=== PATIENT | female | born 1940 | race Hispanic/Latino ===

== ENCOUNTER 2019-03-14 07:41 | Day surgery (SDC) | payer OTHER ==
--- NOTE | 2019-03-13 16:41 | RAD REPORT ---
EXAM DESCRIPTION: Brayden Rivas (2 Views)03/13/2019 4:30 pm CLINICAL HISTORY: Hypertension preop for hand surgery COMPARISON: 2016 FINDINGS: The lungs appear clear of acute infiltrate. The heart is normal size IMPRESSION: No acute abnormalities displayed
[2019-03-13 17:13] LABS: Absolute Lymphocytes (CBC) 2.4 K/uL (0.7-4.9); Absolute Monocytes 0.6 K/uL (0.1-1.3); Absolute Neutrophil 8.1 K/uL (1.8-8.0); Basophils % 1.2 % (0-1.3); Eosinophils % 0.8 % (0-4.4); Hematocrit 36.8 % (36.0-45.0); MPV 8.3 fL (7.6-11.3); Monocytes % 5.5 % (3.3-12.3); RBC Red Blood Cell Count 3.98 M/uL (3.86-4.86)
[2019-03-13 17:14] LABS: Urine Appearance CLEAR; Urine Bilirubin NEGATIVE (NEG); Urine Blood NEGATIVE (NEG); Urine Color YELLOW; Urine Glucose NEGATIVE (NEG); Urine Protein NEGATIVE (NEG); Urine Specific Gravity 1.015 (1.005-1.030); Urine Urobilinogen 0.2 mg/dL (0.2-1.0); Urine pH 5.5 (5.0-7.0)
[2019-03-13 17:16] LABS: Urine Microscopic Reflex NO UMIC
[2019-03-13 17:27] LABS: Potassium 4.4 mmol/L (3.5-5.1)
--- OUTSIDE RECORDS SUMMARY | 2019-03-14 07:44 | XMS REPORT | Clinical Summary ---
:1940 Author Organization [facility] Address [address] [place] [address] Care Team Providers Name Role Phone Kirk Garrido MD Primary Care Provider Allergies Active Allergy Reactions Severity Noted Date Comments Codeine Hives 04/14/2017 Iodine And Iodide Containing Products Hives 04/14/2017 Pantoprazole 04/14/2017 Medications Medication Sig Dispensed Refills Start Date End Date Status losartan (COZAAR) 50 0 04/15/2017 Active MG tablet metFORMIN XR 0 04/16/2017 Active (GLUCOPHAGE-XR) 500 mg 24 hr tablet predniSONE 0 05/08/2017 Active (DELTASONE) 5 mg tablet gabapentin 0 05/15/2017 Active (NEURONTIN) 600 mg tablet fentaNYL (DURAGESIC) 0 05/04/2017 Active 50 mcg/hr escitalopram 0 05/15/2017 Active (LEXAPRO) 5 MG tablet VOLTAREN 1 % gel 0 04/27/2017 Active ALPRAZolam (XANAX) 0 04/20/2017 Active 0.5 MG tablet traMADol (ULTRAM) 50 0 04/24/2017 Active mg tablet metoprolol tartrate Take 50 mg by 0 Active (LOPRESSOR) 50 mg mouth 2 (two) tablet times a day. levothyroxine Take 100 mcg by 0 Active (SYNTHROID, LEVOXYL) mouth daily. 100 mcg tablet allopurinol Take 100 mg by 0 Active (ZYLOPRIM) 100 MG mouth 2 (two) tablet times a day. fluticasone Apply topically 0 Active (CUTIVATE) 0.005 % 2 (two) times a ointment day. montelukast Take 10 mg by 0 Active (SINGULAIR) 10 mg mouth nightly. tablet teriparatide (FORTEO) Inject 0.08 mL 2.4 mL 11 07/05/2017 07/05/2018 20 mcg/dose - 600 (20 mcg total) mcg/2.4 mL injection under the skin daily. Active Problems Problem Noted Date Other spondylosis with radiculopathy, lumbar region 05/15/2017 Lumbar pseudoarthrosis 05/15/2017 Adjacent segment disease with kyphosis 05/15/2017 Osteoporosis 05/15/2017 Scoliosis 05/15/2017 Family History Relation Name Status Comments Father Mother Social History Tobacco Use Types Packs/Day Years Used Date Never Smoker Smokeless Tobacco: Never Used Alcohol Use Drinks/Week oz/Week Comments No Sex Assigned at Date Recorded Not on file Job Start Date Occupation Industry Not on file Not on file Not on file Travel History Travel Start Travel End No recent travel history available. Last Filed Vital Signs Not on file Plan of Treatment Health Maintenance Due Date Last Done Comments SHINGLES VACCINES (#1) 1992 65+ PNEUMOCOCCAL VACCINE (1 of 2 - PCV13) 2007 PNEUMOCOCCAL POLYSACCHARIDE VACCINE AGE 65 AND OVER 2007 INFLUENZA VACCINE 05/09/2019 Results Not on fileafter 03/13/2018 Insurance Payer Benefit Plan / Subscriber ID Effective Phone Address Type Group Dates MEDICARE MEDICARE PART xxxxxxxxxx 2007-[place], [place] Medicare A AND B nt MUTUAL OF MUTUAL OF xxxxxx-xx 2016-[facility] [employer] [place] nt Advance Directives Patient has advance care planning documents on file. For more information, please contact:[place] [address]
[2019-03-14] MEDS ORDERED: NA CHLORIDE 0.9% 1,000 ML ONE (08:07)
[2019-03-14] MEDS ORDERED: CEFAZOLIN/SWI 1gm 0 GM/0 ML SYR ONE (08:23)
[2019-03-14] MEDS ORDERED: PROPOFOL 200 MG/20 ML VIAL IV ONE (08:52)
[2019-03-14] MEDS ORDERED: ONDANSETRON 4 MG/2 ML VIAL ONE (08:53)
[2019-03-14] MEDS ORDERED: DEXAMETHASONE 4 MG/ML VIAL ONE (08:53)
[2019-03-14] MEDS ORDERED: FENTANYL CITR 100 MCG/2 ML ONE (08:53)
[2019-03-14] MEDS ORDERED: LIDOCAINE 2% MPF 5 ML VIAL ONE (08:53)
[2019-03-14] MEDS ORDERED: MIDAZOLAM HCL 2 MG/2 ML INJ ONE (08:53)
[2019-03-14] MEDS ORDERED: CLINDAMYCIN 900MG/D5W 900 MG/50 ML IVPB IV ONE (08:59)
[2019-03-14] MEDS ORDERED: NS 0.9% VIAL 10 ML ONE (09:06)
[2019-03-14] MEDS ORDERED: BACITRACIN 50000 UNIT VIAL ONE (09:06)
[2019-03-14] MEDS ORDERED: EPHEDRINE SULF 50 MG/ML VIAL ONE (09:31)
[2019-03-14] MEDS ORDERED: BUPIVACAINE 0.5% PF 10 ML VIAL ONE (09:38)
--- NOTE | 2019-03-14 11:12 | EKG ---
Test Date: 2019-03-13 Test Time: 16:08:11 Military Science Instructor: MERYL MEASUREMENT RESULTS: Intervals: Rate: 59 MS: 148 QRSD: 76 QT: 426 QTc: 421 [place]: P: 58 MS: 148 QRS: -22 T: 41 INTERPRETIVE STATEMENTS: Sinus bradycardia Otherwise normal ECG Compared to ECG 10/13/2015 13:28:13 Sinus rhythm no longer present Left-axis deviation no longer present ST (T wave) deviation no longer present Electronically Signed On 03-14-19 11:09:51 CDT by Rolando Woody
[2019-03-14 13:21] VITALS: BP 108/40; O2SAT 97
[2019-03-14 13:24] VITALS: TEMP 98.7
--- NOTE | 2019-03-15 08:37 | OP ---
Surgeon: Raul Harrison MD Video Network Engineer: George. Preoperative Diagnosis: Osteomyelitis of the right middle finger. Postoperative Diagnosis: Osteomyelitis of the right middle finger. Procedures Performed: Debridement of skin, subcutaneous tissue, bone, incision and drainage abscess. Anesthesia: General. Procedure In Detail: After satisfactory induction of general anesthesia, the right hand was prepped with ChloraPrep. Dry sterile drapes were applied in the usual manner. The arm was elevated and exsa nguinated with an Esmarch. Tourniquet was inflated to 250 mmHg. Hand placed on a [place] table. A periosteal elevator was used to remove the nail plate, and at this time yellow creamy pus appeared, b oth radial and ulnar sides of the nail bed. The transverse dissection was made down to bone. The joan ne was soft. A more proximal transverse dissection was made to file bone. This involved approximate ly the proximal third of the nail bed. Dissected proceeded down and then tissue was excised. Cultur es were obtained of the pause, and a curette was used as well as scalpel to remove bone fragments anastasia sing from the osteomyelitis. The wound was jet lavaged, irrigated with saline solution. Tourniquet released. Electrocautery was used for hemostasis. Wound packed with Nu Gauze, 2 inch Herminio. The pa tient tolerated the procedure well and returned to Recovery. JESSIE/DEVEN Voice ID: [id number] Report ID: [id number]
== END 2019-03-14 11:34 | disposition home or self-care (01) ==
LOC: OR 07:41
PROVIDERS: ATTEND Specialist
PROC: 0PBT0ZZ Excision of Right Finger Phalanx, Open Approach (ICD-10-PCS; principal; 2019-03-14 09:00)
DX: M86.641 Other chronic osteomyelitis, right hand (principal); M86.141 Other acute osteomyelitis, right hand; L02.511 Cutaneous abscess of right hand; L03.011 Cellulitis of right finger; I10 Essential (primary) hypertension
CPT/HCPCS: 11044; 93005; 87070; 85025; 80048; 36415; 87205; 88312; 82962 ×2; 88304; 87075; 81003; 71046; J2704; J2250; J3010; J7030; J2405; 88305; J0690

== ENCOUNTER 2019-03-28 07:39 | Day surgery (SDC) | payer OTHER ==
[2019-03-27 14:39] LABS: Urine Appearance CLEAR; Urine Bilirubin NEGATIVE (NEG); Urine Blood NEGATIVE (NEG); Urine Color YELLOW; Urine Glucose NEGATIVE (NEG); Urine Protein NEGATIVE (NEG); Urine Specific Gravity 1.015 (1.005-1.030); Urine Urobilinogen 0.2 mg/dL (0.2-1.0); Urine pH 5.5 (5.0-7.0)
[2019-03-27 14:40] LABS: Urine Microscopic Reflex NO UMIC
[2019-03-27 14:52] LABS: Absolute Lymphocytes (CBC) 1.6 K/uL (0.7-4.9); Basophils % 0.7 % (0-1.3); Eosinophils % 8.6 % (0-4.4); Hematocrit 35.5 % (36.0-45.0); Lymphocytes % 14.7 % (15.3-44.8); MPV 7.8 fL (7.6-11.3); Monocytes % 3.7 % (3.3-12.3); RBC Red Blood Cell Count 3.79 M/uL (3.86-4.86)
--- OUTSIDE RECORDS SUMMARY | 2019-03-28 07:42 | XMS REPORT | Clinical Summary ---
:1940 Author Organization [facility] Address [address] [place] [address] Care Team Providers Name Role Phone Kirk [...] Health Maintenance Due Date Last Done Comments COLONOSCOPY SCREENING 1992 SHINGLES VACCINES (#1) 1992 65+ PNEUMOCOCCAL VACCINE (1 of 2 - PCV13) 2007 INFLUENZA VACCINE 05/09/2019 Results Not on fileafter 03/27/2018 Insurance Payer Benefit Plan / Subscriber ID Effective Phone Address Type Group Dates MEDICARE MEDICARE PART xxxxxxxxxx 2007-[place], [place] Medicare A AND B nt MUTUAL OF MUTUAL OF xxxxxx-xx 2016-[facility] [place] Advance Directives Patient has advance care planning documents on file. For more information, please contact:[place] [address]
[2019-03-28] MEDS ORDERED: CEFAZOLIN/SWI 1gm 1 GM/10 ML SYR ONE (08:10)
[2019-03-28] MEDS ORDERED: NA CHLORIDE 0.9% 1,000 ML ONE (08:10)
[2019-03-28] MEDS ORDERED: ROCURONIUM 50 MG/5 ML VIAL IV ONE (08:21)
[2019-03-28] MEDS ORDERED: LIDOCAINE 2% MPF 5 ML VIAL ONE (08:21)
[2019-03-28] MEDS ORDERED: FENTANYL CITR 100 MCG/2 ML ONE (08:21)
[2019-03-28] MEDS ORDERED: ONDANSETRON 4 MG/2 ML VIAL ONE (08:21)
[2019-03-28] MEDS ORDERED: PROPOFOL 200 MG/20 ML VIAL IV ONE (08:21)
[2019-03-28] MEDS ORDERED: MIDAZOLAM HCL 2 MG/2 ML INJ ONE (08:21)
[2019-03-28] MEDS ORDERED: EPHEDRINE SULF 50 MG/ML VIAL ONE (09:21)
[2019-03-28] MEDS ORDERED: NS 0.9% VIAL 10 ML ONE (09:35)
[2019-03-28] MEDS ORDERED: BACITRACIN 50000 UNIT VIAL ONE (09:36)
[2019-03-28] MEDS ORDERED: BUPIVACAINE 0.5% PF 10 ML VIAL ONE (09:43)
[2019-03-28] MEDS: MEPERIDINE HCL 50 MG/ML AMP ONE ×4 (09:55→10:10)
[2019-03-28] MEDS: HYDROMORPHONE HCL 1 MG/ML INJ ONE ×2 (10:15→10:20)
[2019-03-28 11:14] VITALS: BP 95/33; TEMP 98.1; O2SAT 94
--- NOTE | 2019-03-29 08:00 | OP ---
Surgeon: Raul Harrison MD Typing Secretary: George. Preoperative Diagnosis: Osteomyelitis, right little middle finger, distal phalanx. Postoperative Diagnosis: Osteomyelitis, right little middle finger, distal phalanx. Procedure: Amputation of right little finger at the distal portion of the middle phalanx with flap closure. Anesthesia: General. Procedure In Detail: After satisfactory induction of general anesthesia, the right hand was prepped with phisohex. Dry sterile drapes were applied in the usual manner. The arm was elevated, exsanguinated with an Esmarch. Tourniquet inflated to 250 mmHg. Hand placed on [place] table. A transverse incision was made with a scalpel at the DIP level, and then the volar dissection was performed. The finger was at the joint. The flexor tendon was grasped with a hemostat, put on traction and cut and allowed to retract. The wound was then irrigated with bacitracin, normal saline mixture. Tourniquet released. Electrocautery was used for hemostasis. Flaps were advanced and closed with 4-0 Prolene simple sutures, or vertical mattress, dressed with Xeroform, 2 inch Herminio. The patient tolerated the procedure well and returned to Recovery. JSESIE/DEVEN Voice ID: [id number] Report ID: [id number] BRIDGETTE
== END 2019-03-28 11:42 | disposition home or self-care (01) ==
LOC: OR 07:39
PROVIDERS: ATTEND Specialist
PROC: 0X6N0Z2 Detachment at Right Index Finger, Mid, Open Approach (ICD-10-PCS; principal; 2019-03-28 09:00)
DX: E11.69 Type 2 diabetes mellitus with other specified complication (principal); M86.141 Other acute osteomyelitis, right hand; L02.511 Cutaneous abscess of right hand; L03.011 Cellulitis of right finger; I10 Essential (primary) hypertension
CPT/HCPCS: 26952; 85025; 80048; 36415; 82962 ×2; 88304; 88311; 81003; J2704; J2250; J3010; J2175; J1170; J0690; J7030; J2405

== ENCOUNTER 2019-07-22 10:56 | Emergency (ER) | payer OTHER ==
[2019-07-22] MEDS ORDERED: DERMABOND SKIN ADHESIVE TOP ONE (11:51)
--- NOTE | 2019-07-22 12:30 | RAD REPORT ---
EXAM DESCRIPTION: CT - CTHCSPWOC - 07/22/2019 12:18 pm CLINICAL HISTORY: Trauma, head and neck injury. trauma, fall left zygoma ttp COMPARISON: CT HEAD CSPINE MPR WO CONTRAST dated 08/07/2015; CT HEAD CSPINE MPR WO CONTRAST dated TECHNIQUE: Axial 5 mm thick images of the head were obtained. Axial 2 mm thick images of the cervical spine were obtained with sagittal and coronal reconstruction images generated and reviewed. All CT scans are performed using dose optimization technique as appropriate and may include automated exposure control or mA/KV adjustment according to patient size. FINDINGS: CT HEAD WITHOUT CONTRAST: No acute hemorrhage, hydrocephalus or extra-axial collection is identified.Moderate brain atrophy.No areas of brain edema or midline shift. The paranasal sinuses and mastoids are clear.The calvarium is intact. CT CERVICAL SPINE WITHOUT CONTRAST: No fracture or subluxation.Mild cervical degenerative changes.No prevertebral soft tissues swelling i s identified. IMPRESSION: No acute intracranial or cervical spine findings.
--- NOTE | 2019-07-22 12:32 | RAD REPORT ---
EXAM DESCRIPTION: CT - CTFB CLINICAL HISTORY: PAIN Fall, trauma, facial pain and swelling. COMPARISON: No comparisons TECHNIQUE: Axial 2 mm thick images of the face were obtained with sagittal and coronal reconstructio n images. All CT scans are performed using dose optimization technique as appropriate and may include automated exposure control or mA/KV adjustment according to patient size. FINDINGS: No acute facial bone fracture is seen.Mild soft tissue swelling is seen along the left zyg andi.The mandible is intact. The globes and orbital contents are grossly unremarkable.The paranasal sinuses and mastoids are clear . IMPRESSION: Negative for facial bone fracture.
--- NOTE | 2019-07-22 13:46 | EDPHYS ---
Physician Documentation [facility] Name: Corrie Nunez Age: 79 yrs Sex: Female : 1940 Arrival Date: 07/22/2019 Time: 10:58 Bed 13 Private MD: Christofer Santa ED Physician Miguelina Omer HPI: 07/22 12:08 This 79 yrs old Female presents to ER via Wheelchair with complaints of Fall ma2 Injury. 12:08 Details of fall: The patient fell from an upright position. Onset: The symptoms/episode ma2 began/occurred suddenly, 1 hour(s) ago. Severity of symptoms: At their worst the symptoms were mild, in the emergency department the symptoms are unchanged. The patient has experienced similar episodes in the past. tripped, and fell hit chin and upper lip, has abrasion of lip, and chin, no loc vomiting no other symptoms . Historical: - Allergies: 11:14 Iodine; bp 11:14 Morphine; bp - PMHx: 11:14 Lupus; PSORIATIC ARTHRITIS; bp - Immunization history:: Adult Immunizations up to date. - Social history:: Smoking status: Patient/guardian denies using tobacco, Patient uses Patient/guardian denies using alcohol, street drugs, The patient lives with family. - Ebola Screening: : No symptoms or risks identified at this time. - Family history:: not pertinent. ROS: 12:08 Constitutional: Negative for fever, chills, and weight loss. ma2 12:08 All other systems are negative. Exam: 12:08 Constitutional: This is a well developed, well nourished patient who is awake, alert, ma2 and in no acute distress. Head/Face: Normocephalic, atraumatic. Eyes: Pupils equal round and reactive to light, extra-ocular motions intact. Lids and lashes normal. Conjunctiva and sclera are non-icteric and not injected. Cornea within normal limits. Periorbital areas with no swelling, redness, or edema. ENT: laceration to upper lip, not thrugh and through, has abrasion to chin as well. otherwise Nares patent. No nasal discharge, no septal abnormalities noted. Tympanic membranes are normal and external auditory canals are clear. Oropharynx with no redness, swelling, or masses, exudates, or evidence of obstruction, uvula midline. Mucous membranes moist. Neck: Trachea midline, no thyromegaly or masses palpated, and no cervical lymphadenopathy. Supple, full range of motion without nuchal rigidity, or vertebral point tenderness. No Meningismus. Chest/axilla: Normal chest wall appearance and motion. Nontender with no deformity. No lesions are appreciated. Cardiovascular: Regular rate and rhythm with a normal S1 and S2. No gallops, murmurs, or rubs. Normal PMI, no JVD. No pulse deficits. Respiratory: Lungs have equal breath sounds bilaterally, clear to auscultation and percussion. No rales, rhonchi or wheezes noted. No increased work of breathing, no retractions or nasal flaring. Abdomen/GI: Soft, non-tender, with normal bowel sounds. No distension or tympany. No guarding or rebound. No evidence of tenderness throughout. Female : Normal external genitalia. Skin: Warm, dry with normal turgor. Normal color with no rashes, no lesions, and no evidence of cellulitis. MS/ Extremity: Pulses equal, no cyanosis. Neurovascular intact. Full, normal range of motion. Vital Signs: 11:14 BP 124 / 66; Pulse 52; Resp 16; Temp 97.8; Pulse Ox 96% ; Weight 70.31 kg; bp 12:32 BP 107 / 52; Pulse 53; Pulse Ox 96% on R/A; sv 13:40 BP 110 / 45; Pulse 56; Resp 16; Pulse Ox 96% ; sv Laceration: 12:08 Wound Repair of 2cm ( 0.8in ) subcutaneous laceration to mouth and neck. Linear ma2 shaped.. Distal neuro/vascular/tendon intact. Wound prep: Simple cleansing, Moderate cleansing with betadine by me. Skin closed with 2 1-0 Adhesive skin closure using Dermabond. Dressed with Bacitracin. Patient tolerated well. MDM: 11:16 Patient medically screened. ma2 12:08 Differential diagnosis: abrasion, closed head injury, contusion, fracture. ma2 13:20 Data reviewed: vital signs, nurses notes. Counseling: I had a detailed discussion with ma2 the patient and/or guardian regarding: the historical points, exam findings, and any diagnostic results supporting the discharge/admit diagnosis, the presence of at least one elevated blood pressure reading (>120/80) during this emergency department visit, the need for outpatient follow up. 07/22 12:02 Order name: CT Head C Spine; Complete Time: 13:04 ma2 07/22 12:02 Order name: EKG - Nurse/Tech; Complete Time: 12:39 ma2 07/22 12:06 Order name: Facial Bones W/ Mpr; Complete Time: 13:04 EDMS 07/22 12:13 Order name: EKG; Complete Time: 12:13 sv Administered Medications: No medications were administered Disposition: 07/22/19 13:45 Discharged to Home. Impression: Laceration without foreign body of other part of head. - Condition is Stable. - Discharge Instructions: Laceration Care, Adult. - Medication Reconciliation Form, Thank You Letter, Antibiotic Education, Prescription Opioid Use form. - Follow up: Private Physician; When: Tomorrow; Reason: Continuance of care. Signatures: Dispatcher [employer] [facility] Etta Farmer RN RN sv Peltier, Brian, RN RN bp Alzahri, Mohammad, MD MD ma2 Corrections: (The following items were deleted from the chart) 12:06 12:02 Maxillofacial W/Wo+CT.RAD.BRZ ordered. [facility] 14:06 13:45 07/22/2019 13:45 Discharged to Home. Impression: Laceration without foreign body sv of other part of head. Condition is Stable. Forms are Medication Reconciliation Form, Thank You Letter, Antibiotic Education, Prescription Opioid Use. Follow up: Private Physician; When: Tomorrow; Reason: Continuance of care. ma2
--- NOTE | 2019-07-22 13:46 | ER ---
Nurse's Notes [facility] Name: Corrie Nunez Age: 79 yrs Sex: Female : 1940 Arrival Date: 07/22/2019 Time: 10:58 Bed 13 Private MD: Christofer Santa Diagnosis: Laceration without foreign body of other part of head Presentation: 07/22 11:12 Presenting complaint: Patient states: FALL FROM STANDING \R\0900. Care prior to arrival: bp None. Mechanism of Injury: Fall from standing position. Trauma event details: Injury occurred in the [facility], Injury occurred: at home. Injury occurred: July 22, 2019 Injury occurred at: 09:00. 11:12 Acuity: STEPHANIE 3 bp 11:12 Method Of Arrival: Wheelchair bp 11:13 Transition of care: patient was not received from another setting of care. Onset of bp symptoms was July 22, 2019 at 09:00. Risk Assessment: Do you want to hurt yourself or someone else? Patient reports no desire to harm self or others. Initial Sepsis Screen: Does the patient meet any 2 criteria? No. Patient's initial sepsis screen is negative. Does the patient have a suspected source of infection? No. Patient's initial sepsis screen is negative. Trauma Activation: Not Applicable Physician: ED Physician; Name: ; Notified At: ; Arrived At: Physician: General Surgeon; Name: ; Notified At: ; Arrived At: Physician: Radiology; Name: ; Notified At: ; Arrived At: Physician: Respiratory; Name: ; Notified At: ; Arrived At: Physician: Lab; Name: ; Notified At: ; Arrived At: Historical: - Allergies: 11:14 Iodine; bp 11:14 Morphine; bp - PMHx: 11:14 Lupus; PSORIATIC ARTHRITIS; bp - Immunization history:: Adult Immunizations up to date. - Social history:: Smoking status: Patient/guardian denies using tobacco, Patient uses Patient/guardian denies using alcohol, street drugs, The patient lives with family. - Ebola Screening: : No symptoms or risks identified at this time. - Family history:: not pertinent. Screenin:21 Abuse screen: Denies threats or abuse. Denies injuries from another. Nutritional sv screening: No deficits noted. Tuberculosis screening: No symptoms or risk factors identified. Fall Risk None identified. Assessment: 11:20 General: Appears in no apparent distress. comfortable, well developed, Behavior is sv calm, cooperative, appropriate for age. Pain: Complains of pain in left side of forehead and mouth. Neuro: Level of Consciousness is awake, alert, obeys commands, Oriented to person, place, time, situation, Moves all extremities. Full function Denies LOC. Respiratory: Respiratory effort is even, unlabored, Respiratory pattern is regular, symmetrical. Derm: Skin is pink, warm \T\ dry. Injury Description: Abrasion sustained to mouth. 12:50 Reassessment: Patient appears in no apparent distress at this time. Patient and/or sv family updated on plan of care and expected duration. Pain level reassessed. Patient is alert, oriented x 3, equal unlabored respirations, skin warm/dry/pink. 14:04 Reassessment: Patient appears in no apparent distress at this time. Patient and/or sv family updated on plan of care and expected duration. Pain level reassessed. Patient is alert, oriented x 3, equal unlabored respirations, skin warm/dry/pink. Vital Signs: 11:14 BP 124 / 66; Pulse 52; Resp 16; Temp 97.8; Pulse Ox 96% ; Weight 70.31 kg; bp 12:32 BP 107 / 52; Pulse 53; Pulse Ox 96% on R/A; sv 13:40 BP 110 / 45; Pulse 56; Resp 16; Pulse Ox 96% ; sv ED Course: 10:58 Patient arrived in ED. ag5 10:59 Christofer Santa MD is Private Physician. ag5 11:13 Triage completed. bp 11:14 Arm band placed on. bp 11:16 Miguelina Omer MD is Attending Physician. ma2 11:16 Etta Farmer, PEYTON is Primary Nurse. sv 11:17 Patient has correct armband on for positive identification. Bed in low position. sv 11:21 Awaiting ED provider evaluation. sv 11:21 Pulse ox on. NIBP on. Door closed. Head of bed elevated. sv 12:20 CT Head C Spine In Process Unspecified. EDMS 12:20 Facial Bones W/ Mpr In Process Unspecified. EDMS 13:00 EKG done, by outdoor emergency care technician. reviewed by Miguelina Omer MD. at1 13:40 Assist provider with laceration repair on chin that was 2.5 cm. or less using sv Dermabond. Set up tray. Performed by Miguelina Omer MD Patient tolerated well. 14:05 Patient did not have IV access during this emergency room visit. sv Administered Medications: No medications were administered Outcome: 13:45 Discharge ordered by . tristan 14:05 Discharged to home via wheelchair, with family. sv 14:05 Condition: stable 14:05 Condition: improved 14:05 Discharge instructions given to patient, family, Instructed on discharge instructions, follow up and referral plans. wound care, Demonstrated understanding of instructions, follow-up care, wound care. 14:06 Patient left the ED. sv Signatures: Dispatcher [employer] EDEtta Dsouza RN RN Phylicia Wang, armature varnisher EKG Tat1 Christofer Tompkins RN RN bp Alzahri, Mohammad, MD MD ma2 Que Martini ag5
[2019-07-22 14:10] VITALS: TEMP 97.8; O2SAT 96
[2019-07-22 14:13] VITALS: BP 110/45
--- NOTE | 2019-07-22 15:51 | EKG ---
Test Date: 2019-07-22 Test Time: 12:32:35 Metal Polisher: LIDA MEASUREMENT RESULTS: Intervals: Rate: 53 MI: 152 QRSD: 72 QT: 408 QTc: 382 [place]: P: 60 MI: 152 QRS: -18 T: 36 INTERPRETIVE STATEMENTS: Sinus bradycardia Cannot rule out Anterior infarct, age undetermined Abnormal ECG Compared to ECG 03/13/2019 16:08:11 Myocardial infarct finding now present Electronically Signed On 07-22-19 15:50:10 CDT by Adams Almeida
== END 2019-07-22 14:06 | disposition home or self-care (01) ==
LOC: ER 10:56
PROC: 0CQ0XZZ Repair Upper Lip, External Approach (ICD-10-PCS; principal; 2019-07-22)
DX: S01.511A Laceration without foreign body of lip, initial encounter (principal); W01.10XA Fall on same level from slipping, tripping and stumbling with subsequent striking against unspecified object, initial encounter; Y93.9 Activity, unspecified; Y92.9 Unspecified place or not applicable; Z88.5 Allergy status to narcotic agent; Z91.048 Other nonmedicinal substance allergy status
CPT/HCPCS: 70450; 70486; 72125; 76377; 93005; 99284

== ENCOUNTER 2019-10-04 20:30 | Inpatient (IN) | payer OTHER ==
[2019-10-04] MEDS ORDERED: ACETAMINOPHEN 650MG/RECT SUPP PR ONE (20:37)
[2019-10-04] MEDS ORDERED: NA CHLORIDE 0.9% 1,000 ML ONE ×2 (20:39→22:20)
[2019-10-04] MEDS ORDERED: PIPER/TAZO/NS 3.375gm 3.375 GM/100 ML BAG ONE (20:39)
[2019-10-04 20:51] LABS: Absolute Lymphocytes (CBC) 1.2 K/uL (0.7-4.9); Hematocrit 35.7 % (36.0-45.0); Lymphocytes % 13.6 % (15.3-44.8); MPV 7.6 fL (7.6-11.3); RBC Red Blood Cell Count 3.86 M/uL (3.86-4.86)
[2019-10-04 20:54] LABS: Protime INR 1.03
[2019-10-04 21:01] LABS: Blood Gas Oxyhemoglobin 90.6 % (94-97); Blood O2 Saturation 91.1 % (92-98.5)
[2019-10-04 21:07] LABS: Urine Blood NEGATIVE (NEG); Urine Glucose NEGATIVE (NEG); Urine Protein NEGATIVE (NEG); Urine Specific Gravity 1.025 (1.005-1.030)
[2019-10-04 21:10] LABS: ALT/SGPT 21 U/L (12-78); AST/SGOT 20 U/L (15-37); Albumin 3.3 g/dL (3.4-5.0); Alkaline Phosphatase 83 U/L (45-117); BUN Blood Urea Nitrogen 18 mg/dL (7-18); Bicarbonate 26 mmol/L (21-32); Bilirubin Direct 0.1 mg/dL (0-0.2); Bilirubin Total 0.3 mg/dL (0.2-1.0); CKMB Creatine Kinase MB < 1.0 ng/mL (0.3-3.6); Creatine Phosphokinase 62 U/L (26-192); Glucose Level 116 mg/dL (74-106); Lipase 206 U/L (73-393); Potassium 3.4 mmol/L (3.5-5.1); Sodium Level 139 mmol/L (136-145); Troponin (Emerg Dept Use Only) < 0.02 ng/mL (0.0-0.045)
[2019-10-04 21:33] LABS: Urine Bacteria NONE SEEN /HPF (<20); Urine Culture Reflex Order NOT NEEDED; Urine RBC NONE SEEN /HPF (NONE SEEN)
[2019-10-04] MEDS ORDERED: IBUPROFEN 400 MG TAB ONE (22:12)
[2019-10-04] MEDS ORDERED: NA CHLORIDE 0.9% 500 ML ONE (22:21)
[2019-10-04] MEDS ORDERED: OSELTAMIVIR 75 MG CAP ONE (22:55)
--- NOTE | 2019-10-04 22:56 | ER ---
Nurse's Notes [facility] Name: Corrie Nunez Age: 79 yrs Sex: Female : 1940 Arrival Date: 10/04/2019 Time: 20:35 Bed 2 Private MD: Diagnosis: Fever, unspecified;Altered mental status, unspecified Presentation: 10/04 20:35 Presenting complaint: EMS states: they were toned out for report of pt with altered bb mental status family stated pt started feeling bad yesterday then this evening she went to lie down and when they checked on her she was altered. Transition of care: patient was not received from another setting of care. Onset of symptoms was October 03, 2019. Risk Assessment: Do you want to hurt yourself or someone else? Unable to obtain. Initial Sepsis Screen: Does the patient meet any 2 criteria? Temp <36.0*C (96.8*F)) or > 38.3*C (100.9*F). Altered Mental Status. Yes Does the patient have a suspected source of infection? Yes: Productive cough/pneumonia If YES to both, name of provider notified: Chayo LYNCH-[facility] Care prior to arrival: None. 20:35 Method Of Arrival: EMS: [facility] bb 20:35 Acuity: STEPHANIE 1 bb Historical: - Allergies: 21:01 Iodine; bb 21:01 Morphine; bb - Home Meds: 21:01 losartan 50 mg oral tab 1 tab once daily [Active]; metoprolol tartrate 50 mg Oral tab bb once daily [Active]; levothyroxine 100 mcg tab 1 tab once daily [Active]; metformin 500 mg Oral tr24 1 tab twice a day [Active]; Allopurinol Oral [Active]; prednisone 5 mg Oral tab once daily [Active]; Neurontin 600 mg Oral tab 1 tab four times a day [Active]; fentanyl 75 mcg/hr Topical pt72 1 patch every 48 hours [Active]; fluticasone topical topical [Active]; Triamcinolone Acetonide Topical 2 times per day [Active]; vit D3 [Active]; Fesoy [Active]; Voltaren skin gel [Active]; tramadol 50 mg Oral tab [Active]; montelukast 10 mg oral tab 1 tab once daily [Active]; Restasis 0.05 % ophthalmic dpet [Active]; Forteo 20 mcg/dose - 600 mcg/2.4 mL subcutaneous pnij 0.08 mL once daily [Active]; - PMHx: 21:01 Lupus; Psoriatic Arthritis; bb - PSHx: 21:01 Cholecystectomy; Hysterectomy; cataract; back surgery; bladder lift; blepharoplasty; bb - Immunization history:: Adult Immunizations unknown. - Social history:: Smoking status: unknown. - Ebola Screening: : No symptoms or risks identified at this time. Screenin:44 Abuse screen: Denies threats or abuse. Nutritional screening: No deficits noted. jd3 Tuberculosis screening: No symptoms or risk factors identified. Fall Risk IV access (20 points). Ambulatory Aid- None/Bed Rest/Nurse Assist (0 pts). Gait- Normal/Bed Rest/Wheelchair (0 pts) Mental Status- Overestimates/Forgets Limitations (15 pts.). Total Medina Fall Scale indicates Low Risk Score (25-44 pts). Fall prevention measures have been instituted. Side Rails Up X 2 Placed close to Nursing Station Frequent Obs/Assesments occuring Family Present and informed to notify staff if they need to leave bedside. Assessment: 20:55 General: Appears in no apparent distress. ill, Behavior is calm, inappropriate for age. jd3 Pain: Unable to use pain scale. Does not appear to understand pain scale. FLACC scale score is 0 out of 10. Neuro: Level of Consciousness is awake, confused, Oriented to none. Cardiovascular: Heart tones S1 S2 present Capillary refill < 3 seconds Patient's skin is warm and dry. Rhythm is regular. Respiratory: Airway is patent Respiratory effort is shallow, Respiratory pattern is symmetrical, tachypnea Breath sounds with crackles bilaterally. Parent/caregiver reports the patient having cough that is productive, persistent. GI: Abdomen is round Bowel sounds present X 4 quads. Abd is soft and non tender X 4 quads. : No signs and/or symptoms were reported regarding the genitourinary system. EENT: No signs and/or symptoms were reported regarding the EENT system. Derm: Skin is intact, Skin is diaphoretic, Skin is normal, Skin temperature is hot. Musculoskeletal: No signs and/or symptoms reported regarding the musculoskeletal system. 21:46 Reassessment: Patient appears in no apparent distress at this time. No changes from jd3 previously documented assessment. Patient and/or family updated on plan of care and expected duration. Pain level reassessed. family at bedside. 22:14 Reassessment: Patient appears in no apparent distress at this time. Patient and/or jd3 family updated on plan of care and expected duration. Pain level reassessed. Patient is alert, oriented x 3, equal unlabored respirations, skin warm/dry/pink. pt tolerated PO fluids well. no choking or coughing. pt talking with family at bedside. Patient states feeling better. General: Appears in no apparent distress. comfortable, Behavior is calm, cooperative, appropriate for age. Neuro: Level of Consciousness is awake, obeys commands, Oriented to person, place, time, situation. Respiratory: Reports cough that is Airway is patent Respiratory effort is unlabored, shallow, Respiratory pattern is regular, symmetrical, Breath sounds with crackles bilaterally. 23:03 Reassessment: Patient appears in no apparent distress at this time. Patient and/or jd3 family updated on plan of care and expected duration. Pain level reassessed. pt A\T\O X 4, with tachypneic and unlabored respirations. denies pain at this time. hospitalist at bedside discussing plan of care. 23:42 Reassessment: Patient appears in no apparent distress at this time. Patient and/or jd3 family updated on plan of care and expected duration. Pain level reassessed. Patient is alert, oriented x 3, equal unlabored respirations, skin warm/dry/pink. Patient states feeling better. 10/05 00:41 Reassessment: Patient appears in no apparent distress at this time. Patient and/or jd3 family updated on plan of care and expected duration. Pain level reassessed. Patient is alert, oriented x 3, equal unlabored respirations, skin warm/dry/pink. pt reported understanding of need for admission. Vital Signs: 10/04 20:45 BP 172 / 86 LA Supine (auto/reg); Pulse 100 MON; Temp 104.4(O); Pulse Ox 98% on 4 lpm mb4 NC; 21:01 Weight 80 kg (R); bb 21:45 BP 123 / 56; Pulse 99; Resp 22 S; Temp 103.9(C); Pulse Ox 98% on 4 lpm NC; jd3 22:15 BP 130 / 53; Pulse 91; Resp 20 S; Temp 103.0(C); Pulse Ox 97% on 4 lpm NC; jd3 22:58 BP 104 / 54; Pulse 90; Resp 22 S; Temp 102.2(C); Pulse Ox 95% on 2 lpm NC; jd3 23:42 BP 116 / 47; Pulse 89; Resp 20 S; Temp 100.0(C); Pulse Ox 100% on R/A; jd3 10/05 00:40 BP 101 / 54; Pulse 88; Resp 20 S; Temp 100.0(C); Pulse Ox 100% on R/A; jd3 ED Course: 10/04 20:35 Patient arrived in ED. la1 20:35 [facility] snw 20:35 Kris Valverde MD is Attending Physician. snw 20:45 Inserted saline lock: 20 gauge in left forearm, using aseptic technique. mb4 20:47 Patient has correct armband on for positive identification. Placed in gown. Bed in low mb4 position. raw sampler on. Pulse ox on. NIBP on. 20:52 Triage completed. bb 20:55 Samuel Villalpando, RN is Primary Nurse. jd3 21:02 Arm band placed on Patient placed in an exam room, on a stretcher, on oxygen, on bb pie baker, on pulse oximetry. EKG completed in triage. Results shown to MD. 21:12 Chest Single View XRAY In Process Unspecified. EDMS 21:22 CT Head Brain wo Cont In Process Unspecified. EDMS 22:54 Rigo Polanco MD is Hospitalizing Provider. snw 10/05 00:39 No provider procedures requiring assistance completed. Patient admitted, IV remains in jd3 place. Administered Medications: 10/04 20:40 Drug: Acetaminophen Suppository 650 mg Route: WI; bb 21:40 Follow up: Response: No adverse reaction; Temperature is decreased jd3 20:45 Drug: NS 0.9% (30 ml/kg) 30 ml/kg Route: IV; Rate: bolus; Site: right forearm; bb 10/05 00:42 Follow up: Response: No adverse reaction; IV Status: Completed infusion jd3 10/04 20:50 Drug: Zosyn 3.375 grams Route: IVPB; Infused Over: 60 mins; Site: right forearm; bb 21:50 Follow up: Response: No adverse reaction; IV Status: Completed infusion jd3 22:14 Drug: Motrin 400 mg Route: PO; jd3 23:10 Follow up: Response: No adverse reaction jd3 22:57 CANCELLED (Duplicate Order): Tamiflu 75 mg PO once jd3 22:57 Drug: Tamiflu 75 mg Route: PO; jd3 23:55 Follow up: Response: No adverse reaction jd3 Outcome: 22:55 Decision to Hospitalize by Provider. snw 10/05 00:40 Admitted to Med/surg accompanied by tech, via stretcher, room 217, with oxygen, with jd3 chart, Report called to Lesley TODD Condition: stable Instructed on the need for admit, Demonstrated understanding of instructions. 00:59 Patient left the ED. jd3 Signatures: Dispatcher [employer] EDMS Chayo Lucio, ADITHYAC SYED-Csnw Alberta Talbot RN RN bb Attema, Lee, FNP-C FNP-Cla1 Samuel Villalpando RN RN jOneyda Chawla4 Corrections: (The following items were deleted from the chart) 10/04 21:38 21:37 Samuel Villalpando RN is Primary Nurse. jd3 jd3 22:16 21:45 BP 123 / 56; Pulse 99bpm; Resp 22bpm; Spontaneous; Pulse Ox 98% 4 lpm Nasal jd3 Cannula; Temp 103.9F Oral; jd3 22:17 22:14 Reassessment: Patient appears in no apparent distress at this time. Patient jd3 and/or family updated on plan of care and expected duration. Pain level reassessed. Patient is alert, oriented x 3, equal unlabored respirations, skin warm/dry/pink. Patient states feeling better. jd3 10/05 00:43 00:40 BP 101 / 44; Pulse 88bpm; Resp 20bpm; Spontaneous; Pulse Ox 100% RA; Temp 100.0F jd3 Catheter; jd3
--- NOTE | 2019-10-04 22:57 | EDPHYS ---
Physician Documentation [facility] Name: Corrie Nunez Age: 79 yrs Sex: Female : 1940 Arrival Date: 10/04/2019 Time: 20:35 Bed 2 Private MD: ED Physician Kris Valverde HPI: 10/04 20:48 This 79 yrs old Female presents to ER via Unassigned with complaints of ams, snw fever. 20:48 The patient reports fever, that was measured at 104.4 degrees Fahrenheit. Onset: The snw symptoms/episode began/occurred suddenly. Associated signs and symptoms: Pertinent positives: altered mental status,\E\. Severity of symptoms: At their worst the symptoms were incapacitating in the emergency department the symptoms are unchanged. It is unknown whether or not the patient has had similar symptoms in the past. It is unknown whether or not the patient has recently seen a physician. hx of CVA. Historical: - Allergies: 21:01 Iodine; bb 21:01 Morphine; bb - Home Meds: 21:01 losartan 50 mg oral tab 1 tab once daily [Active]; metoprolol tartrate 50 mg Oral tab bb once daily [Active]; levothyroxine 100 mcg tab 1 tab once daily [Active]; metformin 500 mg Oral tr24 1 tab twice a day [Active]; Allopurinol Oral [Active]; prednisone 5 mg Oral tab once daily [Active]; Neurontin 600 mg Oral tab 1 tab four times a day [Active]; fentanyl 75 mcg/hr Topical pt72 1 patch every 48 hours [Active]; fluticasone topical topical [Active]; Triamcinolone Acetonide Topical 2 times per day [Active]; vit D3 [Active]; Fesoy [Active]; Voltaren skin gel [Active]; tramadol 50 mg Oral tab [Active]; montelukast 10 mg oral tab 1 tab once daily [Active]; Restasis 0.05 % ophthalmic dpet [Active]; Forteo 20 mcg/dose - 600 mcg/2.4 mL subcutaneous pnij 0.08 mL once daily [Active]; - PMHx: 21:01 Lupus; Psoriatic Arthritis; bb - PSHx: 21:01 Cholecystectomy; Hysterectomy; cataract; back surgery; bladder lift; blepharoplasty; bb - Immunization history:: Adult Immunizations unknown. - Social history:: Smoking status: unknown. - Ebola Screening: : No symptoms or risks identified at this time. ROS: 20:49 Eyes: Negative for injury, pain, redness, and discharge, ENT: Negative for injury, snw pain, and discharge, Neck: Negative for injury, pain, and swelling, Cardiovascular: Negative for chest pain, palpitations, and edema, Respiratory: Negative for shortness of breath, cough, wheezing, and pleuritic chest pain, Abdomen/GI: Negative for abdominal pain, nausea, vomiting, diarrhea, and constipation, Back: Negative for injury and pain, : Negative for injury, bleeding, discharge, and swelling. 20:49 Skin: Negative for injury, rash, and discoloration. 20:49 Constitutional: Positive for fever, malaise, poor PO intake. 20:49 MS/extremity: Positive for usually able to ambulate with walker, unable to stand prior to arrival, AMS. 20:49 Neuro: Positive for altered mental status. Exam: 20:50 Head/Face: Normocephalic, atraumatic. Eyes: Pupils equal round and reactive to light, snw extra-ocular motions intact. Lids and lashes normal. Conjunctiva and sclera are non-icteric and not injected. Cornea within normal limits. Periorbital areas with no swelling, redness, or edema. ENT: Nares patent. No nasal discharge, no septal abnormalities noted. Tympanic membranes are normal and external auditory canals are clear. Oropharynx with no redness, swelling, or masses, exudates, or evidence of obstruction, uvula midline. Mucous membranes moist. Neck: Trachea midline, no thyromegaly or masses palpated, and no cervical lymphadenopathy. Supple, full range of motion without nuchal rigidity, or vertebral point tenderness. No Meningismus. Chest/axilla: Normal chest wall appearance and motion. Nontender with no deformity. No lesions are appreciated. Cardiovascular: Regular rate and rhythm with a normal S1 and S2. No gallops, murmurs, or rubs. Normal PMI, no JVD. No pulse deficits. 20:50 Abdomen/GI: Soft, non-tender, with normal bowel sounds. No distension or tympany. No guarding or rebound. No evidence of tenderness throughout. Back: No spinal tenderness. No costovertebral tenderness. Full range of motion. Skin: Warm, dry with normal turgor. Normal color with no rashes, no lesions, and no evidence of cellulitis. MS/ Extremity: Pulses equal, no cyanosis. Neurovascular intact. Full, normal range of motion. 20:50 Constitutional: The patient appears febrile, frail, obviously ill, restless. 20:50 Respiratory: mild respiratory distress is noted, Respirations: shallow respirations, tachypnea, Breath sounds: decreased breath sounds, rhonchi. 20:50 Neuro: Orientation: unable to test, AMS, fever. Vital Signs: 20:45 BP 172 / 86 LA Supine (auto/reg); Pulse 100 MON; Temp 104.4(O); Pulse Ox 98% on 4 lpm mb4 NC; 21:01 Weight 80 kg (R); bb 21:45 BP 123 / 56; Pulse 99; Resp 22 S; Temp 103.9(C); Pulse Ox 98% on 4 lpm NC; jd3 22:15 BP 130 / 53; Pulse 91; Resp 20 S; Temp 103.0(C); Pulse Ox 97% on 4 lpm NC; jd3 22:58 BP 104 / 54; Pulse 90; Resp 22 S; Temp 102.2(C); Pulse Ox 95% on 2 lpm NC; jd3 23:42 BP 116 / 47; Pulse 89; Resp 20 S; Temp 100.0(C); Pulse Ox 100% on R/A; jd3 10/05 00:40 BP 101 / 54; Pulse 88; Resp 20 S; Temp 100.0(C); Pulse Ox 100% on R/A; jd3 MDM: 10/04 20:45 Patient medically screened. snw 22:51 Data reviewed: vital signs, nurses notes. Data interpreted: Pulse oximetry: on 4L(s) snw per nasal canula, is 99 %. Interpretation: acceptable. Sepsis 6 hour Focused Exam: Focused Assessment performed: October 04, 2019 at 22:52 Heart: Regular rate/rhythm noted. Tachycardia noted. Lungs: improved oxygenation, continues on 4L via n/c, SpO2 97-100%, no cough, or increased work of breathing Capillary refill examination performed. Capillary refill noted to be < 2 seconds. Peripheral pulse evaluation performed. Peripheral pulses noted to be 3+ normal. Skin examination performed. Skin noted to have normal turgor. Current vital signs reviewed: Yes. Neuro: Neurological examination improved from previous exam. Cardio: Cardiovascular examination improved from previous exam. Heart rate and blood pressure have improved. Respiratory: Respiratory exam improved from previous exam. Counseling: I had a detailed discussion with the patient and/or guardian regarding: the historical points, exam findings, and any diagnostic results supporting the discharge/admit diagnosis, lab results, radiology results, the need for further work-up and treatment in the hospital. Physician consultation: Rigo Polanco MD was called at 22:40, was contacted at 22:40, regarding admission, to the telemetry unit. 10/04 20:37 Order name: Urine Culture pending sale to [facility] 10/04 20:37 Order name: T\T\S; Complete Time: : snw 10/04 20:37 Order name: ABG; Complete Time: : w 10/04 20:37 Order name: Basic Metabolic Panel; Complete Time: : pending sale to [facility] 10/04 20:37 Order name: Blood Culture Adult (2) pending sale to [facility] 10/04 20:37 Order name: CBC with Diff; Complete Time: 21: pending sale to [facility] 10/04 20:37 Order name: Ckmb; Complete Time: : w 10/04 20:37 Order name: CPK; Complete Time: : w 10/04 20:37 Order name: Lactate; Complete Time: : w 10/04 20:37 Order name: LFT's; Complete Time: : pending sale to [facility] 10/04 20:37 Order name: Lipase; Complete Time: : pending sale to [facility] 10/04 20:37 Order name: Procalcitonin; Complete Time: 22: w 10/04 20:37 Order name: Protime (+inr); Complete Time: : pending sale to [facility] 10/04 20:37 Order name: Ptt, Activated; Complete Time: : pending sale to [facility] 10/04 20:37 Order name: Troponin (emerg Dept Use Only); Complete Time: : w 10/04 20:37 Order name: Urine Microscopic Only; Complete Time: :43 pending sale to [facility] 10/04 20:37 Order name: Flu; Complete Time: : pending sale to [facility] 10/04 21:05 Order name: Urine Dipstick--Ancillary (enter results); Complete Time: 21:27 ar5 10/04 21:51 Order name: Glucose, Ancillary Testing; Complete Time: 21:55 EDMS 10/04 23:29 Order name: CBC with Automated Diff EDMS 10/04 23:29 Order name: CBC with Automated Diff EDMS 10/04 23:29 Order name: CKMB Creatine Kinase MB EDMS 10/04 23:29 Order name: CKMB Creatine Kinase MB EDMS 10/04 23:29 Order name: CKMB Creatine Kinase MB EDMS 10/04 23:29 Order name: CKMB Creatine Kinase MB EDMS 10/04 23:29 Order name: Comprehensive Metabolic Panel EDMS 10/04 23:29 Order name: Comprehensive Metabolic Panel EDMS 10/04 23:29 Order name: Magnesium EDMS 10/04 23:29 Order name: Magnesium EDMS 10/04 23:29 Order name: Phosphorus EDNH 10/04 20:37 Order name: Cath; Complete Time: 21:04 snw 10/04 20:37 Order name: Chest Single View XRAY pending sale to [facility] 10/04 20:37 Order name: Accucheck; Complete Time: 21:31 snw 10/04 20:37 Order name: Cardiac monitoring; Complete Time: 21:04 snw 10/04 20:37 Order name: EKG - Nurse/Tech; Complete Time: 21:31 snw 10/04 20:37 Order name: IV Saline Lock - Large Bore; Complete Time: 21:04 snw 10/04 20:37 Order name: Labs collected and sent; Complete Time: 21:04 w 10/04 20:37 Order name: O2 Per Protocol; Complete Time: 21:04 snw 10/04 20:37 Order name: O2 Sat Monitoring; Complete Time: 21:04 snw 10/04 20:37 Order name: Urine Dipstick-Ancillary (obtain specimen); Complete Time: 21:04 snw 10/04 20:41 Order name: Misc. Order: marcy l[place]; Complete Time: 21:04 snw 10/04 20:41 Order name: CT Head Brain wo Cont snw 10/04 20:54 Order name: Vitor; Complete Time: 21:03 snw 10/04 23:29 Order name: Heart Healthy EDNH 10/04 23:29 Order name: Phosphorus EDNH 10/04 23:29 Order name: Troponin I EDNH 10/04 23:29 Order name: Troponin I EDMS 10/04 23:29 Order name: Troponin I EDNH 10/04 23:29 Order name: Troponin I EDNH Administered Medications: 20:40 Drug: Acetaminophen Suppository 650 mg Route: IN; bb 21:40 Follow up: Response: No adverse reaction; Temperature is decreased jd3 20:45 Drug: NS 0.9% (30 ml/kg) 30 ml/kg Route: IV; Rate: bolus; Site: right forearm; bb 10/05 00:42 Follow up: Response: No adverse reaction; IV Status: Completed infusion jd3 10/04 20:50 Drug: Zosyn 3.375 grams Route: IVPB; Infused Over: 60 mins; Site: right forearm; bb 21:50 Follow up: Response: No adverse reaction; IV Status: Completed infusion jd3 22:14 Drug: Motrin 400 mg Route: PO; jd3 23:10 Follow up: Response: No adverse reaction jd3 22:57 CANCELLED (Duplicate Order): Tamiflu 75 mg PO once jd3 22:57 Drug: Tamiflu 75 mg Route: PO; jd3 23:55 Follow up: Response: No adverse reaction jd3 Disposition: 10/05 06:00 Co-signature as Attending Physician, Kris Valverde MD I agree with the assessment and tw4 plan of care. Disposition: 10/04/19 22:55 Hospitalization ordered by Rigo Polanco for Observation. Preliminary diagnosis are Fever, unspecified, Altered mental status, unspecified. - Bed requested for Telemetry/MedSurg (observation). - Status is Observation. jd3 - Condition is Stable. - Problem is new. - Symptoms have improved. UTI on Admission? No Signatures: Dispatcher [employer] EDNH Ruby Burleson RN RN kl Therrien, Shelly, FNP-C CREDIT RISK MANAGEMENT DIRECTOR-Alberta Quintana RN RN bb Davies, Jonathon, RN RN jd3 Wadley, Terrence, MD MD tw4 Corrections: (The following items were deleted from the chart) 10/04 22:57 22:51 Tamiflu 75 mg PO once ordered. jd3 jd3 10/05 00:18 10/04 22:55 Hospitalization Ordered by Rigo Polanco MD for Observation. Preliminary kl diagnosis is Fever, unspecified; Altered mental status, unspecified. Bed requested for Telemetry/MedSurg (observation). Status is Observation. Condition is Stable. Problem is new. Symptoms have improved. UTI on Admission? No. snw 10/05 00:59 00:18 10/04/2019 22:55 Hospitalization Ordered by Rigo Polanco MD for Observation. jd3 Preliminary diagnosis is Fever, unspecified; Altered mental status, unspecified. Bed requested for Telemetry/MedSurg (observation). Status is Observation. Condition is Stable. Problem is new. Symptoms have improved. UTI on Admission? No. kl
[2019-10-04] MEDS ORDERED: ONDANSETRON 4 MG/2 ML VIAL IV PRN (23:24)
--- NOTE | 2019-10-04 23:24 | P.HP ---
Certification for Inpatient Patient admitted to: Inpatient With expected LOS: >2 Midnights Patient will require the following post-hospital care: None Practitioner: I am a practitioner with admitting privileges, knowledge of patient current condition, hospital course, and medical plan of care. Services: Services provided to patient in accordance with Admission requirements found in Title 42 Section 412.3 of the Code of Federal Regulations Patient History Date of Service: 10/04/19 Reason for admission: Fever/Cough History of Present Illness: 79-year-old female with past medical history of diabetes, hypertension, lupus, arthritis, hyperlipidemia, anxiety came to ER with fever and altered mental status .Patient is a poor historian hence most of the history is obtained from chart review and also talking to the ER physician and family members. As per the patient started having fever for the last 2 or 3 days, Associated with cough with mucoid expectoration. Denies any sick contacts. Patient was found to have altered mental status and confused today and was brought to ER.Denies any chest pain or shortness of breath. No nausea vomiting or diarrhea. Patient was assessed in the ER and was found to have high fever with temperature of 104 and was admitted for possible sepsis. Allergies iodine Adverse Reaction (Intermediate, Verified 03/14/19 09:02) Rash pantoprazole sodium [From Protonix] Adverse Reaction (Intermediate, Verified 03/27 09:02) VOMITING Penicillins Adverse Reaction (Intermediate, Verified 03/14/19 09:02) VOMITING codeine [Codeine] Adverse Reaction (Mild, Verified 03/14/19 09:02) VOMITING Morphine Allergy (Mild, Uncoded 03/14/19 09:02) Rash Home medications list reviewed: Yes Home Medications: Cholecalciferol (Vitamin D3) [Vitamin D-3] 2,000 unit PO BID 10/15/15 Fentanyl Patch [Duragesic Patch*] 75 mcg TOP EVERY 3RD DAY 10/15/15 Ferrous Sulfate [Feosol] 325 mg PO BID 10/15/15 Gabapentin [Neurontin] 600 mg PO QID 10/15/15 Levothyroxine [Synthroid] 100 mcg PO DAILY 10/15/15 Losartan Potassium [Cozaar*] 50 mg PO [id number] 10/15/15 Metformin ER [Glucophage ER*] 500 mg PO BID 10/15/15 Metoprolol Succinate [Toprol Xl*] 50 mg PO DAILY AFTER SUPPER 10/15/15 Tramadol HCl [Ultram] 1 - 2 tab PO TID PRN 10/15/15 allopurinoL [Allopurinol] 100 mg PO DAILY 10/15/15 predniSONE [Prednisone] 5 mg PO DAILY 10/15/15 Escitalopram Oxalate [Lexapro] 5 mg PO DAILY 03/27/19 Leflunomide 10 mg PO DAILY 03/27/19 Magnesium Oxide [Magnesium] 250 mg PO BID 03/27/19 Turmeric Root Extract [Turmeric] 500 mg PO DAILY 03/27/19 - Past Medical/Surgical History Diabetic: Yes Past Medical History: Reviewed- Non-Contributory -: HTN -: anxiety -: Lupus -: arthritis -: DM -: Anxiety -: Depression Past Surgical History: Reviewed- Non-Contributory -: Cholecystectomy -: Back Surgery - Family History Family History: Reviewed- Non-Contributory - Family History Father -: Heart disease, Stroke Mother -: Heart disease, Diabetes - Social History Smoking Status: Never smoker Alcohol use: No CD- Drugs: No Caffeine use: Yes Review of Systems 10-point ROS is otherwise unremarkable General: Fever, Chills, Weakness Eyes: Unremarkable ENT: Unremarkable Respiratory: Cough Gastrointestinal: Unremarkable Physical Examination - Vital Signs Temperature: 103.1 F Blood Pressure: 98/62 Pulse: 102 Respirations: 18 - Physical Exam General: Alert, Oriented x2, Mild distress HEENT: Atraumatic, Normocephalic Neck: Supple, 2+ carotid pulse no bruit Respiratory: Diminished, Crackles/rales, Expiratory wheezes Cardiovascular: Normal pulses, Regular rate/rhythm Capillary refill: <2 Seconds Gastrointestinal: Soft and benign, W/out hepatosplenomegaly Musculoskeletal: No clubbing, No swelling Integumentary: No rashes, No breakdown Neurological: Normal speech, Normal strength at 5/5 x4 extr Lymphatics: No axilla or inguinal lymphadenopathy Urinary: Other (No bladder distention) External genitalia: Deferred Rectal: Deferred - Studies Laboratory Data (last 24 hrs) 10/04/19 20:36: PT 12.1, INR 1.03, APTT 24.9 10/04/19 20:36: WBC 8.8, Hgb 11.8 L, Hct 35.7 L, Plt Count 175 10/04/19 20:36: Sodium 139, Potassium 3.4 L, BUN 18, Creatinine 1.30, Glucose 116 H, Total Bilirubin 0.3, AST 20, ALT 21, Alkaline Phosphatase 83, Lipase 206 Microbiology Data (last 24 hrs): 10/04/19 20:57 Nasopharnyx Influenza Type A Antigen Screen - Final 10/04/19 20:57 Nasopharnyx Influenza Type B Antigen Screen - Final Assessment and Plan - Problems (Diagnosis) (1) Fever Onset Date: 10/15/15 Current Visit: No Status: Acute (2) Sepsis Current Visit: Yes Status: Acute (3) Diabetes Current Visit: Yes Status: Chronic (4) Hypertension Current Visit: Yes Status: Chronic (5) Pneumonia Current Visit: No Status: Acute Qualifiers: Pneumonia type: due to group B Streptococcus - Plan Severe sepsis Acute febrile illness Possible pneumonia acute hypoxic respiratory failure Acute encephalopathy possibly related to delirium due to fever Diabetes History of hypertension Arthritis Plan Monitor under telemetry IV antibiotics Will get cultures Change antibiotic as per the sensitivity Will repeat x-ray in a.m. IV hydration Serial lactic acids and procalcitonin Oxygen support Monitor neuro vital signs continue home medications and titrate as needed GI/DVT prophylaxis Advanced directives full code - Advance Directives Does patient have a Living Will: No Does patient have a Durable POA for Healthcare: No Time Spent Managing Pts Care (In Minutes): 43
[2019-10-04] MEDS ORDERED: GLUCAGON 1 MG/VIAL IM PRN (23:40)
[2019-10-04] MEDS ORDERED: D50W 25 GM/50 ML SYRINGE/VIAL IV PRN (23:40)
[2019-10-05 01:34] VITALS: BMI 27.9
[2019-10-05] MEDS: NA CHLORIDE 0.9% 1,000 ML IV SCH ×3 (01:47→20:45)
[2019-10-05] MEDS ORDERED: AZTREONAM 1 GM/VIAL ONE (01:55)
[2019-10-05] MEDS ORDERED: NA CHLORIDE 0.9% 100 ML ONE (02:10)
[2019-10-05] MEDS: AZTREONAM 1 GM/VIAL IV SCH ×2 (02:12→09:00)
[2019-10-05] MEDS: IPRATROPIUM BROM 0.5MG/2.5ML NEB SCH ×4 (02:15→20:30)
[2019-10-05] MEDS: INSULIN -REGULAR HUMAN 50 UNIT/0.5 ML ML SQ SCH ×4 (07:30→20:47)
[2019-10-05] MEDS: ACETAMINOPHEN 500 MG TAB PO PRN ×2 (07:43→11:34)
[2019-10-05] MEDS: ALBUTEROL 2.5 MG/3 ML NEB SOL NEB PRN ×3 (08:10→20:30)
[2019-10-05 08:40] LABS: Absolute Lymphocytes (CBC) 1.2 K/uL (0.7-4.9); Basophils % 0.9 % (0-1.3); Hematocrit 31.4 % (36.0-45.0); Lymphocytes % 15.8 % (15.3-44.8); MPV 8.3 fL (7.6-11.3)
[2019-10-05 08:51] LABS: Albumin 2.8 g/dL (3.4-5.0); Bilirubin Total 0.3 mg/dL (0.2-1.0); Magnesium 1.6 mg/dL (1.8-2.4); Phosphorus 2.7 mg/dL (2.5-4.9); Potassium 3.5 mmol/L (3.5-5.1); Protein, Total 5.9 g/dL (6.4-8.2)
[2019-10-05 08:52] LABS: CKMB Creatine Kinase MB < 1.0 ng/mL (0.3-3.6); Troponin I 0.03 ng/mL (0.0-0.045)
[2019-10-05] MEDS: AZITHROMYCIN IV 500 MG in NA CHLORIDE 0.9% 250 ML IVPB SCH (08:52)
--- NOTE | 2019-10-05 08:53 | RAD REPORT ---
EXAM DESCRIPTION: RAD - Chest Single View - 10/04/2019 9:14 pm CLINICAL HISTORY: Altered mental status, shortness of breath COMPARISON: March 13, 2019 TECHNIQUE: AP portable chest image was obtained 2111 hours . FINDINGS: Lung volumes are low. No peripheral mass or consolidation seen. Retrocardiac left base ass essment is limited. Significant failure or volume overload not suspected. Heart and vasculature are normal. No measurable pleural effusion and no pneumothorax. No acute bony abnormality seen. No acute aortic findings suspected. IMPRESSION: No acute cardiopulmonary process. Retrocardiac base assessment is limited.
[2019-10-05] MEDS: ENOXAPARIN 40 MG/0.4 ML SQ SCH (08:55)
--- NOTE | 2019-10-05 08:55 | RAD REPORT ---
EXAM DESCRIPTION: RAD - Chest Single View - 10/05/2019 8:05 am CLINICAL HISTORY: Pneumonia COMPARISON: October 04 TECHNIQUE: AP portable chest image was obtained 0739 hours . FINDINGS: Lung volumes remain low. No new or progressive lung parenchymal finding. Retrocardiac left base assessment is grossly clear but remains limited. Heart and vasculature are normal. No measurable pleural effusion and no pneumothorax. No acute bony abnormality seen. No acute aortic findings suspected. IMPRESSION: Stable chest. No new or progressive finding.
[2019-10-05] MEDS ORDERED: MAGNESIUM SULFATE 1 gm IVPB 1 GM/100 ML BAG IV ONE (09:02)
[2019-10-05] MEDS ORDERED: POTASSIUM CL SA 10 MEQ TAB PO ONE (09:03)
[2019-10-05] MEDS: AZTREONAM 1 GM/50 ML BAG IV SCH ×2 (13:09→20:45)
[2019-10-05] MEDS ORDERED: HOME MED 1 EA UNK (Magnesium Oxide [Magnesium] 250 MG) PO SCH (13:30)
[2019-10-05] MEDS: HOME MED 1 EA UNK (Gabapentin [Neurontin] 600 MG) PO SCH ×2 (14:00→21:00)
[2019-10-05] MEDS: GABAPENTIN 300 MG CAP PO SCH ×2 (15:09→20:46)
[2019-10-05] MEDS: TRAMADOL HCL 50 MG TAB PO PRN (15:14)
[2019-10-05 15:54] LABS: CKMB Creatine Kinase MB < 1.0 ng/mL (0.3-3.6); Troponin I 0.04 ng/mL (0.0-0.045)
[2019-10-05] MEDS: METOPROLOL XL 50 MG TAB PO SCH (17:27)
--- NOTE | 2019-10-05 18:08 | PN ---
Subjective: Currently, patient lying in bed. She has no chest pain. No abdominal pain. No fever. No chills. She had a fever earlier this morning, but not any more. She continued to have some twit hossein and some tremor, which according to the family is chronic. Objective: Vital Signs: Blood pressure 165/66, respiratory rate 18, pulse 98, temperature 100.2. General: The patient is alert and oriented x3, does not look in any distress. HEENT: Atraumatic, normocephalic. PERRLA. Oral mucosa is moist. Neck: Supple. No JVD. No bruits. Chest: Clear to auscultation. Good air entry. Heart: Regular rate and rhythm. Normal S1, S2 normal. No gallop or murmur. Abdomen: Soft, nontender. No masses. No hepatosplenomegaly. Positive bowel sounds. Extremities: No clubbing, cyanosis, or edema. No calf tenderness. Skin: With mild ecchymosis. Neurologic: Grossly intact except twitching in her mouth, which apparently is chronic, as well as tr emor, which according to family, chronic. Laboratory Data: Today, showed CBC normal except for hemoglobin 10.3. Chemistry was normal except f or chloride 112, GFR of 48, calcium 7.7, magnesium 1.6. Cardiac enzyme first 2 sets are negative. Assessment And Plan: 1.Fever of unknown etiology. So far, labs are within normal. There is no leukocytosis. UA was neg ative. Chest x-ray was negative yesterday as well as today. No source of infection, but patient con tinued to have fever, question mild viral. Flu was negative. We will continue on broad-spectrum ant ibiotic with bathroom Zithromax and aztreonam. 2.Diabetes history. Patient is on insulin sliding scale. We will continue metformin. 3.History of gout. We will continue allopurinol. 4.Iron deficiency anemia. We will continue iron 3 times a day. 5.Hypertension. Continue her on metoprolol, losartan. 6.History of lupus. She was on current dose of low-dose prednisone. I will start stress dose of pr ednisone of 60. 7.Hypothyroidism. We will resume her Synthroid. 8.Deep vein thrombosis prophylaxis. She will be on Lovenox. 9.Chronic pain. She will be resumed on gabapentin at home dose of 600 mg t.i.d. and I will resume h er Duragesic patch. Home medications. LANE/DEVEN Voice ID: [id number] Report ID: [id number]
[2019-10-05] MEDS: FERROUS SULFATE 325 MG TAB PO SCH (20:46)
[2019-10-05] MEDS: METFORMIN ER 500 MG TAB PO SCH (21:00)
[2019-10-06 00:17] LABS: CKMB Creatine Kinase MB 1.5 ng/mL (0.3-3.6); Troponin I 0.07 ng/mL (0.0-0.045)
[2019-10-06] MEDS: IPRATROPIUM BROM 0.5MG/2.5ML NEB SCH ×4 (02:00→20:20)
[2019-10-06] MEDS: AZTREONAM 1 GM/50 ML BAG IV SCH ×3 (04:50→19:55)
[2019-10-06] MEDS: TRAMADOL HCL 50 MG TAB PO PRN ×2 (05:21→15:24)
[2019-10-06] MEDS: LOSARTAN POTASSIUM 50 MG TABLET PO SCH (05:22)
[2019-10-06] MEDS: LEVOTHYROXINE SOD 0.1 MG TAB PO SCH (05:22)
[2019-10-06] MEDS: NA CHLORIDE 0.9% 1,000 ML IV SCH ×3 (05:45→20:07)
[2019-10-06 06:24] LABS: Magnesium 1.8 mg/dL (1.8-2.4)
[2019-10-06] MEDS: INSULIN -REGULAR HUMAN 50 UNIT/0.5 ML ML SQ SCH ×4 (07:30→20:06)
[2019-10-06] MEDS ORDERED: MAGNESIUM SULFATE 1 gm IVPB 1 GM/100 ML BAG IV ONE (09:00)
[2019-10-06] MEDS: HOME MED 1 EA UNK (Gabapentin [Neurontin] 600 MG) PO SCH (09:00)
[2019-10-06 09:16] LABS: Absolute Lymphocytes (CBC) 1.4 K/uL (0.7-4.9); Hematocrit 33.1 % (36.0-45.0); Lymphocytes % 24.5 % (15.3-44.8); MPV 7.9 fL (7.6-11.3); RBC Red Blood Cell Count 3.57 M/uL (3.86-4.86)
[2019-10-06] MEDS: LEFLUNOMIDE 20 MG PO SCH (10:29)
[2019-10-06] MEDS: predniSONE 20 MG TAB PO SCH (10:30)
[2019-10-06] MEDS: FERROUS SULFATE 325 MG TAB PO SCH ×2 (10:30→20:07)
[2019-10-06] MEDS: GABAPENTIN 300 MG CAP PO SCH ×3 (10:31→20:07)
[2019-10-06] MEDS: allopurinoL 100 MG TAB PO SCH (10:32)
[2019-10-06] MEDS: ENOXAPARIN 40 MG/0.4 ML SQ SCH (10:32)
[2019-10-06] MEDS: METFORMIN ER 500 MG TAB PO SCH ×2 (10:32→20:07)
[2019-10-06] MEDS: AZITHROMYCIN IV 500 MG in NA CHLORIDE 0.9% 250 ML IVPB SCH (10:35)
[2019-10-06 12:24] LABS: Blood Morphology Comment NOT SEEN (NOT SEEN); Platelet Estimate ADEQ
[2019-10-06] MEDS ORDERED: FENTANYL 50 MCG/PATCH TD SCH (14:00)
[2019-10-06] MEDS: guaiFENesin 100 MG/5 ML UCUP PO PRN (15:27)
[2019-10-06] MEDS: METOPROLOL XL 50 MG TAB PO SCH (17:03)
--- NOTE | 2019-10-06 17:16 | PN ---
Subjective: Currently, patient lying in bed. She looks comfortable. She has no chest pain, no abdo clay pain. She does not have as much tremor as yesterday. She does not have as much twitching in h er mouth. Her family at the bedside. Objective: Vital Signs: Blood pressure is 144/65, respiratory rate 18, pulse 77, temperature 97.2. General: Patient is alert and oriented x3. She is in no distress. She is hard of hearing. HEENT: Atraumatic, normocephalic. PERRLA. Oral mucosa is moist. Neck: Supple. No JVD. No bruit. Chest: Clear to auscultation. Good air entry. Heart: Regular rate and rhythm. S1 and S2 are normal. No gallop or murmur. Abdomen: Soft, nontender. No masses. No hepatosplenomegaly. Positive bowel sounds. Extremities: No clubbing, cyanosis, or edema. No calf tenderness. Neurologic: Grossly intact. She still has twitching in the mouth but very minimal today. She still has a tremor, but again minimal complaint yesterday. Skin: Some ecchymosis. Laboratory Data: Today, showed CBC was within normal limits except for hemoglobin 10.7, platelets 14 8. Chemistry within normal limit except for chloride 115, GFR 62, calcium 8. Blood sugar in the ran ge of 88-131. Blood culture 1/2 bottles showed gram-positive cocci. Assessment And Plan: A 79-year-old female with: 1.Fever. On admission, found to have bacteremia on blood culture. 1 out of the 2 bottles was posit marciano for gram-positive cocci. The patient has no fever anymore. She is already on aztreonam and Zithr omax. I will not add vancomycin yet because patient seems doing well and is responding to antibiotic s. I will wait until the ID of the bacteria available and see if the patient have the second blood p ositive or just the first 1, which can be contamination. Again, no more fever this morning. 2.History of diabetes mellitus. Continue patient on metformin. Patient on insulin sliding scale an d her glucose is very well controlled. 3.Hypertension. Continue on losartan, metoprolol. 4.History of lupus. Patient on low doses of prednisone, but I restarted her on stress dose of predn isone 60. We will taper it down upon discharge to her home dose soon. 5.Hypothyroidism. Continue Synthroid. 6.Deep vein thrombosis prophylaxis, on Lovenox. 7.History of gout. Continue her home dose of allopurinol. 8.Iron-deficiency anemia. Hemoglobin is 10.7. Continue iron tablets 3 times a day. 9.Chronic pain. Continue gabapentin as well as Duragesic patch as before. 10.Physical therapy for discharge plan to see if patient needs LTAC versus home when she is ready to be discharged. LANE/DEVEN Voice ID: [id number] Report ID: [id number]
[2019-10-07] MEDS: TRAMADOL HCL 50 MG TAB PO PRN ×2 (00:13→20:58)
[2019-10-07] MEDS: guaiFENesin 100 MG/5 ML UCUP PO PRN ×3 (00:20→16:59)
[2019-10-07] MEDS: IPRATROPIUM BROM 0.5MG/2.5ML NEB SCH ×4 (01:45→19:35)
[2019-10-07] MEDS: AZTREONAM 1 GM/50 ML BAG IV SCH ×3 (03:30→20:58)
[2019-10-07] MEDS ORDERED: POLYVINYL ALCOHOL 1.4% 15 ML EACH EYE PRN (04:16)
[2019-10-07 05:08] LABS: Magnesium 1.9 mg/dL (1.8-2.4); Potassium 4.2 mmol/L (3.5-5.1)
[2019-10-07] MEDS: LOSARTAN POTASSIUM 50 MG TABLET PO SCH (05:47)
[2019-10-07] MEDS: NA CHLORIDE 0.9% 1,000 ML IV SCH ×2 (05:47→20:58)
[2019-10-07] MEDS: LEVOTHYROXINE SOD 0.1 MG TAB PO SCH (05:47)
[2019-10-07] MEDS: INSULIN -REGULAR HUMAN 50 UNIT/0.5 ML ML SQ SCH ×4 (07:30→20:57)
--- NOTE | 2019-10-07 09:36 | RAD REPORT ---
EXAM DESCRIPTION: CT - Head Brain Wo Cont - 10/05/2019 2:32 am CLINICAL HISTORY: Declining state;Confused TECHNIQUE: Axial computed tomography images of the head/brain without intravenous contrast. Sagitt al and coronal reformatted images were created and reviewed. This CT exam was performed using one o r more of the following dose reduction techniques: automated exposure control, adjustment of the mA and/or kV according to patient size, and/or use of iterative reconstruction technique. COMPARISON: 07/22/2019. FINDINGS: Limitations: None. Brain: There is age related cortical atrophy and periventricular white matter hypodensity most c onsistent with chronic small ischemic change. No acute infarct, hemorrhage or mass. Ventricles: Unremarkable. No ventriculomegaly. Bones/joints: Unremarkable. No acute fracture. Soft tissues: Unremarkable. Sinuses: Unremarkable as visualized. No acute sinusitis. Mastoid air cells: Unremarkable as visualized. No mastoid effusion. IMPRESSION: No acute findings in the head/brain. Electronically signed by: Dana Ayoub MD 10/04/2019 9:47 PM [employer] REPRESENTATIVE Due to temporary technical issues with the PACS/Fluency reporting system, reports are being signed by the in house radiologist as a courtesy to ensure prompt reporting. The interpreting radiologist is f ully responsible for the content of the report.
[2019-10-07] MEDS: ENOXAPARIN 40 MG/0.4 ML SQ SCH (10:01)
[2019-10-07] MEDS: METFORMIN ER 500 MG TAB PO SCH ×2 (10:01→20:59)
[2019-10-07] MEDS: predniSONE 20 MG TAB PO SCH (10:01)
[2019-10-07] MEDS: AZITHROMYCIN IV 500 MG in NA CHLORIDE 0.9% 250 ML IVPB SCH (10:01)
[2019-10-07] MEDS: GABAPENTIN 300 MG CAP PO SCH ×3 (10:01→20:59)
[2019-10-07] MEDS: allopurinoL 100 MG TAB PO SCH (10:02)
[2019-10-07] MEDS: FERROUS SULFATE 325 MG TAB PO SCH ×2 (10:02→20:59)
[2019-10-07] MEDS: LEFLUNOMIDE 20 MG PO SCH (10:02)
--- NOTE | 2019-10-07 10:22 | EKG ---
Test Date: 2019-10-04 Test Time: 21:22:08 Comb Tender: SUNI MEASUREMENT RESULTS: Intervals: Rate: 98 HI: QRSD: 74 QT: 374 QTc: 477 [place]: P: 42 HI: QRS: -36 T: -71 INTERPRETIVE STATEMENTS: Sinus rhythm Left axis deviation Anterior infarct, age undetermined Abnormal ECG Compared to ECG 07/22/2019 12:32:35 Left-axis deviation now present Sinus bradycardia no longer present Myocardial infarct finding still present Electronically Signed On 10-07-19 10:21:47 [employer] by Adams Almeida
[2019-10-07] MEDS: FENTANYL 75 MCG/PATCH TD SCH (12:47)
[2019-10-07] MEDS: METOPROLOL XL 50 MG TAB PO SCH (17:01)
--- NOTE | 2019-10-07 17:59 | PN ---
Date of Progress Note: 10/07/2019 Subjective: Patient is seen and examined, chart reviewed, and case discussed with RN. Family at the bedside. Treatment plan explained, all questions answered. Patient denies any significant complaints. Does report some weakness , not really wanting to get up and work with PT. Medications: List reviewed. Code Status: Full code. Physical Examination: Vital Signs: Temperature 97.1, heart rate 64, blood pressure 151/63, respirations 18, O2 saturation 98% on 2 L via nasal cannula. General: Awake, alert, oriented x3. An elderly female, in some mild distress, ill-appearing female. CVS: S1, S2. Regular rate and rhythm. Peripheral pulses present. No murmurs. Respiratory: Somewhat diminished breath sounds. No stridor. No wheezing. No use of accessory muscles. Gastrointestinal: Abdomen is soft, nontender, nondistended. Positive bowel sounds. No guarding or rigidity. Extremities: No clubbing, cyanosis, or edema. Neurologic: Nonfocal. Laboratory Data: Sodium 142, potassium 4.2, chloride 113, CO2 of 24, BUN 9, creatinine 0.85, glucose 132, calcium 7.8, magnesium 1.9. WBC pending. Blood cultures, no growth to date. Urine culture, no growth. Assessment: 1. Possible sepsis, fever, improving. Blood cultures show contamination with coagulase-negative staphylococcus though the patient has been afebrile. 2. Diabetes mellitus type 2, non-insulin requiring. We will continue sliding scale insulin. Monitor blood glucose levels. 3. Hypertension. We will continue losartan and metoprolol. 4. History of lupus. Patient on stress dose of steroids, taper upon discharge. 5. Hypothyroidism. Continue Synthroid. 6. Gout. Continue allopurinol. 7. Iron-deficiency anemia. Continue iron supplementation. Continue to monitor H and H. 8. Chronic pain syndrome. Patient is on gabapentin and Duragesic patch. 9. Deep venous thrombosis prophylaxis, Lovenox. Plan: PT evaluation. The patient may need fpc facility versus home with home PT. /DEVEN Voice ID: [id number] Report ID: [id number]
[2019-10-08] MEDS: IPRATROPIUM BROM 0.5MG/2.5ML NEB SCH ×2 (02:00→09:49)
[2019-10-08] MEDS: guaiFENesin 100 MG/5 ML UCUP PO PRN (02:02)
[2019-10-08] MEDS: AZTREONAM 1 GM/50 ML BAG IV SCH ×2 (04:05→10:36)
[2019-10-08] MEDS: LEVOTHYROXINE SOD 0.1 MG TAB PO SCH (05:36)
[2019-10-08] MEDS: LOSARTAN POTASSIUM 50 MG TABLET PO SCH (05:36)
[2019-10-08 05:46] LABS: Absolute Lymphocytes (CBC) 0.7 K/uL (0.7-4.9); Basophils % 0.1 % (0-1.3); Hematocrit 26.5 % (36.0-45.0); Lymphocytes % 19.3 % (15.3-44.8); MPV 7.7 fL (7.6-11.3); RBC Red Blood Cell Count 2.91 M/uL (3.86-4.86)
[2019-10-08 05:51] LABS: Albumin 2.4 g/dL (3.4-5.0); Bilirubin Total 0.2 mg/dL (0.2-1.0); Potassium 3.9 mmol/L (3.5-5.1)
[2019-10-08] MEDS: INSULIN -REGULAR HUMAN 50 UNIT/0.5 ML ML SQ SCH ×2 (07:30→11:30)
[2019-10-08] MEDS: NA CHLORIDE 0.9% 1,000 ML IV SCH (07:45)
[2019-10-08] MEDS ORDERED: POTASSIUM CL SA 10 MEQ TAB PO ONE (08:00)
[2019-10-08] MEDS ORDERED: MAGNESIUM OXIDE 400 MG TAB PO SCH (09:00)
[2019-10-08] MEDS ORDERED: FENTANYL 50 MCG/PATCH TD SCH (09:00)
[2019-10-08] MEDS: ENOXAPARIN 40 MG/0.4 ML SQ SCH (10:33)
[2019-10-08] MEDS: FENTANYL 75 MCG/PATCH TD SCH (10:34)
[2019-10-08] MEDS: METFORMIN ER 500 MG TAB PO SCH (10:34)
[2019-10-08] MEDS: predniSONE 20 MG TAB PO SCH (10:34)
[2019-10-08] MEDS: FERROUS SULFATE 325 MG TAB PO SCH (10:35)
[2019-10-08] MEDS: GABAPENTIN 300 MG CAP PO SCH ×2 (10:35→13:50)
[2019-10-08] MEDS: AZITHROMYCIN IV 500 MG in NA CHLORIDE 0.9% 250 ML IVPB SCH (10:36)
[2019-10-08] MEDS: LEFLUNOMIDE 20 MG PO SCH (10:42)
[2019-10-08] MEDS: allopurinoL 100 MG TAB PO SCH (10:42)
[2019-10-08 10:47] VITALS: O2SAT 95
--- NOTE | 2019-10-08 11:49 | P.DS ---
Admission Date: 10/04/19 Discharge Date: 10/08/19 Primary Care Provider: Dr. Santa; Rheumatology-Dr. Crowder Disposition: DC HOME/HOME HEALTH CARE Discharge Condition: GOOD Reason for Admission: Fever/Cough Consultations: none Procedures: CT Brain: COMPARISON: 07/22/2019. FINDINGS: Limitations: None. Brain: There is age related cortical atrophy and periventricular white matter hypodensity most consistent with chronic small ischemic change. No acute infarct, hemorrhage or mass. Ventricles: Unremarkable. No ventriculomegaly. Bones/joints: Unremarkable. No acute fracture. Soft tissues: Unremarkable. Sinuses: Unremarkable as visualized. No acute sinusitis. Mastoid air cells: Unremarkable as visualized. No mastoid effusion. IMPRESSION: No acute findings in the head/brain. Follow up CXR: FINDINGS: Lung volumes remain low. No new or progressive lung parenchymal finding. Retrocardiac left base assessment is grossly clear but remains limited. Heart and vasculature are normal. No measurable pleural effusion and no pneumothorax. No acute bony abnormality seen. No acute aortic findings suspected. IMPRESSION: Stable chest. No new or progressive finding. 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 Patient presented with fever, cough and congestion. Patient admitted for further evaluation. Hospital Course: Patient presented with fever, cough and congestion. Sick contacts were noted. Patient was admitted for further evaluation and treatment. Chest x-ray unremarkable. Sepsis was suspected but this was ruled out. Blood cultures have remained negative. Urine culture negative. Patient has done well then the course of her stay. Patient was treated with IV antibiotic therapy and fluids. At discharge she is without significant shortness of breath. Patient likely with viral illness but has responded well with antibiotic therapy. At discharge will recommend to continue Zithromax 250 mg 1 pill daily for 3 more days. Patient will be provided Pro air 2 puffs 3 times a day as needed for shortness of breath. Patient may continue with Tessalon Perles 100 mg 3 times a day as needed for cough and Mucinex 600 mg twice daily as needed for congestion. Patient had acute renal injury likely with underlying chronic renal disease. Patient received IV fluids. At discharge renal function now back to baseline. Recommend to recheck lab-BMP in 1-2 weeks to follow her progress. Recommend no further use of nonsteroidal anti-inflammatories. Future medications will need to be renally dose. Patient with underlying diabetes mellitus type 2 non insulin dependent. At discharge patient will continue with her current medication metformin 500 mg twice daily. Recommend to maintain blood sugars less 140 fasting and less than 200 after meals. Further adjustment can be done by her PCP. Patient with hypertension. At discharge she will continue with losartan 50 mg daily and metoprolol XL 50 mg daily. Recommend to maintain blood pressures less 150/80. Further adjustment can be done by her PCP. Patient with lupus. Patient will continue with her current medications- Leflunomide 20 mg daily and prednisone 5 mg daily. Patient with hypothyroidism. At discharge she will continue with Synthroid 100 mcg daily. Patient with diabetic neuropathy and chronic pain. Patient may continue with fentanyl patch 75 mcg every 3 days and gabapentin 600 mg 4 times a day and tramadol 50 mg 1 pill 3 times a day as needed for pain. Recommend follow up with pain management to further monitor and address. Patient with iron deficiency anemia. At discharge she will continue with iron supplementation twice daily. Recommend to recheck CBC in 2-4 weeks to monitor her level. Vital Signs/Physical Exam: Temp Pulse Resp BP Pulse Ox 97.2 F 98 H 24 H 162/82 H 97 10/08/19 08:00 10/08/19 08:00 10/08/19 10:34 10/08/19 08:00 10/08/19 10:34 General: Alert, In no apparent distress, Oriented x3, Cooperative HEENT: Atraumatic Neck: Supple Respiratory: Clear to auscultation bilaterally, Normal air movement Cardiovascular: Normal pulses, Regular rate/rhythm Gastrointestinal: Normal bowel sounds, No tenderness, No masses, No rebound, No guarding Musculoskeletal: No erythema, No tenderness, No warmth Integumentary: No tenderness/swelling, No erythema, No warmth, No cyanosis Neurological: Normal speech, Normal strength at 5/5 x4 extr, Normal tone Laboratory Data at Discharge: WBC 3.7 K/uL (4.3-10.9) L D 10/08/19 05:06 Hgb 8.8 g/dL (12.0-15.0) L 10/08/19 05:06 Hct 26.5 % (36.0-45.0) L D 10/08/19 05:06 Plt Count 140 K/uL (152-406) L 10/08/19 05:06 PT 12.1 SECONDS (9.5-12.5) 10/04/19 20:36 INR 1.03 10/04/19 20:36 APTT 24.9 SECONDS (24.3-36.9) 10/04/19 20:36 Sodium 145 mmol/L (136-145) 10/08/19 05:06 Potassium 3.9 mmol/L (3.5-5.1) 10/08/19 05:06 BUN 12 mg/dL (7-18) 10/08/19 05:06 Creatinine 0.87 mg/dL (0.55-1.3) 10/08/19 05:06 Glucose 113 mg/dL (74-106) H 10/08/19 05:06 Phosphorus 2.7 mg/dL (2.5-4.9) 10/05/19 07:55 Magnesium 1.9 mg/dL (1.8-2.4) 10/07/19 04:34 Total Bilirubin 0.2 mg/dL (0.2-1.0) 10/08/19 05:06 AST 52 U/L (15-37) H 10/08/19 05:06 ALT 23 U/L (12-78) 10/08/19 05:06 Alkaline Phosphatase 71 U/L (45-117) 10/08/19 05:06 Troponin I 0.07 ng/mL (0.0-0.045) H 10/05/19 23:33 Lipase 206 U/L (73-393) 10/04/19 20:36 Home Medications: Fentanyl Patch [Duragesic Patch*] 75 mcg TOP EVERY 3RD DAY 10/15/15 Ferrous Sulfate [Feosol] 65 mg PO BID 10/15/15 Gabapentin [Neurontin] 600 mg PO QID 10/15/15 Levothyroxine [Synthroid*] 100 mcg PO DAILY 10/15/15 Losartan Potassium [Cozaar*] 50 mg PO [id number] 10/15/15 Metformin ER [Glucophage ER*] 500 mg PO BID 10/15/15 Metoprolol Succinate [Toprol Xl*] 50 mg PO DAILY AFTER SUPPER 10/15/15 Tramadol HCl [Ultram] 1 - 2 tab PO TID PRN 10/15/15 allopurinoL [Allopurinol] 100 mg PO DAILY 10/15/15 predniSONE [Prednisone] 5 mg PO DAILY 10/15/15 Leflunomide 20 mg PO DAILY 03/27/19 Magnesium Oxide [Magnesium] 250 mg PO SEECOM 03/27/19 Turmeric Root Extract [Turmeric] 500 mg PO DAILY 03/27/19 Albuterol Sulfate [Proair Hfa] 2 puff IH TID PRN #1 hfa.aer.ad 10/08/19 Azithromycin [Zithromax] 250 mg PO DAILY #3 tablet 10/08/19 Benzonatate [Tessalon Perle] 100 mg PO TID PRN #15 cap 10/08/19 Guaifenesin [Mucinex] 600 mg PO BID PRN #15 tab.er.12h 10/08/19 New Medications: Albuterol Sulfate [Proair Hfa] 2 puff IH TID PRN #1 hfa.aer.ad PRN Reason: Shortness Of Breath Azithromycin [Zithromax] 250 mg PO DAILY #3 tablet Benzonatate [Tessalon Perle] 100 mg PO TID PRN #15 cap PRN Reason: Cough Guaifenesin [Mucinex] 600 mg PO BID PRN #15 tab.er.12h PRN Reason: Cough Patient Discharge Instructions: 1. Recommend follow up with PCP in 1 week to follow up this hospitalization. 2. Patient presented with fever, cough and congestion. Sick contacts were noted. Patient was admitted for further evaluation and treatment. Chest x-ray unremarkable. Sepsis was suspected but this was ruled out. Blood cultures have remained negative. Urine culture negative. Patient has done well then the course of her stay. Patient was treated with IV antibiotic therapy and fluids. At discharge she is without significant shortness of breath. Patient likely with viral illness but has responded well with antibiotic therapy. At discharge will recommend to continue Zithromax 250 mg 1 pill daily for 3 more days. Patient will be provided Pro air 2 puffs 3 times a day as needed for shortness of breath. Patient may continue with Tessalon Perles 100 mg 3 times a day as needed for cough and Mucinex 600 mg twice daily as needed for congestion. 3. Patient had acute renal injury likely with underlying chronic renal disease. Patient received IV fluids. At discharge renal function now back to baseline. Recommend to recheck lab-BMP in 1-2 weeks to follow her progress. Recommend no further use of nonsteroidal anti-inflammatories. Future medications will need to be renally dose. 4. Patient with underlying diabetes mellitus type 2 non insulin dependent. At discharge patient will continue with her current medication metformin 500 mg twice daily. Recommend to maintain blood sugars less 140 fasting and less than 200 after meals. Further adjustment can be done by her PCP. 5. Patient with hypertension. At discharge she will continue with losartan 50 mg daily and metoprolol XL 50 mg daily. Recommend to maintain blood pressures less 150/80. Further adjustment can be done by her PCP. 6. Patient with lupus. Patient will continue with her current medications- Leflunomide 20 mg daily and prednisone 5 mg daily. 7. Patient with hypothyroidism. At discharge she will continue with Synthroid 100 mcg daily. 8. Patient with diabetic neuropathy and chronic pain. Patient may continue with fentanyl patch 75 mcg every 3 days and gabapentin 600 mg 4 times a day and tramadol 50 mg 1 pill 3 times a day as needed for pain. Recommend follow up with pain management to further monitor and address. 9. Patient with iron deficiency anemia. At discharge she will continue with iron supplementation twice daily. Recommend to recheck CBC in 2-4 weeks to monitor her level. Diet: ADA Activity: Fall precautions Time spent managing pt's care (in minutes): 55
[2019-10-08 12:52] LABS: Hematocrit 28.9 % (36.0-45.0)
[2019-10-08 13:41] VITALS: BP 156/74; TEMP 98.2
== END 2019-10-08 16:07 | disposition home health service (06) | DRG 202 ==
LOC: ER 20:30 → ERHOLD 23:25 → 2ND 10-05 00:43
PROVIDERS: ADMIT Family Medicine; ATTEND Family Medicine
DX: J20.8 Acute bronchitis due to other specified organisms (principal); N17.9 Acute kidney failure, unspecified; E11.9 Type 2 diabetes mellitus without complications; I10 Essential (primary) hypertension; N18.2 Chronic kidney disease, stage 2 (mild); E03.9 Hypothyroidism, unspecified; M10.9 Gout, unspecified; E11.40 Type 2 diabetes mellitus with diabetic neuropathy, unspecified; D50.9 Iron deficiency anemia, unspecified; G89.4 Chronic pain syndrome; M32.9 Systemic lupus erythematosus, unspecified
CPT/HCPCS: 36415; 70450; 71045; 80048; 80053; 80076; 81003; 81015; 82550; 82553; 82805; 82947; 83605; 83690; 83735; 84100; 84145; 84484; 85014; 85018; 85025; 85610; 85730; 86850; 86900; 86901; 87040; 87086; 87088; 87205; 87804; 93005; 94640; 94760; 96365; 96366; 97110; 97112; 97116; 97161; 97530; 99291; J0456; J1650; J2405; J2543; J3475; J7030; J7040; J7512

== ENCOUNTER 2020-03-25 15:23 | Observation (INO) | payer OTHER ==
--- OUTSIDE RECORDS SUMMARY | 2020-03-25 15:25 | XMS REPORT | Clinical Summary ---
:1940 Author Organization [facility] Address [address] [place] [address] Care Team Providers Name Role Phone Tim Garrido MD Primary Care Provider Allergies Active Allergy Reactions Severity Noted Date Comments Codeine Hives 04/14/2017 Iodine And Iodide Containing Products Hives 04/2017 Pantoprazole 04/14/2017 Medications Medication Sig Dispensed Refills Start Date End Date Status losartan (COZAAR) 50 0 04/15/2017 Active MG tablet metFORMIN XR 0 04/16/2017 Active (GLUCOPHAGE-XR) 500 mg 24 hr tablet predniSONE (DELTASONE) 0 05/08/2017 Active 5 mg tablet gabapentin (NEURONTIN) 0 05/15/2017 Active 600 mg tablet fentaNYL (DURAGESIC) 0 05/04/2017 Active 50 mcg/hr escitalopram (LEXAPRO) 0 05/15/2017 Active 5 MG tablet VOLTAREN 1 % gel 0 04/27/2017 Ac tive ALPRAZolam (XANAX) 0.5 0 04/20/2017 Active MG tablet traMADol (ULTRAM) 50 0 04/24/2017 Active mg tablet metoprolol tartrate Take 50 mg by 0 Active (LOPRESSOR) 50 mg mouth 2 (two) tablet times a day. levothyroxine Take 100 mcg by 0 Active (SYNTHROID, LEVOXYL) mouth daily. 100 mcg tablet allopurinol (ZYLOPRIM) Take 100 mg by 0 Active 100 MG tablet mouth 2 (two) times a day. fluticasone (CUTIVATE) Apply topically 2 0 Active 0.005 % ointment (two) times a day. montelukast Take 10 mg by 0 Acti ve (SINGULAIR) 10 mg mouth nightly. 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
[2020-03-25] MEDS ORDERED: ACETAMINOPHEN 650MG/RECT SUPP PR ONE (16:05)
[2020-03-25] MEDS ORDERED: NA CHLORIDE 0.9% 1,000 ML ONE (16:05)
[2020-03-25 16:12] LABS: Absolute Lymphocytes (CBC) 2.7 K/uL (0.7-4.9); Basophils % 0.4 % (0-1.3); Hematocrit 34.5 % (36.0-45.0); Lymphocytes % 40.5 % (15.3-44.8); MPV 7.5 fL (7.6-11.3); RBC Red Blood Cell Count 3.56 M/uL (3.86-4.86)
[2020-03-25 16:22] LABS: Protime INR 1.03
[2020-03-25 16:40] LABS: ALT/SGPT 43 U/L (12-78); AST/SGOT 30 U/L (15-37); Albumin 3.6 g/dL (3.4-5.0); Alkaline Phosphatase 87 U/L (45-117); BUN Blood Urea Nitrogen 30 mg/dL (7-18); Bicarbonate 23 mmol/L (21-32); Bilirubin Direct < 0.1 mg/dL (0-0.2); Bilirubin Total 0.3 mg/dL (0.2-1.0); Ferritin 425.2 ng/mL (8-388); Glucose Level 82 mg/dL (74-106); Lipase 166 U/L (73-393); Potassium 3.9 mmol/L (3.5-5.1); Protein, Total 7.3 g/dL (6.4-8.2); Sodium Level 137 mmol/L (136-145); Troponin (Emerg Dept Use Only) < 0.02 ng/mL (0.0-0.045)
--- NOTE | 2020-03-25 16:49 | RAD REPORT ---
EXAM DESCRIPTION: Brayden Single View03/25/2020 4:09 pm CLINICAL HISTORY: cough COMPARISON: 10/2019 FINDINGS: The lungs appear clear of acute infiltrate. The heart is normal size IMPRESSION: No acute abnormalities displayed
[2020-03-25 17:10] LABS: Urine Bacteria <20 /HPF (<20); Urine Culture Reflex Order NOT NEEDED; Urine RBC NONE SEEN /HPF (NONE SEEN)
[2020-03-25 17:10] LABS: Urine Blood NEGATIVE (NEG); Urine Glucose NEGATIVE (NEG); Urine Protein NEGATIVE (NEG); Urine pH 5.5 (5.0-7.0)
--- NOTE | 2020-03-25 17:41 | ER ---
Nurse's Notes [facility] Name: Corrie Nunez Age: 79 yrs Sex: Female : 1940 Arrival Date: 03/25/2020 Time: 15:33 Bed 6 Private MD: Diagnosis: Fever, unspecified;Malaise and fatigue Presentation: 03/25 15:33 Chief complaint: EMS states: Pt c/o not feeling well x 2 days and urinary incontinence. jl7 Family reports last time she was incontinent she had a UTI. Coronavirus screen: Proceed with normal triage. Patient denies a cough. Patient denies shortness of breath or difficulty breathing. Patient reports a measured and/or subjective temperature greater than 100.4F. Patient denies travel on a cruise ship or to a country the [facility] currently lists as an affected area. Patient denies contact with known and/or suspected case of COVID-19. Ebola Screen: No symptoms or risks identified at this time. Initial Sepsis Screen: Does the patient meet any 2 criteria? RR > 20 per min. Temp <36.0*C (96.8*F)) or > 38.3*C (100.9*F). Yes Does the patient have a suspected source of infection? Yes: Dysuria/Frequency/Urgency/UTI No. Patient's initial sepsis screen is negative. If YES to both, name of provider notified: Tang Fletcher MD. Risk Assessment: Do you want to hurt yourself or someone else? Patient reports no desire to harm self or others. Onset of symptoms was March 25, 2020. Care prior to arrival: None. 15:33 Method Of Arrival: EMS: [facility] 15:33 Acuity: STEPHANIE 3 Historical: - Allergies: 15:46 Iodine; 15:46 Morphine; 15:46 Codeine; 15:46 Protonix; - Home Meds: 16:05 Allopurinol Oral [Active]; losartan 50 mg Oral tab 1 tab once daily [Active]; metoprolol tartrate 50 mg Oral tab once daily [Active]; levothyroxine 100 mcg tab 1 tab once daily [Active]; metformin 500 mg Oral tr24 1 tab twice a day [Active]; prednisone 5 mg Oral tab once daily [Active]; Neurontin 600 mg Oral tab 1 tab four times a day [Active]; escitalopram oxalate 5 mg oral tab 1 tab once daily [Active]; fentanyl 75 mcg/hr Topical pt72 1 patch every 48 hours [Active]; fluticasone Topical [Active]; Triamcinolone Acetonide Topical 2 times per day [Active]; vit D3 [Active]; Voltaren skin gel [Active]; tramadol 50 mg Oral tab [Active]; montelukast 10 mg Oral tab 1 tab once daily [Active]; Restasis 0.05 % ophthalmic dpet [Active]; carbidopa-levodopa 25-100 mg Oral TbER 1 tab 2 times per day [Active]; sulfasalazine 500 mg Oral tab 1 tab bid [Active]; - PMHx: 15:46 Lupus; Psoriatic Arthritis; Hypertension; Diabetes - NIDDM; Hypothyroidism; Gout; jl7 Parkinsons; Rheumatoid Arthritis; Sjoren's Syndrome; - PSHx: 15:46 Cholecystectomy; Hysterectomy; cataract; blepharoplasty; back surgery; bladder lift; jl7 - Immunization history:: Adult Immunizations up to date. - Social history:: Smoking status: Patient denies any tobacco usage or history of. Screenin:05 Abuse screen: Denies threats or abuse. Denies injuries from another. Nutritional jl7 screening: No deficits noted. Tuberculosis screening: No symptoms or risk factors identified. Fall Risk No fall in past 12 months (0 pts). Secondary diagnosis (15 points) impaired mobility, IV access (20 points). Ambulatory Aid- None/Bed Rest/Nurse Assist (0 pts). Gait- Weak (10 pts.). Mental Status- Oriented to own ability (0 pts). Total [place] Fall Scale indicates High Risk Score (45 or more points). Fall prevention measures have been instituted. Side Rails Up X 2 Placed Close to Nursing Station Frequent Obs/Assessments Occuring Family Present and informed to notify staff if the need to leave the bedside As available patient and family educated on Fall Prevention Program and Strategies. Assessment: 15:35 General: Appears in no apparent distress. uncomfortable, ill, Behavior is calm, jl7 cooperative, appropriate for age. Pain: Denies pain. Neuro: Level of Consciousness is awake, alert, obeys commands, Oriented to person, place, time, situation. Cardiovascular: Patient's skin is warm and dry. Respiratory: Airway is patent Respiratory effort is even, unlabored, Respiratory pattern is regular, symmetrical. Derm: Skin is pink, warm \T\ dry. 16:30 Reassessment: Patient appears in no apparent distress at this time. No changes from jl7 previously documented assessment. Patient and/or family updated on plan of care and expected duration. Pain level reassessed. Patient is alert, oriented x 3, equal unlabored respirations, skin warm/dry/pink. 17:30 Reassessment: Patient appears in no apparent distress at this time. No changes from jl7 previously documented assessment. Patient and/or family updated on plan of care and expected duration. Pain level reassessed. Patient is alert, oriented x 3, equal unlabored respirations, skin warm/dry/pink. 18:30 Reassessment: Patient appears in no apparent distress at this time. No changes from jl7 previously documented assessment. Patient and/or family updated on plan of care and expected duration. Pain level reassessed. Patient is alert, oriented x 3, equal unlabored respirations, skin warm/dry/pink. 20:07 General: Appears in no apparent distress. comfortable, Behavior is calm, cooperative, jd3 appropriate for age. Pain: Denies pain. Neuro: Level of Consciousness is awake, alert, obeys commands, Oriented to person, place, time, situation, Reports generalized weakness . Cardiovascular: Denies chest pain, Capillary refill < 3 seconds Patient's skin is warm and dry. Respiratory: Airway is patent Respiratory effort is even, unlabored, Respiratory pattern is regular, symmetrical, Denies cough, shortness of breath. GI: No signs and/or symptoms were reported involving the gastrointestinal system. : No signs and/or symptoms were reported regarding the genitourinary system. EENT: No signs and/or symptoms were reported regarding the EENT system. Derm: Skin is intact, Skin is dry, Skin is normal, Skin temperature is warm. Musculoskeletal: Circulation, motion, and sensation intact. Range of motion: intact in all extremities. Vital Signs: 15:33 BP 134 / 60; Pulse 80; Resp 21 S; Temp 102.2; Pulse Ox 90% on R/A; jl7 16:30 BP 115 / 44; Pulse 67; Resp 19 S; Temp 101.6(C); Pulse Ox 99% on 2 lpm NC; jl7 17:16 BP 118 / 51; Pulse 68; Resp 17 S; Temp 101.4(C); Pulse Ox 99% on 2 lpm NC; jl7 19:18 BP 96 / 46; Pulse 64; Resp 16 S; Temp 100.2(C); Pulse Ox 100% on R/A; jl7 20:09 BP 116 / 58; Pulse 63; Resp 15 S; Pulse Ox 98% on R/A; jd3 ED Course: 15:33 Patient arrived in ED. snw 15:33 Kurt Dunn, PEYTON is Primary Nurse. jl7 15:34 Tang Fletcher MD is Attending Physician. [facility] 15:40 EKG done, by ED staff, reviewed by Chayo BOONE. dh3 15:42 Triage completed. jl7 15:46 Arm band placed on right wrist. jl7 15:48 Chayo Lucio FNP-C is PHCP. snw 15:55 First set of blood cultures drawn by me. jl7 16:00 Inserted saline lock: 20 gauge in right forearm, using aseptic technique. Blood jl7 collected. 16:00 Second set of blood cultures drawn by me. Inserted saline lock: 22 gauge in left hand, 3 using aseptic technique. Blood collected. 16:05 Patient has correct armband on for positive identification. Placed in gown. Bed in low jl7 position. Call light in reach. Side rails up X2. desk monitor on. Pulse ox on. NIBP on. 16:10 CXR XRAY In Process Unspecified. EDMS 16:45 Speci-cath kit inserted, using sterile technique, 16 Fr., specimen obtained. returned jl7 clear yellow urine. Patient tolerated well. 16:45 Urine collected: straight cath specimen, clear, Flu and/or RSV swab sent to lab. Strep jl7 swab sent to lab. COVID-19 swab sent to lab. 17:40 Stef Cook DO is Hospitalizing Provider. snw 19:18 No provider procedures requiring assistance completed. Patient admitted, IV remains in jl7 place. intact, No redness/swelling at site. Administered Medications: 16:45 Drug: Tylenol Suppository 650 mg Route: OK; jl7 19:18 Follow up: Response: No adverse reaction; Temperature is decreased jl7 16:45 Drug: NS 0.9% 1000 ml Route: IV; Rate: 75 ml/hr; Site: right forearm; jl7 19:18 Follow up: Response: No adverse reaction; IV Status: Infusion continued upon admission jl7 Outcome: 17:41 Decision to Hospitalize by Provider. snw 20:42 Admitted to Med/surg accompanied by tech, via stretcher, room 414, with chart, Report jsnow called to Tom TODD 20:42 Condition: stable 20:42 Instructed on the need for admit, Demonstrated understanding of instructions. 20:53 Patient left the ED. yandel Signatures: Dispatcher [employer] [facility] Tang Fletcher MD MD cha Therrien, Shelly, FORGE HAND-C FORGE HAND-Csnw Kurt Dunn, RN RN jl7 Lori Johnson [facility] Samuel Villalpando RN RN jd3 Corrections: (The following items were deleted from the chart) 20:32 20:09 BP 116 / 48; Pulse 63bpm; Resp 15bpm; Spontaneous; Pulse Ox 98% RA; yandel jsnow
--- NOTE | 2020-03-25 17:42 | EDPHYS ---
Physician Documentation [facility] Name: Corrie Nunez Age: 79 yrs Sex: Female : 1940 Arrival Date: 03/25/2020 Time: 15:33 Bed 6 Private MD: YOHANA Physician Tang Fletcher HPI: 03/25 15:54 This 79 yrs old Female presents to ER via EMS with complaints of fever, snw confusion, incontinence. 15:54 Daughter states patient has been doing well, no complaints, pt was incontinent this am snw which is not her norm, pt confused to time and situation per Daughter. Hx of pneumonia in Sep. Daughter states pt still has cough. 15:56 Onset: The symptoms/episode began/occurred suddenly, and became persistent. Severity of snw symptoms: At their worst the symptoms were moderate severe in the emergency department the symptoms are unchanged. The patient has experienced a previous episode, and the symptoms today are exactly the same, pt was dx with UTI at that time. pt has home health, sees Dr. Santa. Historical: - Allergies: 15:46 Iodine; jl7 15:46 Morphine; jl7 15:46 Codeine; jl 15:46 Protonix; jl7 - Home Meds: 16:05 Allopurinol Oral [Active]; losartan 50 mg Oral tab 1 tab once daily [Active]; jl7 metoprolol tartrate 50 mg Oral tab once daily [Active]; levothyroxine 100 mcg tab 1 tab once daily [Active]; metformin 500 mg Oral tr24 1 tab twice a day [Active]; prednisone 5 mg Oral tab once daily [Active]; Neurontin 600 mg Oral tab 1 tab four times a day [Active]; escitalopram oxalate 5 mg oral tab 1 tab once daily [Active]; fentanyl 75 mcg/hr Topical pt72 1 patch every 48 hours [Active]; fluticasone Topical [Active]; Triamcinolone Acetonide Topical 2 times per day [Active]; vit D3 [Active]; Voltaren skin gel [Active]; tramadol 50 mg Oral tab [Active]; montelukast 10 mg Oral tab 1 tab once daily [Active]; Restasis 0.05 % ophthalmic dpet [Active]; carbidopa-levodopa 25-100 mg Oral TbER 1 tab 2 times per day [Active]; sulfasalazine 500 mg Oral tab 1 tab bid [Active]; - PMHx: 15:46 Lupus; Psoriatic Arthritis; Hypertension; Diabetes - NIDDM; Hypothyroidism; Gout; jl7 Parkinsons; Rheumatoid Arthritis; Sjoren's Syndrome; - PSHx: 15:46 Cholecystectomy; Hysterectomy; cataract; blepharoplasty; back surgery; bladder lift; jl7 - Immunization history:: Adult Immunizations up to date. - Social history:: Smoking status: Patient denies any tobacco usage or history of. ROS: 15:52 Eyes: Negative for injury, pain, redness, and discharge, ENT: Negative for injury, snw pain, and discharge, Neck: Negative for injury, pain, and swelling, Cardiovascular: Negative for chest pain, palpitations, and edema, Respiratory: Negative for shortness of breath, cough, wheezing, and pleuritic chest pain, Abdomen/GI: Negative for abdominal pain, nausea, vomiting, diarrhea, and constipation, Back: Negative for injury and pain. 15:52 MS/Extremity: Negative for injury and deformity, Skin: Negative for injury, rash, and discoloration, Neuro: Negative for headache, weakness, numbness, tingling, and seizure. 15:52 Constitutional: Positive for fever, malaise. 15:52 : Positive for urinary incontinence. Exam: 15:49 Constitutional: The patient appears alert, febrile. snw 15:51 Head/Face: Normocephalic, atraumatic. Eyes: Pupils equal round and reactive to light, snw extra-ocular motions intact. Lids and lashes normal. Conjunctiva and sclera are non-icteric and not injected. Cornea within normal limits. Periorbital areas with no swelling, redness, or edema. ENT: Nares patent. No nasal discharge, no septal abnormalities noted. Tympanic membranes are normal and external auditory canals are clear. Oropharynx with no redness, swelling, or masses, exudates, or evidence of obstruction, uvula midline. Mucous membranes moist. Neck: Trachea midline, no thyromegaly or masses palpated, and no cervical lymphadenopathy. Supple, full range of motion without nuchal rigidity, or vertebral point tenderness. No Meningismus. Chest/axilla: Normal chest wall appearance and motion. Nontender with no deformity. No lesions are appreciated. 15:51 Back: No spinal tenderness. No costovertebral tenderness. Full range of motion. Skin: Warm, dry with normal turgor. Normal color with no rashes, no lesions, and no evidence of cellulitis. MS/ Extremity: Pulses equal, no cyanosis. Neurovascular intact. Full, normal range of motion. Neuro: Awake and alert, GCS 15, oriented to person, disoriented to place, time, and situation. Cranial nerves II-XII grossly intact. Motor strength 5/5 in all extremities. Sensory grossly intact. tremor to right arm, left arm mildly contracted. Hx of Parkinson's Psych: Awake, alert, with orientation to person, place and time. Behavior, mood, and affect are within normal limits. 15:51 Cardiovascular: Rate: normal, Rhythm: regular, Pulses: no pulse deficits are appreciated. 15:51 Respiratory: the patient does not display signs of respiratory distress, Respirations: normal, Breath sounds: decreased breath sounds, that are mild, Spo2 91%, placed on 2L o2 per NC. 15:51 Abdomen/GI: Inspection: abdomen appears normal, Bowel sounds: normal, Palpation: mild abdominal tenderness, in all quadrants. Vital Signs: 15:33 BP 134 / 60; Pulse 80; Resp 21 S; Temp 102.2; Pulse Ox 90% on R/A; jl7 16:30 BP 115 / 44; Pulse 67; Resp 19 S; Temp 101.6(C); Pulse Ox 99% on 2 lpm NC; jl7 17:16 BP 118 / 51; Pulse 68; Resp 17 S; Temp 101.4(C); Pulse Ox 99% on 2 lpm NC; jl7 19:18 BP 96 / 46; Pulse 64; Resp 16 S; Temp 100.2(C); Pulse Ox 100% on R/A; jl7 20:09 BP 116 / 58; Pulse 63; Resp 15 S; Pulse Ox 98% on R/A; jd3 MDM: 15:34 Patient medically screened. jaime 17:38 Data reviewed: vital signs, nurses notes. Data interpreted: Pulse oximetry: on room air snw is 91 %. Interpretation: hypoxia. Plan: O2 by NC applied. Counseling: I had a detailed discussion with the patient and/or guardian regarding: the historical points, exam findings, and any diagnostic results supporting the discharge/admit diagnosis, lab results, radiology results, the need for further work-up and treatment in the hospital. Physician consultation: Stef Cook DO was called at 17:39, was contacted at 17:40, regarding admission, to the medical/surgical unit. and will see patient in ED, shortly. 03/25 15:37 Order name: Blood Culture Adult (2) 03/25 15:37 Order name: BMP; Complete Time: 17:03/25 15:37 Order name: C-Reactive Protein; Complete Time: 17:03/25 15:37 Order name: CBC with Diff; Complete Time: 17:03/25 15:37 Order name: COVID-19; Complete Time: 20:47 03/25 15:37 Order name: D-Dimer; Complete Time: :03/25 15:37 Order name: Ferritin; Complete Time: 17:03/25 15:37 Order name: Flu; Complete Time: 18:24 03/25 15:37 Order name: Lactate; Complete Time: 17:03/25 15:37 Order name: LFT's; Complete Time: 17:03/25 15:37 Order name: Lipase; Complete Time: 17:03/25 15:37 Order name: Procalcitonin; Complete Time: 17:03/25 15:37 Order name: PT-INR; Complete Time: 17:03/25 15:37 Order name: Ptt, Activated; Complete Time: 17:01 03/25 15:37 Order name: Urine Dipstick-Ancillary (obtain specimen); Complete Time: 16:51 03/25 15:37 Order name: Strep; Complete Time: 18:24 03/25 15:37 Order name: Troponin (emerg Dept Use Only); Complete Time: 17:01 03/25 15:37 Order name: Urine Microscopic Only; Complete Time: 17:12 03/25 15:37 Order name: CXR XRAY; Complete Time: 17:01 03/25 15:37 Order name: EKG; Complete Time: 15:38 03/25 15:37 Order name: Cardiac monitoring; Complete Time: 16:02 03/25 15:37 Order name: Document PUI#; Complete Time: 19:22 snw 03/25 15:37 Order name: Droplet/Contact Precautions; Complete Time: 17:05 snw 03/25 15:37 Order name: EKG - Nurse/Tech; Complete Time: 15:50 snw 03/25 15:37 Order name: Urine Culture snw 03/25 16:53 Order name: Urine Dipstick--Ancillary (enter results); Complete Time: 17:12 em1 03/25 17:20 Order name: CT Head Brain wo Cont snw 03/25 18:57 Order name: CT; Complete Time: 19:02 EDMS 03/25 15:37 Order name: Adler; Complete Time: 17:05 snw 03/25 15:37 Order name: IV Start; Complete Time: 16:01 snw 03/25 15:37 Order name: Labs collected and sent; Complete Time: 16:01 snw 03/25 15:37 Order name: O2 Per Protocol; Complete Time: 16:02 snw 03/25 15:37 Order name: O2 Sat Monitoring; Complete Time: 16:02 snw 03/25 15:37 Order name: Oxygen; Complete Time: 16:03 snw 03/25 15:38 Order name: Misc. Order: criticore; Complete Time: 17:05 snw Administered Medications: 16:45 Drug: Tylenol Suppository 650 mg Route: LA; 7 19:18 Follow up: Response: No adverse reaction; Temperature is decreased jl7 16:45 Drug: NS 0.9% 1000 ml Route: IV; Rate: 75 ml/hr; Site: right forearm; jl7 19:18 Follow up: Response: No adverse reaction; IV Status: Infusion continued upon admission jl7 Disposition: 03/26 13:30 Co-signature as Attending Physician, Tang Fletcher MD I agree with the assessment and [facility] plan of care. Disposition: 03/25/20 17:41 Hospitalization ordered by Stef Cook for Inpatient Admission. Preliminary diagnosis are Fever, unspecified, Malaise and fatigue. - Bed requested for Telemetry/MedSurg (Inpatient). - Status is Inpatient Admission. jd3 - Condition is Stable. - Problem is new. - Symptoms are unchanged. Signatures: Dispatcher [facility] Ruby Lau RN RN kl Anderson, Corey, MD MD cha Naveed, Chayo, TRIMMING INSPECTOR-C TRIMMING INSPECTOR-Csnw Kurt Dunn, RN RN jl7 Samuel Villalpando, RN RN jd3 Corrections: (The following items were deleted from the chart) 03/25 15:54 15:51 Back: No spinal tenderness. No costovertebral tenderness. Full range of motion. snw Skin: Warm, dry with normal turgor. Normal color with no rashes, no lesions, and no evidence of cellulitis. MS/ Extremity: Pulses equal, no cyanosis. Neurovascular intact. Full, normal range of motion. Neuro: Awake and alert, GCS 15, oriented to person, place, time, and situation. Cranial nerves II-XII grossly intact. Motor strength 5/5 in all extremities. Sensory grossly intact. Cerebellar exam normal. Normal gait. Psych: Awake, alert, with orientation to person, place and time. Behavior, mood, and affect are within normal limits. snw 18:16 17:41 Hospitalization Ordered by Stef Cook DO for Inpatient Admission. Preliminary kl diagnosis is Fever, unspecified; Malaise and fatigue. Bed requested for Telemetry/MedSurg (Inpatient). Status is Inpatient Admission. Condition is Stable. Problem is new. Symptoms are unchanged. snw 20:53 18:16 03/25/2020 17:41 Hospitalization Ordered by Stef Cook DO for Inpatient jd3 Admission. Preliminary diagnosis is Fever, unspecified; Malaise and fatigue. Bed requested for Telemetry/MedSurg (Inpatient). Status is Inpatient Admission. Condition is Stable. Problem is new. Symptoms are unchanged. kl
--- NOTE | 2020-03-25 18:21 | P.HP ---
Certification for Inpatient Patient admitted to: Observation With expected LOS: <2 Midnights Patient will require the following post-hospital care: None Practitioner: I am a practitioner with admitting privileges, knowledge of patient current condition, hospital course, and medical plan of care. Services: Services provided to patient in accordance with Admission requirements found in Title 42 Section 412.3 of the Code of Federal Regulations <Weston Dawn - Last Filed: 03/25/20 18:16> Patient admitted to: Observation With expected LOS: <2 Midnights <Stef Cook - Last Filed: 03/25/20 20:35> Patient History Date of Service: 03/25/20 Primary Care Provider: Kiet Reason for admission: Fever, altered mental status, cough, suspect viral pneumonia History of Present Illness: 79-year-old female with medical history of diabetes mellitus type 2, hypertension, lupus, hypothyroidism, hypertension, chronic back pain, chronic kidney disease, likely Parkinson's, presents emergency department with a 1 day history of confusion, fever. Patient family reports that the patient has also had a cough for about 1.5 weeks. Family states that patient has had episodes in the past similar to this when she has either had a urinary tract infection or pneumonia. In the emergency department for urinary tract infection was ruled out with a urine specimen collected via catheterization. Chest x-ray did not show any acute findings at this time although patient was mildly hypoxic without oxygen and has a cough. During her evaluation in the emergency department patient was also found to have an elevated ferritin, D-dimer, CRP but normal white blood cell count and pro calcitonin. ED provider wishes to admit patient for further evaluation management at this time. When I saw the patient in the emergency department she did not appear septic. Patient did not appear in distress. Daughter states that the patient was confused in regards to what time of day and what day it was in the 1st time she has that was this morning. Daughter also reports that the patient had a steroid injection into her lower back a number of weeks ago. Patient will be admitted for further evaluation and management. Home medications list reviewed: Yes - Past Medical/Surgical History Has patient received pneumonia vaccine in the past: No Diabetic: Yes -: HTN -: anxiety -: Lupus -: arthritis -: DMII -: Anxiety -: Depression -: Likely Parkinson's -: CKD -: Cholecystectomy -: Back Surgery -: Hysterectomy Psychosocial/ Personal History: Patient is and currently lives at home with her daughter. - Family History Father -: Heart disease, Stroke Mother -: Heart disease, Diabetes - Social History Smoking Status: Never smoker Alcohol use: No CD- Drugs: No Caffeine use: Yes Place of Residence: Home <Weston Dawn - Last Filed: 03/25/20 18:16> Date of Service: 03/25/20 <Stef Cook - Last Filed: 03/25/20 20:35> Allergies iodine Adverse Reaction (Intermediate, Verified 03/14/19 09:02) Rash pantoprazole sodium [From Protonix] Adverse Reaction (Intermediate, Verified 03/14/19 09:02) VOMITING Penicillins Adverse Reaction (Intermediate, Verified 03/14/19 09:02) VOMITING codeine [Codeine] Adverse Reaction (Mild, Verified 03/14/19 09:02) VOMITING Morphine Allergy (Mild, Uncoded 03/14/19 09:02) Rash Home Medications: Fentanyl Patch [Duragesic Patch*] 75 mcg TOP EVERY 3RD DAY 10/15/15 Ferrous Sulfate [Feosol] 65 mg PO BID 10/15/15 Gabapentin [Neurontin] 600 mg PO QID 10/15/15 Levothyroxine [Synthroid*] 100 mcg PO DAILY 10/15/15 Losartan Potassium [Cozaar*] 50 mg PO [id number] 10/15/15 Metformin ER [Glucophage ER*] 500 mg PO BID 10/15/15 Metoprolol Succinate [Toprol Xl*] 50 mg PO DAILY AFTER SUPPER 10/15/15 Tramadol HCl [Ultram] 1 - 2 tab PO TID PRN 10/15/15 allopurinoL [Allopurinol] 100 mg PO DAILY 10/15/15 predniSONE [Prednisone] 5 mg PO DAILY 10/15/15 Leflunomide 20 mg PO DAILY 03/27/19 Magnesium Oxide [Magnesium] 250 mg PO SEECOM 03/27/19 Turmeric Root Extract [Turmeric] 500 mg PO DAILY 03/27/19 Albuterol Sulfate [Proair Hfa] 2 puff IH TID PRN #1 hfa.aer.ad 10/08/19 Azithromycin [Zithromax] 250 mg PO DAILY #3 tablet 10/08/19 Benzonatate [Tessalon Perle] 100 mg PO TID PRN #15 cap 10/08/19 Guaifenesin [Mucinex] 600 mg PO BID PRN #15 tab.er.12h 10/08/19 Review of Systems General: Fever, Chills, Malaise Eyes: Unremarkable ENT: Unremarkable Respiratory: Cough, Shortness of Breath Cardiovascular: Unremarkable Gastrointestinal: Unremarkable Genitourinary: Unremarkable Musculoskeletal: Unremarkable Integumentary: Unremarkable Neurological: Confusion Lymphatics: Unremarkable <Weston Dawn - Last Filed: 03/25/20 18:16> Physical Examination - Studies Laboratory Data (last 24 hrs) 03/25/20 16:00: PT 12.1, INR 1.03, APTT 31.8 03/25/20 16:00: WBC 6.7, Hgb 11.3 L, Hct 34.5 L, Plt Count 126 L 03/25/20 16:00: Sodium 137, Potassium 3.9, BUN 30 H, Creatinine 1.13, Glucose 82, Total Bilirubin 0.3, AST 30, ALT 43, Alkaline Phosphatase 87, Lipase 166 <Weston Dawn - Last Filed: 03/25/20 18:16> - Studies Laboratory Data (last 24 hrs) 03/25/20 16:00: PT 12.1, INR 1.03, APTT 31.8 03/25/20 16:00: WBC 6.7, Hgb 11.3 L, Hct 34.5 L, Plt Count 126 L 03/25/20 16:00: Sodium 137, Potassium 3.9, BUN 30 H, Creatinine 1.13, Glucose 82, Total Bilirubin 0.3, AST 30, ALT 43, Alkaline Phosphatase 87, Lipase 166 Microbiology Data (last 24 hrs): 03/25/20 16:40 Throat Group A Streptococcus Rapid Screen - Final 03/25/20 16:40 Nasopharnyx Influenza Type A Antigen Screen - Final 03/25/20 16:40 Nasopharnyx Influenza Type B Antigen Screen - Final <Stef Cook - Last Filed: 03/25/20 20:35> Assessment and Plan - Plan Assessment Fever, cough , altered mental status suspect toxic encephalopathy likely secondary to viral upper respiratory tract infection- possibly COVID Hypertension Hypothyroidism CKD Gout Diabetes mellitus type 2 Chronic lower back pain Plan Fever, cough , altered mental status suspect toxic encephalopathy likely secondary to viral upper respiratory tract infection- possibly COVID: Chest x- ray obtained in the emergency department does not show any acute findings, blood cultures obtained, will follow up for results. Will follow up on flu and guerrero virus testing. Patient will be started on antibiotics covering for a community-acquired pneumonia. Pulmonology has been consulted on this case as well. Sputum cultures have been ordered. Will provide patient with oxygen therapy via nasal cannula as necessary. Respiratory therapy has been consulted to provide incentive spirometry and attempt to wean off oxygen when patient can tolerate this. DVT prophylaxis with Lovenox 40 mg subcutaneous daily. Anticipate clinical improvement next 24-48 hr at which time patient to be discharged back home. Patient does have home health and home oxygen available. Appreciate further input from pulmonology. Hypertension: Will obtain and continue patient's home medications, will adjust as necessary. Hypothyroidism: Will continue patient's home medication and obtain thyroid panel the morning. CKD: Nephrology has been consulted on this case. Will continue to trend patient's renal function during this hospitalization. Gout: Will obtain and continue patient's home medications. Diabetes mellitus type 2: Will obtain and continue patient's home medications will implement a.c. HS Accu-Cheks and sliding scale insulin therapy. Will obtain A1c level with morning labs. Chronic lower back pain: Will provide patient with home medications including fentanyl patch and tramadol as needed. Discharge Plan: Home Plan to discharge in: 48 Hours - Advance Directives Does patient have a Living Will: No Does patient have a Durable POA for Healthcare: No - Code Status/Comfort Care Code Status Assessed: Yes (Patient is full code) Critical Care: No Time Spent Managing Pts Care (In Minutes): 55 <Weston Dawn - Last Filed: 03/25/20 18:16> - Plan Case reviewed with MANAGEMENT LEAD. Evaluation, assessment and plan of care discussed with MANAGEMENT LEAD. Agree with plan. Will monitor closely. Will rule out COVID. Await recommendations by Pulmonary. Continue with home meds. <Stef Cook - Last Filed: 03/25/20 20:35>
--- NOTE | 2020-03-25 18:52 | RAD REPORT ---
EXAM DESCRIPTION: CT - Head Brain Wo Cont - 03/25/2020 6:42 pm CLINICAL HISTORY: Alteration of awareness/confusion COMPARISON: 2019 TECHNIQUE: Computed axial tomography of the head was obtained. IV contrast was not requested. All CT scans are performed using dose optimization technique as appropriate and may include automated exposure control or mA/KV adjustment according to patient size. FINDINGS: An intracranial bleed is not seen . The ventricles are normal in caliber. No extra-axial fluid collection is noted. Mild to moderate low-density areas within periventricular, deep and subcortical white matter likely r epresent ischemic changes secondary to small vessel disease. Fluid within the sinuses/ mastoids is not seen. Mild chronic ethmoid sinusitis IMPRESSION: No acute intracranial abnormality is seen. If patient's symptoms persist MRI of the bra in would be recommended.
[2020-03-25] MEDS ORDERED: ONDANSETRON 4 MG/2 ML VIAL IV PRN (20:48)
[2020-03-25] MEDS ORDERED: ALBUTEROL INHALER 60 PUFF/8 GM IH PRN (20:48)
[2020-03-25] MEDS ORDERED: TRAMADOL HCL 50 MG TAB PO PRN (20:48)
[2020-03-25] MEDS ORDERED: BENZONATATE 100 MG CAP PO PRN (20:48)
[2020-03-25] MEDS ORDERED: ACETAMINOPHEN 500 MG TAB PO PRN (20:48)
[2020-03-25] MEDS: INSULIN -REGULAR HUMAN 50 UNIT/0.5 ML ML SQ SCH (21:00)
[2020-03-25 22:42] LABS: Thyroid Stimulating Hormone 0.764 uIU/mL (0.360-3.740)
[2020-03-25 23:11] VITALS: BMI 27.1
[2020-03-26 06:17] LABS: Absolute Lymphocytes (CBC) 1.9 K/uL (0.7-4.9); Basophils % 0.5 % (0-1.3); Hematocrit 36.8 % (36.0-45.0); MPV 7.8 fL (7.6-11.3); RBC Red Blood Cell Count 3.79 M/uL (3.86-4.86)
[2020-03-26 06:22] LABS: Potassium 4.1 mmol/L (3.5-5.1)
[2020-03-26] MEDS ORDERED: LEVOTHYROXINE SOD 0.1 MG TAB PO SCH (06:30)
--- NOTE | 2020-03-26 07:25 | EKG ---
Test Date: 2020-03-25 Test Time: 15:37:31 [employer]: [facility] MEASUREMENT RESULTS: Intervals: Rate: 80 TN: 134 QRSD: 76 QT: 388 QTc: 447 [place]: P: 51 TN: 134 QRS: -18 T: 58 INTERPRETIVE STATEMENTS: Normal sinus rhythm Nonspecific ST abnormality Abnormal ECG Compared to ECG 10/04/2019 21:22:08 ST (T wave) deviation now present Left-axis deviation no longer present Myocardial infarct finding no longer present Electronically Signed On 03-26-20 07:24:09 CDT by Rolando Woody
[2020-03-26] MEDS: INSULIN -REGULAR HUMAN 50 UNIT/0.5 ML ML SQ SCH ×2 (07:30→11:30)
[2020-03-26 08:25] VITALS: O2SAT 99
--- NOTE | 2020-03-26 08:27 | P.CNS ---
Date of Consult: 03/26/20 Primary Care Provider: Kiet Chief Complaint: Fever, altered mental status, cough, suspect viral pneumonia History of Present Illness: Patient is 79 years of age multiple medical problems admitted with confusion and fevers guerrero virus positive patient is on home oxygen the well at her baseline apart from fever no other complaints Allergies iodine Adverse Reaction (Intermediate, Verified 03/14/19 09:02) Rash pantoprazole sodium [From Protonix] Adverse Reaction (Intermediate, Verified 03/14/19 09:02) VOMITING Penicillins Adverse Reaction (Intermediate, Verified 03/14/19 09:02) VOMITING codeine [Codeine] Adverse Reaction (Mild, Verified 03/14/19 09:02) VOMITING Morphine Allergy (Mild, Uncoded 03/14/19 09:02) Rash Home Medications: Fentanyl Patch [Duragesic Patch*] 75 mcg TOP EVERY 3RD DAY 10/15/15 Gabapentin [Neurontin] 600 mg PO QID 10/15/15 Levothyroxine [Synthroid*] 100 mcg PO DAILY 10/15/15 Losartan Potassium [Cozaar*] 50 mg PO [id number] 10/15/15 Metformin ER [Glucophage ER*] 500 mg PO BID 10/15/15 Tramadol HCl [Ultram] 1 - 2 tab PO TID PRN 10/15/15 predniSONE [Prednisone] 5 mg PO DAILY 10/15/15 Leflunomide 20 mg PO DAILY 03/27/19 Carbidopa/Levodopa [Carbidopa-Levo 25-100 mg Odt] 1 tab PO BID 03/26/20 Cholecalciferol (Vitamin D3) [Vitamin D3] 2,000 unit PO DAILY 03/26/20 Cyclosporine [Restasis Multidose] 1 drop EACH EYE BID 03/26/20 Diclofenac Sodium [Voltaren] 2 gm TOP QID 03/26/20 Escitalopram [Lexapro*] 10 mg PO DAILY 03/26/20 Fish Oil/Borage/Flax/Om3,6,9 1 [Corydon 3-6-9 1,200 mg Softgel] 1 tab PO BID 03/26/20 Fluticasone Propionate 1 film TOP BID 03/26/20 Billy-Plex Gel 85 mg PO BID 03/26/20 Metoprolol Tartrate 50 mg PO BEDTIME 03/26/20 Montelukast [Singulair*] 10 mg PO BEDTIME 03/26/20 Triamcinolone 0.1% Crm [Kenalog 0.1% Cream*] 1 dose TOP BID 03/26/20 sulfaSALAzine [Sulfasalazine] 500 mg PO BID 03/26/20 - Past Medical/Surgical History Diabetic: Yes -: HTN -: anxiety -: Lupus -: arthritis -: DMII -: Anxiety -: Depression -: Likely Parkinson's -: CKD -: Cholecystectomy -: Back Surgery -: Hysterectomy Psychosocial/ Personal History: Patient is and currently lives at home with her daughter. - Family History Father Medical History: Heart disease, Stroke Mother Medical History: Heart disease, Diabetes - Social History Smoking Status: Unknown if ever smoked Alcohol use: No CD- Drugs: No Caffeine use: Yes Place of Residence: Home Review of Systems is unable to be obtained Physical Examination Temp Pulse Resp BP Pulse Ox 97.5 F 80 18 103/65 99 03/26/20 04:00 03/26/20 04:00 03/26/20 04:00 03/26/20 04:00 03/26/20 04:00 Laboratory Data (last 24 hrs) 03/25/20 16:00: PT 12.1, INR 1.03, APTT 31.8 03/25/20 16:00: WBC 6.7, Hgb 11.3 L, Hct 34.5 L, Plt Count 126 L 03/25/20 16:00: Sodium 137, Potassium 3.9, BUN 30 H, Creatinine 1.13, Glucose 82, Total Bilirubin 0.3, AST 30, ALT 43, Alkaline Phosphatase 87, Lipase 166 - Problems (1) Coronavirus infection, unspecified Current Visit: Yes Status: Acute Plan: Patient is 79 years of age admitted with fever and confusion guerrero virus positive right now hemodynamically stable no evidence of acute lung injury according to the nurse she is she is back at her baseline id not entered the room evaluated the patient behind over he appears to be doing well very alert responsive cooperative answering questions appropriately no respiratory distress has oxygen at home was prescribed for pneumonia vital signs are stable patient can be discharged home under isolation no medications necessary
[2020-03-26] MEDS ORDERED: METOPROLOL TAR 50 MG TAB PO SCH (09:00)
[2020-03-26] MEDS ORDERED: CEFTRIAXONE/SWI 1gm 1 GM/10 ML SYR IV SCH (09:00)
[2020-03-26] MEDS ORDERED: AZITHROMYCIN IV 500 MG in NA CHLORIDE 0.9% 250 ML IVPB SCH (09:00)
[2020-03-26] MEDS ORDERED: LOSARTAN POTASSIUM 50 MG TABLET PO SCH (09:00)
[2020-03-26] MEDS ORDERED: predniSONE 5 MG TAB PO SCH (09:00)
[2020-03-26] MEDS ORDERED: ESCITALOPRAM 20 MG TAB PO SCH (09:00)
[2020-03-26] MEDS ORDERED: ENOXAPARIN 40 MG/0.4 ML SQ SCH (09:00)
[2020-03-26] MEDS ORDERED: CEFTRIAXONE 1 GM/NS 50 ML 1 GM/50 ML BAG IV SCH (09:00)
[2020-03-26 12:07] VITALS: BP 122/59; TEMP 99.9
--- NOTE | 2020-03-26 12:33 | P.DS ---
Admission Date: 03/25/20 Discharge Date: 03/26/20 Primary Care Provider: Kiet Disposition: ROUTINE DISCHARGE Discharge Condition: GOOD Reason for Admission: Fever, altered mental status, cough, suspect viral pneumonia Consultations: Pulmonary-Dr. Morales Procedures: CT Head: FINDINGS: An intracranial bleed is not seen . The ventricles are normal in caliber. No extra-axial fluid collection is noted. Mild to moderate low-density areas within periventricular, deep and subcortical white matter likely represent ischemic changes secondary to small vessel disease. Fluid within the sinuses/ mastoids is not seen. Mild chronic ethmoid sinusitis IMPRESSION: No acute intracranial abnormality is seen CXR: COMPARISON: 10/2019 FINDINGS: The lungs appear clear of acute infiltrate. The heart is normal size IMPRESSION: No acute abnormalities displayed Medical Problem List: Fever, cough secondary to viral upper respiratory tract infection with positive COVID 19 Hypertension Hypothyroidism CKD stage III Gout Diabetes mellitus type 2 Chronic lower back pain Brief History of Present Illness: 79-year-old female with multiple medical problems including diabetes mellitus type 2, hypertension, lupus on chronic steroids, hypothyroidism, hypertension, chronic back pain, chronic renal disease and Parkinson's. Patient presented with one-day history of fever and mild confusion. Patient also reported a cough over the past 1-2 weeks. ER evaluated the patient. No evidence of UTI or pneumonia at that time. Patient was admitted for further evaluation. COVID infection was suspected. The patient did not appear septic upon admission. No distress noted. Hospital Course: Patient presented with fever, cough and mild confusion. Patient was evaluated. No evidence of UTI or pneumonia was identified. Pro calcitonin negative. Patient was evaluated for COVID viral upper respiratory infection. Patient was positive. Patient was seen and evaluated by pulmonology. Pulmonology feels no further intervention required. Patient will be treated symptomatically. At discharge patient will continue with albuterol 2 puffs 3 times a day as needed for shortness of breath, Tessalon Perles 1 pill twice daily as needed for cough and Mucinex 600 mg twice daily as needed for congestion. Patient has home oxygen at home. She may continue with this to maintain sats above 93%. Education and quarantine for COVID infection will be provided. Information will be sent to the health department. Family members will likely need to be evaluated as well. Patient will continue with health department and CDC guidelines. Patient may follow up with pulmonology as an outpatient to further monitor and address in 1- 2 weeks. Patient with multiple medical problems including hypertension, hypothyroidism, chronic renal disease stage III, diabetes mellitus type 2, lupus on chronic steroids, Parkinson's, chronic pain. Patient will continue with her home medications. Recommend follow up with her PCP in 1-2 weeks to follow up this hospitalization. Recommend follow up with her multiple specialists including pain management, rheumatology, and PCP. Vital Signs/Physical Exam: Temp Pulse Resp BP Pulse Ox 99.9 F 65 20 122/59 L 93 03/26/20 12:00 03/26/20 12:00 03/26/20 12:00 03/26/20 12:00 03/26/20 12:00 General: Alert, In no apparent distress, Oriented x3, Cooperative HEENT: Atraumatic Neck: Supple Respiratory: Clear to auscultation bilaterally, Normal air movement Cardiovascular: Normal pulses, Regular rate/rhythm Gastrointestinal: Normal bowel sounds, Soft and benign, Non-distended, No rebound, No guarding Neurological: Normal speech, Normal strength at 5/5 x4 extr, Normal tone, Normal affect Laboratory Data at Discharge: WBC 6.5 K/uL (4.3-10.9) 03/26/20 05:20 Hgb 11.8 g/dL (12.0-15.0) L 03/26/20 05:20 Hct 36.8 % (36.0-45.0) 03/26/20 05:20 Plt Count 121 K/uL (152-406) L 03/26/20 05:20 PT 12.1 SECONDS (9.5-12.5) 03/25/20 16:00 INR 1.03 03/25/20 16:00 APTT 31.8 SECONDS (24.3-36.9) 03/25/20 16:00 Sodium 140 mmol/L (136-145) 03/26/20 05:20 Potassium 4.1 mmol/L (3.5-5.1) 03/26/20 05:20 BUN 28 mg/dL (7-18) H 03/26/20 05:20 Creatinine 1.04 mg/dL (0.55-1.3) 03/26/20 05:20 Glucose 78 mg/dL (74-106) 03/26/20 05:20 Magnesium 2.0 mg/dL (1.8-2.4) 03/26/20 05:20 Total Bilirubin 0.3 mg/dL (0.2-1.0) 03/25/20 16:00 AST 30 U/L (15-37) 03/25/20 16:00 ALT 43 U/L (12-78) 03/25/20 16:00 Alkaline Phosphatase 87 U/L (45-117) 03/25/20 16:00 Lipase 166 U/L (73-393) 03/25/20 16:00 Home Medications: Fentanyl Patch [Duragesic Patch*] 75 mcg TOP EVERY 3RD DAY 10/15/15 Gabapentin [Neurontin] 600 mg PO QID 10/15/15 Levothyroxine [Synthroid*] 100 mcg PO DAILY 10/15/15 Losartan Potassium [Cozaar*] 50 mg PO [id number] 10/15/15 Metformin ER [Glucophage ER*] 500 mg PO BID 10/15/15 Tramadol HCl [Ultram] 1 - 2 tab PO TID PRN 10/15/15 predniSONE [Prednisone] 5 mg PO DAILY 10/15/15 Leflunomide 20 mg PO DAILY 03/27/19 Albuterol Inhaler [Ventolin Inhaler*] 2 puff IH Q6H PRN #1 hfa.aer.ad 03/26/20 Benzonatate [Tessalon Perle*] 100 mg PO BID PRN #10 cap 03/26/20 Carbidopa/Levodopa [Carbidopa-Levo 25-100 mg Odt] 1 tab PO BID 03/26/20 Cholecalciferol (Vitamin D3) [Vitamin D3] 2,000 unit PO DAILY 03/26/20 Cyclosporine [Restasis Multidose] 1 drop EACH EYE BID 03/26/20 Diclofenac Sodium [Voltaren] 2 gm TOP QID 03/26/20 Escitalopram [Lexapro*] 10 mg PO DAILY 03/26/20 Fish Oil/Borage/Flax/Om3,6,9 1 [[place] 3-6-9 1,200 mg Softgel] 1 tab PO BID 03/26/20 Fluticasone Propionate 1 film TOP BID 03/26/20 Guaifenesin [Mucinex] 600 mg PO BID PRN #15 tab.er.12h 06/18/20 Billy-Plex Gel 85 mg PO BID 03/26/20 Metoprolol Tartrate 50 mg PO BEDTIME 03/26/20 Montelukast [Singulair*] 10 mg PO BEDTIME 03/26/20 Triamcinolone 0.1% Crm [Kenalog 0.1% Cream*] 1 dose TOP BID 03/26/20 sulfaSALAzine [Sulfasalazine] 500 mg PO BID 03/26/20 New Medications: Guaifenesin [Mucinex] 600 mg PO BID PRN #15 tab.er.12h PRN Reason: Cough Benzonatate [Tessalon Perle*] 100 mg PO BID PRN #10 cap PRN Reason: Cough Albuterol Inhaler [Ventolin Inhaler*] 2 puff IH Q6H PRN #1 hfa.aer.ad PRN Reason: Shortness Of Breath Patient Discharge Instructions: 1. Recommend follow up with PCP in 1 week to follow up this hospitalization. 2. Patient presented with fever, cough and mild confusion. Patient was evaluated. No evidence of UTI or pneumonia was identified. Pro calcitonin negative. Patient was evaluated for COVID viral upper respiratory infection. Patient was positive. Patient was seen and evaluated by pulmonology. Pulmonology feels no further intervention required. Patient will be treated symptomatically. At discharge patient will continue with albuterol 2 puffs 3 times a day as needed for shortness of breath, Tessalon Perles 1 pill twice daily as needed for cough and Mucinex 600 mg twice daily as needed for congestion. Patient has home oxygen at home. She may continue with this to maintain sats above 93%. Education and quarantine for COVID infection will be provided. Information will be sent to the health department. Family members will likely need to be evaluated as well. Patient will continue with health department and CDC guidelines. Patient may follow up with pulmonology as an outpatient to further monitor and address in 1-2 weeks. 3. Patient with multiple medical problems including hypertension, hypothyroidism, chronic renal disease stage III, diabetes mellitus type 2, lupus on chronic steroids, Parkinson's, chronic pain. Patient will continue with her home medications. Recommend follow up with her PCP in 1-2 weeks to follow up this hospitalization. Recommend follow up with her multiple specialists including pain management, rheumatology, and PCP. Diet: ADA Activity: Fall precautions Time spent managing pt's care (in minutes): 55
--- NOTE | 2020-03-26 22:15 | P.CNS ---
Date of Consult: 03/26/20 Reason for Consult: CKD Requesting Physician: Stef Cook Primary Care Provider: Kiet Chief Complaint: Fever, altered mental status, cough, suspect viral pneumonia History of Present Illness: 79-year-old female with medical history of diabetes mellitus type 2, hypertension, lupus, hypothyroidism, hypertension, chronic back pain, chronic kidney disease, likely Parkinson's, presents emergency department with a 1 day history of confusion, fever. Patient family reports that the patient has also had a cough for about 1.5 weeks. Family states that patient has had episodes in the past similar to this when she has either had a urinary tract infection or pneumonia. In the emergency department for urinary tract infection was ruled out with a urine specimen collected via catheterization. Chest x-ray did not show any acute findings at this time although patient was mildly hypoxic without oxygen and has a cough. During her evaluation in the emergency department patient was also found to have an elevated ferritin, D-dimer, CRP but normal white blood cell count and pro calcitonin. ED provider wishes to admit patient for further evaluation management at this time. 15:54 This 79 yrs old Female presents to ER via EMS with complaints of fever, snw confusion, incontinence. 15:54 Daughter states patient has been doing well, no complaints, pt was incontinent this am snw which is not her norm, pt confused to time and situation per Daughter. Hx of pneumonia in Dec. Daughter states pt still has cough. 15:56 Onset: The symptoms/episode began/occurred suddenly, and became persistent. Severity of snw symptoms: At their worst the symptoms were moderate severe in the emergency department the symptoms are unchanged. The patient has experienced a previous episode, and the symptoms today are exactly the same, pt was dx with UTI at that time. pt has home health, sees Dr. Santa. Allergies iodine Adverse Reaction (Intermediate, Verified 03/14/19 09:02) Rash pantoprazole sodium [From Protonix] Adverse Reaction (Intermediate, Verified 03/14/19 09:02) VOMITING Penicillins Adverse Reaction (Intermediate, Verified 03/14/19 09:02) VOMITING codeine [Codeine] Adverse Reaction (Mild, Verified 03/14/19 09:02) VOMITING Morphine Allergy (Mild, Uncoded 03/14/19 09:02) Rash Home medications list reviewed: Yes Home Medications: Fentanyl Patch [Duragesic Patch*] 75 mcg TOP EVERY 3RD DAY 10/15/15 Gabapentin [Neurontin] 600 mg PO QID 10/15/15 Levothyroxine [Synthroid*] 100 mcg PO DAILY 10/15/15 Losartan Potassium [Cozaar*] 50 mg PO [id number] 10/15/15 Metformin ER [Glucophage ER*] 500 mg PO BID 10/15/15 Tramadol HCl [Ultram] 1 - 2 tab PO TID PRN 10/15/15 predniSONE [Prednisone] 5 mg PO DAILY 10/15/15 Leflunomide 20 mg PO DAILY 03/27/19 Albuterol Inhaler [Ventolin Inhaler*] 2 puff IH Q6H PRN #1 hfa.aer.ad 03/26/20 Benzonatate [Tessalon Perle*] 100 mg PO BID PRN #10 cap 03/26/20 Carbidopa/Levodopa [Carbidopa-Levo 25-100 mg Odt] 1 tab PO BID 03/26/20 Cholecalciferol (Vitamin D3) [Vitamin D3] 2,000 unit PO DAILY 03/26/20 Cyclosporine [Restasis Multidose] 1 drop EACH EYE BID 03/26/20 Diclofenac Sodium [Voltaren] 2 gm TOP QID 03/26/20 Escitalopram [Lexapro*] 10 mg PO DAILY 03/26/20 Fish Oil/Borage/Flax/Om3,6,9 1 [[place] 3-6-9 1,200 mg Softgel] 1 tab PO BID 03/26/20 Fluticasone Propionate 1 film TOP BID 03/26/20 Guaifenesin [Mucinex] 600 mg PO BID PRN #15 tab.er.12h 03/26/20 Billy-Plex Gel 85 mg PO BID 03/26/20 Metoprolol Tartrate 50 mg PO BEDTIME 03/26/20 Montelukast [Singulair*] 10 mg PO BEDTIME 03/26/20 Triamcinolone 0.1% Crm [Kenalog 0.1% Cream*] 1 dose TOP BID 03/26/20 sulfaSALAzine [Sulfasalazine] 500 mg PO BID 03/26/20 - Past Medical/Surgical History Diabetic: Yes -: HTN -: anxiety -: Lupus -: arthritis -: DMII -: Anxiety -: Depression -: Likely Parkinson's -: CKD -: Cholecystectomy -: Back Surgery -: Hysterectomy Psychosocial/ Personal History: Patient is and currently lives at home with her daughter. - Family History Father Medical History: Heart disease, Stroke Mother Medical History: Heart disease, Diabetes - Social History Smoking Status: Unknown if ever smoked Alcohol use: No CD- Drugs: No Caffeine use: Yes Place of Residence: Home Review of Systems 10-point ROS is otherwise unremarkable General: Weakness, Malaise Respiratory: Cough, Shortness of Breath Neurological: Weakness Physical Examination Temp Pulse Resp BP Pulse Ox 99.9 F 65 20 122/59 L 93 03/26/20 12:00 03/26/20 12:00 03/26/20 12:00 03/26/20 12:00 03/26/20 12:00 General: In no apparent distress, Cooperative HEENT: Atraumatic Neck: Supple Respiratory: Clear to auscultation bilaterally Cardiovascular: No edema, Regular rate/rhythm Gastrointestinal: Hypoactive, Soft and benign, Non-distended Musculoskeletal: No clubbing, No contractures Integumentary: No rashes, No cyanosis Neurological: Normal speech Blood work reviewed in the chart. Imagings Data: EXAM DESCRIPTION: Brayden Single View03/25/2020 4:09 pm CLINICAL HISTORY: cough COMPARISON: 10/2019 FINDINGS: The lungs appear clear of acute infiltrate. The heart is normal size IMPRESSION: No acute abnormalities displayed Conclusions/Impression: A/ CKD III DM II with CKD HTN with CKD Hypocalcemia Gout Anemia in chronic illness Thrombocytopenia COVID P/ Continue current POC and Medications. Continue IVF. Continue abx. Restart home medications as indicated. No NSAIDs. AM labs PRN. Daily weight. Thank you kindly for the consultation.
[2020-03-28] MEDS ORDERED: FENTANYL 75 MCG/PATCH TD SCH (09:00)
== END 2020-03-26 14:18 | disposition home health service (06) ==
LOC: ER 15:23 → ERHOLD 18:00 → 4TH 20:42
PROVIDERS: ADMIT Family Medicine; ATTEND Family Medicine
DX: U07.1 COVID-19 (principal); J06.9 Acute upper respiratory infection, unspecified; I12.9 Hypertensive chronic kidney disease with stage 1 through stage 4 chronic kidney disease, or unspecified chronic kidney disease; E11.22 Type 2 diabetes mellitus with diabetic chronic kidney disease; N18.3 Chronic kidney disease, stage 3 (moderate); D63.1 Anemia in chronic kidney disease; E83.51 Hypocalcemia; D69.6 Thrombocytopenia, unspecified; E03.9 Hypothyroidism, unspecified; M10.9 Gout, unspecified; M54.5 Low back pain; G89.29 Other chronic pain; M32.9 Systemic lupus erythematosus, unspecified; M06.9 Rheumatoid arthritis, unspecified; M35.00 Sjogren syndrome, unspecified; M19.90 Unspecified osteoarthritis, unspecified site; F41.9 Anxiety disorder, unspecified; F32.9 Major depressive disorder, single episode, unspecified; Z79.52 Long term (current) use of systemic steroids; Z79.84 Long term (current) use of oral hypoglycemic drugs; Z79.891 Long term (current) use of opiate analgesic; Z79.899 Other long term (current) drug therapy; Z99.81 Dependence on supplemental oxygen
CPT/HCPCS: 96361; 93005; 87040 ×2; 87070; 87088; 85025 ×2; 80048 ×2; 36415; 83735; 85610; 82947 ×3; 85379; 80076; 87081; 83605; 85730; 84443; 83036; 84484; 84439; 82728; 83690; 84145; 86140; 87804 ×2; 70450; 71045; 96360; 99285; U0002; J0456; J1650; J0696; J7030 ×2; G0378 ×3; 81003; 81015; 87086; J7512

== ENCOUNTER 2020-06-20 23:20 | Emergency (ER) | payer OTHER ==
--- OUTSIDE RECORDS SUMMARY | 2020-06-20 23:22 | XMS REPORT | Clinical Summary ---
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
[2020-06-21 00:06] LABS: Absolute Lymphocytes (CBC) 2.8 K/uL (0.7-4.9); Basophils % 0.8 % (0-1.3); Hematocrit 32.8 % (36.0-45.0); Lymphocytes % 36.7 % (15.3-44.8); MPV 7.9 fL (7.6-11.3); RBC Red Blood Cell Count 3.41 M/uL (3.86-4.86)
[2020-06-21 00:12] LABS: Protime INR 0.88
[2020-06-21 00:26] LABS: Potassium 6.1 mmol/L (3.5-5.1)
[2020-06-21] MEDS ORDERED: D50W 25 GM/50 ML SYRINGE/VIAL IV ONE (00:56)
--- NOTE | 2020-06-21 01:55 | ER ---
Nurse's Notes [facility] Name: Corrie Nunez Age: 80 yrs Sex: Female : 1940 Arrival Date: 06/20/2020 Time: 23:23 Bed 3 Private MD: Diagnosis: Facial weakness;Slurred speech Presentation: 06/20 23:26 Chief complaint: Patient's son or daughter states: This evening she has been having sg left sided facial droop that began this evening, pt daughter states unsure what time specifically she noticed the facial drooping, pt has also been complaining of "not feeling normal", and having pain the lower back as well. Coronavirus screen: Client denies travel out of the [place] in the last 14 days. At this time, the client does not indicate any symptoms associated with coronavirus-19. daughter reports had tested positive in March ,but then tested negative in april. Ebola Screen: Patient negative for fever greater than or equal to 101.5 degrees Fahrenheit, and additional compatible Ebola Virus Disease symptoms Patient denies exposure to infectious person. Patient denies travel to an Ebola-affected area in the 21 days before illness onset. No symptoms or risks identified at this time. Initial Sepsis Screen: Does the patient meet any 2 criteria? No. Patient's initial sepsis screen is negative. Does the patient have a suspected source of infection? No. Patient's initial sepsis screen is negative. Risk Assessment: Do you want to hurt yourself or someone else? Patient reports no desire to harm self or others. Onset of symptoms was June 20, 2020. Care prior to arrival: None. Transition of care: patient was not received from another setting of care. 23:26 Method Of Arrival: Wheelchair sg 23:26 Acuity: STEPHANIE 2 sg 23:38 An acute neurological deficit is present. The charge nurse has been notified. jb4 Pre-hospital glucose is not applicable to this patient. Triage Assessment: 23:26 General: Appears in no apparent distress. well groomed, well developed, well nourished, sg Behavior is cooperative, appropriate for age. Pain: Complains of pain in back, all over Quality of pain is described as aching. Neuro: Level of Consciousness is awake, obeys commands, confused, Oriented to person, situation, Moves all extremities. Weakness Gait is steady, Speech is slurred. Musculoskeletal: Circulation, motion, and sensation intact. Range of motion: intact in all extremities. 23:28 The onset of the patients symptoms was June 20, 2020 at 13:00. jb4 Stroke Activation: Symptom onset > 6 hours Physician: Stroke Attending; Name: ; Notified At: ; Arrived At: Physician: Chief Stroke Resident; Name: ; Notified At: ; Arrived At: Physician: Stroke Resident; Name: ; Notified At: ; Arrived At: Physician: ED Attending; Name: Tameka; Notified At: 23:28; Arrived At: 23:28 Physician: ED Resident; Name: ; Notified At: ; Arrived At: Historical: - Allergies: 23:26 Codeine; sg 23:26 Iodine; sg 23:26 Morphine; sg 23:26 Protonix; sg - PMHx: 23:26 Diabetes - NIDDM; Gout; Hypertension; Hypothyroidism; Lupus; Parkinsons; Psoriatic sg Arthritis; Rheumatoid Arthritis; Sjoren's Syndrome; - PSHx: 23:26 Cholecystectomy; Hysterectomy; cataract; blepharoplasty; back surgery; bladder lift; sg - Immunization history:: Adult Immunizations up to date. - Social history:: Smoking status: Patient denies any tobacco usage or history of. - Family history:: not pertinent. - Hospitalizations: : No recent hospitalization is reported. Screenin:38 Abuse screen: Denies threats or abuse. Nutritional screening: No deficits noted. jb4 Tuberculosis screening: No symptoms or risk factors identified. Fall Risk Secondary diagnosis (15 points) impaired mobility, CVA, Gait- Impaired (20 pts.). Total Medina Fall Scale indicates Low Risk Score (25-44 pts). Fall prevention measures have been instituted. Side Rails Up X 2 Placed close to Nursing Station Frequent Obs/Assesments occuring Family Present and informed to notify staff if they need to leave bedside. Assessment: 23:28 Reassessment: Pt to CT. jb4 23:38 General: Appears in no apparent distress. uncomfortable, Behavior is calm, cooperative. jb4 Pain: Complains of pain in back Pain does not radiate. Pain currently is 6 out of 10 on a pain scale. Neuro: Level of Consciousness is awake, alert, obeys commands, Oriented to person, place, time, situation, Md Ophthalmologist are equal bilaterally Moves all extremities. Full function Gait is steady, Speech is slurred, Facial droop on left, Pupils are PERRLA, Intact. Cardiovascular: Patient's skin is warm and dry. Respiratory: Airway is patent Respiratory effort is even, unlabored. GI: No signs and/or symptoms were reported involving the gastrointestinal system. : No signs and/or symptoms were reported regarding the genitourinary system. EENT: No signs and/or symptoms were reported regarding the EENT system. Derm: Skin is intact, Skin is pink, warm \\T\\ dry. Musculoskeletal: Circulation, motion, and sensation intact. Range of motion: intact in all extremities. 23:38 VAN Scoring: Arm Drift: Patients demonstrates NO arm weakness. Patient is VAN Negative. jb4 Patient has been NPO before screening. The patient is alert, and able to follow commands. The patient exhibits slurred or garbled speech. The patient is exhibiting difficulty speaking. The patient is exhibiting difficulty understanding words. The patient is able to swallow own secretions with no drooling or need for suction. The patient failed the bedside swallow screening. The patient will be kept NPO until cleared by Speech Therapy or Physician. Provider notified of bedside swallow screening results: Ralph English MD. 23:38 T-PA (Activase) Screening: Contraindications: Patient reports onset of signs and jb4 symptoms of stroke greater than 6 hours ago: Yes. 06/21 00:30 Reassessment: Patient appears in no apparent distress at this time. Patient and/or jb4 family updated on plan of care and expected duration. Pain level reassessed. Patient is alert, oriented x 3, equal unlabored respirations, skin warm/dry/pink. No change in PT status from initial status. 00:45 Reassessment: Provider notified PT's potassium level is 6.1. No new orders at this time.jb4 01:25 Reassessment: Patient appears in no apparent distress at this time. No changes from jb4 previously documented assessment. Patient and/or family updated on plan of care and expected duration. Pain level reassessed. 02:00 Reassessment: Patient appears in no apparent distress at this time. Patient and/or jb4 family updated on plan of care and expected duration. Pain level reassessed. Patient is alert, oriented x 3, equal unlabored respirations, skin warm/dry/pink. PT tolerated swallowing water with no issues. Pt began coughing and reported difficulty swallowing crushed aspirin. Provider notified. 02:20 Reassessment: Pt reports an increase in hip pain, provider notified, no new orders at jb4 this time. 02:54 Reassessment: Patient appears in no apparent distress at this time. Patient and/or jb4 family updated on plan of care and expected duration. Pain level reassessed. Patient is alert, oriented x 3, equal unlabored respirations, skin warm/dry/pink. Family remains at the bedside. 04:15 Reassessment: Patient appears in no apparent distress at this time. Patient and/or jb4 family updated on plan of care and expected duration. Pain level reassessed. Patient is alert, oriented x 3, equal unlabored respirations, skin warm/dry/pink. Report given to EMS. Vital Signs: 06/20 23:38 BP 120 / 81; Pulse 61; Resp 16; Temp 98.3(TE); Pulse Ox 100% on R/A; Pain 6/10; jb4 06/21 00:49 BP 94 / 60; Pulse 47; Resp 16; Pulse Ox 97% on R/A; jb4 01:11 BP 104 / 65; Pulse 51; Resp 18; Pulse Ox 98% on R/A; jb4 02:00 BP 104 / 60; Pulse 50; Resp 18; Pulse Ox 100% on R/A; jb4 03:00 BP 124 / 92; Pulse 52; Resp 18; Pulse Ox 96% on R/A; jb4 03:30 BP 111 / 75; Pulse 52; Resp 16; Pulse Ox 96% on R/A; jb4 NIH Stroke Scale Scores: 06/20 23:38 NIHSS Score: 3 jb4 23:52 NIHSS Score: 3 admissions rn Course: 23:23 Patient arrived in ED. bp1 23:24 Arm band placed on. sg 23:26 Triage completed. sg 23:28 Ralph English MD is Attending Physician. rn 23:31 Dinesh Mehta, PEYTON is Primary Nurse. jb4 23:38 Patient has correct armband on for positive identification. Placed in gown. Bed in low jb4 position. Call light in reach. Side rails up X 1. hospital monitor on. Pulse ox on. NIBP on. 23:51 CT Stroke Brain w/o Contrast In Process Unspecified. EDMS 06/21 00:19 Stroke CXR 1 View In Process Unspecified. EDMS 00:50 Inserted saline lock: 22 gauge in left forearm, using aseptic technique. Blood sg collected. 02:[address] [facility] and spoke with Sandy. She stated she would work on tt3 the case and call back with their neurologist to speak with Dr. English. 02:19 Sandy called back with their neurologist to speak to Dr. English regarding the case. She tt3 stated that she would call back with the hospitalist to speak with Dr. English as well. 02:48 Sandy called back with their hospitalist to speak to Dr. English regarding the case. tt3 02:58 Sandy Amador gave admin approval. The accepting physician is Dr. Fernandez. The patient tt3 is going to Room 2227. Face sheet and MOT faxed to per Sandy's request. Report to be called to [phone]. 03:49 No provider procedures requiring assistance completed. Patient transferred, IV remains jb4 in place. Administered Medications: 00:50 Drug: D50W 25 ml Route: IVP; Site: left forearm; sg 01:15 Follow up: Response: No adverse reaction; Blood sugar is elevated jb4 02:00 Drug: Aspirin Chewable Tablet 324 mg Route: PO; jb4 02:30 Follow up: Response: No adverse reaction jb4 02:07 Not Given (Med currently not available at facility.): foLIC Acid 1 mg IVPB once jb4 Point of Care Testing: Blood Glucose: 00:00 Blood Glucose: 65 mg/dL; jb4 Ranges: Outcome: 01:54 ER care complete, transfer ordered by rn 04:15 Transferred by ground EMS [facility] to [facility], [facility], Transfer form jb4 completed. X-rays sent w/ patient. 04:15 Condition: stable 04:15 Discharge instructions given to patient, family, Instructed on the need for transfer, Demonstrated understanding of instructions. 04:16 Patient left the ED. jb4 NIH Stroke Scale - NIH Stroke Score Date: 06/20/2020 Time: 23:38 Total Score = 3 1a. Level of Consciousness (LOC) - 0(Alert) 1b. Level of Consciousness (LOC) (Year \\T\\ Age) - 0(Both) 1c. LOC Commands (Open \\T\\ Closes Eyes/Finish Patcher) - 0(Both) 2. Best Gaze (Lateral Gaze Paresis) - 0(Normal) 3. Visual Field Loss - 0(No visual loss) 4. Facial Palsy - 1(Minor Paralysis) 5a. Left Arm: Motor (10-second hold) - 0(No drift) 5b. Right Arm: Motor (10-second hold) - 0(No drift) 6a. Left Leg: Motor (5-second hold - always test supine) - 0(No drift) 6b. Right Leg: Motor (5-second hold - always test supine) - 0(No drift) 7. Limb Ataxia (finger/nose \\T\\ heel/watt - test with eyes open) - 0(Absent) 8. Sensory Loss (pinprick arms/legs/face) - 1(Mild to moderate loss) 9. Best Language: Aphasia (description/naming/reading) - 0(No aphasia) 10. Dysarthria (speech clarity - read or repeat words) - 1(Mild to Moderate) 11. Extinction and Inattention (visual/tactile/auditory/spatial/personal) - 0(No abnormality) Initials: jb4 NIH Stroke Scale - NIH Stroke Score Date: 06/20/2020 Time: 23:52 Total Score = 3 1a. Level of Consciousness (LOC) - 0(Alert) 1b. Level of Consciousness (LOC) (Year \\T\\ Age) - 0(Both) 1c. LOC Commands (Open \\T\\ Closes Eyes/Finish Patcher) - 0(Both) 2. Best Gaze (Lateral Gaze Paresis) - 0(Normal) 3. Visual Field Loss - 0(No visual loss) 4. Facial Palsy - 1(Minor Paralysis) 5a. Left Arm: Motor (10-second hold) - 0(No drift) 5b. Right Arm: Motor (10-second hold) - 0(No drift) 6a. Left Leg: Motor (5-second hold - always test supine) - 0(No drift) 6b. Right Leg: Motor (5-second hold - always test supine) - 0(No drift) 7. Limb Ataxia (finger/nose \\T\\ heel/watt - test with eyes open) - 0(Absent) 8. Sensory Loss (pinprick arms/legs/face) - 1(Mild to moderate loss) 9. Best Language: Aphasia (description/naming/reading) - 0(No aphasia) 10. Dysarthria (speech clarity - read or repeat words) - 1(Mild to Moderate) 11. Extinction and Inattention (visual/tactile/auditory/spatial/personal) - 0(No abnormality) Initials: rn Signatures: Dispatcher [employer] EDMelchor Stewart RN RN Ralph English MD MD rn Bryson, James, RN RN jb4 Martha Tenorio Tyler tt3 Corrections: (The following items were deleted from the chart) 00:51 06/20 23:26 Acuity: STEPHANIE 3 [facility] 06/21 01:04 06/20 23:26 Acuity: STEPHANIE 2 [facility] 06/21 02:08 06/20 23:38 Patient has been NPO before screening. The patient is alert, and jb4 able to follow commands. The patient exhibits slurred or garbled speech. The patient is exhibiting difficulty speaking. The patient is exhibiting difficulty understanding words. The patient is able to swallow own secretions with no drooling or need for suction. The patient failed the bedside swallow screening. The patient will be kept NPO until cleared by Speech Therapy or Physician. [facility] 06/21 06:33 06/20 23:26 Coronavirus screen: Client denies travel out of the [place] in the last 14 days. At this time, the client does not indicate any symptoms associated with coronavirus-19.
--- NOTE | 2020-06-21 01:55 | EDPHYS ---
Physician Documentation [facility] Name: Corrie Nunez Age: 80 yrs Sex: Female : 1940 Arrival Date: 06/20/2020 Time: 23:23 Bed 3 Private MD: ED Physician Ralph English HPI: 06/20 23:42 This 80 yrs old Female presents to ER via Wheelchair with complaints of rn Doesn't Feel Right, Back Pain, Facial Droop. 23:42 This 80 yrs old Female presents to ER via Wheelchair with complaints of rn Doesn't Feel Right, Back Pain, Facial Droop. 23:42 The patient presents with confusion, mumbling speech, increased shaking. Onset: The rn symptoms/episode began/occurred yesterday. Associated signs and symptoms: The patient has no apparent associated signs or symptoms. Current symptoms: In the emergency department the patient's symptoms are unchanged from the initial presentation. The patient has experienced similar episodes in the past. Daughter reports patient has not been feeling well for 2 days, began yesterday with increased shaking and parkinson's shaking, today around lunch time noticed trouble finishing sentences and daughter reports seems like facial droop present. No weakness/numbness. Does report lower back pain without injury or fall. No change in medication recently. . Historical: - Allergies: 23:26 Codeine; sg 23:26 Iodine; sg 23:26 Morphine; sg 23:26 Protonix; sg - PMHx: 23:26 Diabetes - NIDDM; Gout; Hypertension; Hypothyroidism; Lupus; Parkinsons; Psoriatic sg Arthritis; Rheumatoid Arthritis; Sjoren's Syndrome; - PSHx: 23:26 Cholecystectomy; Hysterectomy; cataract; blepharoplasty; back surgery; bladder lift; sg - Immunization history:: Adult Immunizations up to date. - Social history:: Smoking status: Patient denies any tobacco usage or history of. - Family history:: not pertinent. - Hospitalizations: : No recent hospitalization is reported. ROS: 23:42 Constitutional: Negative for fever, chills, and weight loss, Eyes: Negative for injury, rn pain, redness, and discharge, Cardiovascular: Negative for chest pain, palpitations, and edema, Respiratory: Negative for shortness of breath, cough, wheezing, and pleuritic chest pain, Abdomen/GI: Negative for abdominal pain, nausea, vomiting, diarrhea, and constipation, Back: Negative for pain : Negative for injury, bleeding, discharge, and swelling, MS/Extremity: Negative for injury and deformity, Skin: Negative for injury, rash, and discoloration, Neuro: Negative for headache, numbness, tingling, and seizure. Exam: 23:45 Constitutional: This is a well developed, well nourished patient who is awake, alert, rn and in no acute distress. Head/Face: Normocephalic, atraumatic. Eyes: Pupils equal round and reactive to light, extra-ocular motions intact. Periorbital areas with no swelling, redness, or edema. Cardiovascular: Regular rate and rhythm. No pulse deficits. Respiratory: No increased work of breathing, no retractions or nasal flaring. Abdomen/GI: soft, non-tender Skin: Warm, dry MS/ Extremity: Pulses equal, no cyanosis. Neurovascular intact. Equal circumference. Neuro: Awake and alert, GCS 15, oriented to person, place, time, and situation. Without effort, appears to have left sided facial weakness with mild droop, but able to lift both eyebrows equally, + slightly decreased movement left side of mouth when speaking. Motor strength 4/5 in all extremities. Sensory grossly intact. + decreased sensation left face. 06/21 03:34 ECG was reviewed by the Attending Physician. rn Vital Signs: 06/20 23:38 BP 120 / 81; Pulse 61; Resp 16; Temp 98.3(TE); Pulse Ox 100% on R/A; Pain 6/10; jb4 06/21 00:49 BP 94 / 60; Pulse 47; Resp 16; Pulse Ox 97% on R/A; jb4 01:11 BP 104 / 65; Pulse 51; Resp 18; Pulse Ox 98% on R/A; jb4 02:00 BP 104 / 60; Pulse 50; Resp 18; Pulse Ox 100% on R/A; jb4 03:00 BP 124 / 92; Pulse 52; Resp 18; Pulse Ox 96% on R/A; jb4 03:30 BP 111 / 75; Pulse 52; Resp 16; Pulse Ox 96% on R/A; jb4 NIH Stroke Scale Scores: 06/20 23:38 NIHSS Score: 3 jb 23:52 NIHSS Score: 3 rn MDM: 23:28 Patient medically screened. rn 06/21 00:03 ED course: No acute findings on ct head per radiology. . rn 01:51 Differential Diagnosis: CVA, electrolyte abnormality, TIA, UTI, volume depletion. Data rn reviewed: vital signs, nurses notes, lab test result(s), radiologic studies, CT scan, and as a result, I will admit patient. Counseling: I had a detailed discussion with the patient and/or guardian regarding: the historical points, exam findings, and any diagnostic results supporting the discharge/admit diagnosis, lab results, radiology results, the need for further work-up and treatment in the hospital, the need to transfer to another facility, for higher level of care, [facility] does not immediately have the required specialist. ED course: No change in exam, CT head no acute abnormality, told patient we need to transfer given possibility of stroke, and no MRI/neuro here. They have been debating and talking with family and will give me an answer. . 01:53 ED course: Able to swallow water and given aspirin. Notified by nurse that hospital out rn of folic acid. . 06/20 23:45 Order name: Magnesium; Complete Time: 01: rn 06/20 23:45 Order name: Basic Metabolic Panel; Complete Time: : rn 06/20 23:45 Order name: CBC with Diff; Complete Time: rn 06/20 23:45 Order name: Protime (+inr); Complete Time: : rn 06/20 23:36 Order name: CT Stroke Brain w/o Contrast sg 06/20 23:45 Order name: Ptt, Activated; Complete Time: : rn 06/20 23:45 Order name: Stroke CXR 1 View rn 06/21 00:44 Order name: Glucose, Ancillary Testing; Complete Time: 01:07 EDTN 06/21 01:25 Order name: Glucose, Ancillary Testing; Complete Time: 01:34 EDMS 06/20 23:45 Order name: EKG; Complete Time: 23:46 rn 06/20 23:45 Order name: Accucheck; Complete Time: 00:51 rn 06/20 23:45 Order name: Cardiac monitoring; Complete Time: 00:07 rn 06/20 23:45 Order name: EKG - Nurse/Tech; Complete Time: 00: rn 06/20 23:45 Order name: IV Saline Lock; Complete Time: 00:51 rn 06/20 23:45 Order name: Labs collected and sent; Complete Time: 00:07 rn 06/20 23:45 Order name: NPO; Complete Time: 23:55 rn 06/20 23:45 Order name: O2 Per Protocol; Complete Time: 00:07 rn 06/20 23:45 Order name: O2 Sat Monitoring; Complete Time: 00:07 rn 06/20 23:45 Order name: Stroke Swallow Screen; Complete Time: 00:07 rn EC:34 Rate is 49 beats/min. Rhythm is regular. QRS [place] is Normal. CO interval is normal. QRS rn interval is normal. QT interval is normal. No Q waves. T waves are Normal. No ST changes noted. Clinical impression: Sinus bradycardia. Interpreted by me. Reviewed by me. Administered Medications: 00:50 Drug: D50W 25 ml Route: IVP; Site: left forearm; sg 01:15 Follow up: Response: No adverse reaction; Blood sugar is elevated jb4 02:00 Drug: Aspirin Chewable Tablet 324 mg Route: PO; jb4 02:30 Follow up: Response: No adverse reaction jb4 02:07 Not Given (Med currently not available at facility.): foLIC Acid 1 mg IVPB once jb4 Point of Care Testing: Blood Glucose: 00:00 Blood Glucose: 65 mg/dL; jb4 Ranges: Critical Glucose Levels:Adult <50 mg/dl or >400 mg/dl <40 mg/dl or >180 mg/dl Disposition: 06/21/20 01:[address] [facility]. Diagnosis are Facial weakness, Slurred speech. - Reason for transfer: Higher level of care. - Accepting physician is . - Condition is Stable. - Problem is new. - Symptoms are unchanged. NIH Stroke Scale - NIH Stroke Score Date: 06/20/2020 Time: 23:38 Total Score = 3 1a. Level of Consciousness (LOC) - 0(Alert) 1b. Level of Consciousness (LOC) (Year \T\ Age) - 0(Both) 1c. LOC Commands (Open \T\ Closes Eyes/Grocery Associate) - 0(Both) 2. Best Gaze (Lateral Gaze Paresis) - 0(Normal) 3. Visual Field Loss - 0(No visual loss) 4. Facial Palsy - 1(Minor Paralysis) 5a. Left Arm: Motor (10-second hold) - 0(No drift) 5b. Right Arm: Motor (10-second hold) - 0(No drift) 6a. Left Leg: Motor (5-second hold - always test supine) - 0(No drift) 6b. Right Leg: Motor (5-second hold - always test supine) - 0(No drift) 7. Limb Ataxia (finger/nose \T\ heel/watt - test with eyes open) - 0(Absent) 8. Sensory Loss (pinprick arms/legs/face) - 1(Mild to moderate loss) 9. Best Language: Aphasia (description/naming/reading) - 0(No aphasia) 10. Dysarthria (speech clarity - read or repeat words) - 1(Mild to Moderate) 11. Extinction and Inattention (visual/tactile/auditory/spatial/personal) - 0(No abnormality) Initials: jb4 NIH Stroke Scale - NIH Stroke Score Date: 06/20/2020 Time: 23:52 Total Score = 3 1a. Level of Consciousness (LOC) - 0(Alert) 1b. Level of Consciousness (LOC) (Year \T\ Age) - 0(Both) 1c. LOC Commands (Open \T\ Closes Eyes/Grocery Associate) - 0(Both) 2. Best Gaze (Lateral Gaze Paresis) - 0(Normal) 3. Visual Field Loss - 0(No visual loss) 4. Facial Palsy - 1(Minor Paralysis) 5a. Left Arm: Motor (10-second hold) - 0(No drift) 5b. Right Arm: Motor (10-second hold) - 0(No drift) 6a. Left Leg: Motor (5-second hold - always test supine) - 0(No drift) 6b. Right Leg: Motor (5-second hold - always test supine) - 0(No drift) 7. Limb Ataxia (finger/nose \T\ heel/watt - test with eyes open) - 0(Absent) 8. Sensory Loss (pinprick arms/legs/face) - 1(Mild to moderate loss) 9. Best Language: Aphasia (description/naming/reading) - 0(No aphasia) 10. Dysarthria (speech clarity - read or repeat words) - 1(Mild to Moderate) 11. Extinction and Inattention (visual/tactile/auditory/spatial/personal) - 0(No abnormality) Initials: rn Signatures: Dispatcher [employer] EDMS Melchor Angeles RN RN Ralph English MD MD rn Bryson, James, RN RN jb Corrections: (The following items were deleted from the chart) 06/20 23:46 23:42 Constitutional: Negative for fever, chills, and weight loss, rn yael 23:53 23:45 Constitutional: This is a well developed, well nourished patient who is rn awake, alert, and in no acute distress. Head/Face: Normocephalic, atraumatic. Eyes: Pupils equal round and reactive to light, extra-ocular motions intact. Periorbital areas with no swelling, redness, or edema. Cardiovascular: Regular rate and rhythm. No pulse deficits. Respiratory: No increased work of breathing, no retractions or nasal flaring. Abdomen/GI: soft, non-tender Skin: Warm, dry MS/ Extremity: Pulses equal, no cyanosis. Neurovascular intact. Equal circumference. Neuro: Awake and alert, GCS 15, oriented to person, place, time, and situation. Without effort, appears to have right sided facial weakness with mild droop, but able to lift both eyebrows equally and smile is equal. Motor strength 4/5 in all extremities. Sensory grossly intact. yael 06/21 04:16 01:54 06/21/2020 01:54 Transfer ordered to [place] [address] [facility]. Diagnosis is Facial weakness; Slurred speech. Reason for transfer: Higher level of care. Accepting physician is . Condition is Stable. Problem is new. Symptoms are unchanged. rn
[2020-06-21] MEDS ORDERED: ASPIRIN 81 MG CHEWABLE TABLET ONE (01:56)
[2020-06-21 04:22] VITALS: TEMP 98.3
[2020-06-21 04:27] VITALS: O2SAT 96
[2020-06-21 04:28] VITALS: BP 111/75
--- NOTE | 2020-06-21 11:48 | RAD REPORT ---
EXAM DESCRIPTION: RAD - Chest Single View - 06/21/2020 12:20 am CLINICAL HISTORY: trouble speaking Chest pain. COMPARISON: Chest Single View dated 03/25/2020; Chest Pa And Lat (2 Views) dated 10/17/2019; Chest Sing le View dated 10/05/2019; Chest Single View dated 10/04/2019 FINDINGS: Portable technique limits examination quality. The lungs are grossly clear. The heart is normal in size. No displaced fractures. IMPRESSION: No acute intrathoracic process suspected.
--- NOTE | 2020-06-21 20:50 | RAD REPORT ---
EXAM DESCRIPTION: Ct Stroke Brain Wo Cont ADDENDUM #1 THIS REPORT CONTAINS FINDINGS THAT MAY BE CRITICAL TO PATIENT CARE: The findings were verbally discussed via telephone conference with Dr. Ralph English by Dr. Tamara Sainz on 06/21 12:03 AM CDT .The results were acknowledged and understood. Electronically signed by: Rosalee Sainz MD 06/21/2020 12:03 AM CDT End of Addendum EXAM DESCRIPTION: CT Head Without Intravenous Contrast CLINICAL HISTORY: The patient is 80 years old and is Female; Slurred speech;Confused;Weakness TECHNIQUE: Axial computed tomography images of the head/brain without intravenous contrast. Sagitt al and coronal reformatted images were created and reviewed. This CT exam was performed using one o r more of the following dose reduction techniques: automated exposure control, adjustment of the mA and/or kV according to patient size, and/or use of iterative reconstruction technique. COMPARISON: CT of the head September 24, 2019 FINDINGS: BRAIN: Minimal left basal ganglia calcifications are present. There is diffuse cerebra l atrophy present, consistent with this patient's age. There is patchy hypoattenuation of the deep white matter which is non-specific, but most likely owing to chronic small vessel ischemic change in a patient of this age group. No intracranial hemorrhage, mass effect, or midline shift is seen. The re are no extra-axial fluid collections. VENTRICLES: Unremarkable. No ventriculomegaly. BONES/JOINTS: No acute fracture. SOFT TISSUES: Unremarkable. SINUSES: Unremarkable as visualized. No acute sinusitis. MASTOID AIR CELLS: Unremarkable as visualized. No mastoid effusion. ORBITS: Unremarkable as visualized. IMPRESSION: Age-related atrophy and chronic white matter ischemic changes, with no evidence of an [place] intracranial abnormality. Electronically signed by: Rosalee Sainz MD 06/20/2020 11:56 PM CDT Due to temporary technical issues with the PACS/Fluency reporting system, reports are being signed by the in house radiologist without review as a courtesy to ensure prompt reporting. The interpreting r adiologist is fully responsible for the content of the report.
== END 2020-06-21 04:16 | disposition short-term general hospital (02) ==
LOC: ER 23:20
DX: R47.81 Slurred speech (principal); I10 Essential (primary) hypertension; G20 Parkinson's disease; Z88.5 Allergy status to narcotic agent; Z88.8 Allergy status to other drugs, medicaments and biological substances; Z91.048 Other nonmedicinal substance allergy status
CPT/HCPCS: 36415; 70450; 71045; 80048; 82947; 83735; 85025; 85610; 85730; 93005; 96374; 99285

== ENCOUNTER 2021-04-29 16:23 | Emergency (ER) | payer OTHER ==
--- OUTSIDE RECORDS SUMMARY | 2021-04-29 16:38 | XMS REPORT | Continuity of Care Document ---
:1940 Author Organization [facility] t Address [address] [place] [address] Dr. [address] [place] [address] Care Team Providers Name Role Phone Tim Garrido MD Primary Care Physician Jim OLGUIN Attending Clinician Milad OLGUIN, P. Attending Clinician Bebo Rosas MD Attending Clinician Ava Westbrook MD Attending Clinician Epi Cornejo MD Attending Clinician Akin Pierre CRNA Attending Clinician Virtual Attending Clinician Unavailable JIM Attending Clinician Unavailable BEBO ROSAS Admitting Clinician Unavailable Payers Payer Name Policy Type Policy Effective Date Expiration Date Sour ce Number MEDICAREMEDICARE A [id number] 2007 LILIANA Doty [id number] 2006-P 00:00:00 - Medical [facility] MCR [id number] 2020 LILIANA Reynoso SUPPLEMENT/INDIVIDUALM 00:00:00 - [id number] Present[facility] Problems Condition Condition Condition Status Onset Resolution Last Treating Co mments Source Name Details Category Date Date Treatment Clinician Date Hyperkalem Hyperkalem Disease Active [facility] ia ia 06-22 [facility] - 00:[facility]: Medical 00 [place] CHRISTINA (acute CHRISTINA (acute Disease Active [facility] kidney kidney 06-22 [facility] - injury) injury) 00:00: Medical 00 [place] Stroke Stroke Disease Active [facility] (cerebrum[facility] (cerebrum) 06-21 Jessica kes - 00:00: Medical 00 [place] 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-15 Me thodi rosis rosis 00:00: st 00 Adjacent Adjacent Disease Active [place] segment segment 05-15 Methodi disease disease 00:00: st with with 00 kyphosis kyphosis Osteoporos Osteoporos Disease Active [place] is is 05-15 Methodi 00:00: st 00 Scoliosis Scoliosis Disease Active Kahlil ston 05-15 Methodi 00:00: st 00 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 05-15 Me thodi s with s with 00:00: st radiculopa radiculopa 00 thy, thy, lumbar lumbar region region Allergies, Adverse Reactions, Alerts Allergy Allergy Status Severity Reaction(s) Onset Inactive Treating Comm ents Source Name Type Date Date Clinician Codeine Drug Active [facility] Int[facility]era 06-21 [facility] - nce 00:00: Medical 00 [place] Iodine Propensi Active [facility] And ty to 06-21 [facility] - Iodide adverse 00:00: Medical Containi reaction 00 Center ng s Products Morphine Propensi Active [facility] ty to 06-21 [facility] - adverse 00:00: Medical reaction 00 Center s Codeine Propensi Active Hives [place] ty to 04-14 Methodi adverse 00:00: st reaction 00 s to drug Iodine Propensi Active Hives [place] And ty to 04-14 [facility] Iodide adverse 00:00: st Containi reaction 00 ng s to Products drug Pantopra Propensi Active [place] ty to 04-14 [facility] adverse 00:00: st reaction 00 s to drug Social History Social Habit Start Date Stop Date Quantity Comments Source Sex Assigned At [facility] Tobacco use and 2017-05-15 2017-05-15 Never used Dandre Acosta ethodist exposure 00:00:00 00:00:00 Alcohol intake 2017-05-15 2017-05-15 Current Dandre Oden thodist 00:00:00 00:00:00 non-drinker of alcohol (finding) Smoking Status Start Date Stop Date Source Never smoker [facility] edical [place] Medications Ordered Filled Start Stop Current Ordering Indication Dosage Frequency Signature Comments Components Source Medication Medication Date Date Medication? Clinician (SIG) Name Name aspirin 81 2020-0 2021- No 81mg QD Take [address] [facility] MG chewable 06-25-17 tablet (81 L ukes - tablet 00:00: 23:59 mg total) Medic al 00 :00 by mouth Center daily. montelukast 2020-0 Yes 10mg QD Take [address] (SINGULAIR) 9-16 by mouth Luke s - 10 mg 18:00: nightly. Medical tablet 51 Center cycloSPORIN 2020-0 Yes 1[drp] Q.5D [address] E 9-16 (two) [facility] - (RESTASIS) 18:00: times Medica l 0.05 % 51 daily. Center ophthalmic emulsion sulfaSALAzi 2020-0 Yes 500mg Q.5D Take [address] ne 9-16 mg by [facility] - (AZULFIDINE 18:00: mouth 2 Med ical ) 500 mg 51 (two) Center tablet times daily. cholecalcif 2020-0 Yes 5000U QD Take 5,[address] edy, 9-16 Units by [facility] - vitamin D3, 18:00: mouth Medic al 125 mcg 51 daily. Center (5,000 unit) Tab CARBIDOPA-L 2020-0 2020- No 50mg Q.[id number] Take [facility] EVODOPA -16 - [id number] 50-100 mg [facility] - ORAL 13:44: 00:00 3D by mouth 3 Medica l 14 :00 (three) Center times daily. amantadine 2020-0 2020- No 50mg Q.5D Take [address] HCL -16 -16 by mouth 2 [facility] - (SYMMETREL) 13:44: 00:00 (two) Medi jaycee 100 mg 14 :00 times Center capsule daily. amantadine Yes 100mg Q.5D Take [address] HCL 9-16 capsule [facility] - (SYMMETREL) 00:00: (100 mg Med ical 100 mg 00 total) by Center capsule mouth 2 (two) times daily. gabapentin 2019-0 Yes 600mg Q.34066890 Take [address] (NEURONTIN) 06-24 [id number] tablet [facility] - 600 MG 00:00: 3D (600 mg Medical tablet 00 total) by Center mouth 3 (three) times daily. carbidopa-l 2020- No 1{tbl} Q.71819890 Take [address] evodopa 06-24 [id number] tablet by [facility] - (SINEMET) 00:00: 23:59 3D mouth 3 Medi jaycee 25-100 mg 00 :00 (three) Center per tablet times daily. atorvastati 2020- No 80mg QD Take [address] n (LIPITOR) 06-24 tablet (80 L ukes - 80 MG 00:00: 23:59 mg total) Medica l tablet 00 :00 by mouth Center nightly. ESCITALOPRA 2018- Yes 10mg QD Take [address] M OXALATE -19 by mouth [facility] - ORAL 00:00: daily . Medical 00 [place] leflunomide Yes 20mg QD Take [address] (ARAVA) 10 6-19 by mouth [facility] - MG tablet 00:00: daily . Medic al 00 [place] MAGNESIUM 2019- No Take by [facility] OXIDE ORAL 03-27-13 mouth. [facility] - 00:00: 00:00 Medical 00 :00 [place] allopurinol 2016- Yes 100mg Q.5D Take 100 [place] (ZYLOPRIM) 8-07 mg by Methodi 100 MG 16:11: mouth 2 st tablet 03 (two) times a day. fluticasone 2017-0 Yes Q.5D Apply [place] (CUTIVATE) 8-07 topically Meth pat 0.005 % 16:11: 2 (two) st ointment 03 times a day. montelukast 2016- Yes 10mg QD Take 10 mg [place] (SINGULAIR) 8-07 by mouth Meth pat 10 mg 16:11: nightly. st tablet 03 metoprolol Yes 50mg Q.5D Take 50 mg [place] tartrate 8-07 by mouth 2 Metho di (LOPRESSOR) 16:11: (two) st 50 mg 02 times a tablet day. levothyroxi Yes 100ug QD Take 100 [place] ne 8-07 mcg by Methodi (SYNTHROID, 16:11: mouth st LEVOXYL) 02 daily. 100 mcg tablet gabapentin Yes [place] (NEURONTIN) 8 [facility] 600 mg 00:00: st tablet 00 escitalopra Yes Casey n m (LEXAPRO) 8 Methodi 5 MG tablet 00:00: st 00 predniSONE Yes [place] (DELTASONE) 731 [facility] 5 mg tablet 00:00: st 00 fentaNYL Yes [place] (DURAGESIC) 727 Methodi 50 mcg/hr 00:00: st 00 VOLTAREN 1 Yes [place] % gel 7-20 Methodi 00:00: st 00 traMADol Yes [place] (ULTRAM) 50 7-17 Methodi mg tablet 00:00: st 00 ALPRAZolam Yes [place] (XANAX) 0.5 7-13 [facility] MG tablet 00:00: st 00 metFORMIN Yes [place] XR 7-09 [facility] (GLUCOPHAGE 00:00: st -XR) 500 mg 00 24 hr tablet losartan Yes [place] (COZAAR) 50 7-08 [facility] MG tablet 00:00: st 00 fentaNYL Yes 1{patch Apply [address] [facility] (DURAGESIC) 1-07 } patch [facility] - 75 mcg/hr 00:00: topically Med ical patch 00 every Center other day . ferrous Yes 85mg Q.5D Take [address] sulfate 325 1-07 by mouth 2 Jessica kes - (65 FE) MG 00:00: (two) Medica l tablet 00 times Center daily . levothyroxi Yes 100ug QD Take [address] ne 100 mcg 1-07 mcg by [facility] - Cap 00:00: mouth Medical 00 daily . [place] metoprolol Yes 50mg QD Take [address] succinate 1-07 by mouth [facility] - 50 mg CSpX 00:00: every Medica l 00 evening . Center predniSONE Yes 5mg QD Take [address] (DELTASONE) 10-15 by mouth Luke s - 5 MG tablet 00:00: daily . Med ical 00 [place] traMADoL Yes Take by [facility] (ULTRAM) 50 10-15 mouth [facility] - mg tablet 00:00: every 8 Medic al 00 (eight) Center hours as needed . gabapentin 2019- No Q.25D Take by [facility] (NEURONTIN) 10-15 mouth 4 Luke s - 600 MG 00:00: 00:00 (four) Medical tablet 00 :00 times Center daily . losartan 2019- No 50mg QD Take [address] (COZAAR) 50 10-15 by mouth Deanna es - MG tablet 00:00: 00:00 daily . Medi jaycee 00 :00 [place] metFORMIN 2020- No 500mg Take [address] (FORTAMET) 10-15 mg by [facility] - 500 MG 00:00: 00:00 mouth 2 Medical (OSM) 24 hr 00 :00 (two) Center tablet times daily with breakfast and dinner . allopurinoL 2019- No Take by [facility] (ZYLOPRIM) 10-15 mouth. [facility] - 100 MG 00:00: 00:00 Medical tablet 00 :00 [place] cholecalcif 2019- No Take by [facility] edy, 10-15 mouth. [facility] - vitamin D3, 00:00: 00:00 Medic al 10 mcg (400 00 :00 Center unit) Cap Vital Signs Vital Name Observation Time Observation Value Comments Source Systolic blood 2020-06-24 15:25:00 114 mm[Hg] [facility] Diastolic blood 2020-06-24 15:25:00 85 mm[Hg] [facility] S t [facility] Heart rate 2020-06-24 15:25:00 69 /min [facility] Body temperature 2020-06-24 15:25:00 36.83 Tammie [facility] Respiratory rate 2020-06-24 15:25:00 18 /min [facility] Oxygen saturation in 2020-06-24 15:25:00 96 /min [facility] - Arterial blood by Medical Ce nter Pulse oximetry Body weight 2020-06-24 06:00:00 63.05 kg [facility] BMI 2020-06-24 06:00:00 24.62 kg/m2 [facility] Body height 2020-06-21 05:48:00 160 cm [facility] Procedures Procedure Date / Time Performed Performing Clinician [facility] e RHYTHM STRIP - SCAN 2020-06-26 11:01:10 ProviderPamela [facility] POCT-GLUCOSE METER 2020-06-24 12:02:00 Pietro [facility] BASIC METABOLIC PANEL 2020-06-24 10:00:00 Thai Rosas [facility] - (7) [facility] POCT-GLUCOSE METER 2020-06-24 07:44:00 Pietro [facility] BASIC METABOLIC PANEL 2020-06-24 04:12:00 Thai Rosas [facility] - (7) [facility] CBC (HEMOGRAM ONLY) 2020-06-24 04:12:00 Thai Rosas [facility] MAGNESIUM 2020-06-24 04:12:[address] [facility] PHOSPHORUS 2020-06-24 04:12:[address] [facility] POCT-GLUCOSE METER 2020-06-23 20:53:00 Pietro [facility] BASIC METABOLIC PANEL 2020-06-23 16:54:00 Thai Rosas [facility] - (7) [facility] POCT-GLUCOSE METER 2020-06-23 15:23:00 Thai Rosas [facility] MR BRAIN WITHOUT IV 2020-06-23 14:45:00 Kendra Stinson [facility] MRA HEAD WITHOUT IV 2020-06-23 14:45:00 Kendra Stinson [facility] MRA NECK WITHOUT IV 2020-06-23 14:45:00 Kendra Stinson [facility] PROCEDURE DONE OUTSIDE 2020-06-23 14:00:00 Surgeon Holly [facility] US RENAL COMPLETE 2020-06-23 12:09:00 [facility]SE [facility] 2020-06-23 10:51:00 [place] [facility] POCT-GLUCOSE METER 2020-06-23 07:59:00 Shea [facility] CBC (HEMOGRAM ONLY) 2020-06-23 06:13:00 SheaJaysonlenoxvillehermelinda [facility] BASIC METABOLIC PANEL 2020-06-23 06:12:[address] [facility] Bryce Doty - (7) [facility] MAGNESIUM 2020-06-23 06:12:[address] [facility] PHOSPHORUS 2020-06-23 06:12:00 Shea [facility] BASIC METABOLIC PANEL 2020-06-23 01:47:00 Thai Rosas [place] - (7) [facility] POCT-GLUCOSE METER 2020-06-22 21:20:00 Thai Rosas [facility] POCT-GLUCOSE METER 2020-06-22 18:04:00 Jayson [place]her[place] [facility] BASIC METABOLIC PANEL 2020-06-22 17:52:[address] [facility] S t [place] - (7) [facility] URINALYSIS WITHOUT 2020-06-22 17:04:00 Davon Pierre [facility] CREATININE, RANDOM URINE 2020-06-22 17:04:00 Davon Pierre [facility] SODIUM, RANDOM URINE 2020-06-22 17:04:00 [facility] CHLORIDE, RANDOM URINE 2020-06-22 17:04[facility]00 [facility] NITROGEN, RANDOM 2020-06-22 17:04:00 [facility] POTASSIUM, RANDOM URINE 2020-06-22 17:04:00 [facility] PROTEIN, RANDOM URINE 2020-06-22 17:04:00 [facility] EEG AWAKE AND DROWSY 2020-06-22 13:27:00 Yandy Sibley [facility] POTASSIUM 2020-06-22 12:31:00 [facility] POCT-GLUCOSE METER 2020-06-22 10:28:00 [facility] POCT-GLUCOSE METER 2020-06-22 09:07:00 [facility] ECG 12-LEAD 2020-06-22 08:38:32 Shea [facility] BASIC METABOLIC PANEL 2020-06-22 04:26:00 Kendra Stinson [facility] [address] CBC W/PLT COUNT & AUTO 2020-06-22 04:26:00 Kendra Stinson [facility] POCT-GLUCOSE METER 2020-06-21 22:02:00 Kendra Stinson [facility] POCT-GLUCOSE METER 2020-06-21 17:59:00 Kendra Stinson [facility] URINALYSIS W/ 2020-06-21 10:38:00 Kendra Stinson [facility] SODIUM, RANDOM URINE 2020-06-21 10:38:00 Kendra Stinson [facility] CREATININE, RANDOM URINE 2020-06-21 10:38:00 Milad, Kendra P. [facility] PROTEIN, RANDOM URINE 2020-06-21 10:38:00 Kendra Stinson [facility] 2D ECHO W/ DOPPLER 2020-06-21 09:51:35 Toñito, Yandy Ruelas [facility] (CW/PW/COLOR) [facility] TSH/FREE T4 IF INDICATED 2020-06-21 08:52:00 Toñito, Yandy Bashir aib [facility] APTT 2020-06-21 08:52:00 Toñito, [facility] PROT[facility]/INR 2020-06-21 08:52:00 [facility] 2020-06-21 08:52:00 [facility] TROPONIN I 2020-06-21 08:52:00 Kendra Stinson [facility] BASIC METABOLIC PANEL 2020-06-21 08:52:[address] [facility] () [facility] CBC W/PLT COUNT & AUTO 2020-06-21 08:52:00 Kendra Stinson [facility] C-REACTIVE PROTEIN 2020-06-21 08:52:00 Toñito, Kebedeva [facility] HEMOGLOBIN A1C 2020-06-21 08:52:00 Toñito, Kebede [facility] LIPID PANEL 2020-06-21 08:52:00 Toñito Kebede [facility] VITAMIN B12 AND FOLATE 2020-06-21 08:52:00 [facility] 12-LEAD 2020-06-21 07:43:57 Kendra Stinson [facility] Plan of Care Planned Activity Planned Date Details Comments Source Future Scheduled 2021-05-09 INFLUENZA VACCINE [place] [facility] 00:00:00 [code = INFLUENZA VACCINE] Future Scheduled 2020-06-09 INFLUENZA VACCINE (#1) [facility] 00:[facility]00 [code = INFLUENZA Medical Ce nter VACCINE (#1)] Future Scheduled 2008-05-[address] [facility] - Test 00:00:00 WELLNESS (YEAR 2 or Medical Center FIRST YEAR if no IPPE) [code = MEDICARE ANNUAL WELLNESS (YEAR 2 or FIRST YEAR if no IPPE)] Future Scheduled 2007 65+ PNEUMOCOCCAL [place] 00:00:00 VACCINE (1 of 1 - PPSV23) [code = 65+ PNEUMOCOCCAL VACCINE (1 of 1 - PPSV23)] Future Scheduled 1992 SHINGLES VACCINES (#1) [place] [facility] 00:00:00 [code = SHINGLES VACCINES (#1)] Future Scheduled 1954 COVID-19 VACCINE (1) Kahlil sotohermelinda [facility] 00:00:00 [code = COVID-19 VACCINE (1)] Encounters Start End Encounter Admission Attending Care Care Encounter Source Date/Time Date/Time Type Type Clinicians Facility Department ID 2021-04-02 2021-04-02 Outpatient [facility] [id number] 2021-03-15 2021-03-15 Outpatient [facility] [id number] [facility] 2021-02-17 2021-02-17 Outpatient [facility] [id number] [facility]00 [facility] Results Test Description Test Time Test Comments Results Result Comments Source POC-Glucose meter 2020-06-24 12:14:00 Test Item Value Reference Range Interpretation Comme nts POC-Glucose Meter (test code = 161 mg/dL 70-110 H : TESTED AT [facility] [address] [address]268) [place] [address] 30: Clinical Rn Liaison/Techni gulshan ID = [id number] for JANET ALEXIASCOT SINGH Lab Interpretation (test code = Abnormal 36035-9) [facility] [id number] 12:14:00 Test Item Value Reference Range Interpretation Comments POC-GLUCOSE METER 161 mg/dL 70-110 H : TESTED A T [facility] [address] (BEAKER) (test code [facility], = 1538) [address]: Clinical Rn Liaison/Techni gulshan ID = [id number] for MADISON SANCHEZ Basic Metabolic [id number] 10:27:00 Test Item Value Reference Range Interpretation Comments Sodium (test code = 134 meq/L 136-145 L 2951-2) Potassium (test code = 3.7 meq/L 3.5-5.1 2823-3) Chloride (test code = 100 meq/L 98-107 2075-0) CO2 (test code = 24 meq/L 22-29 2028-9) BUN (test code = 26 mg/dL 7-21 H 3094-0) Creatinine (test code 1.70 mg/dL 0.57-1.25 H = 2160-0) Glucose (test code = 182 mg/dL 70-105 H 2345-7) Calcium (test code = 8.5 mg/dL 8.4-10.2 66915-7) EGFR (test code = 29 mL/min/1.73 [place] [address]-1) NOT ACCURATE CREATININE CLEARANCE IN PREDICTING GLOMERULAR FILTRATION RATE . ESTIMATED GFR I S NOT APPLICABLE FOR DIALYSIS PATIENTS. DEX (test code = DEX) Clinical Rn Liaison ID - BRANDON M Lab Interpretation Abnormal (test code = 99138-0) [facility] METABOLIC [id number] 10:27:00 Test Item Value Reference Range Interpretation Comments SODIUM (BEAKER) 134 meq/L 136-145 L (test code = 381) POTASSIUM (BEAKER) 3.7 meq/L 3.5-5.1 (test code = 379) CHLORIDE (BEAKER) 100 meq/L 98-107 (test code = 382) CO2 (BEAKER) (test 24 meq/L 22-29 code = 355) BLOOD UREA NITROGEN 26 mg/dL 7-21 H (BEAKER) (test code = 354) CREATININE (BEAKER) 1.70 mg/dL 0.57-1.25 H (test code = 358) GLUCOSE RANDOM 182 mg/dL 70-105 H (BEAKER) (test code = 652) CALCIUM (BEAKER) 8.5 mg/dL 8.4-10.2 (test code = 697) EGFR (BEAKER) (test 29 mL/min/1.73 ESTIMA YENNY GFR IS code = 1092) sq m NOT ACCURATE CREATININE CLEARANCE IN PREDICTING GLOMERULAR FILTRATION RATE . ESTIMATED GFR I S NOT APPLICABLE FOR DIALYSIS PATIEN TS. Clinical Rn Liaison ID - BRANDON MPOCT-GLUCOSE [id number] 07:57:00 Test Item Value Reference Range Interpretation Comments POC-GLUCOSE METER 94 mg/dL 70-110 : TESTED A T [facility] [address] (BEAKER) (test code [facility], = 1538) [address]: Clinical Rn Liaison/Techni uglshan ID = [id number] for ALEXIA SANCHEZIGHALIE [id number] 05:16:00 Test Item Value Reference Range Interpretation Comments Magnesium (test code = 2.1 mg/dL 1.6-2.6 03292-3) DEX (test code = DXE) Clinical Rn Liaison ID Anne TAYLOR M Lab Interpretation (test Normal code = 41324-3) [facility] 05:16:00 Test Item Value Reference Range Interpretation Comments Phosphorus (test code = 3.9 mg/dL 2.3-4.7 2777-1) DEX (test code = DEX) Clinical Rn Liaison ID - BRANDON M Lab Interpretation (test Normal code = 09276-6) [facility] 05:16:00 Test Item Value Reference Range Interpretation Comments PHOSPHORUS (BEAKER) (test code = 3.9 mg/dL 2.3-4.7 604) Clinical Rn Liaison ID - BRANDON [id number] 05:16:00 Test Item Value Reference Range Interpretation Comments MAGNESIUM (BEAKER) (test code = 2.1 mg/dL 1.6-2.6 627) Clinical Rn Liaison ID - BRANDON MBASIC METABOLIC [id number] 05:16:00 Test Item Value Reference Range Interpretation Comments SODIUM (BEAKER) 136 meq/L 136-145 (test code = 381) POTASSIUM (BEAKER) 3.8 meq/L 3.5-5.1 (test code = 379) CHLORIDE (BEAKER) 102 meq/L 98-107 (test code = 382) CO2 (BEAKER) (test 25 meq/L 22-29 code = 355) BLOOD UREA NITROGEN 27 mg/dL 7-21 H (BEAKER) (test code = 354) CREATININE (BEAKER) 1.66 mg/dL 0.57-1.25 H (test code = 358) GLUCOSE RANDOM 98 mg/dL 70-105 (BEAKER) (test code = 652) CALCIUM (BEAKER) 8.7 mg/dL 8.4-10.2 (test code = 697) EGFR (BEAKER) (test 30 mL/min/1.73 ESTIMA YENNY GFR IS code = 1092) sq m NOT ACCURATE CREATININE CLEARANCE IN PREDICTING GLOMERULAR FILTRATION RATE . ESTIMATED GFR I S NOT APPLICABLE FOR DIALYSIS PATIEN TS. Clinical Rn Liaison ID - BRANDON MC (Hemogram only)2020-06-24 04:32:00 Test Item Value Reference Range Interpretation Comments WBC (test code = 6690-2) 6.0 See_Comment [A utomated message] The system [employer] generated this result transmitted ref erence range: 3.5 - 10 .5 K/L. The refe rence range was not u sed to interpret this result as normal/abnor mal. RBC (test code = 789-8) 3.17 See_Comment L [Au tomated message] The system [employer] generated this result transmitted ref erence range: 3.93 - 5 .22 M/L. The refe rence range was not u sed to interpret this result as normal/abnor mal. MCHC (test code = 786-4) 31.5 See_Comment L [A utomated message] The system [employer] generated this result transmitted ref erence range: 32.2 - 3 5.5 GM/DL. The refe rence range was not u sed to interpret this result as normal/abnor mal. Hematocrit (test code = 31.4 % 34.1-44.9 L 4544-3) MCV (test code = 787-2) 99.1 fL 79.4-94.8 H MCH (test code = 785-6) 31.2 pg 25.6-32.2 RDW (test code = 788-0) 12.8 % 11.7-14.4 Platelets (test code = 163 See_Comment [Aut omated message] 907-3) The system [employer] generated this result transmitted ref erence range: 150 - 45 0 K/CU MM. The referen ce range was not u sed to interpret this result as normal/abnor mal. MPV (test code = 9.2 fL 9.4-12.3 L 46636-0) nRBC (test code = 413) 0 See_Comment [Aut omated message] The system [employer] h generated this result transmitted ref erence range: 0 - 0 /1 00 WBC. The refere nce range was not u sed to interpret this result as normal/abnor mal. Lab Interpretation (test Abnormal code = 34992-7) [facility] (HEMOGRAM ONLY)2020-06-24 04:32:00 Test Item Value Reference Range Interpretation Comments WHITE BLOOD CELL COUNT (BEAKER) 6.0 K/ L 3.5-10.5 (test code = 775) RED BLOOD CELL COUNT (BEAKER) 3.17 M/ L 3.93-5.22 L (test code = 761) HEMOGLOBIN (BEAKER) (test code = 9.9 GM/DL 11.2-15.7 L 410) HEMATOCRIT (BEAKER) (test code = 31.4 % 34.1-44.9 L 411) MEAN CORPUSCULAR VOLUME (BEAKER) 99.1 fL 79.4-94.8 H (test code = 753) MEAN CORPUSCULAR HEMOGLOBIN 31.2 pg 25.6-32.2 (BEAKER) (test code = 751) MEAN CORPUSCULAR HEMOGLOBIN CONC 31.5 GM/DL 32.2-35.5 L (BEAKER) (test code = 752) RED CELL DISTRIBUTION WIDTH 12.8 % 11.7-14.4 (BEAKER) (test code = 412) PLATELET COUNT (BEAKER) (test 163 K/CU MM 150-450 code = 756) MEAN PLATELET VOLUME (BEAKER) 9.2 fL 9.4-12.3 L (test code = 754) NUCLEATED RED BLOOD CELLS 0 /100 WBC 0-0 (BEAKER) (test code = 413) POCT-GLUCOSE [id number] 22:54:00 Test Item Value Reference Range Interpretation Comments POC-GLUCOSE METER 99 mg/dL 70-110 : TESTED A T [facility] 67[address] (BEAKER) (test code = [place], 1538) [address]: Clinical Rn Liaison/Techni gulshan ID = [id number] for GAGANDEEP REYES BASIC METABOLIC [id number] 18:58:00 Test Item Value Reference Range Interpretation Comments SODIUM (BEAKER) 135 meq/L 136-145 L (test code = 381) POTASSIUM (BEAKER) 4.0 meq/L 3.5-5.1 (test code = 379) CHLORIDE (BEAKER) 100 meq/L 98-107 (test code = 382) CO2 (BEAKER) (test 24 meq/L 22-29 code = 355) BLOOD UREA NITROGEN 31 mg/dL 7-21 H (BEAKER) (test code = 354) CREATININE (BEAKER) 1.64 mg/dL 0.57-1.25 H (test code = 358) GLUCOSE RANDOM 108 mg/dL 70-105 H (BEAKER) (test code = 652) CALCIUM (BEAKER) 8.8 mg/dL 8.4-10.2 (test code = 697) EGFR (BEAKER) (test 30 mL/min/1.73 ESTIMA YENNY GFR IS code = 1092) sq m NOT ACCURATE CREATININE CLEARANCE IN PREDICTING GLOMERULAR FILTRATION RATE . ESTIMATED GFR I S NOT APPLICABLE FOR DIALYSIS PATIEN TS. Clinical Rn Liaison ID - [id number] 15:35:00 Test Item Value Reference Range Interpretation Comments POC-GLUCOSE METER 78 mg/dL 70-110 : TESTED A T [facility] 6720 (BEAKER) (test code = [facility], 1538) 41446: Clinical Rn Liaison/Techni gulshan ID = [id number] for DADA JOINER MR, MRA, BRAIN, WITHOUT [id number] 15:35:00Anesthesia:->MACFINAL REPORT MR, MRA, BRAIN, WITHOUT CONTRAST, MR, MRA, NECK, WITHOUT IV CONTRAST INDICATION: Neuro deficit, acute, stroke suspected TECHNIQUE: Multiplanar, multisequence MR images of the brain. 3-D time of flight MRA of the cranial and cervical circulation. 2-D time of flight MRA of the neck. 3D MIP angiographic post-processing was performed. Stenosis evaluation utilized NASCET criteria. COMPARISON: Noncontrast brain CT of the same date FINDINGS: MRA BRAIN:Internal carotidarteries: Normal flow related enhancement without flow-limiting stenosisMiddle cerebral arteries: Normal flow related enhancement within the bilateral MCA M1-M2 segments without flow limiting stenosisAnterior cerebral arteries: Normal flow-related enhancement within the bilateral NISHA A1-A2 segments without flow limiting stenosisBasilar system: Normal flow-related enhancement within the bilateral V4 segments and the basilar artery without flow-limiting stenosis Posterior cerebral arteries: Normal flow- related enhancement within the bilateral D[employer] P1-P2 segments without flow- limiting stenosisAdditional findings: None. MRA NECK:Common carotid arteries: Unremarkable. Bifurcations: No flow-limiting stenosis. Cervical internal carotid arteries: No flow limiting stenosis.Vertebral arteries: Origins are not well- seen. No flow limiting stenosis within the visualized cervical vertebral arterial segments. Limited assessment of the V3 segment secondary to noncontrast technique. IMPRESSION: No flow limiting stenosis in the major branch vessels of the cervical or cranial circulation. Signed: Darlin Jeff MDReport Verified Date/Time: 06/23/2020 15:35:34 Reading Location: [address] Neuro Reading Room MR, MRA, NECK, WITHOUT IV [id number] 15:35:00 Anesthesia:->MACFINAL REPORT MR, MRA, BRAIN, WITHOUT CONTRAST, MR, MRA, NECK, WITHOUT IV CONTRAST INDICATION: Neuro deficit, acute, stroke suspected TECHNIQUE: Multiplanar, multisequence MR images of the brain. 3-D time of flight MRA of the cranial and cervical circulation. 2-D time of flight MRA of the neck. 3D MIP angiographic post-processing was performed. Stenosis evaluation utilized NASCET criteria. COMPARISON: Noncontrast brain CT of the same date FINDINGS: MRA BRAIN:Internal carotidarteries: Normal flow related enhancement without flow-limiting stenosisMiddle cerebral arteries: No rmal flow related enhancement within the bilateral MCA M1-M2 segments without flow limiting stenosisAnterior cerebral arteries: Normal flow-related enhancement within the bilateral NISHA A1-A2 segments without flow limiting stenosisBasilar system: Normal flow-related enhancement within the bilateral V4 segments and the basilar artery without flow-limiting stenosis Posterior cerebral arteries: Normal flow-related enhancement within the bilateral [employer]ATOR P1- P2 segments without flow-limiting stenosisAdditional findings: None. MRA NECK:Common carotid arteries: Unremarkable. Bifurcations: No flow-limiting st enosis. Cervical internal carotid arteries: No flow limiting stenosis.Vertebral arteries: Origins are not well-seen. No flow limiting stenosis within the visualized cervical vertebral arterial segments. Limited assessment of the V3 segment secondary to noncontrast technique. IMPRESSION: No flow limiting stenosis in the major branch vessels of the cervical or cranial circulation. Signed: Darlin Jeff Verified Date/Time: 06/23/2020 15:35:34 Reading Location: [facility] C013V Neuro Reading Room MRA head without IV contrast 2020-06-23 15:35:00Interface, External Ris In - 06/24/2020 6:39 AM CDTFINAL REPORT MR, MRA, BRAIN, WITHOUT CONTRAST, MR, MRA, NECK, WITHOUT IV CONTRAST INDICATION: Neuro deficit, acute, stroke suspected TECHNIQUE: Multiplanar, multisequence MR images of the brain. 3-D time of flight MRA of the cranial and cervical circulation. 2-D time of flight MRA of the neck. 3D MIP angiographic post-processing was performed. Stenosis evaluation utilized NASCET criteria. COMPARISON: Noncontrast brain CT of the same date FINDINGS: MRA BRAIN:Internal carotid arteries: Normal flow related enhancement without flow-limiting stenosisMiddle cerebral arteries: Normal flow related enhancement within the bilateral MCA M1-M2 segments without flow limiting stenosisAnterior cerebral arteries: Normal flow-related enhancement within the bilateral NISHA A1-A2 segments without flow limiting stenosisBasilar system: Clotilde l flow-related enhancement within the bilateral V4 segments and the basilar artery without flow-limiting stenosis Posterior cerebral arteries: Normal flow- related enhancement within the bilateral D[employer]ATOR P1-P2 segments without flow- limiting stenosisAdditional findings: None. MRA NECK:Common carotid arteries: Unremarkable. Bifurcations: No flow-limiting stenosis. Cervical internal carotid arteries: No flow limiting stenosis.Vertebral arteries: Origins are not well- seen. No flow limiting stenosis withinthe visualized cervical vertebral arterial segments. Limited assessment of the V3 segment secondary to noncontrast technique. IMPRESSION: No flow limiting stenosis in the major branch vessels of the cervical or cranial circulation. Signed: Darlin Jeff Verified Date/Time: 06/23/2020 15:35:34 Reading Location: [facility] C013V Neuro [facility] 2020-06-23 15:35:00Interface, External Ris In - 06/24/2020 6:39 AM CDTFINAL REPORT MR, MRA, BRAIN, WITHOUT CONTRAST, MR, MRA, NECK, WITHOUT IV CONTRAST INDICATION: Neuro deficit, acute, stroke suspected TECHNIQUE: Multiplanar, multisequence MR images of the brain. 3-D time of flight MRA of the cranial and cervical circulation. 2-D time of flight MRA of the neck. 3D MIP angiographic post-processing was performed. Stenosis evaluation utilized NASCET criteria. COMPARISON: Noncontrast brain CT of the same date FINDINGS: MRA BRAIN:Internal carotid arteries: Normal flow related enhancement without flow-limiting stenosisMiddle cerebral arteries: Normal flow related enhancement within the bilateral MCA M1-M2 segments without flow limiting stenosisAnterior cerebral arteries: Normal flow-related enhancement within the bilateral NISHA A1-A2 segments without flow limiting stenosisBasilar system: Clotilde l flow-related enhancement within the bilateral V4 segments and the basilar artery without flow-limiting stenosis Posterior cerebral arteries: Normal flow- related enhancement within the bilateral D[employer] OPERATOR P1-P2 segments without flow- limiting stenosisAdditional findings: None. MRA NECK:Common carotid arteries: Unremarkable. Bifurcations: No flow-limiting stenosis. Cervical internal carotid arteries: No flow limiting stenosis.Vertebral arteries: Origins are not well- seen. No flow limiting stenosis withinthe visualized cervical vertebral arterial segments. Limited assessment of the V3 segment secondary to noncontrast technique. IMPRESSION: No flow limiting stenosis in the major branch vessels of the cervical or cranial circulation. Signed: Darlin Jeff MDReport Verified Date/Time: 06/23/2020 15:35:34 Reading Location: [facility] C013V Neuro Reading Room [facility]U/[facility], RENAL, [id number] 15:23:00Reason for exam:->CHRISTINA eval for medical renal disease/obstructionFINAL REPORT TECHNIQUE: Grayscale ultrasound of the kidneys and bladder. INDICATION: CHRISTINA COMPARISON: None. FINDINGS: RIGHT KIDNEY: The right kidney measures 9.6 cm. Cortical thickness measures 0.9 cm. No solid mass lesions. No hydronephrosis. Renal artery and vein are patent. 1.4 cm cyst in the anterolateral right kidney. LEFT KIDNEY: The left kidney measures 9.5 cm. Cortical thickness measures 1.1 cm. No solid mass lesions. No hydronephrosis. Renal artery and vein are patent. 1 cm cyst in the interpolar region of the left kidney. BLADDER: Unremarkable. IMPRESSION:Bilateralrenal cysts. Otherwise unremarkable renal ultrasound.. Signed: Pamela Vargas MDReport Verified Date/Time: 06/23/2020 15:23:19 US renal [id number] 15:23:00 Interface, External Ris In - 06/24/2020 8:39 PM CDTFINAL REPORT TECHNIQUE: Grayscale ultrasound of the kidneys and bladder. INDICATION: CHRISTINA COMPARISON: None. FINDINGS: RIGHT KIDNEY: The right kidney measures 9.6 cm. Cortical thickness measures 0.9 cm. No solid mass lesions. Nohydronephrosis. Renal artery and vein are patent. 1.4 cm cyst in the anterolateral right kidney. LEFT KIDNEY: The left kidney measures 9.5 cm. Cortical thickness measures 1.1 cm. No solid mass lesions.No hydronephrosis. Renal artery and vein are patent. 1 cm cyst in the interpolar region of the left kidney. BLADDER: Unremarkable. IMPRESSION:Bilateral renal cysts. Otherwise unremarkable renal ultrasound.. Signed: Pamela Vargas MDReport Verified Date/Time: 06/23/2020 15:23:19 [facility] [id number] 14:41:00 Interface, External Ris In - 06/24/2020 6:39 AM CDTFINAL REPORT MR, BRAIN, WITHOUT CONTRAST INDICATION: Neuro deficit, acute, stroke suspected TECHNIQUE: Multiplanar, multisequence MR imaging of the brain was obtained. COMPARISON: None FINDINGS:Brain parenchyma is normal in morphology. Midline structures are normally developed. No restricted diffusion to suggest recent ischemic insult. No abnormal susceptibility. Scattered T2/FLAIR hyperintense foci within the periventricularand subcortical white matter are nonspecific, however, statistically represent chronic microvascularischemic changes. No hydrocephalus. Orbits are within normal limits. No obstructive paranasal sinus disease. IMPRESSION: No acute intracranial findings. Specifically, no evidence of acute infarct. Signed: Darlin Jeff Verified Date/Time: 06/23/2020 14:41:47 Reading Location: [address] Neuro Reading Room [facility]MR, BRAIN, WITHOUT CONTRAST 2020-06-23 14:41:00Anesthesia:->MACFINAL REPORT MR, BRAIN, WITHOUT CONTRAST INDICATION: Neuro deficit, acute, stroke suspected TECHNIQUE: Multiplanar, multisequence MR imaging of the brain was obtained. COMPARISON: None FINDINGS:Brain parenchyma is normal in morphology. Midline structures are normally developed. No restricted diffusion to suggest recent ischemic insult. No abnormal susceptibility. Scattered T2/FLAIR hyperintense foci within the periventricular and subcortical white matter are nonspecific, however, statistically represent chronic microvascular ischemic changes. No hydrocephalus. Orbits are within normal limits. No obstructive paranasal sinus disease. IMPRESSION: No acute intracranial findings. Specifically, no evidence of acute infarct. Signed: Darlin Jeff Verified Date/Time: 0 06/23/2020 14:41:47 Reading Location: [address] Neuro Reading Room C METABOLIC [id number] 12:38:00 Test Item Value Reference Range Interpretation Comments SODIUM (BEAKER) 135 meq/L 136-145 L (test code = 381) POTASSIUM (BEAKER) 4.1 meq/L 3.5-5.1 (test code = 379) CHLORIDE (BEAKER) 100 meq/L 98-107 (test code = 382) CO2 (BEAKER) (test 26 meq/L 22-29 code = 355) BLOOD UREA NITROGEN 33 mg/dL 7-21 H (BEAKER) (test code = 354) CREATININE (BEAKER) 1.86 mg/dL 0.57-1.25 H (test code = 358) GLUCOSE RANDOM 84 mg/dL 70-105 (BEAKER) (test code = 652) CALCIUM (BEAKER) 8.8 mg/dL 8.4-10.2 (test code = 697) EGFR (BEAKER) (test 26 mL/min/1.73 ESTIMA YENNY GFR IS code = 1092) sq m NOT ACCURATE CREATININE CLEARANCE IN PREDICTING GLOMERULAR FILTRATION RATE . ESTIMATED GFR I S NOT APPLICABLE FOR DIALYSIS PATIEN TS. Clinical Rn Liaison ID - [id number] 12:33:00 Test Item Value Reference Range Interpretation Comments PHOSPHORUS (BEAKER) (test code = 4.9 mg/dL 2.3-4.7 H 604) Clinical Rn Liaison ID - [id number] 12:33:00 Test Item Value Reference Range Interpretation Comments MAGNESIUM (BEAKER) (test code = 2.3 mg/dL 1.6-2.6 627) Clinical Rn Liaison ID - JENNIFEROCT-GLUCOSE [id number] 11:03:00 Test Item Value Reference Range Interpretation Comments POC-GLUCOSE METER 93 mg/dL 70-110 : TESTED A T [facility] 6720 (BEAKER) (test code = [facility], 1538) [address]: Clinical Rn Liaison/Techni gulshan ID = [id number] for MILO ANDRADE POCT-GLUCOSE [id number] 09:35:00 Test Item Value Reference Range Interpretation Comments POC-GLUCOSE METER 70 mg/dL 70-110 : TESTED A T [facility] 6720 (BEAKER) (test code = [facility], 1538) 51892: Clinical Rn Liaison/Techni gulshan ID = [id number] for CEHLSI Hermelinda JASON CBC (HEMOGRAM ONLY)2020-06-23 06:43:00 Test Item Value Reference Range Interpretation Comments WHITE BLOOD CELL COUNT (BEAKER) 7.0 K/ L 3.5-10.5 (test code = 775) RED BLOOD CELL COUNT (BEAKER) 3.24 M/ L 3.93-5.22 L (test code = 761) HEMOGLOBIN (BEAKER) (test code = 10.2 GM/DL 11.2-15.7 L 410) HEMATOCRIT (BEAKER) (test code = 32.4 % 34.1-44.9 L 411) MEAN CORPUSCULAR VOLUME (BEAKER) 100.0 fL 79.4-94.8 H (test code = 753) MEAN CORPUSCULAR HEMOGLOBIN 31.5 pg 25.6-32.2 (BEAKER) (test code = 751) MEAN CORPUSCULAR HEMOGLOBIN CONC 31.5 GM/DL 32.2-35.5 L (BEAKER) (test code = 752) RED CELL DISTRIBUTION WIDTH 12.9 % 11.7-14.4 (BEAKER) (test code = 412) PLATELET COUNT (BEAKER) (test 175 K/CU MM 150-450 code = 756) MEAN PLATELET VOLUME (BEAKER) 9.8 fL 9.4-12.3 (test code = 754) NUCLEATED RED BLOOD CELLS 0 /100 WBC 0-0 (BEAKER) (test code = 413) ECG 12 [id number] 04:07:31Interface, External Ris In - 06/23/2020 4:07 AM CDTVentricular Rate 52 BPMAtrial Rate 52 BPMP-R Interval 164 msQRS Duration 76 msQ-T Interval 436 msQTC Calculation(Bazett) 405 msP Bradner 44 degreesR Bradner -29 degreesT Bradner 17 degreesSinus bradycardia with occasional Premature ventricular complexesMinimal voltage criteria for LVH, may be normal variantPoor R wave progressionBorderline ECGWhen compared with ECG of 21-JUN-2020 07:43,Premature ventricular complexes are now PresentPoor R wave progression now seenConfirmed by MD FAHEEM, TIMO ([id number]) on 06/23/2020 4:07:24 [facility] [id number] 03:05:00 Test Item Value Reference Range Interpretation Comments SODIUM (BEAKER) 136 meq/L 136-145 (test code = 381) POTASSIUM (BEAKER) 4.4 meq/L 3.5-5.1 (test code = 379) CHLORIDE (BEAKER) 100 meq/L 98-107 (test code = 382) CO2 (BEAKER) (test 27 meq/L 22-29 code = 355) BLOOD UREA NITROGEN 34 mg/dL 7-21 H (BEAKER) (test code = 354) CREATININE (BEAKER) 1.85 mg/dL 0.57-1.25 H (test code = 358) GLUCOSE RANDOM 84 mg/dL 70-105 (BEAKER) (test code = 652) CALCIUM (BEAKER) 8.9 mg/dL 8.4-10.2 (test code = 697) EGFR (BEAKER) (test 26 mL/min/1.73 ESTIMA YENNY GFR IS code = 1092) sq m NOT ACCURATE CREATININE CLEARANCE IN PREDICTING GLOMERULAR FILTRATION RATE . ESTIMATED GFR I S NOT APPLICABLE FOR DIALYSIS PATIEN TS. Clinical Rn Liaison ID - PIAYA LPOCT-GLUCOSE [id number] 21:31:00 Test Item Value Reference Range Interpretation Comments POC-GLUCOSE METER 91 mg/dL 70-110 : TESTED A T [facility] 67[facility] (BEAKER) (test code = [facility] [place], 1538) [address]: Clinical Rn Liaison/Techni gulshan ID = [id number] for GAGANDEEP REYES [id number] 19:07:00 Test Item Value Reference Range Interpretation Comments Potassium (test code = 4.8 meq/L 3.5-5.1 2823-3) DEX (test code = DEX) Clinical Rn Liaison ID - FSE Lab Interpretation (test Normal code = 07784-4) [facility] 19:07:00 Test Item Value Reference Range Interpretation Comments POTASSIUM (BEAKER) (test code = 4.8 meq/L 3.5-5.1 379) Clinical Rn Liaison ID - FSEBASIC METABOLIC [id number] 18:44:00 Test Item Value Reference Range Interpretation Comments SODIUM (BEAKER) 134 meq/L 136-145 L (test code = 381) POTASSIUM (BEAKER) 4.4 meq/L 3.5-5.1 (test code = 379) CHLORIDE (BEAKER) 100 meq/L 98-107 (test code = 382) CO2 (BEAKER) (test 25 meq/L 22-29 code = 355) BLOOD UREA NITROGEN 34 mg/dL 7-21 H (BEAKER) (test code = 354) CREATININE (BEAKER) 2.02 mg/dL 0.57-1.25 H (test code = 358) GLUCOSE RANDOM 186 mg/dL 70-105 H (BEAKER) (test code = 652) CALCIUM (BEAKER) 9.1 mg/dL 8.4-10.2 (test code = 697) EGFR (BEAKER) (test 24 mL/min/1.73 ESTIMA YENNY GFR IS code = 1092) sq m NOT ACCURATE CREATININE CLEARANCE IN PREDICTING GLOMERULAR FILTRATION RATE . ESTIMATED GFR I S NOT APPLICABLE FOR DIALYSIS PATIEN TS. Clinical Rn Liaison ID - FSEProtein, random [id number] 18:38:00 Test Item Value Reference Range Interpretation Comments Protein, Urine (test code = <7 0-14 2888-6) DEX (test code = DEX) Clinical Rn Liaison ID - FSE Lab Interpretation (test Normal code = 04509-7) [facility] RANDOM [id number] 18:38:00 Test Item Value Reference Range Interpretation Comments PROTEIN, URINE (BEAKER) (test code = < mg/dL 1569) Clinical Rn Liaison ID - FSEChloride, random [id number] 18:37:00 Test Item Value Reference Range Interpretation Comments ChlorideUr (test 108 meq/L code = 02046-3) DEX (test code = Reference Range: No DEX) NormalsOperator ID - FSE [facility] HospitalCreatinine, random [id number] 18:37:00 Test Item Value Reference Range Interpretation Comments Creatinine, Ur 50.4 mg/dL (test code = 2161-8) DEX (test code = Reference Range: No DEX) NormalsOperator ID - FSE [facility] HospitalPotassium, random [id number] 18:37:00 Test Item Value Reference Range Interpretation Comments Potassium Urine 41.0 meq/L (test code = 2828-2) DEX (test code = Reference Range: No DEX) NormalsOperator ID - FSE [facility] [id number] 18:37:00 Test Item Value Reference Range Interpretation Comments Sodium Urine (test 85 meq/L code = 2955-3) DEX (test code = Reference Range: No DEX) NormalsOperator ID - FSE [facility] HospitalUrea Nitrogen, random [id number] 18:37:00 Test Item Value Reference Range Interpretation Comments Urea Nitrogen, Ur 247 mg/dL (test code = 3095-7) DEX (test code = Reference Range: No DEX) NormalsOperator ID - FSE [facility] HospitalCHLORIDE, RANDOM [id number] 18:37:00 Test Item Value Reference Range Interpretation Comments CHLORIDE URINE (BEAKER) (test code 108 meq/L = 682) Reference Range: No NormalsOperator ID - FSECREATININE, RANDOM [id number] 18:37:00 Test Item Value Reference Range Interpretation Comments CREATININE URINE (BEAKER) (test 50.4 mg/dL code = 375) Reference Range: No NormalsOperator ID - FSEPOTASSIUM, RANDOM [id number] 18:37:00 Test Item Value Reference Range Interpretation Comments POTASSIUM URINE (BEAKER) (test 41.0 meq/L code = 195) Reference Range: No NormalsOperator ID - FSESODIUM, RANDOM [id number] 18:37:00 Test Item Value Reference Range Interpretation Comments SODIUM URINE (BEAKER) (test code = 85 meq/L 243) Reference Range: No NormalsOperator ID - FSEUREA NITROGEN, RANDOM URINE 2020-06-22 18:37:00 Test Item Value Reference Range Interpretation Comments UREA NITROGEN URINE (BEAKER) (test 247 mg/dL code = 538) Reference Range: No NormalsOperator ID - FSEPOCT-GLUCOSE [id number] 18:16:00 Test Item Value Reference Range Interpretation Comments POC-GLUCOSE METER 202 mg/dL 70-110 H : TESTED A T [facility] [address] (BEAKER) (test code = [facility] [place], 1538) [address]: Clinical Rn Liaison/Techni gulshan ID = [id number] for Sm ith, [place] Urinalysis without [id number] 18:14:00 Test Item Value Reference Range Interpretation Comments Color, UA (test code = Yellow 5778-6) Clarity, UA (test code = Hazy 5767-9) Specific [place], UA 1.011 1.001-1.035 (test code = 5811-5) pH, UA (test code = 5.5 5.0-8.0 5803-2) Protein, UA (test code = Negative Negative 60146-8) Glucose, UA (test code = Negative Negative 365) Ketones, UA (test code = Negative Negative 2514-8) Bilirubin, UA (test code Negative Negative = 09194-9) Blood, UA (test code = Trace Negative A 90468-8) Nitrite, UA (test code = Negative Negative 5802-4) Leukocytes, UA (test Trace Negative A code = 5799-2) Urobilinogen, UA (test 0.2 mg/dL 0.2-1 code = 71840-5) Specimen Source (test code = 2795) DEX (test code = DEX) Clinical Rn Liaison ID - [auto]Clinical Rn Liaison ID - techOperator ID - tech Lab Interpretation (test Abnormal code = 23189-6) [facility]URINALYSIS WITHOUT [id number] 18:14:00 Test Item Value Reference Range Interpretation Comments COLOR (BEAKER) (test code = 470) Yellow CLARITY (BEAKER) (test code = 469) Hazy SPECIFIC GRAVITY UA (BEAKER) (test 1.011 1.001-1.035 code = 468) PH UA (BEAKER) (test code = 467) 5.5 5.0-8.0 PROTEIN UA (BEAKER) (test code = Negative Negative 464) GLUCOSE UA (BEAKER) (test code = Negative Negative 365) KETONES UA (BEAKER) (test code = Negative Negative 371) BILIRUBIN UA (BEAKER) (test code = Negative Negative 462) BLOOD UA (BEAKER) (test code = 461) Trace Negative A NITRITE UA (BEAKER) (test code = Negative Negative 465) LEUKOCYTE ESTERASE UA (BEAKER) Trace Negative A (test code = 466) UROBILINOGEN UA (BEAKER) (test code 0.2 mg/dL 0.2-1.0 = 463) SOURCE(BEAKER) (test code = 2795) Clinical Rn Liaison ID - [auto]Clinical Rn Liaison ID - techOperator ID - techEEG AWAKE AND DROWSY 2020-06-22 14:56:00Reason for exam:->c/f seizuresCH[facility] RE[facility] DATE(s) OF TEST: 06-22-20DATE OF REPORT: 06-22-20 ACC: [id number]: 20-1135 Start time: 1306hrsStop time: 1327hrs ICD-10: R56.9CPT Code: 49516 HISTORY: A 80yo female w/ PMH of hypothyroidism, Parkinson's disease, RA/SLE/Sjogren's syndrome, chronic pain on fentanylpatch, and HTN who presents with dysarthria, facial droop and tremors. EGG being done to rule out seizures. MEDICATIONS: Escitalopram, Levothyroxine, Gabapentin and Tramadol. TECHNICAL SUMMARY: This is a digital video EEG recorded with 32 input channels reviewed with bipolar and referential montagesusing the modified combinatorial system nomenclature. DESCRIPTION OF RECORD: During the maximally alert state the background consists of genralized polymorphic delta (1.5-3Hz) to theta (4-7Hz) activity with superimposed faster frequencies with no posterior dominant rhythm, state changes but reactivity was noted. Stage 2 sleep architecture was not seen. HV: Hyperventilation was not performed. PHOTIC STIMULATION: Photic stimulation was not done. VIDEO EVENTS RECORDED: None ELECTROCARDIOGRAM EVENT S: Normal Sinus Rhythm IMPRESSION: Abnormal Awake EE. Moderate continuous generalized theta slowing of the background. CLINICAL CORRELATION: The EEG is consistent with a moderate degree of encephalopathy of undetermined etiology. No focal dysfunction, epileptiform discharges or electroclinical seizures were seen. Arik Lazcano MDEpilepsy Fellow I certify that I have reviewed the entire EEG with the fellow, read and edited the report above and agree with the conclusions. Pietro Zheng M.D., LIU, FAAN, FAESProfessor of Neurology, [facility] College of MedicineDirector, [facility] EEG AWAKE AND [id number] 14:56:00Interface, External Ris In - 06/22/2020 2:[address] [facility] REPORT DATE(s) OF TEST: 06-22-20DATE OF REPORT: 06-22-20 ACC: [id number]: 20-1135 Start time: 1306hrsStop time: 1327hrs ICD-10: R56.9CPT Code: 26513 HISTORY: A 80yo female w/ PMH of hypothyroidism, Parkinson's disease,RA/SLE/Sjogren's syndrome, chronic pain on fentanyl patch, and HTN who presents with dysarthria, facial droop and tremors. EGG being done to rule out seizures. MEDICATIONS: Escitalopram, Levothyroxine, Gabapentin and Tramadol. TECHNICAL SUMMARY: This is a digital video EEG recorded with 32 input channels reviewed with bipolar and referential montages using the modified combinatorial system nomenclature. DESCRIPTION OF RECORD: During the maximally alert state the background consists of genralized polymorphic delta (1.5-3Hz) to theta (4- 7Hz) activity with superimposed faster frequencies with no posterior dominant rhythm, state changes but reactivity was noted. Stage 2 sleep architecture was not seen. HV: Hyperventilation was not performed. PHOTIC STIMULATION: Photic stimulation was not done.VIDEO EVENTS RECORDED: None ELECTROCARDIOGRAM EVENTS: Normal Sinus Rhythm IMPRESSION: Abnormal Awake EE. Moderate continuous generalized theta slowing of the background. CLINICAL CORRELATION: The EEG is consistent with a moderate degree of encephalopathy of undetermined etiology. No focal dysfunction, epileptiform discharges or electroclinical seizures were seen. Arik Lazcano MDEpilepsy FellowI certify that I have reviewed the entire EEG with the fellow, read and edited the report above and agree with the conclusions. Pietro Zheng M.D., FACNS, FAAN, FAESProfessor of Neurology, [facility] CenterDirector, [facility] CenterCommunity [facility] HospitalPOCT- GLUCOSE [id number] 10:43:00 Test Item Value Reference Range Interpretation Comments POC-GLUCOSE METER 170 mg/dL 70-110 H : TESTED A T [facility] 6720 (GraphLab) (test code = [facility], 1538) 82787: Clinical Rn Liaison/Techni gulshan ID = [id number] for Sm ith, Bonny POCT-GLUCOSE [id number] 09:18:00 Test Item Value Reference Range Interpretation Comments POC-GLUCOSE METER 68 mg/dL 70-110 L : TESTED A T [facility] 6720 (GraphLab) (test code = [facility], 1538) 06509: Clinical Rn Liaison/Techni gulshan ID = [id number] for Yusuf h, Bonny BASIC METABOLIC [id number] 08:05:00 Test Item Value Reference Range Interpretation Comments SODIUM (BEAKER) 131 meq/L 136-145 L (test code = 381) POTASSIUM (BEAKER) 6.7 meq/L 3.5-5.1 HH (test code = 379) CHLORIDE (BEAKER) 102 meq/L 98-107 (test code = 382) CO2 (BEAKER) (test 22 meq/L 22-29 code = 355) BLOOD UREA NITROGEN 31 mg/dL 7-21 H (BEAKER) (test code = 354) CREATININE (BEAKER) 1.79 mg/dL 0.57-1.25 H (test code = 358) GLUCOSE RANDOM 74 mg/dL 70-105 (BEAKER) (test code = 652) CALCIUM (BEAKER) 8.9 mg/dL 8.4-10.2 (test code = 697) EGFR (BEAKER) (test 27 mL/min/1.73 ESTIMA YENNY GFR IS code = 1092) sq m NOT ACCURATE CREATININE CLEARANCE IN PREDICTING GLOMERULAR FILTRATION RATE . ESTIMATED GFR I S NOT APPLICABLE FOR DIALYSIS PATIEN TS. Clinical Rn Liaison ID - AAHAMIDCBC with platelet count + automated [id number] 04:56:00 Test Item Value Reference Range Interpretation Comments WBC (test code = 6690-2) 5.2 See_Comment [A utomated message] The system [employer] generated this result transmitted ref erence range: 3.5 - 10 .5 K/L. The refe rence range was not u sed to interpret this result as normal/abnor mal. RBC (test code = 789-8) 3.19 See_Comment L [Au tomated message] The system [employer] generated this result transmitted ref erence range: 3.93 - 5 .22 M/L. The refe rence range was not u sed to interpret this result as normal/abnor mal. MCHC (test code = 786-4) 31.4 See_Comment L [A utomated message] The system [employer] generated this result transmitted ref erence range: 32.2 - 3 5.5 GM/DL. The refe rence range was not u sed to interpret this result as normal/abnor mal. Hematocrit (test code = 32.2 % 34.1-44.9 L 4544-3) MCV (test code = 787-2) 100.9 fL 79.4-94.8 H MCH (test code = 785-6) 31.7 pg 25.6-32.2 RDW (test code = 788-0) 12.7 % 11.7-14.4 Platelets (test code = 182 See_Comment [Aut omated message] 777-3) The system [employer] generated this result transmitted ref erence range: 150 - 45 0 K/CU MM. The referen ce range was not u sed to interpret this result as normal/abnor mal. MPV (test code = 9.5 fL 9.4-12.3 05445-9) nRBC (test code = 413) 0 See_Comment [Aut omated message] The system [employer] generated this result transmitted ref erence range: 0 - 0 /1 00 WBC. The refere nce range was not u sed to interpret this result as normal/abnor mal. % Neutros (test code = 57 % 429) % Lymphs (test code = 32 % 430) % Monos (test code = 8 % 431) % Eos (test code = 432) 2 % % Baso (test code = 437) 1 % # Neutros (test code = 2.94 See_Comment [Aut omated message] 670) The system [employer] generated this result transmitted ref erence range: 1.56 - 6 .13 K/L. The refe rence range was not u sed to interpret this result as normal/abnor mal. # Lymphs (test code = 1.66 See_Comment [Auto mated message] 414) The system [employer] generated this result transmitted ref erence range: 1.18 - 3 .74 K/L. The refe rence range was not u sed to interpret this result as normal/abnor mal. # Monos (test code = 0.42 See_Comment H [Autom ated message] 415) The system [employer] generated this result transmitted ref erence range: 0.24 - 0 .36 K/L. The refe rence range was not u sed to interpret this result as normal/abnor mal. # Eos (test code = 416) 0.12 See_Comment [Au tomated message] The system [employer] generated this result transmitted ref erence range: 0.04 - 0 .36 K/L. The refe rence range was not u sed to interpret this result as normal/abnor mal. # Baso (test code = 417) 0.04 See_Comment [A utomated message] The system [employer] generated this result transmitted ref erence range: 0.01 - 0 .08 K/L. The refe rence range was not u sed to interpret this result as normal/abnor mal. Immature 0 % 0-1 Granulocytes-Relative (test code = 2801) Lab Interpretation (test Abnormal code = 56877-5) [facility] W/PLT COUNT & AUTO [id number] 04:56:00 Test Item Value Reference Range Interpretation Comments WHITE BLOOD CELL COUNT (BEAKER) 5.2 K/ L 3.5-10.5 (test code = 775) RED BLOOD CELL COUNT (BEAKER) 3.19 M/ L 3.93-5.22 L (test code = 761) HEMOGLOBIN (BEAKER) (test code = 10.1 GM/DL 11.2-15.7 L 410) HEMATOCRIT (BEAKER) (test code = 32.2 % 34.1-44.9 L 411) MEAN CORPUSCULAR VOLUME (BEAKER) 100.9 fL 79.4-94.8 H (test code = 753) MEAN CORPUSCULAR HEMOGLOBIN 31.7 pg 25.6-32.2 (BEAKER) (test code = 751) MEAN CORPUSCULAR HEMOGLOBIN CONC 31.4 GM/DL 32.2-35.5 L (BEAKER) (test code = 752) RED CELL DISTRIBUTION WIDTH 12.7 % 11.7-14.4 (BEAKER) (test code = 412) PLATELET COUNT (BEAKER) (test 182 K/CU MM 150-450 code = 756) MEAN PLATELET VOLUME (BEAKER) 9.5 fL 9.4-12.3 (test code = 754) NUCLEATED RED BLOOD CELLS 0 /100 WBC 0-0 (BEAKER) (test code = 413) NEUTROPHILS RELATIVE PERCENT 57 % (BEAKER) (test code = 429) LYMPHOCYTES RELATIVE PERCENT 32 % (BEAKER) (test code = 430) MONOCYTES RELATIVE PERCENT 8 % (BEAKER) (test code = 431) EOSINOPHILS RELATIVE PERCENT 2 % (BEAKER) (test code = 432) BASOPHILS RELATIVE PERCENT 1 % (BEAKER) (test code = 437) NEUTROPHILS ABSOLUTE COUNT 2.94 K/ L 1.56-6.13 (BEAKER) (test code = 670) LYMPHOCYTES ABSOLUTE COUNT 1.66 K/ L 1.18-3.74 (BEAKER) (test code = 414) MONOCYTES ABSOLUTE COUNT (BEAKER) 0.42 K/ L 0.24-0.36 H (test code = 415) EOSINOPHILS ABSOLUTE COUNT 0.12 K/ L 0.04-0.36 (BEAKER) (test code = 416) BASOPHILS ABSOLUTE COUNT (BEAKER) 0.04 K/ L 0.01-0.08 (test code = 417) IMMATURE GRANULOCYTES-RELATIVE 0 % 0-1 PERCENT (BEAKER) (test code = 2801) POCT-GLUCOSE [id number] 22:13:00 Test Item Value Reference Range Interpretation Comments POC-GLUCOSE METER 95 mg/dL 70-110 : TESTED A T [facility] 6720 (BEAKER) (test code = [facility], 1538) 67658: Clinical Rn Liaison/Techni gulshan ID = [id number] for MANNIE IS JOSSELYN POCT-GLUCOSE [id number] 18:12:00 Test Item Value Reference Range Interpretation Comments POC-GLUCOSE METER 78 mg/dL 70-110 : TESTED A T [facility] 6720 (BEAKER) (test code = [facility], 1538) 12662: Clinical Rn Liaison/Techni gulshan ID = [id number] for YusufKeyana patriciaa Hemoglobin [id number] 16:05:00 Test Item Value Reference Range Interpretation Comments Hemoglobin A1C (test code = 4548-4) 4.5 % 4.3-6.1 Lab Interpretation (test code = Normal 21224-4) [facility] [id number] 16:05:00 Test Item Value Reference Range Interpretation Comments HEMOGLOBIN A1C (BEAKER) (test code = 4.5 % 4.3-6.1 368) PROTEIN, RANDOM [id number] 15:02:00 Test Item Value Reference Range Interpretation Comments PROTEIN, URINE (BEAKER) (test code = < mg/dL 0-14 1569) Clinical Rn Liaison ID - YING CSODIUM, RANDOM [id number] 14:59:00 Test Item Value Reference Range Interpretation Comments SODIUM URINE (BEAKER) (test code = 48 meq/L 243) Reference Range: No NormalsOperator ID - YING CCREATININE, RANDOM [id number] 14:59:00 Test Item Value Reference Range Interpretation Comments CREATININE URINE (BEAKER) (test 45.6 mg/dL code = 375) Reference Range: No NormalsOperator ID - YING CTSH/Free T4 If [id number] 14:29:00 Test Item Value Reference Range Interpretation Comments TSH (test code = 2.659 See_Comment [Automated 37235-1) message] The system which generated this result transmit yenny reference range : 0.350 - 4.940 uIU/mL. The reference range was not used to interpret this result as normal/abnormal . DEX (test code = DEX) Clinical Rn Liaison ID - RAQUEL L Lab Interpretation Normal (test code = 74636-3) [facility] HospitalVitamin B12 and [id number] 14:29:00 Test Item Value Reference Range Interpretation Comments Vitamin B12 (test 501 pg/mL 213-816 code = 2132-9) Folate (test code = 12.90 ng/mL See_Comment [Automa yenny 2284-8) message] The system which generated this result transmit yenny reference range : >=7.00. The reference range was not used to interpret this result as normal/abnormal . DEX (test code = DEX) Clinical Rn Liaison ID - RAQUEL Alvarez Lab Interpretation Normal (test code = 38945-1) [facility] T4 IF [id number] 14:29:00 Test Item Value Reference Range Interpretation Comments THYROID STIMULATING HORMONE 2.659 uIU/mL 0.350-4.940 (BEAKER) (test code = 772) Clinical Rn Liaison ID - RAQUEL LVITAMIN B12 AND [id number] 14:29:00 Test Item Value Reference Range Interpretation Comments VITAMIN B12 (BEAKER) (test code = 501 pg/mL 213-816 774) FOLATE (BEAKER) (test code = 362) 12.90 ng/mL >=7.00 Clinical Rn Liaison ID - RAQUEL L2D Echo W/Doppler(CW/PW/Color)2020-06-21 14:14:10Ejection FractionSLEH ECHO HEARTLAB MKCKESSON CPACSInterface, External Ris In - 06/21/2020 2:14 PM CDTTransthoracic Echocardiography Report (TTE) Demographics Patient Name CARMEN RODRIGUEZ Date of Study 06/21/2020 ELAINA Gender Female Visit Number [id number] Race Unknown Room Number 2227 Number Date of 1940 Referring Physician Bettina Fernandez Age 80 year(s) 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 Normal LV size and function. LVEF is > 60% 2. Diastology: Grade 1 diastolic dysfunction 3. Normal RV size and function 4. No significant valvular heartdisease 5. Trace TR. Estimated PASP is 25-30 mm Hg 6. No pericardial effusion 7. No evidence of right to left shunting after the injection of agitated saline Previous Study No prior exam available forcomparison. Signature Findings Left Ventricle The left ventricle ischamber size (by vol index) is normal (female - LVED vol - 29-61ml/m2). Normal LV wall thickness. All of the LV segments contract nor jason . Global LV systolic function normal . LVEF by Basurto's method of diskassessment is normal (>60%) . The LVEF was measured using Basurto's bi-plane method of disk . Grade 1 diastolic dysfunction (impaired relaxation and low-normal LA pressure). Left Atrium LA size is mildly enlarged (35-41 ml/m2) . Right Ventricle The right ventricular chamber size and systolic function are within normal limits. Right Atrium RA cavity sizeis normal . Atrial Septum There is no evidence of right to left shunting aftre the injection of agitated saline Aortic Valve Normal AoV structure and function. Mitral Valve Mild MV leaflet thickening. Tricuspid Valve TV structure is normal. A trace of tricuspid regurgitation. Estimated peak systolic PA pressure is 25-30 mmHg (normal range) . Pulmonic Valve Normal PV structure and function. Aorta Aortic root size (SInus of Valsalva diameter) is normal . Pericardium No significant pericardial effusion is visualized. IVC/SVC/PA/PV/Pleural The right upper pulmonary vein (RUPV) is normal . The estimated RA pressure by IVC dynamics 0-5mmHg . Chambers/Structures Left Atrium LA Volume: 60.14 ml LA Area: 20.13 cm^2 LA Vol. Index: 36 ml/m^2 Left Ventricle LVIDd: 4.84cm LV Septum Diastolic: 0.91 cm LV PW Diastolic: 0.99 cm LVEDV Basurto's:66.19 ml LVESV Basurto's:25.58 ml LVEF Basurto's: 61.4 % LVEDVI: 39 ml/m^2 LVESVI: 15 ml/m^2 LVOT Diameter: 2.07 cm Right Ventricle TAPSE: 1.71cm Aorta Ao Root S of Mayra.: 2.98 cm Doppler/Quantitative Measurements Mitral Valve MV Peak E-Wave:0.64 m/s MV Peak A-Wave: 1.14 m/s E/A Ratio: 0.56 Peak Gradient: 1.64 mmHgDeceleration Time: 285.9 msec MV Alf. Peak: Tissue Doppler E' Septal Velocity: 0.07 m/s E/E': 9.34 E' Lateral Velocity: 0.09 m/s Aortic Valve Peak Velocity: 1.29 m/s MeanVelocity: 0.78 m/s Peak Gradient: 6.64 mmHg Mean Gradient: 2.94 mmHg AV Area (continuity): 3.31 cm^2 AV VTI: 25.94 cm AV DVI: 0.98 LVOT Peak Velocity: 1.05 m/s Peak Gradient: 4.39 mmHg Mean Velocity: 0.73 m/s Mean Gradient: 2.45 mmHg LVOT Diameter: 2.07 cm LVOT VTI: 25.52 cm LVOT Area: 3.37 cm^2 LVOT SV:85.84 ml LVOT CO: 4.64 l/min LVOT CI: 2.75 l/min/m^2 Tricuspid Valve TR Velocity: 2.49 m/s TR Gradient: 24.85 [facility] METABOLIC [id number] 12:59:00 Test Item Value Reference Range Interpretation Comments SODIUM (BEAKER) 129 meq/L 136-145 L (test code = 381) POTASSIUM (BEAKER) 5.5 meq/L 3.5-5.1 H Specimen slightly (test code = 379) hemolyzed CHLORIDE (BEAKER) 100 meq/L 98-107 (test code = 382) CO2 (BEAKER) (test 22 meq/L 22-29 code = 355) BLOOD UREA NITROGEN 27 mg/dL 7-21 H (BEAKER) (test code = 354) CREATININE (BEAKER) 1.92 mg/dL 0.57-1.25 H Specimen slightly (test code = 358) hemolyzed GLUCOSE RANDOM 70 mg/dL 70-105 (BEAKER) (test code = 652) CALCIUM (BEAKER) 9.5 mg/dL 8.4-10.2 (test code = 697) EGFR (BEAKER) (test 25 mL/min/1.73 ESTIMA YENNY GFR IS code = 1092) sq m NOT ACCURATE CREATININE CLEARANCE IN PREDICTING GLOMERULAR FILTRATION RATE . ESTIMATED GFR I S NOT APPLICABLE FOR DIALYSIS PATIEN TS. Troponin [id number] 12:53:00 Test Item Value Reference Range Interpretation Comments Troponin I (test code = 0.01 ng/mL 0-0.03 70585-9) DEX (test code = DEX) Troponin I (TnI) levels must be interpreted in the context of the presenting symptoms and the clinical findings. Elevated TnI levels indicate myocardial damage, but are not specific for ischemic heart disease. Elevated TnI levels are seen in patients with other cardiac conditions (including myocarditis and congestive heart failure), and slight TnI elevations occur in patients with other conditions, including sepsis, renal failure, acidosis, acute neurological disease, and persistent tachyarrhythmia. Lab Interpretation (test Normal code = 22912-9) [facility]TROP[facility] [id number] 12:53:00 Test Item Value Reference Range Interpretation Comments TROPONIN I (BEAKER) (test code = 0.01 ng/mL 0.00-0.03 397) Troponin I (TnI) levels must be interpreted in the context of the presenting symptoms and the clinical findings. Elevated TnI levels indicate myocardial damage, but are not specific for ischemic heart disease. Elevated TnI levels are seen in patients with other cardiac conditions (including myocarditis and congestive heart failure), and slight TnI elevations occur in patients with other conditions, including sepsis, renal failure, acidosis, acute neurological disease, and persistent tachyarrhythmia.C-Reactive [id number] 12:52:00 Test Item Value Reference Range Interpretation Comments CRP (test code = 676) <0.40 0-1 Lab Interpretation (test code = Normal 82513-7) [facility]C-REACTIVE [id number] 12:52:00 Test Item Value Reference Range Interpretation Comments C-REACTIVE PROTEIN (BEAKER) (test < mg/dL <=1.00 code = 676) Urinalysis w/[id number] 12:50:00 Test Item Value Reference Range Interpretation Comments Color, UA (test Yellow code = 5778-6) Clarity, UA (test Clear code = 5767-9) Specific [place], 1.010 1.001-1.035 UA (test code = 5811-5) pH, UA (test code 6.0 5.0-8.0 = 5803-2) Protein, UA (test Negative Negative code = 84828-1) Glucose, UA (test Negative Negative code = 365) Ketones, UA (test Negative Negative code = 2514-8) Bilirubin, UA Negative Negative (test code = 00345-2) Blood, UA (test Negative Negative code = 72608-4) Nitrite, UA (test Negative Negative code = 5802-4) Leukocytes, UA Negative Negative (test code = 5799-2) Urobilinogen, UA 0.2 mg/dL 0.2-1 (test code = 56316-3) RBC, UA (test 8 See_Comment [Automated me ssage] code = 44900-2) The system [facility] generated this result transmit yenny reference range : /HPF. The refer ence range was not u sed to interpret th is result as normal/abnormal . WBC, UA (test 0 See_Comment [Automated me ssage] code = 5821-4) The system [facility] generated this result transmit yenny reference range : /HPF. The refer ence range was not u sed to interpret th is result as normal/abnormal . Squam Epithel, UA 2 See_Comment [Automate d message] (test code = The system [facility] 23946-8) generated this result transmit yenny reference range : /HPF. The refer ence range was not u sed to interpret th is result as normal/abnormal . Hyaline Casts, UA 1 See_Comment [Automate d message] (test code = The system [facility] 02548-1) generated this result transmit yenny reference range : /LPF. The refer ence range was not u sed to interpret th is result as normal/abnormal . Specimen Source (test code = 2795) DEX (test code = Clinical Rn Liaison ID - DEX) [auto]Clinical Rn Liaison ID - tech [facility] W/ [id number] 12:50:00 Test Item Value Reference Range Interpretation Comments COLOR (BEAKER) (test code = 470) Yellow CLARITY (BEAKER) (test code = 469) Clear SPECIFIC GRAVITY UA (BEAKER) (test 1.010 1.001-1.035 code = 468) PH UA (BEAKER) (test code = 467) 6.0 5.0-8.0 PROTEIN UA (BEAKER) (test code = Negative Negative 464) GLUCOSE UA (BEAKER) (test code = Negative Negative 365) KETONES UA (BEAKER) (test code = Negative Negative 371) BILIRUBIN UA (BEAKER) (test code = Negative Negative 462) BLOOD UA (BEAKER) (test code = 461) Negative Negative NITRITE UA (BEAKER) (test code = Negative Negative 465) LEUKOCYTE ESTERASE UA (BEAKER) Negative Negative (test code = 466) UROBILINOGEN UA (BEAKER) (test code 0.2 mg/dL 0.2-1.0 = 463) RBC UA (BEAKER) (test code = 519) 8 /HPF WBC UA (BEAKER) (test code = 520) 0 /HPF SQUAMOUS EPITHELIAL (BEAKER) (test 2 /HPF code = 516) HYALINE CASTS (BEAKER) (test code = 1 /LPF 514) SOURCE(BEAKER) (test code = 2795) Clinical Rn Liaison ID - [auto]Clinical Rn Liaison ID - techHepatic function [id number] 12:49:00 Test Item Value Reference Range Interpretation Comments Protein, Total (test 6.7 See_Comment Specime n slightly code = 2885-2) hemolyzed [Au tomated message] The sy stem which generated this result transmit yenny reference range : 6.0 - 8.3 gm/dL. Th e reference range was not used to interpret this result as normal/abnormal . Albumin (test code = 4.5 g/dL 3.5-5 Specime n slightly 24026-8) hemolyzed Total Bilirubin (test 0.2 mg/dL 0.2-1.2 Specim en slightly code = 1975-2) hemolyzed Bilirubin, Direct (test <0.1 0.1-0.5 L Spec imen slightly code = 1968-7) hemolyzed Alkaline Phosphatase 51 U/L 40-150 (test code = 6768-6) AST (test code = 1920-8) 26 U/L 5-34 Spe cimen slightly hemolyzed ALT (test code = 1742-6) 7 U/L 6-55 Spe cimen slightly hemolyzed Lab Interpretation (test Abnormal code = 06022-0) [facility]AT[facility] FUNCTION [id number] 12:49:00 Test Item Value Reference Range Interpretation Comments TOTAL PROTEIN (BEAKER) 6.7 gm/dL 6.0-8.3 Speci men slightly (test code = 770) hemolyzed ALBUMIN (BEAKER) (test 4.5 g/dL 3.5-5.0 Speci men slightly code = 1145) hemolyzed BILIRUBIN TOTAL 0.2 mg/dL 0.2-1.2 Specimen sli ghtly (BEAKER) (test code = hemoly zed 377) BILIRUBIN DIRECT < mg/dL 0.1-0.5 L Specimen sl ightly (BEAKER) (test code = hemoly zed 706) ALKALINE PHOSPHATASE 51 U/L 40-150 (BEAKER) (test code = 346) AST (SGOT) (BEAKER) 26 U/L 5-34 Specimen slightly (test code = 353) hemolyzed ALT (SGPT) (BEAKER) 7 U/L 6-55 Specimen slightly (test code = 347) hemolyzed Lipid [id number] 12:46:00 Test Item Value Reference Range Interpretation Comments Triglycerides (test 335 mg/dL Specimen code = 2571-8) slightly hemolyzed Cholesterol (test 183 mg/dL Specimen code = 3-3) slightly hemolyzed HDL (test code = 44 mg/dL 2084-) LDL Calculated (test 72 mg/dL code = 82519-7) DEX (test code = Triglyceride DEX) Reference Range: Low Risk <150 Borderline 150-199 High Risk 200-499 Very High Risk >=500 Cholesterol Reference Range: Low Risk <200 Borderline 200-239 High Risk >240 HDL Cholesterol Reference Range: Low Risk >=60 High Risk <40 LDL Cholesterol Reference Range: Optimal <100 Near Optimal 100-129 Borderline 130-159 High 160-189 Very High >=190 [facility] [id number] 12:46:00 Test Item Value Reference Range Interpretation Comments TRIGLYCERIDES (BEAKER) 335 mg/dL Speci men slightly (test code = 540) hemolyzed CHOLESTEROL (BEAKER) 183 mg/dL Specime n slightly (test code = 631) hemolyzed HDL CHOLESTEROL (BEAKER) 44 mg/dL (test code = 976) LDL CHOLESTEROL 72 mg/dL CALCULATED (BEAKER) (test code = 633) Triglyceride Reference Range: Low Risk <150 Borderline 150-199 High Risk 200-499 Very High Risk >=500Cholesterol Reference Range: Low Risk <200 Borderline 200-239 High Risk >240HDL Cholesterol Reference Range: Low Risk >=60 High Risk <40LDL Cholesterol Reference Range: Optimal <100 Near Optimal 100-129 Borderline 130-159 High 160-189 Very High >=190Prothrombin time/[id number] 09:16:00 Test Item Value Reference Interpretation Comments Range Protime (test code = 13.2 See_Comment [Autom ated 5902-2) message] The system which generated this result transmitted reference range : 11.9 - 14.2 seconds. The reference range was not used to interpret this result as normal/abnormal . INR (test code = 1.03 See_Comment [Automated 6301-6) message] The system which generated this result transmitted reference range : <=5.90. The reference range was not used to interpret this result as normal/abnormal . DEX (test code = Effective 03/06/2019: DEX) PT Reference Range ChangeNew: 11.9-14.2 Previous: 11.7-14.7 RECOMMENDED COUMADIN/WARFARIN INR THERAPY RANGESSTANDARD DOSE: 2.0-3.0 Includes: PROPHYLAXIS for venous thrombosis, systemic embolization; TREATMENT for venous thrombosis and/or pulmonary embolus.HIGH RISK: Target INR is 2.5-3.5 for patients wiht mechanical heart valves. Lab Interpretation Normal (test code = 55865-9) [facility]aPTT2020-[facility] 09:16:00 Test Item Value Reference Range Interpretation Comments PTT (test code = 56903-5) 27.5 See_Comment [ Automated message] The system [employer] generated this result transmitted ref erence range: 22.5 - 3 6.0 seconds. The re ference range was not u sed to interpret this result as normal/abnor mal. Lab Interpretation (test Normal code = 31596-7) [facility] HospitalPROTHROMBIN TIME/[id number] 09:16:00 Test Item Value Reference Range Interpretation Comments PROTIME (BEAKER) (test code = 13.2 seconds 11.9-14.2 759) INR (BEAKER) (test code = 370) 1.03 <=5.90 Effective 03/06/2019: PT Reference Range ChangeNew: 11.9-14.2 Previous: 11.7- 14.7RECOMMENDED COUMADIN/WARFARIN INR THERAPY RANGESSTANDARD DOSE: 2.0-3.0 Includes: PROPHYLAXIS for venous thrombosis, systemic embolization; TREATMENT for venous thrombosis and/or pulmonary embolus.HIGH RISK: Target INR is2.5-3.5 for patients wiht mechanical heart valves.[id number] 09:16:00 Test Item Value Reference Range Interpretation Comments PARTIAL THROMBOPLASTIN TIME 27.5 seconds 22.5-36.0 (BEAKER) (test code = 760) CBC W/PLT COUNT & AUTO [id number] 09:03:00 Test Item Value Reference Range Interpretation Comments WHITE BLOOD CELL COUNT (BEAKER) 7.7 K/ L 3.5-10.5 (test code = 775) RED BLOOD CELL COUNT (BEAKER) 3.00 M/ L 3.93-5.22 L (test code = 761) HEMOGLOBIN (BEAKER) (test code = 9.4 GM/DL 11.2-15.7 L 410) HEMATOCRIT (BEAKER) (test code = 30.3 % 34.1-44.9 L 411) MEAN CORPUSCULAR VOLUME (BEAKER) 101.0 fL 79.4-94.8 H (test code = 753) MEAN CORPUSCULAR HEMOGLOBIN 31.3 pg 25.6-32.2 (BEAKER) (test code = 751) MEAN CORPUSCULAR HEMOGLOBIN CONC 31.0 GM/DL 32.2-35.5 L (BEAKER) (test code = 752) RED CELL DISTRIBUTION WIDTH 13.1 % 11.7-14.4 (BEAKER) (test code = 412) PLATELET COUNT (BEAKER) (test 184 K/CU MM 150-450 code = 756) MEAN PLATELET VOLUME (BEAKER) 9.4 fL 9.4-12.3 (test code = 754) NUCLEATED RED BLOOD CELLS 0 /100 WBC 0-0 (BEAKER) (test code = 413) NEUTROPHILS RELATIVE PERCENT 43 % (BEAKER) (test code = 429) LYMPHOCYTES RELATIVE PERCENT 45 % (BEAKER) (test code = 430) MONOCYTES RELATIVE PERCENT 8 % (BEAKER) (test code = 431) EOSINOPHILS RELATIVE PERCENT 3 % (BEAKER) (test code = 432) BASOPHILS RELATIVE PERCENT 1 % (BEAKER) (test code = 437) NEUTROPHILS ABSOLUTE COUNT 3.32 K/ L 1.56-6.13 (BEAKER) (test code = 670) LYMPHOCYTES ABSOLUTE COUNT 3.49 K/ L 1.18-3.74 (BEAKER) (test code = 414) MONOCYTES ABSOLUTE COUNT (BEAKER) 0.61 K/ L 0.24-0.36 H (test code = 415) EOSINOPHILS ABSOLUTE COUNT 0.23 K/ L 0.04-0.36 (BEAKER) (test code = 416) BASOPHILS ABSOLUTE COUNT (BEAKER) 0.04 K/ L 0.01-0.08 (test code = 417) IMMATURE GRANULOCYTES-RELATIVE 0 % 0-1 PERCENT (BEAKER) (test code = 2801) SARS-COV2/RT-PCR ([facility])2020-03-26 02:34:00 Test Item Value Reference Range Interpretation Comments SARS-COV2/RT-PCR (test code = Detected Not Detected, Negative A A [id number]) SARS-COV-2 PERFORMING LAB [facility] (test code = 6914380) Results are for the detection of SARS-CoV-2 RNA. The SARS-CoV-2 RNA is generally detectable in nasopharyngeal swab specimens during the acute phase of infection. Positive results are indicative of active infection with SARS-CoV-2; clinical correlation with patient history and other diagnostic information is necessary to determine patient infection status. Positive results do not rule out bacterial infection or co-infection with other viruses. The agent detected may not be the definite cause of disease. The limit of detection for this assay is 250 copies/mL.This SARS CoV-2 test is a rapid, tpue-ecwqJA-DIC test intended for the qualitative detection of nucleic acid from SARS-CoV-2 in a nasopharyngeal swab specimen collected from individuals suspected of COVID-19 by their healthcare provider.This test has not been Food and Drug Administration (FDA) cleared or approved and has been authorized by FDA under an Emergency Use Authorization (EUA). This EUA will be effective until the declaration that ci rcumstances exist justifying the authorization of the emergency use of in vitro diagnostic tests fordetection and/or diagnosis of COVID-19 is terminated under Section 564(b)(2) of the Act or the EUA is revoked under Section 564(g) of the Act.Fact Sheet for Healthcare Providers:https://www.[employer]/ Documents/Xpert%20Xpress%20SARS%20CoV-2/Fact%20Sheets/302-4322%16TYPM-EDH-0%20HE ALTHCARE%20PROVIDERS%20FACT%20SHEET.pdfFact Sheet for Healthcare Patients:https://www.[employer]/Documents/Xpert%20Xpress %20SARS%20CoV-2/Fact%20Sheets/302-0376%81UWFS-KJS-4%20PATIENT%20FACT%20SHEET.pdf Performing Laboratory:[facility] [place] [address]
--- NOTE | 2021-04-29 17:30 | RAD REPORT ---
EXAM DESCRIPTION: CT - Head C Spine Cap Wo Con - 04/29/2021 4:58 pm TECHNIQUE: Computed axial tomography of the head and cervical spine was obtained. Coronal and sagitt al reconstruction was performed Computed axial tomography of the chest, abdomen and pelvis was obtained. Contrast was not requested. All CT scans are performed using dose optimization technique as appropriate and may include automated exposure control or mA/KV adjustment according to patient size. CLINICAL HISTORY: Head and neck injury with chest and abdominal pain status post fall COMPARISON: 2015 and 2018 FINDINGS: An intracranial bleed is not seen. The ventricles are normal in caliber. An extra-axial fluid collection is not noted. . Fluid within the sinuses/mastoids is not seen. A cervical fracture is not seen. No dislocation is noted. Mild anterior subluxation C5 on C6 unchange d The evaluation of mediastinum, fito, vessels, solid organs and bowel are limited secondary to the lac k of contrast administration. A mediastinal hematoma is not noted. A pleural effusion is not seen. A lung contusion is not present. The liver,spleen, pancreas, adrenals,kidneys and bladder do not demonstrate traumatic injury. Postsurgical changes involve the lumbar spine. Chronic deformity involves L2 and L3 IMPRESSION: 1. No acute intracranial abnormality is seen. 2. A cervical fracture is not visualized. If the patient continues have symptoms to suggest intracran ial/spinal cord pathology MRI be recommended 3. No traumatic abnormality involving the chest/abdomen/pelvis.
--- NOTE | 2021-04-29 17:34 | RAD REPORT ---
EXAM DESCRIPTION: RAD - Shoulder Right 2 View - 04/29/2021 5:11 pm CLINICAL HISTORY: Right shoulder pain FINDINGS: No fracture or dislocation is seen. Mild osteoarthritis is present. Bones are osteoporotic 8 millimeter chronic calcification medial aspect of right shoulder
--- NOTE | 2021-04-29 20:17 | EDPHYS ---
Physician Documentation [facility] Name: Corrie Nunez Age: 80 yrs Sex: Female : 1940 Arrival Date: 04/29/2021 Time: 16:25 Bed 4 Private MD: ED Physician Cody Vilchis HPI: 04/29 20:11 This 80 yrs old Female presents to ER via Wheelchair with complaints of Fall pkl Injury. 20:11 Details of fall: The patient fell from an upright position. Onset: The symptoms/episode pkl began/occurred last night. Associated injuries: The patient sustained injury to the head, neck injury, right shoulder. Historical: - Allergies: 16:38 Codeine; hb 16:38 Iodine; hb 16:38 Morphine; hb 16:38 Protonix; hb - PMHx: 16:38 Rheumatoid Arthritis; Hypothyroidism; Psoriatic Arthritis; Hypertension; Parkinsons; hb Lupus; Gout; Diabetes - NIDDM; Sjoren's Syndrome; - Immunization history:: Client reports receiving the 2nd dose of the Covid vaccine, Flu vaccine is up to date. - Social history:: Smoking status: Patient denies any tobacco usage or history of. - Immunization history: Last tetanus immunization: unknown. ROS: 20:11 Eyes: Negative for injury, pain, redness, and discharge, ENT: Negative for injury, pkl pain, and discharge. 20:11 Neck: Positive for pain with movement. 20:11 Cardiovascular: Negative for chest pain. 20:11 Respiratory: Negative for cough, shortness of breath. 20:11 Abdomen/GI: Negative for abdominal pain, nausea, vomiting, and diarrhea. 20:11 Back: Negative for acute changes. 20:11 : Negative for urinary symptoms. 20:11 MS/extremity: Positive for pain, of the right shoulder. 20:11 Skin: Negative for rash. 20:11 Neuro: Positive for headache, Negative for altered mental status, loss of consciousness. Exam: 20:11 Head/Face: Normocephalic, atraumatic. Eyes: Pupils equal round and reactive to light, pkl extra-ocular motions intact. Lids and lashes normal. Conjunctiva and sclera are non-icteric and not injected. Cornea within normal limits. Periorbital areas with no swelling, redness, or edema. ENT: Nares patent. No nasal discharge, no septal abnormalities noted. Tympanic membranes are normal and external auditory canals are clear. Oropharynx with no redness, swelling, or masses, exudates, or evidence of obstruction, uvula midline. Mucous membranes moist. Neck: Trachea midline, no thyromegaly or masses palpated, and no cervical lymphadenopathy. Supple, full range of motion without nuchal rigidity, or vertebral point tenderness. No Meningismus. Chest/axilla: Normal chest wall appearance and motion. Nontender with no deformity. No lesions are appreciated. Cardiovascular: Regular rate and rhythm with a normal S1 and S2. No gallops, murmurs, or rubs. Normal PMI, no JVD. No pulse deficits. Respiratory: Lungs have equal breath sounds bilaterally, clear to auscultation and percussion. No rales, rhonchi or wheezes noted. No increased work of breathing, no retractions or nasal flaring. Abdomen/GI: Soft, non-tender, with normal bowel sounds. No distension or tympany. No guarding or rebound. No evidence of tenderness throughout. Back: No spinal tenderness. No costovertebral tenderness. Full range of motion. Skin: Warm, dry with normal turgor. Normal color with no rashes, no lesions, and no evidence of cellulitis. 20:11 Musculoskeletal/extremity: Extremities: grossly normal except: noted in the right shoulder: pain. 20:11 Skin: Exam negative for rash. 20:11 Neuro: Orientation: is normal, Mentation: is normal, Cranial nerves: grossly normal, Motor: is normal. Vital Signs: 16:35 BP 135 / 74; Pulse 74; Resp 16; Temp 97.3; Pulse Ox 97% on R/A; Pain 6/10; hb 19:40 BP 157 / 65; Pulse 64; Temp 98.9; Pulse Ox 97% on R/A; dh4 [place] Coma Score: 19:50 Eye Response: spontaneous(4). Verbal Response: oriented(5). Motor Response: obeys ea commands(6). Total: 15. Trauma Score (Adult): 19:50 Eye Response: spontaneous(1); Verbal Response: oriented(1); Motor Response: obeys ea commands(2); Systolic BP: > 89 mm Hg(4); Respiratory Rate: 10 to 29 per min(4); Robert Score: 15; Trauma Score: 12 MDM: 19:58 Patient medically screened. pkl 20:11 Data reviewed: vital signs, nurses notes, radiologic studies, CT scan, plain films. pkl 04/29 16:45 Order name: Head C Spine Cap Wo Con CT; Complete Time: 20:09 04/29 16:45 Order name: Shoulder Right (2 View) XRAY; Complete Time: 20:09 hb 04/29 20:17 Order name: Sling; Complete Time: 20:29 pkl Administered Medications: No medications were administered Disposition Summary: 04/29/21 20:16 Discharge Ordered Location: Home pkl Condition: Stable pkl Diagnosis - Head injury. Neck strain. Contusion right shoulder pkl Followup: pkl - With: Private Physician - When: 2 - 3 days - Reason: Re-evaluation by your physician Forms: - Medication Reconciliation Form pkl - Thank You Letter pkl - Antibiotic Education pkl - Prescription Opioid Use pkl Signatures: Dispatcher [employer] EDCody Mora MD MD pkl Charlee Kent, RN RN Nemo Ortega RN RN aaron
--- NOTE | 2021-04-29 20:17 | ER ---
Nurse's Notes [facility] Name: Corrie Nunez Age: 80 yrs Sex: Female : 1940 Arrival Date: 04/29/2021 Time: 16:25 Bed 4 Private MD: Diagnosis: Head injury. Neck strain. Contusion right shoulder Presentation: 04/29 16:35 Chief complaint: Headache and right shoulder pain after fall from standing last night. hb Pt reported getting up in the middle of the night to turn on off the fan and then woke up on her buttocks leaning against the dresser. Small contusion noted to right side of head. Denies dizziness. Hx of Paarkinson's, was not using her walker. Coronavirus screen: At this time, the client does not indicate any symptoms associated with coronavirus-19. Ebola Screen: No symptoms or risks identified at this time. Initial Sepsis Screen: Does the patient meet any 2 criteria? No. Patient's initial sepsis screen is negative. Does the patient have a suspected source of infection? No. Patient's initial sepsis screen is negative. Risk Assessment: Do you want to hurt yourself or someone else? Patient reports no desire to harm self or others. Onset of symptoms was April 29, 2021. 16:35 Method Of Arrival: Wheelchair hb 16:35 Acuity: STEPHANIE 4 hb 19:50 Care prior to arrival: None. Mechanism of Injury: Fall from standing position. Trauma ea event details: Injury occurred in the [facility], Injury occurred: at home. Historical: - Allergies: 16:38 Codeine; hb 16:38 Iodine; hb 16:38 Morphine; hb 16:38 Protonix; hb - PMHx: 16:38 Rheumatoid Arthritis; Hypothyroidism; Psoriatic Arthritis; Hypertension; Parkinsons; hb Lupus; Gout; Diabetes - NIDDM; Sjoren's Syndrome; - Immunization history:: Client reports receiving the 2nd dose of the Covid vaccine, Flu vaccine is up to date. - Social history:: Smoking status: Patient denies any tobacco usage or history of. - Immunization history: Last tetanus immunization: unknown. Screenin:42 Abuse screen: Denies threats or abuse. Nutritional screening: No deficits noted. em Tuberculosis screening: No symptoms or risk factors identified. Fall Risk None identified. Primary Survey: 19:50 NO uncontrolled hemorrhage observed. A: The patient is alert. Airway: patent, ea compromised. Breathing/Chest: Respiratory pattern: regular. Circulation: Skin color: pink, Skin temperature: warm. Disability Alert. Exposure/Environment: A warming method has been applied: A warm blanket has been provided to the patient. 20:28 Reassessment Airway Airway Patent Breathing/Chest Respiratory pattern Regular ea Respiratory effort Spontaneous Unlabored Circulation Color [place] Disability Alert. Assessment: 19:50 General: Appears in no apparent distress. Behavior is appropriate for age. Pain: ea Complains of pain in right shoulder. Neuro: Level of Consciousness is awake, alert, obeys commands, Oriented to person, place, time. Cardiovascular: Patient's skin is warm and dry. Respiratory: Airway is patent Respiratory effort is even, unlabored, Respiratory pattern is regular, symmetrical. Derm: Skin is pink, warm \T\ dry. Vital Signs: 16:35 BP 135 / 74; Pulse 74; Resp 16; Temp 97.3; Pulse Ox 97% on R/A; Pain 6/10; hb 19:40 BP 157 / 65; Pulse 64; Temp 98.9; Pulse Ox 97% on R/A; dh4 Robert Coma Score: 19:50 Eye Response: spontaneous(4). Verbal Response: oriented(5). Motor Response: obeys ea commands(6). Total: 15. Trauma Score (Adult): 19:50 Eye Response: spontaneous(1); Verbal Response: oriented(1); Motor Response: obeys ea commands(2); Systolic BP: > 89 mm Hg(4); Respiratory Rate: 10 to 29 per min(4); Robert Score: 15; Trauma Score: 12 ED Course: 16:25 Patient arrived in ED. rg4 16:38 Triage completed. hb 16:38 Arm band placed on. hb 16:58 Head C Spine Cap Wo Con CT In Process Unspecified. EDMS 17:11 Shoulder Right (2 View) XRAY In Process Unspecified. EDMS 19:42 Darian Whitaker, RN is Primary Nurse. em 19:42 Patient has correct armband on for positive identification. Adult w/ patient. em 19:50 Patient maintains SpO2 saturation greater than 95% on room air. ea 19:50 Thermoregulation: warm blanket given to patient. ea 19:58 Cody Vilchis MD is Attending Physician. pkl 20:28 No provider procedures requiring assistance completed. Patient did not have IV access ea during this emergency room visit. 20:29 Shoulder immobilizer applied on right shoulder. em Administered Medications: No medications were administered Intake: 20:28 PO: 0ml; Total: 0ml. ea Outcome: 20:16 Discharge ordered by . pkl 20:29 Discharged to home via wheelchair, with family. em 20:29 Condition: stable 20:29 Discharge instructions given to patient, family, Instructed on discharge instructions, follow up and referral plans. Demonstrated understanding of instructions, follow-up care. 20:29 Patient left the ED. em Signatures: Dispatcher [employer] Cody Clarke MD MD pkl Munoz, Edgar, RN RN Charlee Saxena RN RN Gay Guillaume 4 Nemo Oretga RN RN Keshav Mccray 4
[2021-04-29 20:41] VITALS: O2SAT 97
[2021-04-29 20:43] VITALS: BP 157/65; TEMP 98.9
== END 2021-04-29 20:29 | disposition home or self-care (01) ==
LOC: ER 16:23
DX: S16.1XXA Strain of muscle, fascia and tendon at neck level, initial encounter (principal); S40.011A Contusion of right shoulder, initial encounter; W19.XXXA Unspecified fall, initial encounter; I10 Essential (primary) hypertension; G20 Parkinson's disease; Z88.5 Allergy status to narcotic agent; Z88.8 Allergy status to other drugs, medicaments and biological substances; Z91.048 Other nonmedicinal substance allergy status
CPT/HCPCS: 70450; 71250; 72125; 99284

== ENCOUNTER 2021-09-16 21:00 | Observation (INO) | payer OTHER ==
--- OUTSIDE RECORDS SUMMARY | 2021-09-16 21:03 | XMS REPORT | Continuity of Care Document ---
:1940 Author Organization [facility] t Address [address] [place] [address] Care Team Providers Name Role Phone JANINA RESENDIZ Primary Care Physician Unavailable JANEL Attending Clinician Unavailable JANEL Admitting Clinician Unavailable BEBO ROSAS Admitting Clinician Unavailable Payers Payer Name Policy Type Policy Number Effective Date Expiration Date S debbie MEDICARE PART A [id number] 2007 \T\ B 00:00:00 [employer] [id number] 2011 00:00:00 MEDICARE A B [id number] 2007 00:00:00 [employer] [place] [id number] 2020 00:00:00 Problems This patient has no known problems. Allergies, Adverse Reactions, Alerts Allergy Allergy Status Severity Reaction(s) Onset Inactive Treating Comm ents Source Name Type Date Date Clinician CODEINE Allergy Active 2020-[address] [facility] IODINE Allergy Active 2020-[address] [facility] NG PRODUCTS MORPHINE Allergy Active 2020-[address] [facility] IODINE DRUG Active Rash 2008-10 [facility] of 00:00: [address] Branch Medications This patient has no known medications. Vital Signs Vital Name Observation Time Observation Value Comments Source HEIGHT 2020-06-21 00:00:00 160 cm WEIGHT 2020-06-21 00:00:00 63.05 kg HEIGHT 2020-06-21 00:00:00 160 cm WEIGHT 2020-06-21 00:00:00 63.05 kg Procedures This patient has no known procedures. Encounters Start End Encounter Admission Attending Care Care Encounter Source Date/Time Date/Time Type Type Clinicians Facility Department ID 2021-08-10 2021-08-10 ambulatory [facility] [id number] [facility] 2021-07-15 2021-07-15 [facility] [id number] [facility] 2021-07-08 2021-07-08 [facility] [id number] [facility] 2021-07-07 2021-07-07 [facility] [id number] [facility] 2021-06-29 2021-06-29 [facility] [id number] [facility] 2021-06-23 2021-06-23 Outpatient [facility] [id number] [facility] 2021-05-21 2021-05-21 [facility] [id number] [facility] 2021-05-20 2021-05-20 [facility] [id number] [facility] 2021-04-30 2021-04-30 [facility] [id number] [facility] 2021-04-13 2021-04-13 [facility] [id number] [facility] 2021-04-02 2021-04-02 Out[facility] [id number] [facility] 2021-03-15 2021-03-15 [facility] [id number] [facility] 2021-02-17 2021-02-17 [facility] [id number] [facility] 2020-12-13 2020-12-13 Outpatient [facility] [id number] [facility] 10:45:00 10:45:00 [facility] 2020-11-15 2020-11-15 Outpatient [facility] [id number] [facility] 11:10:00 11:10:00 [facility] 2020-06-21 2020-06-21 [facility] 186 [id number] [facility] 05:28:00 05:28:00 [facility] Results Test Description Test Time Test Comments Results Result Comments Source POCT-GLUCOSE METER 2020-06-24 12:14:00 Test Item Value Reference Range Interpretation Comme nts POC-GLUCOSE METER (BEAKER) 161 mg/dL 70-110 H : TESTED AT [place] [id number] [facility] (test code = 1538) [place] [address]: Retail Route Supervisor/Techni gulshan ID = [id number] for DIANA GONZALES BASIC METABOLIC [id number] 10:27:00 Test Item Value Reference Range Interpretation [...] 697) EGFR (BEAKER) (test 29 mL/min/1.73 ESTIMA DIANE GFR IS code = 1092) sq m NOT ACCURATE CREATININE CLEARANCE IN PREDICTING GLOMERULAR FILTRATION RATE . ESTIMATED GFR I S NOT APPLICABLE FOR DIALYSIS PATIEN TS. Retail Route Supervisor ID - BRANDON MPOCT-GLUCOSE [id number] 07:57:00 Test Item Value Reference Range Interpretation Comments POC-GLUCOSE METER 94 mg/dL 70-110 : TESTED A T [facility] 6720 (BEAKER) ([facility], = 1538) [address]: Retail Route Supervisor/Techni gulshan ID = [id number] for ALEXIA SANCHEZIGHALIE [id number] 05:16:00 Test Item Value Reference Range Interpretation Comments PHOSPHORUS (BEAKER) (test code = 3.9 mg/dL 2.3-4.7 604) Retail Route Supervisor ID - BRANDON [id number] 05:16:00 Test Item Value Reference Range Interpretation Comments MAGNESIUM (BEAKER) (test code = 2.1 mg/dL 1.6-2.6 627) Retail Route Supervisor ID - BRANDON MBASIC METABOLIC [id number] 05:16:00 Test Item Value Reference Range Interpretation [...] 697) EGFR (BEAKER) (test 30 mL/min/1.73 ESTIMA DIANE GFR IS code = 1092) sq m NOT ACCURATE CREATININE CLEARANCE IN PREDICTING GLOMERULAR FILTRATION RATE . ESTIMATED GFR I S NOT APPLICABLE FOR DIALYSIS PATIEN TS. Retail Route Supervisor ID - BRANDON MCBC (HEMOGRAM ONLY)2020-06-24 04:32:00 Test Item Value Reference [...] 0-0 (BEAKER) (test code = 413) POCT-GLUCOSE [id number] 22:54:00 Test Item Value Reference Range Interpretation Comments POC-GLUCOSE METER 99 mg/dL 70-110 : TESTED A T [facility] 6720 (BEAKER) (test code = [place], 1538) [address]: Retail Route Supervisor/Techni gulshan ID = [id number] for GAGANDEEP REYES BASIC METABOLIC [id number] 18:58:00 Test Item Value Reference Range Interpretation [...] 697) EGFR (BEAKER) (test 30 mL/min/1.73 ESTIMA DIANE GFR IS code = 1092) sq m NOT ACCURATE CREATININE CLEARANCE IN PREDICTING GLOMERULAR FILTRATION RATE . ESTIMATED GFR I S NOT APPLICABLE FOR DIALYSIS PATIEN TS. Retail Route Supervisor ID - BSPOCT-GLUCOSE [id number] 15:35:00 Test Item Value Reference Range Interpretation Comments POC-GLUCOSE METER 78 mg/dL 70-110 : [facility]) (test code = [place] [facility], 1538) [address]: Retail Route Supervisor/Techni gulshan ID = [id number] for DADA LOWE MR, MRA, BRAIN, WITHOUT [id number] 15:35:00Anesthesia:->MACFINAL REPORT MR, MRA, BRAIN, WITHOUT CONTRAST, [...] Normal flow- related enhancement within the bilateral AUTOMOTIVE LUBE TECHNICIAN P1-P2 segments without flow- limiting stenosisAdditional findings: [...] of the cervical or cranial circulation. Signed: Abdirashid Jeff Verified Date/Time: 06/23/2020 15:35:34 Reading Location: [facility] C013V Neuro Reading Room MR, MRA, NECK, WITHOUT IV [id number] 15:35:00 Anesthesia:->MACFINAL REPORT MR, MRA, BRAIN, WITHOUT [...] arteries: Normal flow-related enhancement within the bilateral AUTOMOTIVE LUBE TECHNICIAN P1- P2 segments without flow-limiting stenosisAdditional findings: [...] of the cervical or cranial circulation. Signed: Abdirashid Jeff Verified Date/Time: 06/23/2020 15:35:34 Reading Location: [address] Neuro Reading Room U/S, RENAL, COMPLETE 2020-06-23 15:23:00Reason for exam:->CHRISTINA eval for medical renal [...] cysts. Otherwise unremarkable renal ultrasound.. Signed: [facility] Verified Date/Time: 06/23/2020 15:23:19 MR, BRAIN, WITHOUT [id number] 14:41:00Anesthesia:->MACFINAL REPORT MR, BRAIN, WITHOUT CONTRAST INDICATION: Neuro deficit, acute, stroke suspected TECHNIQUE: Multiplanar, multisequence MR imaging of the brain was obtained. COMPARISON: None FINDINGS:Brain parenchyma is normal in morphology. Midline structures are normally developed. No restricted diffusion to suggest recent ischemic insult. No abnormal susceptibility. Scattered T2/FL AIR hyperintense foci within the periventricular and subcortical white matter are nonspecific, however, statistically represent chronic microvascular ischemic changes. No hydrocephalus. Orbits are within normal limits. No obstructive paranasal sinus disease. IMPRESSION: No acute intracranial findings. Specifically, no evidence of acute infarct. Signed: Abdirashid Jeff MDReport Verified Date/Time: 06/23/2020 14:41:47 Reading Location: [address] Neuro Reading Room BASI METABOLIC [id number] 12:38:00 Test Item Value Reference Range Interpretation [...] 697) EGFR (BEAKER) (test 26 mL/min/1.73 ESTIMA DIANE GFR IS code = 1092) sq m NOT ACCURATE CREATININE CLEARANCE IN PREDICTING GLOMERULAR FILTRATION RATE . ESTIMATED GFR I S NOT APPLICABLE FOR DIALYSIS PATIEN TS. Retail Route Supervisor ID - [id number] 12:33:00 Test Item Value Reference Range Interpretation Comments PHOSPHORUS (BEAKER) (test code = 4.9 mg/dL 2.3-4.7 H 604) Retail Route Supervisor ID - [id number] 12:33:00 Test Item Value Reference Range Interpretation Comments MAGNESIUM (BEAKER) (test code = 2.3 mg/dL 1.6-2.6 627) Retail Route Supervisor ID - DOMINICGPOCT-GLUCOSE [id number] 11:03:00 Test Item Value Reference Range Interpretation Comments POC-GLUCOSE METER 93 mg/dL 70-110 : TESTED A T [facility] 6720 (BEAKER) (test code = [place], 1538) [address]: Retail Route Supervisor/Techni gulshan ID = [id number] for MILO ANDRADE POCT-GLUCOSE [id number] 09:35:00 Test Item Value Reference Range Interpretation Comments POC-GLUCOSE METER 70 mg/dL 70-110 : TESTED A T [facility] 6720 (BEAKER) (test code = [place], 1538) [address]: Retail Route Supervisor/Techni gulshan ID = [id number] for JASON KINCAID CBC (HEMOGRAM ONLY)2020-06-23 06:43:00 Test Item Value [...] WBC 0-0 (BEAKER) (test code = 413) BASIC METABOLIC [id number] 03:05:00 Test Item Value Reference Range Interpretation [...] 697) EGFR (BEAKER) (test 26 mL/min/1.73 ESTIMA DIANE GFR IS code = 1092) sq m NOT ACCURATE CREATININE CLEARANCE IN PREDICTING GLOMERULAR FILTRATION RATE . ESTIMATED GFR I S NOT APPLICABLE FOR DIALYSIS PATIEN TS. Retail Route Supervisor ID - PIAYA LPOCT-GLUCOSE [id number] 21:31:00 Test Item Value Reference Range Interpretation Comments POC-GLUCOSE METER 91 mg/dL 70-110 : TESTED A T [facility] 6720 (BEAKER) (test code = [place], 1538) [address]: Retail Route Supervisor/Techni gulshan ID = [id number] for GAGANDEEP REYES [id number] 19:07:00 Test Item Value Reference Range Interpretation Comments POTASSIUM (BEAKER) (test code = 4.8 meq/L 3.5-5.1 379) Retail Route Supervisor ID - FSEBASIC METABOLIC [id number] 18:44:00 Test Item Value Reference Range Interpretation [...] 697) EGFR (BEAKER) (test 24 mL/min/1.73 ESTIMA DIANE GFR IS code = 1092) sq m NOT ACCURATE CREATININE CLEARANCE IN PREDICTING GLOMERULAR FILTRATION RATE . ESTIMATED GFR I S NOT APPLICABLE FOR DIALYSIS PATIEN TS. Retail Route Supervisor ID - FSEPROTEIN, RANDOM [id number] 18:38:00 Test Item Value Reference Range Interpretation Comments PROTEIN, URINE (BEAKER) (test code = < mg/dL 0-14 1569) Retail Route Supervisor ID - FSECHLORIDE, RANDOM [id number] 18:37:00 Test Item Value Reference Range Interpretation Comments CHLORIDE URINE (BEAKER) (test code 108 meq/L = 682) Reference Range: No NormalsOperator ID - FSECREATININE, RANDOM [id number] 18:37:00 Test Item Value Reference Range Interpretation Comments CREATININE URINE (BEAKER) (test 50.4 mg/dL code = 375) Reference Range: No NormalsOperator ID - FSEPOTASSIUM, RANDOM [id number] 18:37:00 Test Item Value Reference Range Interpretation Comments POTASSIUM URINE (BEAKER) (test 41.0 meq/L code = 195) Reference Range: No NormalsOperator ID - FSESODIUM, RANDOM [id number] 18:37:00 Test Item Value Reference Range Interpretation Comments SODIUM URINE (BEAKER) (test code = 85 meq/L 243) Reference Range: No NormalsOperator ID - FSEUREA NITROGEN, RANDOM URINE 2020-06-22 18:37:00 Test Item Value Reference Range Interpretation Comments UREA NITROGEN URINE (BEAKER) (test 247 mg/dL code = 538) Reference Range: No NormalsOperator ID - FSEPOCT-GLUCOSE [id number] 18:16:00 Test Item Value Reference Range Interpretation Comments POC-GLUCOSE METER 202 mg/dL 70-110 H : TESTED A T [facility] 6720 (BEAKER) (test code = [place], 1538) [address]: Retail Route Supervisor/Techni gulshan ID = [id number] for Sm ith, Bonny URINALYSIS WITHOUT [id number] 18:14:00 Test Item Value Reference Range Interpretation [...] = 463) SOURCE(BEAKER) (test code = 2795) Retail Route Supervisor ID - [auto]Retail Route Supervisor ID - techOperator ID - techEEG AWAKE AND DROWSY 2020-06-22 14:56:00Reason for exam:->[facility] REPORT DATE(s) OF TEST: 06-22-20DATE OF REPORT: 06-22-20 ACC: [id number]: 1135 Start time: 1306hrsStop time: 1327hrs ICD-10: R56.9CPT Code: 95728 HISTORY: A 80yo female w/ PMH of [...] Zheng M.D., FACNS, FAAN, FAESProfessor of Neurology, [facility] Medical CenterDirector, [facility] Epilepsy HallsteadDarian Dew[facility] Neurophysiology Lab POCT-GLUCOSE [id number] 10:43:00 Test Item Value Reference Range Interpretation Comments POC-GLUCOSE METER 170 mg/dL 70-110 H : TESTED A T [facility] 6720 (BEAKER) (test code = [facility], 1538) [address]: Retail Route Supervisor/Techni gulshan ID = [id number] for Sm ith, Bonny POCT-GLUCOSE [id number] 09:18:00 Test Item Value Reference Range Interpretation Comments POC-GLUCOSE METER 68 mg/dL 70-110 L : TESTED A T [facility] 6720 (BEAKER) (test code = [facility], 1538) [address]: Retail Route Supervisor/Techni gulshan ID = [id number] for Yusuf h, Bonny BASIC METABOLIC [id number] 08:05:00 Test Item Value Reference Range Interpretation [...] 697) EGFR (BEAKER) (test 27 mL/min/1.73 ESTIMA DIANE GFR IS code = 1092) sq m NOT ACCURATE CREATININE CLEARANCE IN PREDICTING GLOMERULAR FILTRATION RATE . ESTIMATED GFR I S NOT APPLICABLE FOR DIALYSIS PATIEN TS. Retail Route Supervisor ID - AAHAMIDCBC W/PLT COUNT & AUTO [id number] 04:56:00 Test Item Value Reference Range Interpretation [...] PERCENT (BEAKER) (test code = 2801) POCT-GLUCOSE [id number] 22:13:00 Test Item Value Reference Range Interpretation Comments POC-GLUCOSE METER 95 mg/dL 70-110 : TESTED A T [facility] 6720 (BEAKER) (test code = [place], 1538) [address]: Retail Route Supervisor/Techni gulshan ID = [id number] for JOSSELYN COX POCT-GLUCOSE [id number] 18:12:00 Test Item Value Reference Range Interpretation Comments POC-GLUCOSE METER 78 mg/dL 70-110 : TESTED A T [facility] 6720 (BEAKER) (test code = [facility], 1538) [address]: Retail Route Supervisor/Techni gulshan ID = [id number] for Bonny Lowe HEMOGLOBIN [id number] 16:05:00 Test Item Value Reference Range Interpretation Comments HEMOGLOBIN A1C (BEAKER) (test code = 4.5 % 4.3-6.1 368) PROTEIN, RANDOM [id number] 15:02:00 Test Item Value Reference Range Interpretation Comments PROTEIN, URINE (BEAKER) (test code = < mg/dL 0-14 1569) Retail Route Supervisor ID - OCT CSODIUM, RANDOM [id number] 14:59:00 Test Item Value Reference Range Interpretation Comments SODIUM URINE (BEAKER) (test code = 48 meq/L 243) Reference Range: No NormalsOperator ID - OCT CCREATININE, RANDOM [id number] 14:59:00 Test Item Value Reference Range Interpretation Comments CREATININE URINE (BEAKER) (test 45.6 mg/dL code = 375) Reference Range: No NormalsOperator ID - OCT CTSH/FREE T4 IF [id number] 14:29:00 Test Item Value Reference Range Interpretation Comments THYROID STIMULATING HORMONE 2.659 uIU/mL 0.350-4.940 (BEAKER) (test code = 772) Retail Route Supervisor ID - RAQUEL LVITAMIN B12 AND [id number] 14:29:00 Test Item Value Reference Range Interpretation Comments VITAMIN B12 (BEAKER) (test code = 501 pg/mL 213-816 774) FOLATE (BEAKER) (test code = 362) 12.90 ng/mL >=7.00 Retail Route Supervisor MELISSA GARCÍA LBASIC METABOLIC [id number] 12:59:00 Test Item Value Reference Range Interpretation [...] 697) EGFR (BEAKER) (test 25 mL/min/1.73 ESTIMA DIANE GFR IS code = 1092) sq m NOT ACCURATE CREATININE CLEARANCE IN PREDICTING GLOMERULAR FILTRATION RATE . ESTIMATED GFR I S NOT APPLICABLE FOR DIALYSIS PATIEN TS. TROPONIN [id number] 12:53:00 Test Item Value Reference Range Interpretation [...] failure, acidosis, acute neurological disease, and persistent tachyarrhythmia.C-REACTIVE [id number] 12:52:00 Test Item Value Reference Range Interpretation Comments C-REACTIVE PROTEIN (BEAKER) (test < mg/dL <=1.00 code = 676) URINALYSIS W/ [id number] 12:50:00 Test Item Value Reference Range Interpretation [...] /LPF 514) SOURCE(BEAKER) (test code = 2795) Retail Route Supervisor ID - [auto]Retail Route Supervisor ID - techHEPATIC FUNCTION [id number] 12:49:00 Test Item Value Reference Range Interpretation [...] Specimen slightly (test code = 347) hemolyzed LIPID [id number] 12:46:00 Test Item Value Reference Range Interpretation [...] 100-129 Borderline 130-159 High 160-189 Very High >=190PROTHROMBIN TIME/[id number] 09:16:00 Test Item Value Reference Range Interpretation [...] INR is2.5-3.5 for patients wiht mechanical heart valves.[id number] 09:16:00 Test Item Value Reference Range Interpretation Comments PARTIAL THROMBOPLASTIN TIME 27.5 seconds 22.5-36.0 (BEAKER) (test code = 760) CBC W/PLT COUNT & AUTO [id number] 09:03:00 Test Item Value Reference Range Interpretation [...] PERCENT (BEAKER) (test code = 2801) SARS-COV2/RT-PCR ([facility])2020-03-26 02:34:00 Test Item Value Reference Range Interpretation Comments SARS-COV2/RT-PCR (test code = Detected Not Detected, Negative A A [id number]) SARS-COV-2 PERFORMING LAB [facility] (test code = 2765317) Results are for the detection of SARS-CoV-2 [...] copies/mL.This SARS CoV-2 test is a rapid, wxao-trhoZK-IYW test intended for the qualitative detection of nucleic acid from SARS-CoV-2 in a nasopharyngea l swab specimen collected from individuals suspected of [...] 564(g) of the Act.Fact Sheet for Healthcare Providers:https://www.[employer]/ Documents/Xpert%20Xpress%20SARS%20CoV-2/Fact%20Sheets/3023802%98YVCH-IZP-6%20HE ALTHCARE%20PROVIDERS%20FACT%20SHEET.pdfFact Sheet for Healthcare Patients:https://www.[employer]/Documents/Xpert%20Xpress %20SARS%20CoV-2/Fact%20Sheets/3023801%33DMBQ-PZK-2%20PATIENT%20FACT%20SHEET.pdf Performing Laboratory:[place] [address] [place] [address]
[2021-09-16] MEDS ORDERED: ONDANSETRON 4 MG/2 ML VIAL ONE (21:26)
[2021-09-16] MEDS ORDERED: MEPERIDINE HCL 25 MG/ML SYR ONE ×2 (21:27→23:59)
[2021-09-16 21:38] LABS: Absolute Lymphocytes (CBC) 2.8 K/uL (0.7-4.9); Basophils % 0.6 % (0-1.3); Hematocrit 33.1 % (36.0-45.0); Lymphocytes % 23.6 % (15.3-44.8); MPV 6.7 fL (7.6-11.3); RBC Red Blood Cell Count 3.43 M/uL (3.86-4.86)
--- NOTE | 2021-09-16 21:59 | RAD REPORT ---
EXAM DESCRIPTION: CT - Head C Spine Cap Wo Con - 09/16/2021 9:44 pm CLINICAL HISTORY: fall, head injury, neck pain COMPARISON: CT imaging April 29 TECHNIQUE: Axial [address] head images were obtained. Axial [address] cervical spine images were obtain ed with sagittal and coronal reconstruction images reviewed. Axial 5 mm images of the chest, abdomen and pelvis were obtained. All CT scans are performed using dose optimization technique as appropriate and may include automated exposure control or mA/KV adjustment according to patient size. FINDINGS: No intracranial hemorrhage, mass or edema. No midline shift or abnormal fluid collection. Mastoid air cells and paranasal sinuses are clear. No skull fracture. Atrophy changes are minimal. Sc attered mild to moderate chronic ischemic change in the cerebral white matter. Ventricles are in prop ortion to any volume loss. Lateral frontal soft tissue wound is present with skin enio in place. Cervical bodies are normal in height. Very slight anterior subluxation C5 on C6 secondary facet degen erative change. No fracture or acute bone finding.No disk space narrowing.No prevertebral soft tissue thickening or paraspinal mass.Central canal detail is inherently limited on CT imaging. CT chest shows no pneumothorax, pulmonary contusion or pleural fluid collection. No mediastinal hem atoma and the aorta and pulmonary arteries are unremarkable. No chest will mass or abnormal axillary finding. No displaced rib fracture or other significant bony finding. CT abdomen and pelvis show no injury to solid abdominal viscera. Gallbladder and biliary tree are unr emarkable. No bowel injury or significant finding. No free air, free fluid or abnormal stranding. No hernia, mass or bulky lymphadenopathy. No urinary bladder abnormality. The T1-L1 vertebrae show degenerative change no acute finding. Approximately 40% wedge compression de formity is present in the L1 body primary along the inferior endplate where there is advanced degener ative change across the L1-2 disc level. Fusion hardware is in place in L3 and L4. L4 retrolisthesis is present. Advanced degenerative disc disease present in L3-4 where there is fusion material in plac e. Bilateral foraminal stenosis present in the mid and lower lumbar spine most pronounced at L4-5. Th carlyle findings are not clearly different from April 29 imaging. IMPRESSION: Lateral left frontal scalp laceration present. Patient has minimal atrophy and mild to m oderate chronic ischemic change. No acute intracranial finding. No acute injury to the neck, chest, abdomen or pelvis. The severe degenerative and postsurgical ybarra es in the mid and lower lumbar spine are stable from April 29. No significant [address] cervical spine finding. No significant CT Chest finding. No significant CT Abdomen and Pelvis finding.
[2021-09-16 22:01] LABS: Potassium 4.4 mmol/L (3.5-5.1)
--- NOTE | 2021-09-17 00:21 | P.CNS ---
Date of Consult: 09/17/21 Reason for Consult: Medical Mgmt. Requesting Physician: Montana Benavides Primary Care Provider: Yesenia Vigil Chief Complaint: Fall History of Present Illness: 81-year-old female with history of diabetes most type II, Parkinson's, hypertension, hypothyroidism, lupus, rheumatoid arthritis, psoriatic arthritis, Sjogren's syndrome presents the emergency department after a fall. Patient does have frequent falls given her history of Parkinson's and a weak right lower extremity. 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 Patient with comminuted distal right radial fracture in addition to large left scalp laceration which had arterial bleed present upon arrival to the emergency department. Laceration was repaired while in the emergency department CT head brain negative for other acute findings aside from laceration with repair and hematoma, CT C-spine/chest abdomen pelvis negative for other acute trauma related findings. ED provider repaired laceration and reduced distal right radial fracture, wishes to admit under observation overnight given significant trauma and arterial bleed of the scalp. ED provider discussed case with general surgery who will admit under service with a consult to hospitalist service for medical management. Allergies iodine Adverse Reaction (Intermediate, Verified 03/14/19 09:02) Rash pantoprazole sodium [From Protonix] Adverse Reaction (Intermediate, Verified 03/14/19 09:02) VOMITING Penicillins Adverse Reaction (Intermediate, Verified 03/14/19 09:02) VOMITING codeine [Codeine] Adverse Reaction (Mild, Verified 03/14/19 09:02) VOMITING Morphine Allergy (Mild, Uncoded 03/14/19 09:02) Rash Home Medications: Fentanyl Patch [Duragesic Patch*] 75 mcg TOP EVERY 3RD DAY 10/15/15 Gabapentin [Neurontin] 600 mg PO QID 10/15/15 Levothyroxine [Synthroid*] 100 mcg PO DAILY 10/15/15 Losartan Potassium [Cozaar*] 50 mg PO TLLAY5OM 10/15/15 Metformin ER [Glucophage ER*] 500 mg PO BID 10/15/15 Tramadol HCl [Ultram] 1 - 2 tab PO TID PRN 10/15/15 predniSONE [Prednisone] 5 mg PO DAILY 10/15/15 Leflunomide 20 mg PO DAILY 03/27/19 Albuterol Inhaler [Ventolin Inhaler*] 2 puff IH Q6H PRN #1 hfa.aer.ad 03/26/20 Benzonatate [Tessalon Perle*] 100 mg PO BID PRN #10 cap 03/26/20 Carbidopa/Levodopa [Carbidopa-Levo 25-100 mg Odt] 1 tab PO BID 03/26/20 Cholecalciferol (Vitamin D3) [Vitamin D3] 2,000 unit PO DAILY 03/26/20 Cyclosporine [Restasis Multidose] 1 drop EACH EYE BID 03/26/20 Diclofenac Sodium [Voltaren] 2 gm TOP QID 03/26/20 Escitalopram [Lexapro*] 10 mg PO DAILY 03/26/20 Fish Oil/Borage/Flax/Om3,6,9 1 [[place] 3-6-9 1,200 mg Softgel] 1 tab PO BID 03/26/20 Fluticasone Propionate 1 film TOP BID 03/26/20 Guaifenesin [Mucinex] 600 mg PO BID PRN #15 tab.er.12h 03/26/20 Billy-Plex Gel 85 mg PO BID 03/26/20 Metoprolol Tartrate 50 mg PO BEDTIME 03/26/20 Montelukast [Singulair*] 10 mg PO BEDTIME 03/26/20 Triamcinolone 0.1% Crm [Kenalog 0.1% Cream*] 1 dose TOP BID 03/26/20 sulfaSALAzine [Sulfasalazine] 500 mg PO BID 03/26/20 - Past Medical/Surgical History Diabetic: Yes -: HTN -: anxiety -: Lupus -: arthritis -: DMII -: Anxiety -: Depression -: Likely Parkinson's -: CKD -: Cholecystectomy -: Back Surgery -: Hysterectomy Psychosocial/ Personal History: Patient is and currently lives at home with her daughter. - Family History Father Medical History: Heart disease, Stroke Mother Medical History: Heart disease, Diabetes - Social History Smoking Status: Unknown if ever smoked Alcohol use: No CD- Drugs: No Caffeine use: Yes Place of Residence: Home Review of Systems 10-point ROS is otherwise unremarkable General: Weakness ENT: Other (Facial pain) Musculoskeletal: Other (Right wrist pain) Physical Examination General: Alert, In no apparent distress, Oriented x3 HEENT: Normocephalic, Other (Patient noted to have large scalp hematoma left facial area sutures in place not currently bleeding) Neck: Supple, 2+ carotid pulse no bruit Respiratory: Clear to auscultation bilaterally, Normal air movement Cardiovascular: No edema, Normal S1 S2 Capillary refill: <2 Seconds Gastrointestinal: Normal bowel sounds Musculoskeletal: Other (Bony deformity distal right radial area CMS intact) Integumentary: No breakdown, No significant lesion Neurological: Normal speech, Normal tone, Sensation intact Laboratory Data (last 24 hrs) 09/16/21 21:21: APTT 31.6 09/16/21 21:21: WBC 12.00 H, Hgb 10.9 L, Hct 33.1 L, Plt Count 267 09/16/21 21:21: Sodium 141, Potassium 4.4, BUN 15, Creatinine 1.37 H, Glucose 133 H Conclusions/Impression: Assessment: Fall resulting in large left scalp laceration with arterial bleedresolved and comminuted distal right radial fracture Parkinson's disorder Diabetes mellitus type 2 CKD 3 Hypertension Hypothyroidism Rheumatoid arthritis, psoriatic arthritis, Sjogren's syndrome Gout Plan: Fall resulting in large left scalp laceration with arterial bleedresolved and comminuted distal right radial fracture: General surgery to see patient as well, patient had laceration repaired in the emergency department with suture, enio. No bleeding present at this time. Will monitor H&H overnight. Distal right radial fracture reduced in the emergency department CMS intact at this time, splint in place. Orthopedics consulted anticipate recommendation will be for outpatient management/surgical intervention. Will provide pain medication as needed, patient to be evaluated by physical therapy given fall and new need for splint of the right distal radius and concurrent use of walker. Appreciate further input from general surgery. Parkinson's disorder: Baseline, patient with weakness especially to the right lower extremity. Will have patient evaluated by physical therapy continue medications Diabetes mellitus type 2: A [facility] Accu-Chek, sliding scale insulin therapy. CKD 3: Similar to baseline continue gentle hydration overnight. Hypertension: Obtain and continue medication Hypothyroidism: Levothyroxine 100 mcg continued Rheumatoid arthritis, psoriatic arthritis, Sjogren's syndrome: Home medications continued. Gout: Obtain and continue medication. DVT PPX: SCDs given recent trauma Code status: Full Critical Care: No Time Spent Managing Pts care (In Minutes): 35
[2021-09-17] MEDS ORDERED: NA CHLORIDE 0.9% 1,000 ML ONE (01:08)
[2021-09-17] MEDS ORDERED: propofoL 200 MG/20 ML VIAL IV ONE (01:08)
[2021-09-17] MEDS ORDERED: MIDAZOLAM HCL 2 MG/2 ML INJ ONE (01:08)
--- NOTE | 2021-09-17 02:54 | ER ---
Nurse's Notes [facility] Name: Corrie Nunez Age: 81 yrs Sex: Female : 1940 Arrival Date: 09/16/2021 Time: 21:08 Bed 6 Private MD: Diagnosis: Laceration without foreign body of scalp;Displaced comminuted fracture of shaft of radius, right arm, initial encounter for closed fracture Presentation: 09/16 20:55 Chief complaint: EMS states: they were toned out for pt having fallen with LOC and bb laceration to forehead, deformity to right arm. Care prior to arrival: Medication(s) given: ketamine 12 mg IV initiated. 20 GA, in the left antecubital area. Mechanism of Injury: Fall. Trauma event details: Injury occurred in the [facility], Injury occurred: at home. Injury occurred: September 16, 2021. 20:55 Acuity: STEPHANIE 2 bb 20:55 Method Of Arrival: EMS: [facility] bb 21:00 Coronavirus screen: At this time, the client does not indicate any symptoms associated bb with coronavirus-19. Ebola Screen: No symptoms or risks identified at this time. Initial Sepsis Screen: Does the patient meet any 2 criteria? No. Patient's initial sepsis screen is negative. Does the patient have a suspected source of infection? No. Patient's initial sepsis screen is negative. Risk Assessment: Do you want to hurt yourself or someone else? Patient reports no desire to harm self or others. Onset of symptoms was September 16, 2021. Trauma Activation: Alert Physician: ED Physician; Name: Tameka; Notified At: 20:55; Arrived At: 21:05 Physician: General Surgeon; Name: ; Notified At: 20:55; Arrived At: Physician: Radiology; Name: ; Notified At: 20:55; Arrived At: Physician: Respiratory; Name: ; Notified At: 20:55; Arrived At: Physician: Lab; Name: ; Notified At: 20:55; Arrived At: Historical: - Allergies: 21:35 Codeine; bb 21:35 Iodine; bb 21:35 Morphine; bb 21:35 Protonix; bb - Home Meds: 21:35 Allopurinol Oral [Active]; carbidopa-levodopa 25-100 mg Oral TbER 1 tab 2 times per day bb [Active]; escitalopram oxalate 5 mg Oral tab 1 tab once daily [Active]; fentanyl 75 mcg/hr Topical pt72 1 patch every 48 hours [Active]; fluticasone Topical [Active]; levothyroxine 100 mcg tab 1 tab once daily [Active]; losartan 50 mg Oral tab 1 tab once daily [Active]; metformin 500 mg Oral tr24 1 tab twice a day [Active]; metoprolol tartrate 50 mg Oral tab once daily [Active]; montelukast 10 mg Oral tab 1 tab once daily [Active]; Neurontin 600 mg Oral tab 1 tab four times a day [Active]; prednisone 5 mg Oral tab once daily [Active]; Restasis 0.05 % ophthalmic dpet [Active]; sulfasalazine 500 mg Oral tab 1 tab BID [Active]; tramadol 50 mg Oral tab [Active]; Triamcinolone Acetonide Topical 2 times per day [Active]; vit D3 [Active]; Voltaren skin gel [Active]; - PMHx: 21:35 Diabetes - NIDDM; Gout; Hypertension; Hypothyroidism; Lupus; Parkinsons; Psoriatic bb Arthritis; Rheumatoid Arthritis; Sjoren's Syndrome; - Immunization history: Last tetanus immunization: unknown. - Social history:: Smoking status: unknown. - Family history:: not pertinent. - Hospitalizations: : No recent hospitalization is reported. - History obtained from: EMS. Screenin:00 Abuse screen: Denies threats or abuse. Tuberculosis screening: No symptoms or risk bb factors identified. 21:37 Nutritional screening: No deficits noted. Fall Risk Fall in past 12 months (25 points). bb Secondary diagnosis (15 points) impaired mobility, IV access (20 points). Ambulatory Aid- None/Bed Rest/Nurse Assist (0 pts). Mental Status- Oriented to own ability (0 pts). Total [place] Fall Scale indicates High Risk Score (45 or more points). Fall prevention measures have been instituted. Side Rails Up X 2 As available patient and family educated on Fall Prevention Program and Strategies. Primary Survey: 20:55 NO uncontrolled hemorrhage observed. A: The patient is alert. Airway: patent. bb Breathing/Chest: Respiratory pattern: regular, Respiratory effort: spontaneous, unlabored. Circulation: Heart tones present. Disability Alert. 21:50 Pressure applied to scalp. Reassessment Airway Airway Patent Breathing/Chest tw5 Respiratory pattern Regular Circulation Heart rhythm Sinus rhythm. 09/17 03:25 Exposure/Environment: All clothing and personal items were removed. Forensic evidence as6 collection is not deemed to be indicated at this time. Items placed in patient belonging bag. Assessment: 09/16 21:49 General: Appears in no apparent distress. Behavior is calm, cooperative, appropriate tw5 for age, anxious. Pain: Complains of pain in dorsal aspect of right wrist Pain currently is 10 out of 10 on a pain scale. Neuro: Level of Consciousness is awake, alert, obeys commands, Oriented to person, place, Patient states she doesn't recall what she hit her head on'. 09/17 00:03 Reassessment: Patient states feeling better. Patient states symptoms have improved. tw5 Respiratory: Airway is patent Trachea midline Respiratory effort is even, unlabored. GI: Abdomen is flat, non-distended. Derm: Bruising that is dark purple, on left temporal area, left mosque and left eye. Musculoskeletal: deformity to right wrist. Vital Signs: 09/16 21:00 BP 146 / 82; Pulse 68; Resp 18 S; Temp 99.5(O); Pulse Ox 99% on R/A; Weight 68.04 kg bb (R); Height 5 ft. 2 in. (157.48 cm) (R); Pain 9/10; 21:35 BP 136 / 60; tw5 09/17 00:03 BP 153 / 66; Pulse 64; Resp 18; Pulse Ox 98% on R/A; Pain 8/10; tw5 01:00 BP 154 / 53; Pulse 71; Resp 15 S; Pulse Ox 98% on R/A; as6 02:12 BP 121 / 67; Pulse 75; Resp 21 S; Pulse Ox 98% on R/A; as6 02:59 BP 147 / 76; Pulse 65; Resp 11 S; Pulse Ox 97% on R/A; as6 09/16 21:00 Body Mass Index 27.44 (68.04 kg, 157.48 cm) bb Robert Coma Score: 09/16 21:00 Eye Response: spontaneous(4). Verbal Response: oriented(5). Motor Response: obeys bb commands(6). Total: 15. Trauma Score (Adult): 21:00 Eye Response: spontaneous(1); Verbal Response: oriented(1); Motor Response: obeys bb commands(2); Systolic BP: > 89 mm Hg(4); Respiratory Rate: 10 to 29 per min(4); Robert Score: 15; Trauma Score: 12 ED Course: 21:00 Patient maintains SpO2 saturation greater than 95% on room air. bb 21:00 Patient has correct armband on for positive identification. Bed in low position. Call bb light in reach. Side rails up X2. 21:00 Arm band placed on Patient placed in an exam room, on a stretcher, on pulse oximetry. bb 21:08 Patient arrived in ED. bb 21:09 Thuy Bonds is Primary Nurse. tw5 21:25 Ralph English MD is Attending Physician. rn 21:26 Basic Metabolic Panel Sent. tw5 21:26 CBC with Diff Sent. tw5 21:26 Type And Screen Sent. tw5 21:26 Ptt, Activated Sent. tw5 21:31 Assist provider with laceration repair on left temporal area that was between 7.6 to tw5 12.5 cm using sutures and enio. Set up tray. Performed by Ralph English MD Patient tolerated well. Inserted saline lock: 22 gauge in left wrist, using aseptic technique. Blood collected. Maintain EMS IV. Dressing intact. Site clean \\T\\ dry. Gauge \\T\\ site: 20 G . 21:33 Triage completed. bb 21:44 CT Traumagram (Head C Spine CAP wo con) In Process Unspecified. EDMS 21:51 Initial lab(s) drawn, by ED staff, sent to lab. tw5 22:02 XRAY Wrist RIGHT 3 view In Process Unspecified. EDMS 12 00:08 COVID-19 SARS RT PCR (Document "Date of Onset" if Symptomatic) Sent. tw5 01:03 Consent for conscious sedation explained by physician, signed by patient, Procedure bb consent explained by physician, signed by patient. 01:10 Assist provider with reduction of right wrist using manipulation, Set up for procedure. bb Performed by Ralph English MD Immobilized with plaster splint opening of wound to forehead with exploration of foreign body. see conscious sedation flow sheet. 02:52 [place] Benavides MD is Hospitalizing Provider. rn 03:25 Patient admitted, IV remains in place. as6 03:25 Thermoregulation: warm blanket given to patient. as6 Administered Medications: 09/16 21:22 Drug: Lidocaine-Epinephrine -1%: (1:100,000) 1 application {Note: ast bedside by artie English.} Volume: 20 ml; Route: Infiltration; 09/17 03:21 Follow up: Response: No adverse reaction as6 09/16 21:22 Not Given (patient states she is allergic to medicationi): morphine 4 mg IVP once; RASS tw5 on ADMIN: Combtv4, Very Agttd3, Agttd2, Rstlss1, AlertClm0, Drwsy-1, Lt Sdtn-2, Mod Sdtn-3, Dp Sdtn-4, UnArsble-5 21:23 Drug: Zofran (Ondansetron) 4 mg Route: IVP; Site: left wrist; tw5 09/17 00:08 Follow up: Response: No adverse reaction tw5 09/16 21:30 Drug: Demerol (meperidine) 25 mg Route: IVP; Site: left wrist; tw5 09/17 00:08 Follow up: Response: No adverse reaction; Pain is decreased; RASS: Alert and Calm (0) tw5 00:08 Drug: Demerol (meperidine) 25 mg Route: IVP; Site: left wrist; tw5 02:54 Follow up: Response: No adverse reaction; RASS: Alert and Calm (0) tw5 03:00 Follow up: Response: No adverse reaction tw5 01:19 Drug: Versed (midazolam) 1 mg Route: IVP; Site: left wrist; bb 02:32 Follow up: Response: No adverse reaction; Marked relief of symptoms bb 01:19 Drug: NS 0.9% 1000 ml Route: IV; Rate: 1000 ml; Site: left wrist; bb 02:33 Follow up: IV Status: Order to discontinue infusion; IV Intake: 700ml bb 01:21 Drug: Propofol 160 mg {Note: given in increments during conscious sedation see flow bb sheet.} Route: IVP; Site: left wrist; 02:32 Follow up: Response: No adverse reaction; Marked relief of symptoms bb 03:00 Drug: Demerol (meperidine) 25 mg Route: IVP; Site: left wrist; tw5 03:21 Follow up: Response: No adverse reaction; RASS: Alert and Calm (0) as6 Intake: 12 21:00 PO: 0ml; Total: 0ml. bb 09/17 02:33 IV: 700ml; Total: 700ml. bb Outcome: 02:53 Decision to Hospitalize by Provider. rn 03:24 Admitted to Med/surg accompanied by tech, family with patient, via stretcher, room 208, as6 with chart, Report called to sharad conley 03:24 Condition: stable 03:25 Patient's length of stay in the Emergency Department was greater than 2 hours. pending as6 admission Patient's length of stay extended due to 03:30 Patient left the ED. as6 Signatures: Dispatcher [employer] Alberta Sampson RN Ralph Becker MD MD rn Wood, Tiffany tw5 William Carson RN RN as6 Corrections: (The following items were deleted from the chart) 02:34 01:10 Assist provider with reduction of right wrist using manipulation, Set up for bb procedure. Performed by Ralph English MD Immobilized with plaster splint opening of wound to forehead with exploration of foreign body. bb
--- NOTE | 2021-09-17 02:54 | EDPHYS ---
Physician Documentation [facility] Name: Corrie Nunez Age: 81 yrs Sex: Female : 1940 Arrival Date: 09/16/2021 Time: 21:08 Bed 6 Private MD: ED Physician Ralph English HPI: 09/17 02:47 This 81 yrs old Female presents to ER via EMS with complaints of Fall Injury. rn 02:47 Details of fall: The patient fell from an upright position, while walking. Onset: The rn symptoms/episode began/occurred just prior to arrival. Associated injuries: The patient sustained injury to the head, laceration, Right wrist. Severity of symptoms: At their worst the symptoms were moderate, in the emergency department the symptoms are unchanged. The patient has not experienced similar symptoms in the past. The patient has not recently seen a physician. Patient reports got up from bed to get water, fell, no LOC, hit head on unknown object, EMS reports significant amount of blood at the scene with arterial bleeding from the wound that is aided by pressure directly. Patient also with deformity of right wrist. Denies any other injury or pain does not take any blood thinners.. Historical: - Allergies: 09/16 21:35 Codeine; bb 21:35 Iodine; bb 21:35 Morphine; bb 21:35 Protonix; bb - Home Meds: 21:35 Allopurinol Oral [Active]; carbidopa-levodopa 25-100 mg Oral TbER 1 tab 2 times per day bb [Active]; escitalopram oxalate 5 mg Oral tab 1 tab once daily [Active]; fentanyl 75 mcg/hr Topical pt72 1 patch every 48 hours [Active]; fluticasone Topical [Active]; levothyroxine 100 mcg tab 1 tab once daily [Active]; losartan 50 mg Oral tab 1 tab once daily [Active]; metformin 500 mg Oral tr24 1 tab twice a day [Active]; metoprolol tartrate 50 mg Oral tab once daily [Active]; montelukast 10 mg Oral tab 1 tab once daily [Active]; Neurontin 600 mg Oral tab 1 tab four times a day [Active]; prednisone 5 mg Oral tab once daily [Active]; Restasis 0.05 % ophthalmic dpet [Active]; sulfasalazine 500 mg Oral tab 1 tab BID [Active]; tramadol 50 mg Oral tab [Active]; Triamcinolone Acetonide Topical 2 times per day [Active]; vit D3 [Active]; Voltaren skin gel [Active]; - PMHx: 21:35 Diabetes - NIDDM; Gout; Hypertension; Hypothyroidism; Lupus; Parkinsons; Psoriatic bb Arthritis; Rheumatoid Arthritis; Sjoren's Syndrome; - Immunization history: Last tetanus immunization: unknown. - Social history:: Smoking status: unknown. - Family history:: not pertinent. - Hospitalizations: : No recent hospitalization is reported. - History obtained from: EMS. ROS: 09/17 02:47 Constitutional: Negative for fever, chills, and weight loss, Eyes: Negative for injury, rn pain, redness, and discharge, ENT: No oral or nasal injury Neck: Positive for neck pain Cardiovascular: Negative for chest pain, palpitations, and edema, Respiratory: Negative for shortness of breath, cough, wheezing, and pleuritic chest pain, Abdomen/GI: Negative for abdominal pain, nausea, vomiting, diarrhea, and constipation, Back: Negative for injury and pain, MS/Extremity: Positive for right wrist injury and deformity Skin: Negative for injury, rash, and discoloration, Neuro: Positive for headache and head injury Exam: 02:47 Constitutional: This is a well developed, well nourished patient who is awake, alert rn Head/Face: 3 inch laceration over left forehead/episcopalian, arterial bleed from center of wound Eyes: Mild swelling and ecchymosis to the left periorbital region ENT: No intraoral injury or laceration Neck: No midline cervical tenderness Chest/axilla: No bony tenderness or crepitus of thorax/ribs Cardiovascular: Regular rate and rhythm. No pulse deficits. Respiratory: No increased work of breathing, no retractions or nasal flaring. Abdomen/GI: Soft, non-tender Back: No spinal tenderness. Skin: Warm, dry MS/ Extremity: Pulses equal, no cyanosis. Dinner fork deformity of the right wrist with tenderness along the distal radius, no open wounds Neuro: Awake and alert, GCS 15, oriented to person, place, time, and situation. Vital Signs: 09/16 21:00 BP 146 / 82; Pulse 68; Resp 18 S; Temp 99.5(O); Pulse Ox 99% on R/A; Weight 68.04 kg bb (R); Height 5 ft. 2 in. (157.48 cm) (R); Pain 9/10; 21:35 BP 136 / 60; tw5 12 00:03 BP 153 / 66; Pulse 64; Resp 18; Pulse Ox 98% on R/A; Pain 8/10; tw5 01:00 BP 154 / 53; Pulse 71; Resp 15 S; Pulse Ox 98% on R/A; as6 02:12 BP 121 / 67; Pulse 75; Resp 21 S; Pulse Ox 98% on R/A; as6 02:59 BP 147 / 76; Pulse 65; Resp 11 S; Pulse Ox 97% on R/A; as6 09/16 21:00 Body Mass Index 27.44 (68.04 kg, 157.48 cm) bb Robert Coma Score: 09/16 21:00 Eye Response: spontaneous(4). Verbal Response: oriented(5). Motor Response: obeys bb commands(6). Total: 15. Trauma Score (Adult): 21:00 Eye Response: spontaneous(1); Verbal Response: oriented(1); Motor Response: obeys bb commands(2); Systolic BP: > 89 mm Hg(4); Respiratory Rate: 10 to 29 per min(4); Robert Score: 15; Trauma Score: 12 Procedures: 21:26 Performed Ligation of arterial bleed. 4-0 chromic gut figure of eight stitch placed rn with hemostasis achieved. . 09/17 02:06 Splinting: Splint applied to right wrist using wrist splint, plaster sugar tong splint. rn applied by myself. post reduction film - reveals improved alignment, Examined by me, post splint application: neurovascular intact, 2+ distal pulses palpable, brisk capillary refill noted, Patient tolerated well. Reduction: of the right wrist, using traction, manipulation, flexion, Immobilized with Patient tolerated well. Post reduction film - reveals improved alignment. Moderate sedation: Pre-procedure assessment: the patient has been NPO 6 hour(s) prior to arrival, ASA physical classification: I - healthy, no underlying organic disease, Airway assessment: able to hyperextend neck, able to maintain airway, can open mouth without difficulty, Monitoring during procedure: monitor worker, continuous pulse oximetry, nurse at bedside at all times, Medications employed: Versed, 1 mg(s), propofol, Post-procedure assessment: the patient is mildly sedated, Respiratory status: even and unlabored, a reversal agent was not used. Laceration: 09/16 21:26 Wound Repair of 3cm ( 1.2in ) subcutaneous laceration to scalp. Distal rn neuro/vascular/tendon intact. Anesthesia: Wound infiltrated with 3 mls of 1% lidocaine w/ Epi. Wound prep: Moderate cleansing by me, Wound explored extensively. Skin closed with 6 35W Yue using staple gun. Patient tolerated well. MDM: 21:25 Patient medically screened. rn 23:17 ED course: Consulted Dr. Benavides, he states will consult but requests admission to rn hospitalist service. . 09/17 02:51 Differential diagnosis: abrasion, closed head injury, contusion, fracture, laceration. rn Data reviewed: vital signs, nurses notes, lab test result(s), radiologic studies, CT scan, plain films, and as a result, I will admit patient. Counseling: I had a detailed discussion with the patient and/or guardian regarding: the historical points, exam findings, and any diagnostic results supporting the discharge/admit diagnosis, lab results, radiology results, the need for further work-up and treatment in the hospital. Response to treatment: the patient's symptoms have mildly improved after treatment, and as a result, I will admit patient. Admission orders: after a detailed discussion of the patient's condition and case, the admit orders are written by me. ED course: Hospitalist service spoke to Dr. Benavides and he will take patient onto his service.. 09/16 21:11 Order name: Basic Metabolic Panel; Complete Time: 22:59 tw5 09/16 21:11 Order name: CBC with Diff; Complete Time: 22:59 tw5 09/16 21:11 Order name: Type And Screen; Complete Time: 22:59 tw5 09/16 21:11 Order name: Ptt, Activated; Complete Time: 00:53 tw5 09/16 21:26 Order name: CT Traumagram (Head C Spine CAP wo con); Complete Time: 22:59 rn 09/16 23:20 Order name: COVID-19 SARS RT PCR (Document "Date of Onset" if Symptomatic); Complete bb Time: 00:53 09/16 21:33 Order name: XRAY Wrist RIGHT 3 view rn 09/17 02:06 Order name: XRAY Wrist RIGHT 2 view rn 09/16 21:11 Order name: Labs collected and sent; Complete Time: 21:26 tw5 09/16 21:11 Order name: Suture Tray at Bedside; Complete Time: 21:13 tw5 09/16 23:01 Order name: Moderate Sedation; Complete Time: 03:15 rn Administered Medications: 09/16 21:22 Drug: Lidocaine-Epinephrine -1%: (1:100,000) 1 application {Note: ast bedside by artie Englihs.} Volume: 20 ml; Route: Infiltration; 09/17 03:21 Follow up: Response: No adverse reaction as6 09/16 21:22 Not Given (patient states she is allergic to medicationi): morphine 4 mg IVP once; RASS tw on ADMIN: Combtv4, Very Agttd3, Agttd2, Rstlss1, AlertClm0, Drwsy-1, Lt Sdtn-2, Mod Sdtn-3, Dp Sdtn-4, UnArsble-5 21:23 Drug: Zofran (Ondansetron) 4 mg Route: IVP; Site: left wrist; tw09/17 00:08 Follow up: Response: No adverse reaction tw5 09/16 21:30 Drug: Demerol (meperidine) 25 mg Route: IVP; Site: left wrist; tw09/17 00:08 Follow up: Response: No adverse reaction; Pain is decreased; RASS: Alert and Calm (0) 00:08 Drug: Demerol (meperidine) 25 mg Route: IVP; Site: left wrist; tw5 02:54 Follow up: Response: No adverse reaction; RASS: Alert and Calm (0) tw5 03:00 Follow up: Response: No adverse reaction 01:19 Drug: Versed (midazolam) 1 mg Route: IVP; Site: left wrist; bb 02:32 Follow up: Response: No adverse reaction; Marked relief of symptoms :19 Drug: NS 0.9% 1000 ml Route: IV; Rate: 1000 ml; Site: left wrist; bb 02:33 Follow up: IV Status: Order to discontinue infusion; IV Intake: 700ml bb 01:21 Drug: Propofol 160 mg {Note: given in increments during conscious sedation see flow bb sheet.} Route: IVP; Site: left wrist; 02:32 Follow up: Response: No adverse reaction; Marked relief of symptoms bb 03:00 Drug: Demerol (meperidine) 25 mg Route: IVP; Site: left wrist; tw5 03:21 Follow up: Response: No adverse reaction; RASS: Alert and Calm (0) as6 Disposition Summary: 09/17/21 02:53 Hospitalization Ordered Hospitalization Status: Observation rn Provider: [place] Benavides rn Location: Telemetry/MedSurg (observation) rn Condition: Stable rn Problem: new rn Symptoms: have improved rn Bed/Room Type: Standard rn Room Assignment: 208(09/17/21 02:54) cg Diagnosis - Laceration without foreign body of scalp rn - Displaced comminuted fracture of shaft of radius, right arm, initial encounter for rn closed fracture Forms: - Medication Reconciliation Form rn - SBAR form rn Signatures: Dispatcher [employer] Alberta Sampson RN RN bb Ralph English MD MD rn Garcia, Cindy, RN RN Thuy More tw5 William Carson RN as6 Corrections: (The following items were deleted from the chart) 02:54 02:53 rn cg
[2021-09-17] MEDS ORDERED: MEPERIDINE HCL 25 MG/ML SYR ONE (02:55)
[2021-09-17] MEDS ORDERED: MEPERIDINE HCL 25 MG/ML SYR IV PRN (03:31)
[2021-09-17] MEDS ORDERED: ONDANSETRON 4 MG/2 ML VIAL IV PRN (03:31)
[2021-09-17 03:44] VITALS: O2SAT 97
[2021-09-17 04:35] VITALS: BMI 28.8
[2021-09-17] MEDS: NA CHLORIDE 0.9% 1,000 ML IV SCH ×2 (05:34→16:51)
--- NOTE | 2021-09-17 05:54 | P.PN ---
Subjective Date of Service: 09/17/21 Primary Care Provider: Yesenia Vigil Chief Complaint: Fall Subjective: Improving, Doing well Physical Examination - Vital Signs Temperature: 97.1 F Blood Pressure: 144/52 Pulse: 87 Respirations: 18 Pulse Ox (%): 96 - Studies Laboratory Data (last 24 hrs) 09/16/21 21:21: APTT 31.6 09/16/21 21:21: WBC 12.00 H, Hgb 10.9 L, Hct 33.1 L, Plt Count 267 09/16/21 21:21: Sodium 141, Potassium 4.4, BUN 15, Creatinine 1.37 H, Glucose 133 H Assessment & Plan Discharge Plan: Home Plan to discharge in: 24 Hours Physician Review Additional Text: COVID: Negative Physical exam: General: Alert, In no apparent distress, Oriented x3 HEENT: Normocephalic, Other (Patient noted to have large scalp hematoma left facial area sutures in place not currently bleeding) Neck: Supple, 2+ carotid pulse no bruit Respiratory: Clear to auscultation bilaterally, Normal air movement Cardiovascular: No edema, Normal S1 S2 Capillary refill: <2 Seconds Gastrointestinal: Normal bowel sounds Musculoskeletal: Other (Bony deformity distal right radial area CMS intact) Integumentary: No breakdown, No significant lesion Neurological: Normal speech, Normal tone, Sensation intact Laboratory Data (last 24 hrs) Impression: Fall resulting in large left scalp laceration with arterial bleedresolved and comminuted distal right radial fracture Parkinson's disorder Diabetes mellitus type 2 CKD 3 Hypertension Hypothyroidism Rheumatoid arthritis, psoriatic arthritis, Sjogren's syndrome Gout Plan: Fall resulting in large left scalp laceration with arterial bleedresolved and comminuted distal right radial fracture: Patient doing well at this time. [place] in place. No further bleeding noted. Case discussed at length with general surgery. General surgery plans to discharge patient today. Patient may continue with her current pain medications. Patient to work with physical therapy to better utilize specialized walker distal radial fracture. Orthopedics has evaluated patient as well. Case discussed with orthopedics. Orthopedics plans to follow-up patient in the office as an outpatient on Monday. Surgical intervention for radial fracture is expected next week. This was discussed in detail with patient. Continue with home health and physical therapy at discharge. Patient has seen cardiology in the past with prior cardiac stress test unremarkable. From a medical standpoint patient can be discharged home. Parkinson's disorder: Patient appears to be at her baseline. Continue with her home medication. Diabetes mellitus type 2: Overall stable. Continue with home medication. CKD 3: Stable. Hypertension: Overall stable. Continue with her home medication. Hypothyroidism: Overall stable. Continue with home medication. Rheumatoid arthritis, psoriatic arthritis, Sjogren's syndrome: Home medications continued. Gout: Obtain and continue medication. DVT PPX: SCDs given recent trauma Code status: Full Advanced care planning: Home with home health and PT Time Spent Managing Pts Care (In Minutes): 55
[2021-09-17 06:16] LABS: Absolute Lymphocytes (CBC) 2.9 K/uL (0.7-4.9); Basophils % 0.3 % (0-1.3); Hematocrit 28.4 % (36.0-45.0); Lymphocytes % 23.4 % (15.3-44.8); MPV 6.8 fL (7.6-11.3); RBC Red Blood Cell Count 2.93 M/uL (3.86-4.86)
[2021-09-17] MEDS ORDERED: LEVOTHYROXINE SOD 0.1 MG TAB PO SCH (06:30)
[2021-09-17 06:46] LABS: Bilirubin Total 0.3 mg/dL (0.2-1.0); Potassium 3.5 mmol/L (3.5-5.1); Protein, Total 6.2 g/dL (6.4-8.2); Thyroid Stimulating Hormone 2.19 uIU/mL (0.360-3.740)
[2021-09-17] MEDS: INSULIN -REGULAR HUMAN 50 UNIT/0.5 ML ML SQ SCH ×3 (07:30→16:30)
--- NOTE | 2021-09-17 07:49 | RAD REPORT ---
EXAM DESCRIPTION: RAD - Wrist Right 2 View - 09/17/2021 2:21 am FINDINGS: Two images were obtained labeled post reduction. The AP and cross-table lateral views agai n identified the distal radius fracture. There is improved anatomic alignment and position of the fra cture fragments. No suspicious or unexpected finding.
--- NOTE | 2021-09-17 08:11 | CON ---
Date of Consultation: 09/17/2021 History Of Present Illness: This is my first time seeing this patient to my knowledge. She is a 81- year-old female who unfortunately fell last night injuring her right upper extremity as well as susta ining a head contusion and laceration. She is admitted to the hospital after closed reduction of the wrist for continued evaluation by the trauma service. I see her this morning. Physical Examination: She denies any other injury and on physical examination she is in a sugar-tong splint as well as neur ovascularly intact to the hand. There is no sign of an open injury. All of her long bones and joint s are palpated without pain or crepitation. Review of x-rays reveal a highly comminuted, grossly shortened and angulated distal radius fracture, which appears to be much better with reduction, however, still retains a significant amount of displa cement. Assessment: This is a 81-year-old female now with an extremely comminuted distal radius fracture as well as injury to her head. She is right-hand dominant and uses a walker for mobilization, I think, and I have spoke with the patient as well as the family who most likely will move forward with operat marciano intervention regarding her right wrist. This was not be done while she is in the hospital and de finitely not immediately because she is currently being evaluated for the possibility of further path ology but most likely we will ask them to call our office and probably see them on Monday to arrange for wrist surgery on Monday. Risks, benefits, and alternatives to this have been discussed with both the patient and family. They state they understand things as presented . BETY Voice ID: [id number] Report ID: [id number]
--- NOTE | 2021-09-17 08:15 | RAD REPORT ---
EXAM DESCRIPTION: RAD - Wrist Right 3 View - 09/16/2021 10:02 pm CLINICAL HISTORY: Pain;Deformity COMPARISON: No comparisonsNo comparisons FINDINGS: Transverse fracture of the distal radius is present. There are several small fracture frag ments along the main fracture plane with the distal main fracture fragment dorsally angulated and imp acted along the dorsal margin of the distal radius shaft. Ulna styloid fracture is present. No pathol ogic changes. Move that retroperitoneal lymph node on by the kidney carpal bones maintain normal posi tioning to the distal radius fracture fragment. No carpal bone fracture is identifiable. No foreign b akbar or other soft tissue abnormality. IMPRESSION: Comminuted distal radius fracture with dorsal angulation and impaction.
--- NOTE | 2021-09-17 08:50 | P.DS ---
Admission Date: 09/17/21 Discharge Date: 09/17/21 Primary Care Provider: Yesenia Vigil Disposition: ROUTINE DISCHARGE Discharge Condition: GOOD Reason for Admission: Fall Consultations: Bhanu Kaiser Brief History of Present Illness: 81 year old woman s/p fall Hospital Course: Admitted after fall, LEFT frontal scalp laceration repaired in ER by Dr English - RIGHT wrist fracture reduced in ER, casted, Dr. Dorman to address - Dr kaiser managed medical issue - no new issues Vital Signs/Physical Exam: Temp Pulse Resp BP Pulse Ox 97.2 F 88 18 145/53 H 97 09/17/21 07:05 09/17/21 07:05 09/17/21 07:05 09/17/21 07:05 09/17/21 07:05 General: Alert, In no apparent distress, Cooperative HEENT: Other (LEFT scalp laceration is stapled well, no acute other issues) Neck: Supple Respiratory: Clear to auscultation bilaterally, Normal air movement Cardiovascular: Regular rate/rhythm Gastrointestinal: Soft and benign, Non-distended, No ascites, No tenderness, No masses, No rebound, No guarding Neurological: Normal speech Laboratory Data at Discharge: WBC 12.20 K/uL (4.3-10.9) H 09/17/21 05:46 Hgb 9.1 g/dL (12.0-15.0) L 09/17/21 05:46 Hct 28.4 % (36.0-45.0) L 09/17/21 05:46 Plt Count 220 K/uL (152-406) 09/17/21 05:46 APTT 31.6 SECONDS (24.3-36.9) 09/16/21 21:21 Sodium 143 mmol/L (136-145) 09/17/21 05:43 Potassium 3.5 mmol/L (3.5-5.1) 09/17/21 05:43 BUN 15 mg/dL (7-18) 09/17/21 05:43 Creatinine 1.12 mg/dL (0.55-1.3) 09/17/21 05:43 Glucose 112 mg/dL (74-106) H 09/17/21 05:43 Total Bilirubin 0.3 mg/dL (0.2-1.0) 09/17/21 05:43 AST 17 U/L (15-37) 09/17/21 05:43 ALT 14 U/L (12-78) 09/17/21 05:43 Alkaline Phosphatase 74 U/L (45-117) 09/17/21 05:43 Home Medications: Fentanyl Patch [Duragesic Patch*] 75 mcg TOP EVERY 3RD DAY 10/15/15 Levothyroxine [Synthroid*] 100 mcg PO DAILY 10/15/15 Tramadol HCl [Ultram] 1 - 2 tab PO TID PRN 10/15/15 predniSONE [Prednisone] 5 mg PO DAILY 10/15/15 Leflunomide 20 mg PO DAILY 03/27/19 Carbidopa/Levodopa [Carbidopa-Levo 25-100 mg Odt] 1 tab PO TID 03/26/20 Cyclosporine [Restasis Multidose] 1 drop EACH EYE BID 03/26/20 Diclofenac Sodium [Voltaren] 2 gm TOP QID 03/26/20 Escitalopram [Lexapro*] 10 mg PO DAILY PRN 03/26/20 Fluticasone Propionate 1 film TOP BID PRN 03/26/20 Billy-Plex Gel 85 mg PO BID 03/26/20 Montelukast [Singulair*] 10 mg PO BEDTIME PRN 03/26/20 Triamcinolone 0.1% Crm [Kenalog 0.1% Cream*] 1 dose TOP BID PRN 03/26/20 sulfaSALAzine [Sulfasalazine] 500 mg PO BID 03/26/20 Amantadine HCl [Amantadine] 50 mg PO BID 09/17/21 Gabapentin 2 pill PO TID 09/17/21 Diet: Resume Activity: Fall precautions Followup: Kaylie Vigil NP [Primary Care Provider] - [place] Benavides MD [ACTIVE - CAN ADMIT] - Melchor Drummond MD [ACTIVE - CAN ADMIT] -
[2021-09-17] MEDS ORDERED: ESCITALOPRAM 20 MG TAB PO SCH (09:00)
[2021-09-17] MEDS ORDERED: POTASSIUM CL SA 10 MEQ TAB PO ONE (09:00)
[2021-09-17] MEDS ORDERED: predniSONE 5 MG TAB PO SCH (09:00)
[2021-09-17] MEDS ORDERED: AMANTADINE PO SCH (09:00)
[2021-09-17] MEDS ORDERED: SULFASALAZINE 500 MG E.C. TAB PO SCH (09:00)
[2021-09-17] MEDS ORDERED: DOXYCYCLINE 100 MG CAP PO SCH (09:00)
[2021-09-17] MEDS: TRAMADOL HCL 50 MG TAB PO PRN ×2 (09:16→16:34)
[2021-09-17] MEDS: GABAPENTIN 300 MG CAP PO SCH ×2 (09:17→14:44)
[2021-09-17] MEDS: CARBIDOPA/LEVODOPA 25/100 TAB PO SCH ×2 (09:17→14:45)
--- NOTE | 2021-09-17 10:22 | HP ---
Date of Admission: 09/17/2021 Brief History Of Present Illness: The patient is a 81-year-old female with history of diabetes type 2, Parkinson's, hypertension, hypothyroidism, lupus, rheumatoid arthritis, psoriatic arthritis, Sjogr en syndrome, who presents to the emergency department after a fall. She states that earlier yesterda y, she was reaching for a bottle of water and slipped and fell down on to her outstretched right wris t as well as striking her scalp on the left scalp area. She has Parkinson's history, which causes he r weakness of right lower extremity and she was usually using a walker. She complains only of genera lized pain and some tenderness at the head and scalp area as well as the right wrist. Past Medical History: Significant for diabetes, Parkinson's, hypertension, hypothyroidism, lupus, rh eumatoid arthritis, psoriatic arthritis, Sjogren syndrome, anxiety, depression, CKD. Past Surgical History: Includes an open cholecystectomy, back surgery, and hysterectomy. Allergies: TO IODINE, PROTONIX, PENICILLIN, CODEINE, MORPHINE. Home Medications: Include fentanyl patch, Neurontin, Synthroid, Cozaar, Glucophage, Ultram, predniso ne, leflunomide, Ventolin, Tessalon Perles, carbidopa and levodopa, vitamin D3, cyclosporine, Voltare n, Lexapro, fish oil, fluticasone, Mucinex, Billy-Plex gel, metoprolol, Singulair, Kenalog, sulfasalaz ine. Social History: She denies smoking, alcohol, or recreational drug use. Review of Systems: Ten-point review of systems other than HPI, denies. Physical Examination: Vital Signs: At the time of my examination, her BMI is 27.9, blood pressure 145/53, heart rate 88, r espiratory rate 18, temperature 97.2, SpO2 of 97% on room air. General: She is awake, alert, and oriented. Psychiatric: She is conversive. HEENT: Sclerae anicteric. Mucous membranes are moist. Head is normocephalic with the exception of a left temporal scalp laceration. [place] are in place. No evidence of bleeding. She has some smal l bruising at the left supraorbital area and slight bruising to her nasal bone. Her oropharynx is cl ear. There is no malocclusion. There is no otorrhea or rhinorrhea. There is no scalp tenderness ot her than on the left scalp area near the laceration. No facial tenderness. No facial instability. Neck: Supple without JVD. No tenderness in the neck. Chest: Normal expansion and excursion. Cardiovascular: Regular rate and rhythm. Pulmonary: Clear to auscultation bilaterally. Abdomen: Soft, nontender, and nondistended. Pelvis: Stable. Extremities: Right upper is extremity is casted. Fingers are slightly swollen. No sensorineural de ficits in 4 extremities, but she does have Parkinson tremor in 4 extremities as well as in her face. Skin: Otherwise warm and dry. Laboratory Data: She has a white blood cell count of 12.2, hemoglobin is 9.1, hematocrit 28.4, plate let count is 220. Her sodium is 143, potassium 3.5, chloride 109, carbon dioxide 26, BUN 15, creatin ine 1.1, glucose is 112, total bilirubin 0.3, AST 17, ALT 14, alkaline phosphatase is 74. COVID was negative. She had imaging performed, which included a CT of head, C-spine, chest, abdomen, pelvis traumogram, w hich was officially read as left lateral frontal scalp laceration present. The patient has mild atro phy, [id number] chronic ischemic changes, no acute intracranial findings. No injury to the nec k, chest, abdomen, and pelvis. Degenerative postsurgical changes of the spine. No CT C-spine findin gs. No CT chest findings. No CT abdomen or pelvis findings of concern. She additionally had a wris t x-ray postreduction, which showed 2 images obtained and labelled postreduction AP and cross-table v iews are again identified the distal radius fracture. There is improved anatomic alignment and posit ion of the fracture fragment. Assessment And Plan: This is a 81-year-old female status post fall with scalp laceration, status pos t repair with a right wrist fracture, currently casted. 1.Continue medical management. 2.The patient will be discharged today after arrangements per Dr. Drummond for surgical planning. 3.I have explained the risks, benefits, and alternatives of the above stated plan. The patient agre es to proceed as indicated. KEM/DEVEN Voice ID: [id number]
[2021-09-17] MEDS ORDERED: PNEUMOCOCCAL VACCINE 0.5 ML IMVAC ONE (12:00)
[2021-09-17] MEDS ORDERED: INFLUENZA VACCINE (for 6+ mo) 0.5 ML DOSE IMVAC ONE (12:00)
[2021-09-17 16:41] VITALS: BP 191/80; TEMP 97.3
== END 2021-09-17 18:45 | disposition home health service (06) ==
LOC: ER 21:00 → ERHOLD 09-17 00:01 → 2ND 09-17 03:19
PROVIDERS: ADMIT Surgery; ATTEND Surgery
PROC: 0JQ00ZZ Repair Scalp Subcutaneous Tissue and Fascia, Open Approach (ICD-10-PCS; principal; 2021-09-16)
PROC: 2W3CX1Z Immobilization of Right Lower Arm using Splint (ICD-10-PCS; 2021-09-16)
PROC: 0PSHXZZ Reposition Right Radius, External Approach (ICD-10-PCS; 2021-09-16)
DX: S01.01XA Laceration without foreign body of scalp, initial encounter (principal); R58 Hemorrhage, not elsewhere classified; S52.351A Displaced comminuted fracture of shaft of radius, right arm, initial encounter for closed fracture; G20 Parkinson's disease; I12.9 Hypertensive chronic kidney disease with stage 1 through stage 4 chronic kidney disease, or unspecified chronic kidney disease; E11.22 Type 2 diabetes mellitus with diabetic chronic kidney disease; N18.30 Chronic kidney disease, stage 3 unspecified; E03.9 Hypothyroidism, unspecified; M06.9 Rheumatoid arthritis, unspecified; L40.50 Arthropathic psoriasis, unspecified; M35.00 Sjogren syndrome, unspecified; W01.0XXA Fall on same level from slipping, tripping and stumbling without subsequent striking against object, initial encounter; Y92.009 Unspecified place in unspecified non-institutional (private) residence as the place of occurrence of the external cause; Z20.822 Contact with and (suspected) exposure to COVID-19
CPT/HCPCS: 96361; 85025 ×2; 80048; 36415; 86900; 86850; 86901; 82947 ×3; 85730; 84443; 84439; 80053; 70450; 71250; 72125; 73110; 73100; 97161; 97530; 96375; 96374; 99285; 12002 ×2; 29125; 25605; U0003; J2704; J2250; J2175 ×3; J7030 ×2; J2405; G0378 ×2; J7512

== ENCOUNTER 2021-09-21 07:13 | Day surgery (SDC) | payer OTHER ==
[2021-09-21] MEDS ORDERED: Ringers Lactate 1,000 ML IV ONE (07:49)
[2021-09-21] MEDS ORDERED: CEFAZOLIN/NS 1gm 1 GM/50 ML BAG ONE (08:36)
[2021-09-21] MEDS ORDERED: FENTANYL CITR 100 MCG/2 ML ONE (08:50)
[2021-09-21] MEDS ORDERED: LIDOCAINE 1% MPF 5 ML VIAL ONE (08:51)
[2021-09-21] MEDS ORDERED: MIDAZOLAM HCL 2 MG/2 ML INJ ONE (08:51)
[2021-09-21] MEDS ORDERED: dexAMETHasone 10 MG/ML VIAL ONE (08:51)
[2021-09-21] MEDS ORDERED: ROPLVACAINE HCL 40 ML ONE (08:56)
[2021-09-21] MEDS ORDERED: propofoL 200 MG/20 ML VIAL IV ONE (09:39)
[2021-09-21] MEDS ORDERED: LIDOCAINE 2% MPF 5 ML VIAL ONE (09:39)
[2021-09-21] MEDS ORDERED: KETOROLAC 30 MG/ML INJ ONE (09:39)
[2021-09-21] MEDS ORDERED: ACETAMINOPHEN 500 MG TAB ONE (09:40)
[2021-09-21] MEDS ORDERED: ONDANSETRON 4 MG/2 ML VIAL ONE ×2 (09:41→12:12)
[2021-09-21] MEDS ORDERED: ACETAMINOPHEN 500 MG TAB PO ONE (09:42)
--- NOTE | 2021-09-21 12:03 | RAD REPORT ---
EXAM DESCRIPTION: RAD - Wrist Right 2 View - 09/21/2021 11:54 am FINDINGS: A total of 6 portable C-arm views were submitted from fluoroscopic assisted placement of f racture fixation hardware. No suspicious or unexpected findings. Fluoro time was 0.8 minutes with a cumulative dose of 0.918 mGy.
--- NOTE | 2021-09-21 12:32 | OP ---
Date of Procedure: 09/21/2021 Surgeon: Melchor Drummond MD Preoperative Diagnosis: Right displaced unstable distal radius fracture. Postoperative Diagnosis: Right displaced unstable distal radius fracture. Procedure Performed: Right open reduction and internal fixation of distal radius fracture using the Acumed volar plating system. Estimated Blood Loss: Less than 10 cc. Complications: No complications. Specimen: No pathology specimens sent. Indications For Operation: Ms. Nunez is a 81-year-old female, who unfortunately fell injuring her r ight wrist. She was seen and examined in the emergency department where she was found to have a comm inuted and highly displaced distal radius fracture. She underwent a closed reduction, which improved the reduction, however, it is definitely still essentially nonanatomic and unstable. Risks, benefit s, and alternatives of different methods of treating this were discussed with the patient and family. At this time, I believe that she does use her hand with a walker and I would anticipate she would h ave significant change from normal based on fracture pattern and despite the fact that she is rather older, would recommend fixation of distal radius. She says she understands things as presented and w ished to proceed. Description Of Procedure: The patient was taken to the operating room and placed in supine position. General anesthesia was obtained by staff. Following this, a well-padded tourniquet was placed on s uperior right arm. Right upper extremity was then prepped and draped in usual sterile fashion for th e procedure. Following this, the arm was then elevated, but not exsanguinated. Tourniquet was raise d. Standard volar approach of incision was then taken down carefully through the skin only with a zi gzag at the wrist crease. Meticulous hemostasis was maintained using bipolar electrocautery. This l sarah down to the tendon of the flexor carpi radialis, which was exposed. The flexor carpi radialis w as then retracted radialward to protect the radial artery and the underlying sheath was then exploite d. The flexor pollicis longus muscle belly and tendon were then reflected medially to protect the ul junior nerve. This led down to the fracture site and the pronator quadratus. The pronator quadratus wa s somewhat torn. It was divided in smooth surface and then freed off the distal end of the radius. This allowed for visualization of the distal radius, which was then reduced using a combination of a Allen elevator as well as manual techniques. This allowed for placement of the Acumed 2 volar platin g set, which was placed in a standard fashion. The screws appeared to be of appropriate length on joan th AP and lateral views. After this, the wound was gently irrigated and the skin was closed using in terrupted nylon sutures. The patient was then placed in a well-padded sterile dressing and sugar-ton g splint, awakened, and taken to the recovery room in good condition. No complications. SE/MODL Voice ID: [id number] Report ID: [id number]
[2021-09-21 13:52] VITALS: BP 107/56; TEMP 96; O2SAT 99
--- NOTE | 2021-09-22 07:52 | EKG ---
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
== END 2021-09-21 13:47 | disposition home or self-care (01) ==
LOC: OR 07:13
PROVIDERS: ATTEND Orthopaedic Surgery
PROC: 0PSH04Z Reposition Right Radius with Internal Fixation Device, Open Approach (ICD-10-PCS; principal; 2021-09-21 09:30)
DX: S52.501A Unspecified fracture of the lower end of right radius, initial encounter for closed fracture (principal)
CPT/HCPCS: 93005; 73100; 25607; J2704; J2250; J3010; J1100; J2795; J0690; J7120; J2405 ×2

== ENCOUNTER 2022-06-04 11:30 | Emergency (ER) | payer OTHER ==
--- OUTSIDE RECORDS SUMMARY | 2022-06-04 11:34 | XMS REPORT | Continuity of Care Document ---
:1940 Author Organization [facility] t Address [address] [place] [address] Care Team Providers Name Role Phone KATY RESENDIZ Primary Care Physician Unavailable Kaylie Vigil Attending Clinician Unavailable LOTTIE ISLAS Attending Clinician Unavailable LOTTIE ISLAS Admitting Clinician Unavailable GEETA ROSAS Admitting Clinician Unavailable Payers Payer Name Policy Type Policy Number Effective Date Expiration Date S debbie MEDICARE PART A [id number] 2007 \T\ B 00:00:00 [employer] [id number] 2011 00:00:00 MEDICARE A B [id number] 2007 00:00:00 [employer] [id number] 2020 00:00:00 Problems Condition Condition Condition Status Onset Resolution Last Treating Co mments Source Name Details Category Date Date Treatment Clinician Date Hyperkalem Hyperkalem Disease Active [facility] CHRISTINA (acute CHRISTINA (acute Disease Active [facility] kidney kidney 9[facility]14 [facility] injury) injury) 00:[facility]: Medical 00 Center Stroke Stroke Disease Active [facility] (cerebrum) (cerebrum) 9-13 [facility] k[facility] 00:00: [facility] 00 Center Other Other Disease Active [facility] spondylosi spondylosi 05-15 s with s with 00:00: Hospita radiculopa radiculopa 00 l thy, thy, lumbar lumbar region region Lumbar Lumbar Disease Active [facility] 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-15 rosis rosis 00:00: Hospita 00 l 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 05-15 disease disease 00:00: Hospita with with 00 l kyphosis kyphosis Osteoporos Osteoporos Disease Active M ethodi is is 05-15 00:00: Hospita 00 l Scoliosis Scoliosis Disease Active Met hodi 05-15 00:00: Hospita 00 l Allergies, Adverse Reactions, Alerts Allergy Allergy Status Severity Reaction(s) Onset Inactive Treating Comm ents Source Name Type Date Date Clinician Codeine Drug Active [facility] 9[facility]13 [facility] 00[facility] Center Iodine Propensi Active [facility] to 913 [facility] Iodide adverse 00:00: Medical Containi reaction 00 Center ng s Products Morphine Propensi Active [facility]13 [facility] adverse 00:00: Medical reaction 00 Center s CODEINE Allergy Active 2019-[address] 9[facility]13 [facility] 00[facility] Center IODINE Allergy Active 2020-[address] AND 9-13 [facility] IODIDE 00:00: Medical CONTAINI 00 Center NG PRODUCTS MORPHINE Allergy Active [facility] Codeine Propensi Active Hives [facility]i ty to 04-14 st adverse 00:00: Hospita reaction 00 l s to drug Iodine Propensi Active Hives [facility]i And ty to 04-14 st Iodide adverse 00:00: Hospita Containi reaction 00 l ng s to Products drug Pantopra Propensi Active Method i zole ty to 04-14 st adverse 00:00: Hospita reaction 00 l s to drug IODINE DRUG Active Rash 2008-10 [facility] INGREDI 11-17 ity of 00:00: [place] [address] [facility] Family History Family Member Diagnosis Comments Start Date Stop Date Source Natural [facility] Natural mother [facility] Social History Social Habit Start Date Stop Date Quantity Comments Source Alcohol intake 2017-05-15 2017-05-15 Current Nondenominational 00:00:00 00:00:00 non-drinker of Hospital alcohol (finding) Tobacco use and 2017-04-14 2017-04-14 Smokeless tobacco Me thodist exposure 00:00:00 00:00:00 non-user Hospital Sex Assigned At [address] [address] [facility] kes 00:00[facility]00 [facility] Smoking Status Start Date Stop Date Source Never [facility] Medications Ordered Filled Start Stop Current Ordering Indication Dosage Frequency Signature Comments Components Source Medication Medication Date Date Medication? Clinician (SIG) Name Name aspirin 81 2020-0 2020- No 81mg QD Take [address] MG chewable -17 -17 tablet (81 L ukes tablet 00:00: 23:59 mg total) Medic al 00 :00 by mouth Center daily. montelukast 2020-0 Yes 10mg QD Take [address] (SINGULAIR) 9-16 by mouth Luke s 10 mg 18:00: nightly. Medical tablet 51 Center cycloSPORIN 2020-0 Yes 1[drp] Q.5D [address] E 9-16 (two) [facility] (RESTASIS) 18:00: times Medica l 0.05 % 51 daily. Center ophthalmic emulsion sulfaSALAzi 2020-0 Yes 500mg Q.5D Take [address] ne 9-16 mg by [facility] (AZULFIDINE 18:00: mouth 2 Med ical ) 500 mg 51 (two) Center tablet times daily. cholecalcif 2020-0 Yes 5000U QD Take 5,[address] edy, 9-16 Units by [facility] vitamin D3, 18:00: mouth Medic al 125 mcg 51 daily. Center (5,000 unit) Tab amantadine 2020-0 Yes 100mg Q.5D Take [address] HCL 9-16 capsule [facility] (SYMMETREL) 00:00: (100 mg Med ical 100 mg 00 total) by Center capsule mouth 2 (two) times daily. gabapentin 2020-0 Yes 600mg Q.[id number] Take [address] (NEURONTIN) 9-16 [id number] tablet [facility] 600 MG 00:00: 3D (600 mg Medical tablet 00 total) by Center mouth 3 (three) times daily. carbidopa-l 2020- No 1{tbl} Q.[id number] Take [address] evodopa 06-24 [id number] tablet by [facility] (SINEMET) 00:00: 23:59 3D mouth 3 Medi jaycee 25-100 mg 00 :00 (three) Center per tablet times daily. atorvastati 2020- No 80mg QD Take [address] n (LIPITOR) 06-24 tablet (80 L ukes 80 MG 00:00: 23:59 mg total) Medica l tablet 00 :00 by mouth Center nightly. ESCITALOPRA Yes 10mg QD Take [address] M OXALATE 6-19 by mouth [facility] ORAL 00:00: daily . Medical 00 Center leflunomide Yes 20mg QD Take [address] (ARAVA) 10 6-19 by mouth [facility] MG tablet 00:00: daily . Medic al 00 Center allopurinol Yes 100mg Q.5D Take 100 M ethodi (ZYLOPRIM) 8-[address] 100 MG 16:11: mouth 2 Hospita tablet 03 (two) l times a day. fluticasone Yes Q.5D Apply Metho di (CUTIVATE) [address] 0.005 % 16:11: 2 (two) Hospita ointment 03 times a l day. montelukast Yes 10mg QD Take 10 mg [facility] (SINGULAIR) [address] 10 mg 16:11: nightly. Hospita tablet 03 l metoprolol Yes 50mg Q.5D Take 50 mg M ethodi tartrate 8-[address] (LOPRESSOR) 16:11: (two) Hospi ta 50 mg 02 times a l tablet day. levothyroxi Yes 100ug QD Take 100 M ethodi ne 8-[address] (SYNTHROID, 16:11: mouth Hospi ta LEVOXYL) 02 daily. l 100 mcg tablet gabapentin Yes [facility] (NEURONTIN) 807 st 600 mg 00:00: Hospita tablet 00 l escitalopra Yes Method i m (LEXAPRO) 8-07 st 5 MG tablet 00:00: Hospit a 00 l predniSONE Yes [facility] (DELTASONE) 7-31 st 5 mg tablet 00:00: Hospit a 00 l fentaNYL Yes [facility] (DURAGESIC) 7-27 st 50 mcg/hr 00:00: Hospita 00 l VOLTAREN 1 Yes Methodi % gel 720 st 00:00: Hospita 00 l traMADol Yes [facility] (ULTRAM) 50 7-17 st mg tablet 00:00: Hospita 00 l ALPRAZolam Yes [facility] (XANAX) 0.5 7-13 st MG tablet 00:00: Hospita 00 l metFORMIN Yes [facility] XR 7-09 st (GLUCOPHAGE 00:00: Hospit a -XR) 500 mg 00 l 24 hr tablet losartan Yes [facility] (COZAAR) 50 7-08 st MG tablet 00:00: Hospita 00 l fentaNYL Yes 1{patch Apply [address] (DURAGESIC) 1-07 } patch [facility] 75 mcg/hr 00:00: topically Med ical patch 00 every Center other day . ferrous Yes 85mg Q.5D Take [address] sulfate 325 1-07 by mouth 2 Jessica kes (65 FE) MG 00:00: (two) Medica l tablet 00 times Center daily . levothyroxi Yes 100ug QD Take [address] ne 100 mcg 1-07 mcg by [facility] Cap 00:00: mouth Medical 00 daily . Center metoprolol Yes 50mg QD Take [address] succinate 1-07 by mouth [facility] 50 mg CSpX 00:00: every Medica l 00 evening . Center predniSONE Yes 5mg QD Take [address] (DELTASONE) 1-07 by mouth Luke s 5 MG tablet 00:00: daily . Med ical 00 Center traMADoL 0 Yes Take by [facility] (ULTRAM) 50 1-07 mouth [facility] mg tablet 00:00: every 8 Medic al 00 (eight) Center hours as needed . Vital Signs Vital Name Observation Time Observation Value Comments Source HEIGHT 2020-06-21 00:00:00 160 cm WEIGHT 2020-06-21 00:00:00 63.05 kg HEIGHT 2020-06-21 00:00:00 160 cm WEIGHT 2020-06-21 00:00:00 63.05 kg Procedures This patient has no known procedures. Plan of Care Planned Activity Planned Date Details Comments Source Future Scheduled 2022-06-09 INFLUENZA VACCINE (#1) [facility] 00:00:00 [code = INFLUENZA Medical Ce nter VACCINE (#1)] Future Scheduled 2022-05-27 HEPATITIS B VACCINES Met [facility] Test 00:38:42 (1 of 3 - 3-dose series) [code = HEPATITIS B VACCINES (1 of 3 - 3-dose series)] Future Scheduled 2022-05-27 COVID-19 VACCINE (#1) [facility] Test 00:38:42 [code = COVID-19 VACCINE (#1)] Future Scheduled 2022-05-27 SHINGLES VACCINES (1 Met [facility] Test 00:38:42 of 2) [code = SHINGLES VACCINES (1 of 2)] Future Scheduled 2022-05-27 65+ PNEUMOCOCCAL [facility] Hospital Test 00:38:42 VACCINE (1 - PCV) [code = 65+ PNEUMOCOCCAL VACCINE (1 - PCV)] Future Scheduled 2022-05-27 INFLUENZA VACCINE Method ist Hospital Test 00:38:42 [code = INFLUENZA VACCINE] Future Scheduled 2021-10-[address] [facility] Test 00:00:00 (12+) [code = Medical Center DEPRESSION SCREENING (12+)] Future Scheduled 2021-10-09 FALLS RISK SCREENING [facility] Test 00:00:00 [code = FALLS RISK Medical C enter SCREENING] Future Scheduled 2016-10-15 PNEUMOCOCCAL 65+ [facility]RS [facility] Test 00:00:00 (2 - PCV) [code = Medical Ce nter PNEUMOCOCCAL 65+ YRS (2 - PCV)] Future Scheduled 2008-05-[address] [facility] Test 00:00:00 WELLNESS (YEAR 2 or Medical Center FIRST YEAR if no IPPE) [code = MEDICARE ANNUAL WELLNESS (YEAR 2 or FIRST YEAR if no IPPE)] Future Scheduled 1992 SHINGLES VACCINES ([address] [facility] Test 00:00:00 of 2) [code = SHINGLES Medic al Center VACCINES (1 of 2)] Future Scheduled 1961 DTAP/TDAP/TD VACCINES [facility] Test 00:00:00 (1 - Tdap) [code = Medical C enter DTAP/TDAP/TD VACCINES (1 - Tdap)] Future Scheduled 1960 HEPATITIS C SCREENING [facility] Test 00:00:00 [code = HEPATITIS C Medical Center SCREENING] Future Scheduled 1947 COVID-19 VACCINE (#1) [facility] Test 00:00:00 [code = COVID-[address] VACCINE (#1)] Future Scheduled 1940 DXA SCAN [code = DXA [facility] Test 00:00:00 SCAN] Medical Center Encounters Start End Encounter Admission Attending Care Care Encounter Source Date/Time Date/Time Type Type Clinicians Facility Department ID 2022-01-10 Outpatient Person, STLMLC STLMLC [id number] Common 13:47:01 Kaylie [id number] [facility] 2022-01-07 Outpatient Person, STLMLC STLMLC [id number] Common 09:21:02 Kaylie [id number] [facility] 2021-11-03 Outpatient Person, STLMLC STLMLC [id number] Common 14:28:13 Kaylie 83449 [facility] 2021-11-03 Outpatient Person, STLMLC STLMLC [id number] Common 14:24:53 Kaylie [id number] [facility] 2021-11-03 Outpatient Person, STLMLC STLMLC [id number] Common 14:23:16 Kaylie [id number] [facility] 2021-11-03 Outpatient Person, STLMLC STLMLC [id number] Common 13:02:38 Kaylie 84754 [facility] 2022-05-09 2022-05-09 ambulatory STLMLC STLMLC [id number] Common 00:00:00 00:00:00 [facility] 2022-04-12 2022-04-12 ambulatory STLMLC STLMLC [id number] Common 00:00:00 00:00:00 [facility] 2022-02-23 2022-02-23 ambulatory STLMLC STLMLC [id number] Common 00:00:00 00:00:00 [facility] 2022-01-18 2022-01-18 ambulatory STLMLC STLMLC [id number] Common 00:00:00 00:00:00 [facility] 2022-01-11 2022-01-11 ambulatory STLMLC STLMLC [id number] Common 00:00:00 00:00:00 [facility] 2021-12-29 2021-12-29 ambulatory STLMLC STLMLC [id number] Common 00:00:00 00:00:00 [facility] 2021-12-02 2021-12-02 ambulatory STLMLC STLMLC [id number] Common 00:00:00 00:00:00 [facility] 2021-11-03 2021-11-03 ambulatory STLMLC STLMLC [id number] Common 00:00:00 00:00:00 [facility] 2021-10-18 2021-10-18 ambulatory STLMLC STLMLC [id number] Common 00:00:00 00:00:00 [facility] 2021-10-04 2021-10-04 ambulatory STLMLC STLMLC [id number] Common 00:00:00 00:00:00 [facility] 2021-09-20 2021-09-20 ambulatory STLMLC STLMLC [id number] Common 00:00:00 00:00:00 [facility] 2021-08-10 2021-08-10 ambulatory STLMLC STLMLC [id number] Common 00:00:00 00:00:00 [facility] 2021-07-15 2021-07-15 Outpatient STLMLC STLMLC [id number] Common 00:00:00 00:00:00 [facility] 2021-07-08 2021-07-08 Outpatient STLMLC STLMLC [id number] Common 00:00:00 00:00:00 [facility] 2021-07-07 2021-07-07 Outpatient STLMLC STLMLC [id number] Common 00:00:00 00:00:00 [facility] 2021-06-29 2021-06-29 Outpatient STLMLC STLMLC [id number] Common 00:00:00 00:00:00 [facility] 2021-06-23 2021-06-23 Outpatient STLMLC STLMLC [id number] Common 00:00:00 00:00:00 [facility] 2021-05-21 2021-05-21 Outpatient STLMLC STLMLC [id number] Common 00:00:00 00:00:00 [facility] 2021-05-20 2021-05-20 Outpatient STLMLC STLMLC [id number] Common 00:00:00 00:00:00 [facility] 2021-04-30 2021-04-30 Outpatient STLMLC STLMLC [id number] Common 00:00:00 00:00:00 [facility] 2021-04-13 2021-04-13 Outpatient STLMLC STLMLC [id number] Common 00:00:00 00:00:00 [facility] 2021-04-02 2021-04-02 Outpatient STLMLC STLMLC [id number] Common 00:00:00 00:00:00 [facility] 2021-03-15 2021-03-15 Outpatient STLMLC STLMLC [id number] Common 00:00:00 00:00:00 [facility] 2021-02-17 2021-02-17 Outpatient STLMLC STLMLC [id number] Common 00:00:00 00:00:00 [facility] 2020-12-13 2020-12-13 Outpatient [facility] [id number] Univers 10:45:00 10:45:00 [facility] 2020-11-15 2020-11-15 Outpatient [facility] [id number] Univers 11:10:00 11:10:00 [facility] 2020-06-21 2020-06-21 Outpatient ER JESENIA ISLAS Neurology [id number] SLE 05:28:00 05:28:00 MAHMOUD Results Test Description Test Time Test Comments Results Result Comments Source POCT-GLUCOSE METER 2020-06-24 12:14:00 Test Item Value Reference Range Interpretation Comme nts POC-GLUCOSE METER (BEAKER) 161 mg/dL 70-110 H : [facility] [address] [facility] (test code = 1538) [facility] X, [address]: Farm Equipment Engine Mechanic/Techni gulshan ID = [id number] for DIANA GONZALES BASIC METABOLIC [id number] 10:27:00 Test Item Value Reference Range Interpretation [...] S NOT APPLICABLE FOR DIALYSIS PATIEN TS. Farm Equipment Engine Mechanic ID - BRANDON MPOCT-GLUCOSE [id number] 07:57:00 Test Item Value Reference Range Interpretation Comments POC-GLUCOSE METER 94 mg/dL 70-110 : [facility] (BEAKER[facility] (test code [facility], = 1538) [address]: Farm Equipment Engine Mechanic/Techni gulshan ID = [id number] for MADISON SANCHEZ [id number] 05:16:00 Test Item Value Reference Range Interpretation Comments PHOSPHORUS (BEAKER) (test code = 3.9 mg/dL 2.3-4.7 604) Farm Equipment Engine Mechanic ID - BRANDON [id number] 05:16:00 Test Item Value Reference Range Interpretation Comments MAGNESIUM (BEAKER) (test code = 2.1 mg/dL 1.6-2.6 627) Farm Equipment Engine Mechanic ID - BRANDON MBASIC METABOLIC [id number] 05:16:00 Test Item Value Reference Range Interpretation [...] S NOT APPLICABLE FOR DIALYSIS PATIEN TS. Farm Equipment Engine Mechanic ID - BRANDON [facility] (HEMOGRAM ONLY)2020-06-24 04:32:00 [...] 0-0 (BEAKER) (test code = 413) POCT-GLUCOSE [id number] 22:54:00 Test Item Value Reference Range Interpretation Comments POC-GLUCOSE METER 99 mg/dL 70-110 : TESTED A T [facility] 6720 (BEAKER) (test code = [facility], 1538) [address]: Farm Equipment Engine Mechanic/Techni gulshan ID = [id number] for GAGANDEEP REYES BASIC METABOLIC [id number] 18:58:00 Test Item Value Reference Range Interpretation [...] S NOT APPLICABLE FOR DIALYSIS PATIEN TS. Farm Equipment Engine Mechanic ID - BSPOCT-GLUCOSE [id number] 15:35:00 Test Item Value Reference Range Interpretation Comments POC-GLUCOSE METER 78 mg/dL 70-110 : TESTED A T [facility] 6720 (BEAKER) (test code = [facility], 1538) [address]: Farm Equipment Engine Mechanic/Techni gulshan ID = [id number] for JESSICA H, DADA MR, MRA, BRAIN, WITHOUT [id number] 15:35:00Anesthesia:->MACFINAL REPORT MR, MRA, BRAIN, WITHOUT CONTRAST, MR, MRA, NECK, WITHOUT IV CONTRAST INDICATION: Neuro deficit, acute, stroke suspected TECHNIQUE: Multiplanar, multisequence MR imagesof the brain. 3-D time of flight MRA of the cranial and cervical circulation. 2-D time of flight MRAof the neck. 3D MIP angiographic post-processing was performed. Stenosis evaluation utilized NASCET criteria. COMPARISON: Noncontrast brain CT of the same date FINDINGS: MRA BRAIN:Internal carotid arteries: Normal flow related enhancement without flow- limiting stenosisMiddle cerebral arteries: Normal flow related enhancement within the bilateral MCA M1-M2 segments without flow limiting stenosisAnterior cerebral arteries: Normal flow-related enhancement within the bilateral NISHA A1- A2 segments withoutflow limiting stenosisBasilar system: Normal flow-related enhancement within the bilateral V4 segments and the basilar artery without flow-limiting stenosis Posterior cerebral arteries: Normal flow-related enhancement within the bilateral DEPUTY SHERIFF/INVESTIGATOR P1-P2 segments without flow-limiting stenosisAdditional findings: None. MRA NECK:Common carotid arteries: Unremarkable. Bifurcations: No flow-limiting stenosis.Cervical internal carotid arteries: No flow limiting stenosis.Vertebral arteries: Origins are not well- seen. No flow limiting stenosis within the visualized cervical vertebral arterial segments. Limited assessment of the V3 segment secondary to noncontrast technique. IMPRESSION: No flow limiting stenosis in the major branch vessels of the cervical or cranial circulation. Signed: Abdirashid Jeff MDReport Verified Date/Time: 06/23/2020 15:35:34 Reading Location: [address] Neuro Reading Room MR, MRA, NECK, WITHOUT IV [id number] 15:35:00Anesthesia:->MACFINAL REPORT MR, MRA, BRAIN, WITHOUT CONTRAST, MR, MRA, NECK, WITHOUT IV CONTRAST INDICATION: Neuro deficit, acute, stroke suspected TECHNIQUE: Multiplanar, multisequence MR imagesof the brain. 3-D time of flight MRA of the cranial and cervical circulation. 2-D time of flight MRAof the neck. 3D MIP angiographic post-processing was performed. Stenosis evaluation utilized NASCET criteria. COMPARISON: Noncontrast brain CT of the same date FINDINGS: MRA BRAIN:Internal carotid arteries: Normal flow related enhancement without flow- limiting stenosisMiddle cerebral arteries: Normal flow related enhancement within the bilateral MCA M1-M2 segments without flow limiting stenosisAnterior cerebral arteries: Normal flow-related enhancement within the bilateral NISHA A1- A2 segments withoutflow limiting stenosisBasilar system: Normal flow-related enhancement within the bilateral V4 segments and the basilar artery without flow-limiting stenosis Posterior cerebral arteries: Normal flow-related enhancement within the bilateral DEPUTY SHERIFF/INVESTIGATOR P1-P2 segments without flow-limiting stenosisAdditional findings: None. MRA NECK:Common carotid arteries: Unremarkable. Bifurcations: No flow-limiting stenosis.Cervical internal carotid arteries: No flow limiting stenosis.Vertebral arteries: Origins are not well- seen. No flow limiting stenosis within the visualized cervical vertebral arterial segments. Limited assessment of the V3 segment secondary to noncontrast technique. IMPRESSION: No flow limiting stenosis in the major branch vessels of the cervical or cranial circulation. Signed: Abdirashid Jeff Verified Date/Time: 06/23/2020 15:35:34 Reading Location: [address] Neuro Reading Room U/S, RENAL, [id number] 15:23:00Reason for exam:->CHRISTINA eval for medical renal [...] hydronephrosis. Renal artery and vein are patent. 1cm cyst in the interpolar region of the left kidney. BLADDER: Unremarkable. IMPRESSION:Bilateral renal cysts. Otherwise unremarkable renal ultrasound.. Signed: Pamela Vargasort Verified Date/Time: 06/23/2020 15:23:19 MR, BRAIN, WITHOUT [id number] 14:41:00Anesthesia:->MACFINAL REPORT MR, BRAIN, WITHOUT CONTRAST INDICATION: Neuro deficit, acute, stroke suspected TECHNIQUE: Multiplanar, multisequence MR imaging of the brain was obtained. COMPARISON: None FINDINGS:Brain parenchyma is normal in morphology. Midline structures are normally developed. Norestricted diffusion to suggest recent ischemic insult. No abnormal susceptibility. Scattered T2/FLAIR hyperintense foci within the periventricular and subcortical white matter are nonspecific, however, statistically represent chronic microvascular ischemic changes. No hydrocephalus. Orbits are withinnormal limits. No obstructive paranasal sinus disease. IMPRESSION: No acute intracranial findings. Sp ecifically, no evidence of acute infarct. Signed: Abdirashid Jeff MDReport Verified Date/Time: 06/23/2020 14:41:47 Reading Location: [address] Neuro Reading Room BASIC METABOLIC [id number] 12:38:00 Test Item Value Reference Range Interpretation [...] S NOT APPLICABLE FOR DIALYSIS PATIEN TS. Farm Equipment Engine Mechanic ID - [id number] 12:33:00 Test Item Value Reference Range Interpretation Comments PHOSPHORUS (BEAKER) (test code = 4.9 mg/dL 2.3-4.7 H 604) Farm Equipment Engine Mechanic ID - [id number] 12:33:00 Test Item Value Reference Range Interpretation Comments MAGNESIUM (BEAKER) (test code = 2.3 mg/dL 1.6-2.6 627) Farm Equipment Engine Mechanic ID - DOMINICGPOCT-GLUCOSE [id number] 11:03:00 Test Item Value Reference Range Interpretation Comments POC-GLUCOSE METER 93 mg/dL 70-110 : TESTED A T [facility] 6720 (BEAKER) (test code = [facility], 1538) [address]: Farm Equipment Engine Mechanic/Techni gulshan ID = [id number] for MILO ANDRADE POCT-GLUCOSE [id number] 09:35:00 Test Item Value Reference Range Interpretation Comments POC-GLUCOSE METER 70 mg/dL 70-110 : TESTED A T [facility] 6720 (BEAKER) (test code = [facility], 1538) [address]: Farm Equipment Engine Mechanic/Techni gulshan ID = [id number] for JASON KINCAID CBC (HEMOGRAM ONLY)2020-06-23 06:43:00 [...] (BEAKER) (test code = 413) BASIC METABOLIC [id number] 03:05:00 Test Item Value Reference Range Interpretation [...] S NOT APPLICABLE FOR DIALYSIS PATIEN TS. Farm Equipment Engine Mechanic ID - PIAYA LPOCT-GLUCOSE [id number] 21:31:00 Test Item Value Reference Range Interpretation Comments POC-GLUCOSE METER 91 mg/dL 70-110 : TESTED A T [facility] 6720 (BEAKER) (test code = [facility] [place], 1538) [address]: Farm Equipment Engine Mechanic/Techni gulshan ID = [id number] for GAGANDEEP REYES [id number] 19:07:00 Test Item Value Reference Range Interpretation Comments POTASSIUM (BEAKER) (test code = 4.8 meq/L 3.5-5.1 379) Farm Equipment Engine Mechanic ID - FSEBASIC METABOLIC [id number] 18:44:00 Test Item Value Reference Range Interpretation [...] S NOT APPLICABLE FOR DIALYSIS PATIEN TS. Farm Equipment Engine Mechanic ID - FSEPROTEIN, RANDOM [id number] 18:38:00 Test Item Value Reference Range Interpretation Comments PROTEIN, URINE (BEAKER) (test code = < mg/dL 0-14 1569) Farm Equipment Engine Mechanic ID - FSECHLORIDE, RANDOM [id number] 18:37:00 Test Item Value Reference Range Interpretation Comments CHLORIDE URINE (BEAKER) (test code 108 meq/L = 682) Reference Range: No NormalsOperator ID - FSECREATININE, RANDOM [id number] 18:37:00 Test Item Value Reference Range Interpretation Comments CREATININE URINE (BEAKER) (test 50.4 mg/dL code = 375) Reference Range: No NormalsOperator ID - FSEPOTASSIUM, RANDOM [id number] 18:37:00 Test Item Value Reference Range Interpretation Comments POTASSIUM URINE (BEAKER) (test 41.0 meq/L code = 195) Reference Range: No NormalsOperator ID - FSESODIUM, RANDOM [id number] 18:37:00 Test Item Value Reference Range Interpretation Comments SODIUM URINE (BEAKER) (test code = 85 meq/L 243) Reference Range: No NormalsOperator ID - FSEUREA NITROGEN, RANDOM URINE 2020-06-22 18:37:00 Test Item Value Reference Range Interpretation Comments UREA NITROGEN URINE (BEAKER) (test 247 mg/dL code = 538) Reference Range: No NormalsOperator ID - FSEPOCT-GLUCOSE [id number] 18:16:00 Test Item Value Reference Range Interpretation Comments POC-GLUCOSE METER 202 mg/dL 70-110 H : TESTED A T [facility] 6720 (BEAKER) (test code = [place], 1538) 17166: Farm Equipment Engine Mechanic/Techni gulshan ID = [id number] for Sm ith, Bonny URINALYSIS WITHOUT [id number] 18:14:00 Test Item Value Reference Range Interpretation [...] = 463) SOURCE(BEAKER) (test code = 2795) Farm Equipment Engine Mechanic ID - [auto]Farm Equipment Engine Mechanic ID - techOperator ID - techEEG AWAKE AND DROWSY 2020-06-22 14:56:00Reason for exam:->c/f seizuresCH[facility] REPORT DATE(s) OF TEST: 06-22-20DATE OF REPORT: 06-22-20 ACC: [id number]: 20- 1135 Start time: 1306hrsStop time: 1327hrs ICD-10: R56.9CPT Code: 47561 HISTORY: A 80yo female w/ PMH of hypothyroidism, Parkinson's disease, RA/SLE/Sjogren's syndrome, chronic pain on fentanyl patch, and HTN who presents with dysarthria, facial droop and tremors. EGG being done to rule out seizures. MEDICATIONS: Escitalopram, Levothyroxine, Gabapentin and Tramadol. TECHNICAL SUMMARY: This is a digital video EEG recorded with 32 input channels reviewed with bipolar and referential montages using the modified combinatorial system nomenclature. DESCRIPTION OF RECORD: During the maximally alertstate the background consists of genralized polymorphic delta (1.5-3Hz) to theta (4-7Hz) activity with superimposed faster frequencies with no posterior dominant rhythm, state changes but reactivity was noted. Stage 2 sleep architecture was not seen. HV: Hyperventilation was not performed. PHOTIC STIMULATION: Photic stimulation was not done. VIDEO EVENTS RECORDED: None ELECTROCARDIOGRAM EVENTS: Normal Sinus Rhythm IMPRESSION: Abnormal Awake EE. Moderate continuous generalized theta slowing of the background. CLINICAL CORRELATION: The EEG is consistent with a moderate degree of encephalopathy ofundetermined etiology. No focal dysfunction, epileptiform discharges or electroclinical seizures were seen. Arik Lazcano MDEpilepsy Fellow I certify that I have reviewed the entire EEG with the fellow, read and edited the report above and agree with the conclusions. Pietro Zheng M.D., FACNS, FAAN, FAESProfessor of Neurology, Kindred HospitalDirector, [facility] Epilepsy CenterSt. [facility] Neuro[facility] Electronically signed by: PIETRO ZHENG on 02:56 PMPOCT-GLUCOSE [id number] 10:43:00 Test Item Value Reference Range Interpretation Comments POC-GLUCOSE METER 170 mg/dL 70-110 H : TESTED A T [facility] 6720 ([place]) (test code = [facility], 1538) 36091: Farm Equipment Engine Mechanic/Techni gulshan ID = [id number] for Sm ith, Bonny POCT-GLUCOSE [id number] 09:18:00 Test Item Value Reference Range Interpretation Comments POC-GLUCOSE METER 68 mg/dL 70-110 L : TESTED A T [facility] 6720 ([place]) (test code = [facility], 1538) 27459: Farm Equipment Engine Mechanic/Techni gulshan ID = [id number] for Jessica h, Bonny BASIC METABOLIC [id number] 08:05:00 Test Item Value Reference Range Interpretation [...] S NOT APPLICABLE FOR DIALYSIS PATIEN TS. Farm Equipment Engine Mechanic ID - AAHAMIDCBC W/PLT COUNT & AUTO [id number] 04:56:00 Test Item Value Reference Range Interpretation [...] PERCENT (BEAKER) (test code = 2801) POCT-GLUCOSE [id number] 22:13:00 Test Item Value Reference Range Interpretation Comments POC-GLUCOSE METER 95 mg/dL 70-110 : TESTED A T [facility] 6720 (BEAKER) (test code = [facility], 1538) 02056: Farm Equipment Engine Mechanic/Techni gulshan ID = [id number] for DENN IS, JOSSELYN POCT-GLUCOSE [id number] 18:12:00 Test Item Value Reference Range Interpretation Comments POC-GLUCOSE METER 78 mg/dL 70-110 : TESTED A T [facility] 6720 (BEAKER) (test code = [facility], 1538) 69664: Farm Equipment Engine Mechanic/Techni gulshan ID = [id number] for Jessica h, Bonny HEMOGLOBIN [id number] 16:05:00 Test Item Value Reference Range Interpretation Comments HEMOGLOBIN A1C (BEAKER) (test code = 4.5 % 4.3-6.1 368) PROTEIN, RANDOM [id number] 15:02:00 Test Item Value Reference Range Interpretation Comments PROTEIN, URINE (BEAKER) (test code = < mg/dL 0-14 1569) Farm Equipment Engine Mechanic ID - YING CSODIUM, RANDOM [id number] 14:59:00 Test Item Value Reference Range Interpretation Comments SODIUM URINE (BEAKER) (test code = 48 meq/L 243) Reference Range: No NormalsOperator ID - OCT CCREATININE, RANDOM [id number] 14:59:00 Test Item Value Reference Range Interpretation Comments CREATININE URINE (BEAKER) (test 45.6 mg/dL code = 375) Reference Range: No NormalsOperator ID - OCT CTSH/FREE T4 IF [id number] 14:29:00 Test Item Value Reference Range Interpretation Comments THYROID STIMULATING HORMONE 2.659 uIU/mL 0.350-4.940 (BEAKER) (test code = 772) Farm Equipment Engine Mechanic ID - RAQUEL LVITAMIN B12 AND [id number] 14:29:00 Test Item Value Reference Range Interpretation Comments VITAMIN B12 (BEAKER) (test code = 501 pg/mL 213-816 774) FOLATE (BEAKER) (test code = 362) 12.90 ng/mL >=7.00 Farm Equipment Engine Mechanic ID - RAQUEL LBASIC METABOLIC [id number] 12:59:00 Test Item Value Reference Range Interpretation [...] NOT APPLICABLE FOR DIALYSIS PATIEN TS. TROPONIN [id number] 12:53:00 Test Item Value Reference Range Interpretation [...] acidosis, acute neurological disease, and persistent tachyarrhythmia.C-REACTIVE [id number] 12:52:00 Test Item Value Reference Range Interpretation Comments C-REACTIVE PROTEIN (BEAKER) (test < mg/dL <=1.00 code = 676) URINALYSIS W/ [id number] 12:50:00 Test Item Value Reference Range Interpretation [...] /LPF 514) SOURCE(BEAKER) (test code = 2795) Farm Equipment Engine Mechanic ID - [auto]Farm Equipment Engine Mechanic ID - techHEPATIC FUNCTION [id number] 12:49:00 Test Item Value Reference Range Interpretation [...] slightly (test code = 347) hemolyzed LIPID [id number] 12:46:00 Test Item Value Reference Range Interpretation Comments TRIGLYCERIDES (BEAKER) 335 mg/dL Speci men slightly (test code = 540) hemolyzed CHOLESTEROL (BEAKER) 183 mg/dL Specime n slightly (test code = 631) hemolyzed HDL CHOLESTEROL (BEAKER) 44 mg/dL (test code = 976) LDL CHOLESTEROL 72 mg/dL CALCULATED (BEAKER) (test code = 633) Triglyceride Reference Range: Low Risk <150 Borderline 150-199 High Risk 200- 499 Very High Risk >=500Cholesterol Reference Range: Low Risk <200 Borderline 200-239 High Risk >240HDL Cholesterol Reference Range: Low Risk >=60 High Risk <40LDL Cholesterol Reference Range: Optimal <100 Near Optimal 100-129 Borderline 130-159 High 160-189 Very High >=190PROTHROMBIN [id number] 09:16:00 Test Item Value Reference Range Interpretation [...] is 2.5-3.5 for patients wiht mechanical heart valves.[id number] 09:16:00 Test Item Value Reference Range Interpretation Comments PARTIAL THROMBOPLASTIN TIME 27.5 seconds 22.5-36.0 (BEAKER) (test code = 760) CBC W/PLT COUNT & AUTO [id number] 09:03:00 Test Item Value Reference Range Interpretation [...] PERCENT (BEAKER) (test code = 2801) SARS-COV2/RT-PCR ([facility])2020-03-26 02:34:00 Test Item Value Reference Range Interpretation Comments SARS-COV2/RT-PCR (test code = Detected Not Detected, Negative A A [id number]) SARS-COV-2 PERFORMING LAB [facility] (test code = 5225141) Results are for the detection of SARS-CoV-2 [...] copies/mL.This SARS CoV-2 test is a rapid, nflh-tcpqTV-PMA test intended for the qualitative detection of [...] 564(g) of the Act.Fact Sheet for Healthcare Providers:https://www.[employer]/ Documents/Xpert%20Xpress%20SARS%20CoV-2/Fact%20Sheets/3023802%43RUOW-CHB-4%20HE ALTHCARE%20PROVIDERS%20FACT%20SHEET.pdfFact Sheet for Healthcare Patients:https://www.[employer]ee/Documents/Xpert%20Xpress %20SARS%20CoV-2/Fact%20Sheets/3023801%76LMJB-OKY-3%20PATIENT%20FACT%20SHEET.pdf Performing Laboratory:[facility] [place] [address]
--- NOTE | 2022-06-04 12:42 | RAD REPORT ---
EXAM DESCRIPTION: CT - CTHCSPWOC - 06/04/2022 12:34 pm CLINICAL HISTORY: Trauma, head and neck injury. fall, head injury, neck pain COMPARISON: Head C Spine Mpr Wo Con dated 07/22/2019; CT HEAD CSPINE MPR WO CONTRAST dated 5; CT HEAD CSPINE MPR WO CONTRAST dated 03/06/2014 TECHNIQUE: Axial 5 mm thick images of the head were obtained. Axial 2 mm thick images of the cervical spine were obtained with sagittal and coronal reconstruction images generated and reviewed. All CT scans are performed using dose optimization technique as appropriate and may include automated exposure control or mA/KV adjustment according to patient size. FINDINGS: CT HEAD WITHOUT CONTRAST: No acute hemorrhage, hydrocephalus or extra-axial collection is identified.No areas of brain edema or midline shift. Chronic small vessel ischemic changes. The paranasal sinuses and mastoids are clear.The calvarium is intact. CT CERVICAL SPINE WITHOUT CONTRAST: No fracture or subluxation.No prevertebral soft tissues swelling is identified. Anterolisthesis of C3 on C4, C4 on C5, and C5 on C6 is likely related to underlying degenerative changes. No findings to s uggest rheumatic malalignment. IMPRESSION: No acute intracranial or cervical spine findings.
--- NOTE | 2022-06-04 12:57 | RAD REPORT ---
EXAM DESCRIPTION: RAD - Chest Single View - 06/04/2022 12:49 pm CLINICAL HISTORY: fall, chest pain, trauma COMPARISON: Chest Single View dated 06/21/2020; Chest Single View dated 03/25/2020; Chest Pa And Lat ( 2 Views) dated 10/17/2019; Chest Single View dated 10/05/2019 FINDINGS: Lines: None. Lungs: No evidence of edema or pneumonia. Pleural: No significant pleural effusions or pneumothorax. Cardiac: The heart size is within normal limits. Bones: No acute fractures. Other: IMPRESSION: No acute cardiopulmonary disease.
--- NOTE | 2022-06-04 13:11 | RAD REPORT ---
EXAM DESCRIPTION: RAD - Shoulder Left 2 View - 06/04/2022 12:49 pm CLINICAL HISTORY: pain, fall, trauma COMPARISON: Chest Single View dated 12/05/2021; Chest Single View dated 11/17/2021; Chest Single View d ated 11/14/2021; Chest Single View dated 10/07/2021hest Single View dated 05/14/2022; Chest Single View dated 04/19/2022; Chest Single View dated 04/06/2022; Chest Single View dated 12/14/2021houlder Left 2 View dated 04/14/2022 FINDINGS/IMPRESSION: No left shoulder fracture or dislocation is identified.
--- NOTE | 2022-06-04 13:39 | ER ---
Nurse's Notes [facility] Name: Corrie Nunez Age: 81 yrs Sex: Female : 1940 Arrival Date: 06/04/2022 Time: 11:32 Bed 4 Private MD: Diagnosis: Unspecified injury of head, initial encounter Presentation: 06/04 11:47 Chief complaint: Patient states: mechanical fall around 10 am today. (3 rd fall ll1 recently, R leg has problems moving well with Parkinson's). Hematoma and pain to back of head. Denies LOC. Reports taking baby aspirin daily. L shoulder pain and tenderness noted. Coronavirus screen: Vaccine status: Patient reports receiving the 2nd dose of the covid vaccine. Client denies travel out of the [place] in the last 14 days. At this time, the client does not indicate any symptoms associated with coronavirus-19. Ebola Screen: Patient denies travel to an Ebola-affected area in the 21 days before illness onset. Initial Sepsis Screen: Does the patient meet any 2 criteria? No. Patient's initial sepsis screen is negative. Does the patient have a suspected source of infection? No. Patient's initial sepsis screen is negative. Risk Assessment: Do you want to hurt yourself or someone else? Patient reports no desire to harm self or others. Note Dr. English did not want a trauma alert called. Onset of symptoms was June 04, 2022. 11:47 Method Of Arrival: Ambulatory ll1 11:47 Acuity: STEPHANIE 3 ll1 14:10 Care prior to arrival: None. Mechanism of Injury: Fall. Trauma event details: Injury ll1 occurred in the [facility]. Triage Assessment: 11:50 General: Appears in no apparent distress. Behavior is calm, cooperative, appropriate ll1 for age. Pain: Complains of pain in posterior head Pain currently is 6 out of 10 on a pain scale. Quality of pain is described as aching, Pain began 2 hours ago. Neuro: Reports headache hematoma to back of head. Musculoskeletal: Circulation, motion, and sensation intact. Capillary refill < 3 seconds, Reports pain in L shoulder. Injury Description: Head injury Bruise. Trauma Activation: Not Applicable Physician: ED Physician; Name: ; Notified At: ; Arrived At: Physician: General Surgeon; Name: ; Notified At: ; Arrived At: Physician: Radiology; Name: ; Notified At: ; Arrived At: Physician: Respiratory; Name: ; Notified At: ; Arrived At: Physician: Lab; Name: ; Notified At: ; Arrived At: Historical: - Allergies: 11:46 Codeine; ll1 11:46 Iodine; ll1 11:46 Morphine; ll1 11:46 Protonix; ll1 - PMHx: 11:46 Diabetes - NIDDM; Lupus; Psoriatic Arthritis; Parkinsons; Rheumatoid Arthritis; ll1 Hypothyroidism; Hypertension; Gout; Sjoren's Syndrome; - Immunization history:: Client reports receiving the 2nd dose of the Covid vaccine, Last tetanus immunization: up to date. - Social history:: Smoking status: Patient denies any tobacco usage or history of. - Family history:: not pertinent. - Hospitalizations: : No recent hospitalization is reported. Screenin:08 Abuse screen: Denies threats or abuse. Nutritional screening: No deficits noted. ll1 Tuberculosis screening: No symptoms or risk factors identified. Fall Risk Ambulatory Aid- Crutches/Cane/Walker (15 pts). Gait- Weak (10 pts.). Mental Status- Overestimates/Forgets Limitations (15 pts.). Total [place] Fall Scale indicates High Risk Score (45 or more points). Fall prevention measures have been instituted. Side Rails Up X 2 Placed Close to Nursing Station Frequent Obs/Assessments Occuring Family Present and informed to notify staff if the need to leave the bedside As available patient and family educated on Fall Prevention Program and Strategies. Primary Survey: 14:09 NO uncontrolled hemorrhage observed. A: The client is awake and alert. The airway is ll1 patent. The client is alert. Breathing/Chest: Spontaneous respiratory effort, equal unlabored respirations, breath sounds clear bilaterally, regular pattern, symmetrical chest rise and fall. Circulation: No external hemorrhage present. Regular and strong central pulse, skin warm/dry/normal color. Pulses: palpable right radial artery and left radial artery. Disability Client is alert. Exposure/Environment: A warming method has been applied: A warm blanket has been provided to the patient. 14:10 Reassessment Alertness and Airway: Awake and alert. The airway is patent. Breathing: ll1 Spontaneous respiratory effort, equal unlabored respirations, breath sounds clear bilaterally, regular pattern with symmetrical chest rise and fall. Circulation: No external hemorrhage noted. Regular and strong central pulse, skin warm/dry/normal color. Disability: Alert. Assessment: 13:00 Reassessment: No changes from previously documented assessment. Patient and/or family ll1 updated on plan of care and expected duration. Pain level reassessed. Patient is alert, oriented x 3, equal unlabored respirations, skin warm/dry/pink. 14:00 Reassessment: No changes from previously documented assessment. Patient and/or family ll1 updated on plan of care and expected duration. Pain level reassessed. Vital Signs: 11:47 BP 131 / 56; Pulse 78; Resp 17; Temp 98.0; Pulse Ox 96% on R/A; Pain 6/10; kr3 14:08 BP 131 / 69; Pulse 60; Resp 16; Pulse Ox 96% on R/A; ll1 Robert Coma Score: 14:09 Eye Response: spontaneous(4). Verbal Response: oriented(5). Motor Response: obeys ll1 commands(6). Total: 15. Trauma Score (Adult): 14:09 Eye Response: spontaneous(1); Verbal Response: oriented(1); Motor Response: obeys ll1 commands(2); Systolic BP: > 89 mm Hg(4); Respiratory Rate: 10 to 29 per min(4); [place] Score: 15; Trauma Score: 12 ED Course: 11:32 Patient arrived in ED. rg4 11:33 Ralph English MD is Attending Physician. rn 11:39 Ami Aggarwal RN is Primary Nurse. kr3 11:40 Arm band placed on Patient placed in an exam room, on a stretcher. ll1 11:50 Triage completed. ll1 12:33 CT Head C Spine In Process Unspecified. EDMS 12:51 XRAY Shoulder LEFT 2 view In Process Unspecified. EDMS 12:51 XRAY Chest (1 view) In Process Unspecified. EDMS 14:09 Patient has correct armband on for positive identification. Bed in low position. Call ll1 light in reach. Side rails up X 1. Cardiac monitoring not applicable on this patient. 14:10 No provider procedures requiring assistance completed. Patient did not have IV access ll1 during this emergency room visit. 14:11 Patient maintains SpO2 saturation greater than 95% on room air. ll1 14:11 Thermoregulation: warm blanket given to patient. ll1 Administered Medications: No medications were administered Medication: 14:11 VIS not applicable for this client. ll1 Intake: 14:10 PO: 0ml; Total: 0ml. ll1 Output: 14:10 Urine: 0ml; Total: 0ml. ll1 Outcome: 13:39 Discharge ordered by . rn 14:10 Discharged to home ambulatory. ll1 14:10 Condition: stable 14:10 Discharge instructions given to patient, Instructed on discharge instructions, follow up and referral plans. Demonstrated understanding of instructions, follow-up care. 14:11 Patient's length of stay was not longer than 2 hours. ll1 14:11 Patient left the ED. 1 Signatures: Dispatcher [employer] EDMS Ralph English MD MD rn Garcia, Rubi rg4 Charles Burleson RN RN ll1 Ami Aggarwal RN RN kr3 Corrections: (The following items were deleted from the chart) 12:06 11:47 BP 131 / 56; Pulse 78bpm; Resp 17bpm; Pulse Ox 96% RA; Pain 6/10; ll1 kr3
--- NOTE | 2022-06-04 13:39 | EDPHYS ---
Physician Documentation [facility] Name: Corrie Nunez Age: 81 yrs Sex: Female : 1940 Arrival Date: 06/04/2022 Time: 11:32 Bed 4 Private MD: ED Physician Ralph English HPI: 06/04 12:19 This 81 yrs old Female presents to ER via Ambulatory with complaints of Fall rn Injury. 12:19 Details of fall: The patient fell from an upright position, while standing. Onset: The rn symptoms/episode began/occurred just prior to arrival. Associated injuries: The patient sustained injury to the head, contusion, swelling. Severity of symptoms: At their worst the symptoms were mild, in the emergency department the symptoms are unchanged. The patient has experienced similar episodes in the past. The patient has not recently seen a physician. Pt reports has Parkinson's, was trying to stand/turn, had difficulty, fell, hit head, no LOC. Reports mild pain to back of head and left shoulder. . Historical: - Allergies: 11:46 Codeine; ll1 11:46 Iodine; ll1 11:46 Morphine; ll1 11:46 Protonix; ll1 - PMHx: 11:46 Diabetes - NIDDM; Lupus; Psoriatic Arthritis; Parkinsons; Rheumatoid Arthritis; ll1 Hypothyroidism; Hypertension; Gout; Sjoren's Syndrome; - Immunization history:: Client reports receiving the 2nd dose of the Covid vaccine, Last tetanus immunization: up to date. - Social history:: Smoking status: Patient denies any tobacco usage or history of. - Family history:: not pertinent. - Hospitalizations: : No recent hospitalization is reported. ROS: 12:19 Constitutional: Negative for fever, chills, and weight loss, Eyes: Negative for injury, rn pain, redness, and discharge, Neck: Negative for swelling Cardiovascular: Negative for chest pain, palpitations, and edema, Respiratory: Negative for shortness of breath, cough, wheezing, and pleuritic chest pain, Abdomen/GI: Negative for abdominal pain, nausea, vomiting, diarrhea, and constipation, Back: Negative for injury and pain, MS/Extremity: + left shoulder pain Skin: Negative for injury, rash, and discoloration, Neuro: Negative for numbness, tingling, and seizure. Exam: 12:19 Constitutional: This is a well developed, well nourished patient who is awake, alert, rn and in no acute distress. Head/Face: + small right posterior scalp hematoma without laceration or bleeding Eyes: Periorbital areas with no swelling, redness, or edema. Neck: Supple, full range of motion without nuchal rigidity, or vertebral point tenderness. Chest/axilla: Normal chest wall appearance and motion. Nontender with no deformity. No lesions are appreciated. Cardiovascular: Regular rate and rhythm. No pulse deficits. Respiratory: No increased work of breathing, no retractions or nasal flaring. Abdomen/GI: Soft, non-tender Skin: Warm, dry MS/ Extremity: Pulses equal, no cyanosis. Neurovascular intact. Full, normal range of motion. Equal circumference. Neuro: Awake and alert, GCS 15, oriented to person, place, time, and situation. Cranial nerves II-XII grossly intact. Motor strength 5/5 in all extremities. Sensory grossly intact. Cerebellar exam normal. Vital Signs: 11:47 BP 131 / 56; Pulse 78; Resp 17; Temp 98.0; Pulse Ox 96% on R/A; Pain 6/10; kr3 14:08 BP 131 / 69; Pulse 60; Resp 16; Pulse Ox 96% on R/A; ll1 [place] Coma Score: 14:09 Eye Response: spontaneous(4). Verbal Response: oriented(5). Motor Response: obeys ll1 commands(6). Total: 15. Trauma Score (Adult): 14:09 Eye Response: spontaneous(1); Verbal Response: oriented(1); Motor Response: obeys ll1 commands(2); Systolic BP: > 89 mm Hg(4); Respiratory Rate: 10 to 29 per min(4); Robert Score: 15; Trauma Score: 12 MDM: 11:33 Patient medically screened. rn 13:37 Differential diagnosis: closed head injury, contusion, fracture, sprain, strain. Data rn reviewed: vital signs, nurses notes, radiologic studies, CT scan, plain films, and as a result, I will discharge patient. Counseling: I had a detailed discussion with the patient and/or guardian regarding: the historical points, exam findings, and any diagnostic results supporting the discharge/admit diagnosis, radiology results, the need for outpatient follow up, to return to the emergency department if symptoms worsen or persist or if there are any questions or concerns that arise at home. Response to treatment: the patient's symptoms have mildly improved after treatment, and as a result, I will discharge patient. Special discussion: I discussed with the patient/guardian in detail that at this point there is no indication for admission to the hospital. It is understood, however, that if the symptoms persist or worsen the patient needs to return immediately for re-evaluation. 06/04 11:44 Order name: CT Head C Spine; Complete Time: 13:37 rn 06/04 11:44 Order name: XRAY Shoulder LEFT 2 view; Complete Time: 13:37 rn 06/04 11:44 Order name: XRAY Chest (1 view); Complete Time: 13:37 rn Administered Medications: No medications were administered Disposition Summary: 06/04/22 13:39 Discharge Ordered Location: Home rn Problem: new rn Symptoms: have improved rn Condition: Stable rn Diagnosis - Unspecified injury of head, initial encounter rn Followup: rn - With: Private Physician - When: As needed - Reason: Recheck today's complaints, Re-evaluation by your physician Discharge Instructions: - Discharge Summary Sheet rn - Head Injury, Adult rn - Hematoma rn Forms: - Medication Reconciliation Form rn - Thank You Letter rn - Antibiotic information technology internship - Prescription Opioid Use rn Signatures: Dispatcher [employer] Ralph Collins MD MD rn Lewis, Lynsay, RN RN ll1
[2022-06-04 15:40] VITALS: TEMP 98; O2SAT 96
[2022-06-04 15:42] VITALS: BP 131/69
== END 2022-06-04 14:11 | disposition home or self-care (01) ==
LOC: ER 11:30
DX: S00.83XA Contusion of other part of head, initial encounter (principal); I10 Essential (primary) hypertension; E11.9 Type 2 diabetes mellitus without complications; Z88.5 Allergy status to narcotic agent; Z88.8 Allergy status to other drugs, medicaments and biological substances; Z91.048 Other nonmedicinal substance allergy status
CPT/HCPCS: 70450; 71045; 72125; 99284

== ENCOUNTER 2024-01-19 14:36 | Observation (INO) | payer OTHER ==
[2024-01-19] MEDS ORDERED: LEVALBUTEROL 1.25 MG/3 ML NEB ONE ×2 (15:09→16:34)
[2024-01-19] MEDS ORDERED: IPRATROPIUM BROM 0.5MG/2.5ML ONE (15:09)
[2024-01-19] MEDS ORDERED: CEFTRIAXONE 1000 MG/VIAL ONE (15:09)
[2024-01-19] MEDS ORDERED: NA CHLORIDE 0.9% 1,000 ML ONE (15:10)
[2024-01-19 15:38] LABS: Absolute Eosinophils 0.1 K/uL (0-0.5); Absolute Lymphocytes (CBC) 1.2 K/uL (0.7-4.9); Absolute Monocytes 0.4 K/uL (0.1-1.3); Absolute Neutrophil 3.3 K/uL (1.8-8.0); Basophils % 0.6 % (0-1.3); Eosinophils % 1.3 % (0-4.4); Hematocrit 32.2 % (36.0-45.0); Hemoglobin 10.5 g/dL (12.0-15.0); Lymphocytes % 23.8 % (15.3-44.8); MCH 32.1 pg (27.0-35.0); MCHC 32.6 g/dL (32.0-36.0); MCV 98.3 fL (80-100); MPV 7.7 fL (7.6-11.3); Monocytes % 8.4 % (3.3-12.3); Neutrophils % 65.9 % (41.7-73.7); Platelets 147 thou/uL (152-406); RBC Red Blood Cell Count 3.28 M/uL (3.86-4.86); Red Cell Distribution Width 13.7 % (12.1-15.2)
[2024-01-19 15:43] LABS: PT Prothrombin Time 11.8 SECONDS (9.5-12.5); Protime INR 1.07
[2024-01-19 15:53] LABS: SARS-CoV-2 Antigen CONTROL BLUE LINE VIS/BG OK; SARS-CoV-2 Antigen Rapid Res Negative (Negative)
[2024-01-19 16:03] LABS: ALT/SGPT 14 U/L (13-56); AST/SGOT 18 U/L (15-37); Albumin 3.2 g/dL (3.4-5.0); Albumin/Globulin Ratio 0.8 (1.1-1.8); Alkaline Phosphatase 97 U/L (45-117); Anion Gap 10.9 mEq/L (5.0-15.0); BUN Blood Urea Nitrogen 25 mg/dL (7-18); Bicarbonate 24 mEq/L (21-32); Bilirubin Total 0.2 mg/dL (0.2-1.0); Globulin 3.9 g/dL (2.3-3.5); Glomerular Filtration Rate 52 ml/min (=/>90); Glucose Level 121 mg/dL (74-106); Magnesium 1.6 mg/dL (1.6-2.4); NT PRO-BNP 130 pg/mL (<450); Potassium 4.9 mEq/L (3.5-5.1); Protein, Total 7.1 g/dL (6.4-8.2); Sodium Level 139 mEq/L (136-145); Troponin High Sensitivity 10.5 pg/mL (<58.9)
[2024-01-19 16:09] LABS: Bilirubin Direct < 0.1 mg/dL (0-0.2); Bilirubin Indirect, Calculated ND mg/dL (0.2-0.8)
--- NOTE | 2024-01-19 16:11 | RAD REPORT ---
EX[facility] DES[facility] CLINICAL HISTORY: COUGH COMPARISON: Chest Single View dated 05/02/2023; Chest Single View dated 06/04/2022; Chest Single View dated 06/21/2020; Chest Single View dated 03/25/2020 TECHNIQUE: Portable AP view of the chest. FINDINGS: The lungs show patchy medial right basilar airspace opacification, mildly progressed since prior exam. No pneumothorax or effusion. The cardiomediastinal contours are unremarkable. IMPRESSION: Medial right basilar opacities, may represent atelectasis or early pneumonia.
[2024-01-19] MEDS ORDERED: NA CHLORIDE 0.9% 250 ML ONE (16:34)
[2024-01-19] MEDS ORDERED: AZITHROMYCIN 500 MG INJ IVPB ONE (16:34)
[2024-01-19] MEDS ORDERED: ACETAMINOPHEN 325 MG TABLET ONE (16:34)
--- NOTE | 2024-01-19 16:41 | ER ---
Nurse's Notes [facility] Name: Corrie Nunez Age: 83 yrs Sex: Female : 1940 Arrival Date: 01/19/2024 Time: 14:36 Bed 7 Private MD: Diagnosis: Dyspnea;Pneumonia due to other specified bacteria-RIGHT LOWER LOBE;Fever, unspecified;Weakness Presentation: 01/18 14:41 Chief complaint: Patient states: cough and intermittent SOB, given A\T\A neb tx by EMS en aa5 route. 14:41 Coronavirus screen: cough unrelated to allergies. Ebola Screen: Patient denies travel aa5 to an Ebola-affected area in the 21 days before illness onset. Initial Sepsis Screen: Does the patient meet any 2 criteria? No. Patient's initial sepsis screen is negative. Does the patient have a suspected source of infection? No. Patient's initial sepsis screen is negative. Risk Assessment: Do you want to hurt yourself or someone else? Patient reports no desire to harm self or others. Onset of symptoms was January 2024. 14:41 Acuity: STEPHANIE 3 aa5 14:41 Method Of Arrival: EMS: [facility] aa5 Historical: - Allergies: 14:41 Codeine; aa5 14:41 Iodine; aa5 14:41 Morphine; aa5 14:41 Protonix; aa5 - PMHx: 14:41 Diabetes - NIDDM; Gout; Hypertension; Hypothyroidism; Lupus; Parkinsons; Psoriatic aa5 Arthritis; Rheumatoid Arthritis; Sjoren's Syndrome; - Immunization history:: Adult Immunizations unknown. - Infectious Disease History:: Denies. - Social history:: Smoking status: Patient denies any tobacco usage or history of. Screenin:41 [facility] ED Fall Risk Assessment (Adult) History of falling in the last 3 months, aa5 including since admission No falls in past 3 months (0 pts) Confusion or Disorientation No (0 pts) Intoxicated or Sedated No (0 pts) Impaired Gait Yes (1 pt) Mobility Assist Device Used Yes (1 pt) Altered Elimination Yes (1 pt) Score/Fall Risk Level 3 or more points = High Risk Oriented to surroundings, Maintained a safe environment, Educated pt \T\ family on fall prevention, incl call for assistance when getting out of bed. 14:41 Abuse screen: Denies threats or abuse. Nutritional screening: No deficits noted. aa5 Tuberculosis screening: No symptoms or risk factors identified. Assessment: 14:41 General: Appears comfortable, Behavior is calm, cooperative. Pain: Denies pain. Neuro: aa5 Level of Consciousness is awake, alert, obeys commands, Oriented to person, place, time, situation. Cardiovascular: Heart tones S1 S2 present Rhythm is regular. Respiratory: Reports shortness of breath on exertion cough that is productive, Airway is patent Respiratory effort is even, unlabored, Respiratory pattern is regular, symmetrical, Breath sounds with wheezes bilaterally. GI: Abdomen is round non-distended, Bowel sounds present X 4 quads. Abd is soft and non tender X 4 quads. : No signs and/or symptoms were reported regarding the genitourinary system. EENT: No signs and/or symptoms were reported regarding the EENT system. Derm: Skin is pink, warm \T\ dry. Musculoskeletal: Range of motion: intact in all extremities. 15:45 Reassessment: Patient is alert, oriented x 3, equal unlabored respirations, skin aa5 warm/dry/pink. 16:45 Reassessment: Patient is alert, oriented x 3, equal unlabored respirations, skin aa5 warm/dry/pink. 18:20 Reassessment: Patient is alert, oriented x 3, equal unlabored respirations, skin aa5 warm/dry/pink. 18:30 Reassessment: Assisted with bedside commode, voided, pt assisted back to bed. . aa5 19:08 Reassessment: Patient is alert, oriented x 3, equal unlabored respirations, skin aa5 warm/dry/pink. Vital Signs: 14:41 BP 140 / 63; Pulse 65; Resp 19 S; Temp 99.2(O); Pulse Ox 99% on R/A; aa5 15:45 BP 136 / 61; Pulse 65; Resp 17 S; Pulse Ox 98% on R/A; aa5 16:45 BP 131 / 63; Pulse 64; Resp 19 S; Pulse Ox 100% on Nebulizer Mask; aa5 18:00 BP 124 / 71; Pulse 69; Resp 18 S; Temp 98.2(TE); Pulse Ox 100% on R/A; aa5 ED Course: 14:41 Patient arrived in ED. eb 14:41 Arm band placed on. aa5 14:41 Patient has correct armband on for positive identification. Placed in gown. Bed in low aa5 position. Call light in reach. Side rails up X2. Client placed on continuous cardiac and pulse oximetry monitoring. NIBP monitoring applied. cotton classer on. Pulse ox on. NIBP on. 14:49 Tang Fletcher MD is Attending Physician. jaime 14:59 Ceci Merrill, RN is Primary Nurse. aa5 15:01 Triage completed. aa5 15:10 Missed attempt(s): 22 gauge in right forearm. bc6 15:20 Initial lab(s) drawn, by me, sent to lab. First set of blood cultures drawn by me. bc6 15:30 Lactate w/ 2H reflex if indic. Sent. bc6 15:30 Blood Culture Adult (2) Sent. bc6 15:30 Flu Sent. bc6 15:30 SARS RAPID Sent. bc6 15:30 Basic Metabolic Panel Sent. bc6 15:30 CBC with Diff Sent. bc6 15:30 LFT's Sent. bc6 15:30 Magnesium Sent. bc6 15:30 NT PRO-BNP Sent. bc6 15:30 PT-INR Sent. bc6 15:30 Troponin HS Sent. bc6 15:30 EKG done, by ED staff, reviewed by Tang Fletcher MD. aa5 15:31 Inserted saline lock: 22 gauge in left forearm, using aseptic technique. Blood bc6 collected. 15:46 XRAY Chest (1 view) In Process Unspecified. EDMS 16:39 Gerald English MD is Hospitalizing Provider. jaime 19:08 Patient admitted, IV remains in place. aa5 19:08 No provider procedures requiring assistance completed. aa5 Administered Medications: 15:30 Drug: Levalbuterol Inhalation 1.25 mg Inhalation once Route: Inhalation; aa5 15:30 Drug: Ipratropium Inhalation Aerosol 0.5 mg Inhalation once Route: Inhalation; aa5 15:45 Drug: NS 0.9% IV 1000 ml IV at 125 ml/hr continuous Route: IV; Rate: 125 ml/hr; Site: aa5 left forearm; 15:58 Drug: Rocephin IV 1 grams IV at per protocol once; Given slow IV push per pharmacy aa5 instructions Route: IV; Rate: per protocol; Site: left forearm; 16:05 Follow up: Response: No adverse reaction aa5 16:45 Drug: Zithromax IVPB 500 mg IVPB once over 1 hrs; mix in 250 mL NS Route: IVPB; Infused aa5 Over: 1 hrs; Site: left forearm; 17:45 Follow up: Response: No adverse reaction; Completed infusion. aa5 16:45 Drug: Levalbuterol Inhalation 1.25 mg Inhalation once Route: Inhalation; aa5 17:09 Drug: Acetaminophen PO 650 mg PO once Route: PO; aa5 18:20 Follow up: Response: No adverse reaction aa5 18:20 Drug: Magnesium Sulfate IVPB 1 grams IVPB once over 1 hrs Route: IVPB; Infused Over: 1 aa5 hrs; Site: left forearm; 19:08 Follow up: IV Status: Completed infusion aa5 18:20 Drug: MethylPrednisoLONE IVP 125 mg IVP once Route: IVP; Site: left forearm; aa5 18:30 Follow up: Response: No adverse reaction aa5 Medication: 18:05 VIS not applicable for this client. aa5 Intake: Outcome: 16:40 Decision to Hospitalize by Provider. jaime 18:37 Condition: Report faxed to 4th floor, Room 413. aa5 19:08 Admitted to Tele accompanied by tech, family with patient, via stretcher, room 413, aa5 with chart, 19:08 Condition: stable 19:08 Instructed on the need for admit, Demonstrated understanding of instructions, 19:09 Patient left the ED. aa5 Signatures: Dispatcher [employer] EDTang Soares MD MD cha Calderon, Audri RN RN aa5 Mulu Ramirez Breana 6 Corrections: (The following items were deleted from the chart) 18:10 16:30 BP 131 / 63; Pulse 64bpm; Resp 19bpm; Spontaneous; Pulse Ox 100% Nebulizer Mask; aa5 aa5 19:17 17:45 Response: No adverse reaction aa5 aa5 19:18 19:17 Response: No adverse reaction; Completed infusion. aa5 aa5 19:19 18:00 BP 124 / 71; Pulse 69bpm; Resp 18bpm; Spontaneous; Pulse Ox 100% RA; aa5 aa5
--- NOTE | 2024-01-19 16:41 | EDPHYS ---
Physician Documentation [facility] Name: Corrie Nunez Age: 83 yrs Sex: Female : 1940 Arrival Date: 01/19/2024 Time: 14:36 Bed 7 Private MD: ED Physician Tang Fletcher HPI: 01/18 16:35 This 83 yrs old Female presents to ER via EMS with complaints of Cough. jaime 16:35 The patient or guardian reports airway noise, cough, difficulty breathing, flu jaime symptoms, arthralgias, low-grade fever, myalgias. Onset: The symptoms/episode began/occurred 3 day(s) ago. Severity of symptoms: At their worst the symptoms were mild, in the emergency department the symptoms are unchanged. Modifying factors: The symptoms are alleviated by nothing, the symptoms are aggravated by exertion. Associated signs and symptoms: Pertinent positives: fever, nausea, rhinorrhea, sore throat. The patient has experienced similar episodes in the past, several times. Historical: - Allergies: 14:41 Codeine; aa5 14:41 Iodine; aa5 14:41 Morphine; aa5 14:41 Protonix; aa5 - PMHx: 14:41 Diabetes - NIDDM; Gout; Hypertension; Hypothyroidism; Lupus; Parkinsons; Psoriatic aa5 Arthritis; Rheumatoid Arthritis; Sjoren's Syndrome; - Immunization history:: Adult Immunizations unknown. - Infectious Disease History:: Denies. - Social history:: Smoking status: Patient denies any tobacco usage or history of. ROS: 16:36 Constitutional: Negative for fever, chills, and weight loss, Eyes: Negative for injury, jaime pain, redness, and discharge, ENT: Negative for injury, pain, and discharge, Neck: Negative for injury, pain, and swelling, Cardiovascular: Negative for chest pain, palpitations, and edema, Abdomen/GI: Negative for abdominal pain, nausea, vomiting, diarrhea, and constipation, Back: Negative for injury and pain, : Negative for injury, bleeding, discharge, and swelling, MS/Extremity: Negative for injury and deformity, Skin: Negative for injury, rash, and discoloration, Neuro: Negative for headache, weakness, numbness, tingling, and seizure, Psych: Negative for depression, anxiety, suicide ideation, homicidal ideation, and hallucinations, Allergy/Immunology: Negative for hives, rash, and allergies, Endocrine: Negative for neck swelling, polydipsia, polyuria, polyphagia, and marked weight changes, 16:36 Respiratory: Positive for cough, "sounds productive", dyspnea on exertion, shortness of breath, on exertion. wheezing, expiratory, Exam: 16:36 Head/Face: Normocephalic, atraumatic. Eyes: Pupils equal round and reactive to light, jaime extra-ocular motions intact. Lids and lashes normal. Conjunctiva and sclera are non-icteric and not injected. Cornea within normal limits. Periorbital areas with no swelling, redness, or edema. ENT: Nares patent. No nasal discharge, no septal abnormalities noted. Tympanic membranes are normal and external auditory canals are clear. Oropharynx with no redness, swelling, or masses, exudates, or evidence of obstruction, uvula midline. Mucous membranes moist. Neck: Trachea midline, no thyromegaly or masses palpated, and no cervical lymphadenopathy. Supple, full range of motion without nuchal rigidity, or vertebral point tenderness. No Meningismus. Chest/axilla: Normal chest wall appearance and motion. Nontender with no deformity. No lesions are appreciated. Cardiovascular: Regular rate and rhythm with a normal S1 and S2. No gallops, murmurs, or rubs. Normal PMI, no JVD. No pulse deficits. Abdomen/GI: Soft, non-tender, with normal bowel sounds. No distension or tympany. No guarding or rebound. No evidence of tenderness throughout. Back: No spinal tenderness. No costovertebral tenderness. Full range of motion. Female : Normal external genitalia. Skin: Warm, dry with normal turgor. Normal color with no rashes, no lesions, and no evidence of cellulitis. MS/ Extremity: Pulses equal, no cyanosis. Neurovascular intact. Full, normal range of motion. Neuro: Awake and alert, GCS 15, oriented to person, place, time, and situation. Cranial nerves II-XII grossly intact. Motor strength 5/5 in all extremities. Sensory grossly intact. Cerebellar exam normal. Normal gait. Psych: Awake, alert, with orientation to person, place and time. Behavior, mood, and affect are within normal limits. 16:36 Constitutional: The patient appears well developed, febrile, obviously ill, uncomfortable, 16:36 ECG was reviewed by the Attending Physician. 16:36 Respiratory: the patient does not display signs of respiratory distress, Respirations: no acute changes, Breath sounds: bronchial sounds, that are mild, are scattered, decreased breath sounds, that are mild, are scattered, rhonchi, that are mild, are scattered, stridor, is not appreciated, + upper airway congestion. wheezing: inspiratory expiratory is scattered, 16:36 Musculoskeletal/extremity: DVT Exam: No signs of deep vein thrombosis. no pain, no swelling, no tenderness, negative Homans' sign noted on exam, no appreciated bluish discoloration, no erythema, no increased warmth, Vital Signs: 14:41 BP 140 / 63; Pulse 65; Resp 19 S; Temp 99.2(O); Pulse Ox 99% on R/A; aa5 15:45 BP 136 / 61; Pulse 65; Resp 17 S; Pulse Ox 98% on R/A; aa5 16:45 BP 131 / 63; Pulse 64; Resp 19 S; Pulse Ox 100% on Nebulizer Mask; aa5 18:00 BP 124 / 71; Pulse 69; Resp 18 S; Temp 98.2(TE); Pulse Ox 100% on R/A; aa5 MDM: 14:49 Patient medically screened. jaime 16:42 Differential diagnosis: Anemia Anxiety Reaction asthma, Bronchitis CHF exacerbation, jaime Chronic Obstructive Pulmonary Disease obstructed airway, bronchitis, flu, URI, Myocardial Infarction pneumonia, pulmonary edema, Pulmonary Embolism reactive airway disease, Sepsis Unstable Angina. Antibiotic administration: Rocephin and Zithromax given. Differential Diagnosis: Obstructed Airway Bronchitis Influenza Upper Respiratory Infection Sinusitis Pharyngitis Asthma Exacerbation Viral Syndrome Pneumonia. Immunization status: Pneumococcal vaccine: within last 5 years. Influenza vaccine: within last 5 years. Data reviewed: vital signs, nurses notes, EMS record, lab test result(s), EKG, radiologic studies, plain films. Consideration of Admission/Observation Patient was admitted/placed on observation. Escalation of care including admission/observation considered. I considered the following discharge prescriptions or medication management in the emergency department Medications were administered in the Emergency Department. See MAR. Independent interpretation of the following test(s) in the Emergency Department EKG: See my EKG interpretation above. Test considered but Not performed: CT: NO CT CHEST. Historians other than the Patient: EMS: EMS WELL INFORMED. Care significantly affected by the following chronic conditions: Diabetes, Hypertension, Obesity, GOUT, LUPUS, PSORIATIC ARTHRITIS, HYPOTHYROID. 01/18 14:51 Order name: Basic Metabolic Panel; Complete Time: 16:16 [facility] 01/18 14:51 Order name: CBC with Diff; Complete Time: 16:16 [facility] 01/18 14:51 Order name: LFT's; Complete Time: 16:16 [facility] 01/18 14:51 Order name: Magnesium; Complete Time: 16:16 [facility] 01/18 14:51 Order name: NT PRO-BNP; Complete Time: 16:16 [facility] 01/18 14:51 Order name: PT-INR; Complete Time: 16:16 [facility] 01/18 14:51 Order name: Troponin HS; Complete Time: 16:16 [facility] 01/18 14:51 Order name: SARS RAPID; Complete Time: 16:16 [facility] 01/18 14:51 Order name: Flu; Complete Time: 16:16 [facility] 01/18 14:51 Order name: Blood Culture Adult (2) [facility] 01/18 14:51 Order name: Lactate w/ 2H reflex if indic.; Complete Time: 16:16 [facility] 01/18 14:51 Order name: XRAY Chest (1 view); Complete Time: 16:16 [facility] 01/18 16:39 Order name: INCENTIVE SPIROMETRY 01/18 14:51 Order name: EKG; Complete Time: 14:52 [facility] 01/18 14:51 Order name: Cardiac monitoring; Complete Time: 15:07 [facility] 01/18 14:51 Order name: EKG - Nurse/Tech; Complete Time: 15:30 [facility] 01/18 14:51 Order name: IV Saline Lock; Complete Time: 15:30 [facility] 01/18 14:51 Order name: Labs collected and sent; Complete Time: 15:30 [facility] 01/18 14:51 Order name: O2 Per Protocol; Complete Time: 15:07 [facility] 01/18 14:51 Order name: O2 Sat Monitoring; Complete Time: 15:07 [facility] EC:36 Rate is 64 beats/min. Rhythm is regular. QRS Kotlik is Normal. OK interval is normal. QRS jaime interval is normal. QT interval is normal. No Q waves. T waves are Normal. No ST changes noted. Clinical impression: NSR w/ Non-specific ST/T Changes and No evidence of ischemia. Interpreted by me. Reviewed by me. Administered Medications: 15:30 Drug: Levalbuterol Inhalation 1.25 mg Inhalation once Route: Inhalation; aa5 15:30 Drug: Ipratropium Inhalation Aerosol 0.5 mg Inhalation once Route: Inhalation; aa5 15:45 Drug: NS 0.9% IV 1000 ml IV at 125 ml/hr continuous Route: IV; Rate: 125 ml/hr; Site: aa left forearm; 15:58 Drug: Rocephin IV 1 grams IV at per protocol once; Given slow IV push per pharmacy aa5 instructions Route: IV; Rate: per protocol; Site: left forearm; 16:05 Follow up: Response: No adverse reaction aa5 16:45 Drug: Zithromax IVPB 500 mg IVPB once over 1 hrs; mix in 250 mL NS Route: IVPB; Infused aa5 Over: 1 hrs; Site: left forearm; 17:45 Follow up: Response: No adverse reaction; Completed infusion. aa5 16:45 Drug: Levalbuterol Inhalation 1.25 mg Inhalation once Route: Inhalation; aa5 17:09 Drug: Acetaminophen PO 650 mg PO once Route: PO; aa5 18:20 Follow up: Response: No adverse reaction aa5 18:20 Drug: Magnesium Sulfate IVPB 1 grams IVPB once over 1 hrs Route: IVPB; Infused Over: 1 aa5 hrs; Site: left forearm; 19:08 Follow up: IV Status: Completed infusion aa5 18:20 Drug: MethylPrednisoLONE IVP 125 mg IVP once Route: IVP; Site: left forearm; aa5 18:30 Follow up: Response: No adverse reaction aa5 Disposition Summary: 01/19/24 16:40 Hospitalization Ordered Notes: Hospitalization Status: Inpatient Admission jaime Provider: Gerald English cha [facility] jaime Condition: Fair jaime Problem: new jaime Symptoms: have improved jaime Bed/Room Type: Standard jaime Room Assignment: 413(01/19/24 18:17) eb Diagnosis - Dyspnea jaime - Pneumonia due to other specified bacteria - RIGHT LOWER LOBE jaime - Fever, unspecified jaime - Weakness jaime Forms: - Medication Reconciliation Form jaime - SBAR form jaime - Leadership Thank You Letter jaime Signatures: Dispatcher [employer] Tang Gutierrez MD MD cha Calderon, Audri RN RN aa5 Mulu Ramirez Corrections: (The following items were deleted from the chart) 14:52 14:52 BASIC METABOLIC PANEL+C.LAB.BRZ ordered. EDMS EDMS 14:52 14:52 CBC+H.LAB.BRZ ordered. EDMS EDMS 14:52 14:52 HEPATIC FUNCTION+C.LAB.BRZ ordered. EDMS EDMS 14:52 14:52 MAGNESIUM+C.LAB.BRZ ordered. EDMS EDMS 14:52 14:52 PROBNP+C.LAB.BRZ ordered. EDMS EDMS 14:52 14:52 PROTIME (+INR)+COAG.LAB.BRZ ordered. EDMS EDMS 14:52 14:52 Troponin High Sensitivity+C.LAB.BRZ ordered. EDMS EDMS 14:52 14:52 SARS-COV-2 Antigen Rapid+I.LAB.BRZ ordered. EDMS EDMS 14:52 14:52 Influenza Screen (A \\T\\ B)+BA.LAB.BRZ ordered. EDMS EDMS 14:52 14:52 BLOOD CULTURE*+BA.LAB.BRZ ordered. EDMS EDMS 14:52 14:52 LACTATE+C.LAB.BRZ ordered. EDMS EDMS 18:17 16:40 jaime eb
--- NOTE | 2024-01-19 17:25 | P.HP ---
Certification for Inpatient Patient admitted to: Observation With expected LOS: <2 Midnights Patient will require the following post-hospital care: None Practitioner: I am a practitioner with admitting privileges, knowledge of patient current condition, hospital course, and medical plan of care. Services: Services provided to patient in accordance with Admission requirements found in Title 42 Section 412.3 of the Code of Federal Regulations Patient History Date of Service: 01/19/24 Reason for admission: Pneumonia History of Present Illness: 83-year-old female with history of diet-controlled diabetes, hypertension, hypothyroidism, lupus, rheumatoid arthritis, psoriatic arthritis, Sjogren's presented to the emergency department with chief complaint of cough, shortness of breath. She reports that her symptoms started last weekend, she was seen by one of her doctors on 01/15/2024 and prescribed Augmentin/doxycycline which she has been taking since then. She reports that the cough seems to be worsening as well as having some wheezing for last couple of days. She was evaluated in the emergency department her labs were significant for a normal white blood cell count hemoglobin of 10.5 medic at 32.2 creatinine 1.08 lactic acid 1.4 COVID/influenza swabs were negative chest x-ray shows a possible early right middle lobe pneumonia versus atelectasis. Patient was treated with IV antibiotics, IV steroids, nebulizer treatments in the emergency department. ED provider wishes to admit under observation for pneumonia. Allergies iodine Allergy (Intermediate, Verified 06/29/23 10:54) Itching/Hives/Rash shrimp Allergy (Verified 06/29/23 10:54) Itching/Hives/Rash codeine [Codeine] Adverse Reaction (Mild, Verified 06/29/23 10:54) Nausea/Vomiting Home Medications: Fentanyl Patch [Duragesic Patch*] 75 mcg TOP EVERY 3RD DAY 10/15/15 Levothyroxine [Synthroid*] 100 mcg PO DAILY 10/15/15 Tramadol HCl [Ultram] 1 - 2 tab PO TID PRN 10/15/15 predniSONE [Prednisone] 5 mg PO DAILY 10/15/15 Leflunomide 20 mg PO DAILY 03/27/19 Carbidopa/Levodopa [Carbidopa-Levo 25-100 mg Odt] 1 tab PO TID 03/26/20 Cyclosporine [Restasis Multidose] 1 drop EACH EYE BID 03/26/20 Diclofenac Sodium [Voltaren] 2 gm TOP QID 03/26/20 Escitalopram [Lexapro*] 10 mg PO DAILY PRN 03/26/20 Fluticasone Propionate 1 film TOP BID PRN 03/26/20 Billy-Plex Gel 85 mg PO BID 03/26/20 Montelukast [Singulair*] 10 mg PO BEDTIME PRN 03/26/20 Triamcinolone 0.1% Crm [Kenalog 0.1% Cream*] 1 dose TOP BID PRN 03/26/20 sulfaSALAzine [Sulfasalazine] 500 mg PO BID 03/26/20 Amantadine HCl [Amantadine] 50 mg PO BID 09/17/21 Gabapentin 2 pill PO TID 09/17/21 - Past Medical/Surgical History Diabetic: Yes -: HTN -: anxiety -: Lupus -: arthritis -: DMII -: Anxiety -: Depression -: Likely Parkinson's -: CKD -: Cholecystectomy -: Back Surgery -: Hysterectomy Psychosocial/ Personal History: Patient is and currently lives at home with her daughter. - Family History Father -: Heart disease, Stroke Mother -: Heart disease, Diabetes - Social History Alcohol use: No CD- Drugs: No Caffeine use: Yes Place of Residence: Home Review of Systems 10-point ROS is otherwise unremarkable General: Malaise Respiratory: Cough, Shortness of Breath, SOB with Excertion, Sputum, Wheezing Physical Examination - Physical Exam General: Alert, In no apparent distress, Oriented x3 HEENT: Atraumatic, PERRLA Neck: Supple, 2+ carotid pulse no bruit, No LAD Respiratory: Diminished, Expiratory wheezes Cardiovascular: Regular rate/rhythm, Normal S1 S2 Gastrointestinal: Normal bowel sounds, No tenderness Musculoskeletal: No tenderness Integumentary: No rashes Neurological: Normal gait, Normal speech, Normal strength at 5/5 x4 extr, Normal tone, Normal affect Lymphatics: No axilla or inguinal lymphadenopathy - Studies Laboratory Data (last 24 hrs) 01/19/24 01/19/24 01/19/24 15:20 15:20 15:20 WBC 5.00 Hgb 10.5 L Hct 32.2 L Plt Count 147 L PT 11.8 INR 1.07 Sodium 139 Potassium 4.9 BUN 25 H Creatinine 1.08 H Glucose 121 H Magnesium 1.6 Total Bilirubin 0.2 AST 18 ALT 14 Alkaline Phosphatase 97 Microbiology Data (last 24 hrs): 01/19/24 15:30 Nasopharnyx Influenza Type A Antigen Screen - Final 01/19/24 15:30 Nasopharnyx Influenza Type B Antigen Screen - Final Assessment and Plan - Plan Assessment: Dyspnea, cough secondary to right middle lobe pneumonia Hypertension Hypothyroidism Diet-controlled diabetes Lupus Rheumatoid/psoriatic arthritis Sjogren's syndrome Plan: Dyspnea, cough secondary to right middle lobe pneumonia Was on Augmentin/doxycycline since 01/15/2024 Still with persistent cough now with wheezing Continue with IV Rocephin/Zithromax, as needed antitussives WBC 5, temperature 99 Watch for fevers, monitor pulse ox with vital signs Repeat CBC in the morning, patient did receive steroids in the ED As needed renew meds Hypertension Hypothyroidism Diet-controlled diabetes Lupus Rheumatoid/psoriatic arthritis Sjogren's syndrome Continue home medications DVT PPX: Lovenox Code status: Full Discharge Plan: Home Plan to discharge in: 24 Hours - Advance Directives Does patient have a Living Will: No Does patient have a Durable POA for Healthcare: No - Code Status/Comfort Care Code Status Assessed: Yes (Full code) Critical Care: No Time Spent Managing Pts Care (In Minutes): 70
[2024-01-19] MEDS ORDERED: MAGNESIUM SULFATE 1 gm IVPB 1 GM/100 ML BAG IV ONE (18:17)
[2024-01-19] MEDS ORDERED: METHYLPREDNISOLONE 125 MG INJ ONE (18:17)
[2024-01-19] MEDS: NA CHLORIDE 0.9% 1,000 ML IV SCH (21:06)
[2024-01-19] MEDS ORDERED: ALBUTEROL 2.5 MG/3 ML NEB SOL NEB PRN (21:06)
[2024-01-19] MEDS ORDERED: BENZONATATE 100 MG CAP PO PRN (21:06)
[2024-01-19] MEDS ORDERED: MELATONIN 5 MG TABLET PO PRN (21:06)
[2024-01-19] MEDS: ACETAMINOPHEN 500 MG TAB PO PRN (22:20)
[2024-01-19] MEDS ORDERED: CYCLOSPORINE OPTH PRN (23:10)
[2024-01-20 00:15] VITALS: BMI 29.2
[2024-01-20 04:45] VITALS: O2SAT 98
[2024-01-20 05:27] LABS: Absolute Lymphocytes (CBC) 0.6 K/uL (0.7-4.9); Absolute Monocytes 0.1 K/uL (0.1-1.3); Absolute Neutrophil 3.1 K/uL (1.8-8.0); Basophils % 0.3 % (0-1.3); Hemoglobin 9.9 g/dL (12.0-15.0); Lymphocytes % 16.8 % (15.3-44.8); MCH 33.1 pg (27.0-35.0); MCHC 34.2 g/dL (32.0-36.0); MCV 96.7 fL (80-100); MPV 7.6 fL (7.6-11.3); Neutrophils % 79.9 % (41.7-73.7); Platelets 146 thou/uL (152-406); Red Cell Distribution Width 13.4 % (12.1-15.2)
[2024-01-20 05:47] LABS: Anion Gap 12.2 mEq/L (5.0-15.0); Potassium 5.2 mEq/L (3.5-5.1)
[2024-01-20] MEDS: AMANTADINE HCL 100 MG PO SCH (09:00)
[2024-01-20] MEDS: SULFASALAZINE 500 MG E.C. TAB PO SCH (09:45)
[2024-01-20] MEDS: ENOXAPARIN 40 MG/0.4 ML SQ SCH (09:45)
--- NOTE | 2024-01-20 12:26 | P.DS ---
Admission Date: 01/19/24 Discharge Date: 01/20/24 Disposition: ROUTINE DISCHARGE Discharge Condition: GOOD Reason for Admission: Pneumonia Brief History of Present Illness: 83-year-old female with history of diet-controlled diabetes, hypertension, hypothyroidism, lupus, rheumatoid arthritis, psoriatic arthritis, Sjogren's presented to the emergency department with chief complaint of cough, shortness of breath. She reports that her symptoms started last weekend, she was seen by one of her doctors on 01/15/2024 and prescribed Augmentin/doxycycline which she has been taking since then. She reports that the cough seems to be worsening as well as having some wheezing for last couple of days. She was evaluated in the emergency department her labs were significant for a normal white blood cell count hemoglobin of 10.5 medic at 32.2 creatinine 1.08 lactic acid 1.4 COVID/influenza swabs were negative chest x-ray shows a possible early right middle lobe pneumonia versus atelectasis. Patient was treated with IV antibiotics, IV steroids, nebulizer treatments in the emergency department. ED provider wishes to admit under observation for pneumonia. Hospital Course: Assessment: Dyspnea, cough secondary to right middle lobe pneumonia Hypertension Hypothyroidism Diet-controlled diabetes Lupus Rheumatoid/psoriatic arthritis Sjogren's syndrome Patient was admitted under observation for right-sided pneumonia, shortness of breath, wheezing. She was treated with nebulizer treatments, a dose of IV steroids and Rocephin/Zithromax. She had significant improvement in her symptoms overnight and is no longer having wheezing or significant shortness of breath and room air sats are 98 to 99%. She was previously prescribed Augmentin/doxycycline on 01/14 which we recommend that she continues until completed. She will be sent a prescription for an inhaler to use as needed for wheezing or shortness of breath as well as a cough medication. Please follow-up with your primary care doctor in 1 to 2 weeks Vital Signs/Physical Exam: Temp Pulse Resp BP Pulse Ox 97.1 F 64 17 155/67 H 96 01/20/24 08:00 01/20/24 08:00 01/20/24 08:00 01/20/24 08:00 01/20/24 08:00 General: Alert, In no apparent distress, Oriented x3 HEENT: Atraumatic, PERRLA Neck: Supple, JVD not distended Respiratory: Clear to auscultation bilaterally, Normal air movement Cardiovascular: Regular rate/rhythm, Normal S1 S2 Gastrointestinal: Normal bowel sounds, No tenderness Musculoskeletal: No tenderness Integumentary: No rashes Neurological: Normal speech, Normal tone, Normal affect Laboratory Data at Discharge: WBC 3.80 thou/uL (4.3-10.9) L 01/20/24 04:37 Hgb 9.9 g/dL (12.0-15.0) L 01/20/24 04:37 Hct 29.0 % (36.0-45.0) L 01/20/24 04:37 Plt Count 146 thou/uL (152-406) L 01/20/24 04:37 PT 11.8 SECONDS (9.5-12.5) 01/19/24 15:20 INR 1.07 01/19/24 15:20 Sodium 138 mEq/L (136-145) 01/20/24 04:37 Potassium 5.2 mEq/L (3.5-5.1) H 01/20/24 04:37 BUN 29 mg/dL (7-18) H 01/20/24 04:37 Creatinine 1.03 mg/dL (0.55-1.02) H 01/20/24 04:37 Glucose 138 mg/dL (74-106) H 01/20/24 04:37 Magnesium 2.0 mg/dL (1.6-2.4) 01/20/24 04:37 Total Bilirubin 0.2 mg/dL (0.2-1.0) 01/19/24 15:20 AST 18 U/L (15-37) 01/19/24 15:20 ALT 14 U/L (13-56) 01/19/24 15:20 Alkaline Phosphatase 97 U/L (45-117) 01/19/24 15:20 Home Medications: Fentanyl Patch [Duragesic Patch*] 75 mcg TOP EVERY 3RD DAY 10/15/15 Levothyroxine [Synthroid*] 100 mcg PO DAILY 10/15/15 Tramadol HCl [Ultram] 1 tab PO BID PRN 10/15/15 predniSONE [Prednisone] 5 mg PO DAILY 10/15/15 Leflunomide 20 mg PO DAILY 03/27/19 Carbidopa/Levodopa [Carbidopa-Levo 25-100 mg Odt] 1 tab PO TID 03/26/20 Cyclosporine [Restasis Multidose] 1 drop EACH EYE BID PRN 03/26/20 Escitalopram [Lexapro*] 20 mg PO DAILY PRN 03/26/20 Triamcinolone 0.1% Crm [Kenalog 0.1% Cream*] 1 dose TOP BID PRN 03/26/20 sulfaSALAzine [Sulfasalazine] 500 mg PO BID 03/26/20 Amantadine HCl [Amantadine] 50 mg PO BID 09/17/21 Aspirin Chewable [Aspirin Chewable*] 1 tab PO DAILY 01/19/24 Cetirizine HCl 1 tab PO DAILY PRN 01/19/24 Cholecalciferol (Vitamin D3) [Vitamin D3] 1 cap PO DAILY 01/19/24 Gabapentin 800 mg PO TID 01/19/24 Losartan Potassium 75 mg PO DAILY 01/19/24 Zinc Gluconate [Zinc] 1 cap PO DAILY 01/19/24 Acetaminophen [Acetaminophen Extra Strength] 1 - 2 tab PO DAILY PRN 01/20/24 Albuterol Inhaler [Ventolin Inhaler*] 2 puff IH Q6H PRN #1 inh 01/20/24 Benzonatate [Tessalon Perle] 100 mg PO TID PRN #30 cap 01/20/24 New Medications: Benzonatate [Tessalon Perle] 100 mg PO TID PRN #30 cap PRN Reason: Cough Albuterol Inhaler [Ventolin Inhaler*] 2 puff IH Q6H PRN #1 inh PRN Reason: Shortness Of Breath Physician Discharge Instructions: Patient was admitted under observation for right-sided pneumonia, shortness of breath, wheezing. She was treated with nebulizer treatments, a dose of IV steroids and Rocephin/Zithromax. She had significant improvement in her symptoms overnight and is no longer having wheezing or significant shortness of breath and room air sats are 98 to 99%. She was previously prescribed Augmentin/doxycycline on 01/14 which we recommend that she continues until completed. She will be sent a prescription for an inhaler to use as needed for wheezing or shortness of breath as well as a cough medication. Please follow-up with your primary care doctor in 1 to 2 weeks Diet: ADA Activity: Fall precautions Followup: Kaylie Vigil NP [Primary Care Provider] - 1-2 Weeks Time spent managing pt's care (in minutes): 30
[2024-01-20] MEDS ORDERED: CEFTRIAXONE 1,000 MG in NA CHLORIDE 0.9% 50 ML IVPB SCH (15:00)
[2024-01-20 15:13] VITALS: BP 169/70; TEMP 98
[2024-01-20] MEDS ORDERED: AZITHROMYCIN IV 500 MG in NA CHLORIDE 0.9% 250 ML IVPB SCH (17:00)
== END 2024-01-20 13:15 | disposition home or self-care (01) ==
LOC: ER 14:36 → ERHOLD 17:11 → 4TH 20:55
PROVIDERS: ADMIT Hospitalist; ATTEND Hospitalist
DX: J18.9 Pneumonia, unspecified organism (principal); E11.9 Type 2 diabetes mellitus without complications; I10 Essential (primary) hypertension; E03.9 Hypothyroidism, unspecified; M32.9 Systemic lupus erythematosus, unspecified; M06.9 Rheumatoid arthritis, unspecified; L40.50 Arthropathic psoriasis, unspecified; M35.00 Sjogren syndrome, unspecified; Z88.5 Allergy status to narcotic agent; Z88.8 Allergy status to other drugs, medicaments and biological substances; Z91.013 Allergy to seafood; Z11.52 Encounter for screening for COVID-19
CPT/HCPCS: 96365; 87040 ×2; 85025 ×2; 80048 ×2; 36415; 83735 ×2; 85610; 82947 ×2; 80076; 83605; 84484; 83880; 87804 ×2; 71045; 96375; 99285; 87811; J3475; J7614 ×2; J7644; J1650; J2930; J7050; J7030; J0696; 93005; G0378

== ENCOUNTER 2024-05-11 14:27 | Inpatient (IN) | payer OTHER ==
[2024-05-11] MEDS ORDERED: NA CHLORIDE 0.9% 1,000 ML ONE ×2 (15:00→17:34)
[2024-05-11 15:19] LABS: Absolute Eosinophils 0.3 K/uL (0-0.5); Absolute Monocytes 0.8 K/uL (0.1-1.3); Absolute Neutrophil 4.6 K/uL (1.8-8.0); Basophils % 0.6 % (0-1.3); Eosinophils % 3.2 % (0-4.4); Hematocrit 27.2 % (36.0-45.0); Hemoglobin 8.7 g/dL (12.0-15.0); Lymphocytes % 26.1 % (15.3-44.8); MCH 31.5 pg (27.0-35.0); MCHC 31.9 g/dL (32.0-36.0); MCV 98.6 fL (80-100); MPV 7.2 fL (7.6-11.3); Neutrophils % 59.1 % (41.7-73.7); Nucleated Red Blood Cells % 0.1 % (0-0); Platelets 215 thou/uL (152-406); RBC Red Blood Cell Count 2.76 M/uL (3.86-4.86); Red Cell Distribution Width 14.6 % (12.1-15.2)
[2024-05-11 15:40] LABS: AST/SGOT 12 U/L (15-37); Albumin 2.8 g/dL (3.4-5.0); Albumin/Globulin Ratio 0.8 (1.1-1.8); Alkaline Phosphatase 84 U/L (45-117); Anion Gap 8.3 mEq/L (5.0-15.0); BUN Blood Urea Nitrogen 28 mg/dL (7-18); Bicarbonate 24 mEq/L (21-32); Bilirubin Total 0.3 mg/dL (0.2-1.0); Creatine Phosphokinase 81 U/L (26-192); Globulin 3.3 g/dL (2.3-3.5); Glomerular Filtration Rate 48 ml/min (=/>90); Glucose Level 153 mg/dL (74-106); Magnesium 2.4 mg/dL (1.6-2.4); NT PRO-BNP 409 pg/mL (<450); Potassium 4.3 mEq/L (3.5-5.1); Protein, Total 6.1 g/dL (6.4-8.2); Sodium Level 138 mEq/L (136-145); Troponin High Sensitivity 11.5 pg/mL (<58.9)
[2024-05-11 15:57] LABS: ALT/SGPT < 14 U/L (13-56); Bilirubin Direct < 0.2 mg/dL (0-0.2); Bilirubin Indirect, Calculated 0.1 mg/dL (0.2-0.8)
--- NOTE | 2024-05-11 16:18 | RAD REPORT ---
EXAM DESCRIPTION: RAD - Chest Single View - 05/11/2024 4:00 pm CLINICAL HISTORY: weakness Chest pain. COMPARISON: <Comparisons> FINDINGS: Portable technique limits examination quality. The lungs are grossly clear. The heart is upper limit of normal in size. No displaced fractures. IMPRESSION: No acute intrathoracic process suspected.
[2024-05-11 19:30] LABS: Specific Gravity 1.019 (1.005-1.030); Sqamous Epithelial <5 /HPF (None Seen); Urine Bacteria 20-50 /HPF (<20); Urine Bilirubin NEGATIVE (Negative); Urine Blood Negative (Negative); Urine Clarity Extremely Turbid (Clear); Urine Color Yellow (Yellow); Urine Crystals Unidentified Few /HPF (None Seen); Urine Culture Reflex Order NOT NEEDED; Urine Glucose NEGATIVE (Negative); Urine Ketones NEGATIVE (Negative); Urine Micro Reflex YN NO BILL MICROSCOPIC; Urine Mucus Slight /HPF (None Seen); Urine Nitrite 2+ (Negative); Urine Protein TRACE (Negative); Urine RBC <5 /HPF (None Seen); Urine Urobilinogen Normal (Normal); Urine pH 5.5 (5.0-7.0)
[2024-05-11] MEDS ORDERED: ONDANSETRON 4 MG/2 ML VIAL IV PRN (19:31)
--- NOTE | 2024-05-11 19:38 | EDPHYS ---
Physician Documentation [facility] Name: Corrie Nunez Age: 83 yrs Sex: Female : 1940 Arrival Date: 05/11/2024 Time: 14:27 Bed 20 Private MD: ED Physician Kirk Mills HPI: 05/11 14:50 This 83 yrs old Female presents to ER via EMS with complaints of fatigue. rt 14:50 Patient presents to the ED with reports of fatigue, weakness. Patient is usually able rt to ambulate with a walker, is not able to do so currently. This has been present for about a day. Family reported that the oxygen level was in the 70s, EMS states that the patient's saturation was always in the 90s. She denies any difficulty breathing, denies other acute complaints at this time, symptoms are moderate in severity, no other aggravating or alleviating factors.. Historical: - Allergies: 14:37 Codeine; me1 14:37 Iodine; me1 14:37 Morphine; me1 14:37 Protonix; me1 - PMHx: 14:37 Diabetes - NIDDM; Gout; Hypertension; Hypothyroidism; Lupus; Parkinsons; Psoriatic me1 Arthritis; Rheumatoid Arthritis; Sjoren's Syndrome; - Immunization history:: Adult Immunizations up to date. - Infectious Disease History:: Denies. - Social history:: Smoking status: Patient/guardian denies using tobacco, but has a distant history of tobacco abuse. ROS: 14:50 Constitutional: Negative for fever, chills, and weight loss, Cardiovascular: Negative rt for chest pain, palpitations, and edema, Respiratory: Negative for shortness of breath, cough, wheezing, and pleuritic chest pain, Abdomen/GI: Negative for abdominal pain, nausea, vomiting, diarrhea, and constipation, MS/Extremity: Negative for injury and deformity, Skin: Negative for injury, rash, and discoloration, 14:50 Neuro: Positive for weakness, Negative for dizziness, Exam: 14:50 Constitutional: This is a well developed, well nourished patient who is awake, alert, rt and in no acute distress. Head/Face: Normocephalic, atraumatic. Chest/axilla: Normal chest wall appearance and motion. Nontender with no deformity. No lesions are appreciated. Cardiovascular: Regular rate and rhythm with a normal S1 and S2. No gallops, murmurs, or rubs. Normal PMI, no JVD. No pulse deficits. Respiratory: Lungs have equal breath sounds bilaterally, clear to auscultation and percussion. No rales, rhonchi or wheezes noted. No increased work of breathing, no retractions or nasal flaring. Abdomen/GI: Soft, non-tender, with normal bowel sounds. No distension or tympany. No guarding or rebound. No evidence of tenderness throughout. Back: No spinal tenderness. No costovertebral tenderness. Full range of motion. MS/ Extremity: Pulses equal, no cyanosis. Neurovascular intact. Full, normal range of motion. Neuro: Awake and alert, GCS 15, oriented to person, place, time, and situation. Cranial nerves II-XII grossly intact. Motor strength 5/5 in all extremities. Sensory grossly intact. Cerebellar exam normal. Normal gait. 20:06 ECG was reviewed by the Attending Physician. rt Vital Signs: 14:34 BP 129 / 55; Pulse 72; Resp 17; Temp 97.7; Pulse Ox 96% on 1 lpm NC; Weight 63.5 kg; me1 Height 5 ft. 3 in. ; Pain 4/10; 15:00 BP 133 / 81; Pulse 71; Resp 16; Pulse Ox 96% ; me1 16:00 BP 117 / 61; Pulse 70; Resp 16; Pulse Ox 99% ; me1 17:00 BP 111 / 63; Pulse 65; Resp 16; Pulse Ox 97% on R/A; me1 18:00 BP 112 / 53; Pulse 65; Resp 17; Pulse Ox 96% ; me1 19:00 BP 150 / 85; Pulse 71; Resp 16; Pulse Ox 97% on R/A; me1 20:00 BP 148 / 60; Pulse 79; Resp 16; Temp 98.4; Pulse Ox 97% on R/A; me1 21:00 BP 143 / 67; Pulse 69; Resp 16; Pulse Ox 96% ; me1 21:57 BP 152 / 53; Pulse 80; Resp 16; Pulse Ox 96% on R/A; me1 14:34 Body Mass Index 24.80 (63.50 kg, 160.02 cm) ms1 14:34 Pain Scale: Adult [facility] MDM: 14:33 Patient medically screened. rt 20:06 Differential Diagnosis Dehydration, dysrhythmia, UTI, electrolyte disturbance. Data rt reviewed: vital signs, nurses notes, lab test result(s), EKG, radiologic studies. Consideration of Admission/Observation Patient was admitted/placed on observation. Management of patient was discussed with the following: Hospitalist: Agrees to admit. I considered the following discharge prescriptions or medication management in the emergency department Medications were administered in the Emergency Department. See MAR. Independent interpretation of the following test(s) in the Emergency Department X-Ray: My interpretation is No pneumonia seen on interpretation of x-ray images. Care significantly affected by the following chronic conditions: Diabetes. Counseling: I had a detailed discussion with the patient and/or guardian regarding the historical points, exam findings, and any diagnostic results supporting the discharge/admit diagnosis, lab results, radiology results, the need for outpatient follow up, to return to the emergency department if symptoms worsen or persist or if there are any questions or concerns that arise at home. Response to treatment: the patient's symptoms have mildly improved after treatment. 05/11 14:34 Order name: Basic Metabolic Panel; Complete Time: 16:36 rt 05/11 14:34 Order name: CBC with Diff; Complete Time: 16:36 rt 05/11 14:34 Order name: LFT's; Complete Time: 16:36 rt 05/11 14:34 Order name: Magnesium; Complete Time: 16:36 rt 05/11 14:34 Order name: NT PRO-BNP; Complete Time: 16:36 rt 05/11 14:34 Order name: Troponin HS; Complete Time: 16:36 rt 05/11 14:34 Order name: UAM; Complete Time: 19:33 rt 05/11 14:34 Order name: CPK; Complete Time: 16:36 rt 05/11 19:35 Order name: CBC with Automated Diff EDMS 05/11 19:35 Order name: CBC with Automated Diff EDMS 05/11 19:35 Order name: Comprehensive Metabolic Panel EDMS 05/11 19:35 Order name: Comprehensive Metabolic Panel EDMS 05/11 19:35 Order name: COVID-19/FLU A+B/RSV EDMS 05/11 14:34 Order name: XRAY Chest (1 view); Complete Time: 16:36 rt 05/11 19:37 Order name: Chest Single View EDMS 05/11 19:37 Order name: Chest Single View EDMS 05/11 14:34 Order name: Cardiac monitoring; Complete Time: 15:32 rt 05/11 14:34 Order name: EKG - Nurse/Tech; Complete Time: 15:32 rt 05/11 14:34 Order name: IV Saline Lock; Complete Time: 15:24 rt 05/11 14:34 Order name: Labs collected and sent; Complete Time: 15:24 rt 05/11 14:34 Order name: O2 Per Protocol; Complete Time: 15:04 rt 05/11 14:34 Order name: O2 Sat Monitoring; Complete Time: 15:04 rt EC:06 Rate is 67 beats/min. Rhythm is regular, Normal Sinus Rhythm with No ectopy. QRS Addis rt is Normal. [place] interval is normal. QRS interval is normal. QT interval is normal. No Q waves. No ST changes noted. Interpreted by me. Administered Medications: 15:18 Drug: NS 0.9% IV 1000 ml IV at 1 bolus Per protocol; 1000 mL bolus Route: IV; Rate: 1 me1 bolus; Site: left forearm; 17:28 Follow up: Response: No adverse reaction; IV Status: Completed infusion; IV Intake: me1 1000ml 18:13 Drug: NS 0.9% IV 1000 ml IV at 1 bolus Per protocol; 1000 mL bolus Route: IV; Rate: 1 me1 bolus; Site: left forearm; 19:47 Follow up: Response: No adverse reaction; IV Status: Completed infusion; IV Intake: me1 1000ml 19:53 Drug: Rocephin - Rocephin (cefTRIAXone) IVPB 1 grams IVPB once over 30 mins; (mix in 50 me1 mL NS) Route: IVPB; Infused Over: 30 mins; Site: left forearm; 19:55 Follow up: Response: No adverse reaction; IV Status: Completed infusion me1 Disposition Summary: 05/11/24 19:37 Hospitalization Ordered Notes: Hospitalization Status: Inpatient Admission rt Provider: Garfield Morales rt Location: Telemetry/[facility]Sur (Inpatient) rt Condition: Stable rt Problem: new rt Symptoms: are unchanged rt Bed/Room Type: Standard rt Room Assignment: 407(05/11/24 20:00) oh1 Diagnosis - Dehydration rt - Generalized weakness rt - UTI rt Forms: - Medication Reconciliation Form rt - SBAR form rt - Leadership Thank You Letter rt Signatures: Dispatcher [employer] EDKirk Carmona MD MD rt Vijaya Simpson, RN RN me1 Nery Torrez oh1 Corrections: (The following items were deleted from the chart) 14:34 14:34 BASIC METABOLIC PANEL+C.LAB.BRZ ordered. EDMS EDMS 14:34 14:34 CBC+H.LAB.BRZ ordered. EDMS EDMS 14:34 14:34 HEPATIC FUNCTION+C.LAB.BRZ ordered. EDMS EDMS 14:34 14:34 MAGNESIUM+C.LAB.BRZ ordered. EDMS EDMS 14:34 14:34 PROBNP+C.LAB.BRZ ordered. EDMS EDMS 14:34 14:34 Troponin High Sensitivity+C.LAB.BRZ ordered. EDMS EDMS 14:34 14:34 Urinalysis W/Microscopic+U.LAB.BRZ ordered. EDMS EDMS 14:35 14:34 CREATINE PHOSPHOKINASE+C.LAB.BRZ ordered. EDMS EDMS 14:35 14:35 Chest Single View+RAD.RAD.BRZ ordered. EDMS EDMS 14:37 14:37 PSHx: Unable to Obtain; me1 me1 14:51 14:50 Patient presents to the ED with reports of fatigue, weakness. Patient is usually rt able to ambulate with a walker, is not able to do so currently. This has been present for. rt 20:00 19:37 rt oh1
--- NOTE | 2024-05-11 19:38 | ER ---
Nurse's Notes [facility] Name: Corrie Nunez Age: 83 yrs Sex: Female : 1940 Arrival Date: 05/11/2024 Time: 14:27 Bed 20 Private MD: Diagnosis: Dehydration;Generalized weakness;UTI Presentation: 05/11 14:34 Chief complaint: EMS states: toned out for low o2 sat per family. Family says o2 sat me1 was in the 70s on room air. Patient has oxygen at home that she wears PRN. O2 in the 90's with 1 lpm via nc per EMS. Patient c/o fatigue and tingling pain to bilateral ankles/feet. Coronavirus screen: Vaccine status: Patient reports receiving the 2nd dose of the covid vaccine. Ebola Screen: No symptoms or risks identified at this time. Initial Sepsis Screen: Does the patient meet any 2 criteria? No. Patient's initial sepsis screen is negative. Does the patient have a suspected source of infection? No. Patient's initial sepsis screen is negative. Risk Assessment: Do you want to hurt yourself or someone else? Patient reports no desire to harm self or others. Onset of symptoms was May 11, 2024. 14:34 Method Of Arrival: [place] [facility] [place] Acuity: STEPHANIE 3 me1 Triage Assessment: 14:37 General: Appears comfortable, well groomed, well developed, well nourished, Behavior is me1 calm, cooperative, appropriate for age, Reports fatigue for. Pain: Complains of pain in right foot and left foot Pain does not radiate. Pain currently is 4 out of 10 on a pain scale. Quality of pain is described as tingling, Pain began gradually, Is continuous. EENT: No signs and/or symptoms were reported regarding the EENT system. Neuro: Level of Consciousness is awake, alert, obeys commands, Oriented to person, place, time, situation, Appropriate for age Facial droop on left, baseline. Cardiovascular: Patient's skin is warm and dry. Respiratory: Airway is patent Trachea midline Respiratory effort is even, unlabored, Respiratory pattern is regular, symmetrical. GI: No signs and/or symptoms were reported involving the gastrointestinal system. : No signs and/or symptoms were reported regarding the genitourinary system. Derm: Skin is intact, is healthy with good turgor, Skin is pink, warm \T\ dry. Musculoskeletal: No signs and/or symptoms reported regarding the musculoskeletal system. Historical: - Allergies: 14:37 Codeine; me1 14:37 Iodine; me1 14:37 Morphine; me1 14:37 Protonix; me1 - PMHx: 14:37 Diabetes - NIDDM; Gout; Hypertension; Hypothyroidism; Lupus; Parkinsons; Psoriatic me1 Arthritis; Rheumatoid Arthritis; Sjoren's Syndrome; - Immunization history:: Adult Immunizations up to date. - Infectious Disease History:: Denies. - Social history:: Smoking status: Patient/guardian denies using tobacco, but has a distant history of tobacco abuse. Screenin:39 [facility] ED Fall Risk Assessment (Adult) History of falling in the last 3 months, me1 including since admission No falls in past 3 months (0 pts) Confusion or Disorientation No (0 pts) Intoxicated or Sedated No (0 pts) Impaired Gait Yes (1 pt) Mobility Assist Device Used Yes (1 pt) Altered Elimination No (0 pt) Score/Fall Risk Level 0 - 2 = Low Risk Maintained a safe environment, Provided non-skid footwear, Hourly rounding (assess needs \T\ fall precautionary measures) done. Abuse screen: Denies threats or abuse. Nutritional screening: No deficits noted. Tuberculosis screening: No symptoms or risk factors identified. Assessment: 14:39 General: See triage assessment. . me1 17:28 General: bladder scan= 89 ml. me1 Vital Signs: 14:34 BP 129 / 55; Pulse 72; Resp 17; Temp 97.7; Pulse Ox 96% on 1 lpm NC; Weight 63.5 kg; me1 Height 5 ft. 3 in. ; Pain 4/10; 15:00 BP 133 / 81; Pulse 71; Resp 16; Pulse Ox 96% ; me1 16:00 BP 117 / 61; Pulse 70; Resp 16; Pulse Ox 99% ; me1 17:00 BP 111 / 63; Pulse 65; Resp 16; Pulse Ox 97% on R/A; me1 18:00 BP 112 / 53; Pulse 65; Resp 17; Pulse Ox 96% ; me1 19:00 BP 150 / 85; Pulse 71; Resp 16; Pulse Ox 97% on R/A; me1 20:00 BP 148 / 60; Pulse 79; Resp 16; Temp 98.4; Pulse Ox 97% on R/A; me1 21:00 BP 143 / 67; Pulse 69; Resp 16; Pulse Ox 96% ; me1 21:57 BP 152 / 53; Pulse 80; Resp 16; Pulse Ox 96% on R/A; me1 14:34 Body Mass Index 24.80 (63.50 kg, 160.02 cm) me1 14:34 Pain Scale: Adult me1 ED Course: 14:33 Patient arrived in ED. me1 14:33 Kirk Mills MD is Attending Physician. rt 14:37 Triage completed. me1 14:37 Arm band placed on Patient placed in an exam room. me1 14:39 Patient has correct armband on for positive identification. Bed in low position. Call me1 light in reach. Side rails up X2. Provided Education on: POC. Verbalized understanding. . Client placed on continuous cardiac and pulse oximetry monitoring. NIBP monitoring applied. Pulse ox on. NIBP on. 14:39 No provider procedures requiring assistance completed. me1 14:59 Vijaya Simpson, PEYTON is Primary Nurse. me1 15:00 Missed attempt(s): 22 gauge in right antecubital area. me1 15:00 Missed attempt(s): 22 gauge in left forearm. me1 16:02 XRAY Chest (1 view) In Process Unspecified. EDMS 19:37 Garfield Morales MD is Hospitalizing Provider. rt 21:58 Patient admitted, IV remains in place. me1 Administered Medications: 15:18 Drug: NS 0.9% IV 1000 ml IV at 1 bolus Per protocol; 1000 mL bolus Route: IV; Rate: 1 me1 bolus; Site: left forearm; 17:28 Follow up: Response: No adverse reaction; IV Status: Completed infusion; IV Intake: me1 1000ml 18:13 Drug: NS 0.9% IV 1000 ml IV at 1 bolus Per protocol; 1000 mL bolus Route: IV; Rate: 1 me1 bolus; Site: left forearm; 19:47 Follow up: Response: No adverse reaction; IV Status: Completed infusion; IV Intake: me1 1000ml 19:53 Drug: Rocephin - Rocephin (cefTRIAXone) IVPB 1 grams IVPB once over 30 mins; (mix in 50 me1 mL NS) Route: IVPB; Infused Over: 30 mins; Site: left forearm; 19:55 Follow up: Response: No adverse reaction; IV Status: Completed infusion me1 Medication: 14:39 VIS not applicable for this client. me1 Intake: 17:28 IV: 1000ml; Total: 1000ml. me1 19:47 IV: 1000ml; Total: 2000ml. me1 Outcome: 19:37 Decision to Hospitalize by Provider. rt 22:00 Admitted to nm1 22:00 Condition: stable 22:00 Admitted to Tele accompanied by tech, room 407, with chart, Report called to faxed. me1 receipt confirmed by Toña 22:03 Patient left the ED. nm1 Signatures: Dispatcher [employer] EDKirk Carmona MD MD rt Vijaya Simpson RN RN me1 Corrections: (The following items were deleted from the chart) 14:37 14:37 PSHx: Unable to Obtain; me1 me1 21:57 21:00 BP 152 / 53; Pulse 80bpm; Resp 16bpm; Pulse Ox 96% RA; me1 me1
[2024-05-11] MEDS ORDERED: CEFTRIAXONE 1000 MG/VIAL ONE (19:52)
[2024-05-11] MEDS ORDERED: ALBUTEROL 2.5 MG/3 ML NEB SOL NEB SCH (20:00)
--- NOTE | 2024-05-11 20:30 | P.HP ---
Certification for Inpatient Patient admitted to: Observation With expected LOS: <2 Midnights Patient will require the following post-hospital care: None Practitioner: I am a practitioner with admitting privileges, knowledge of patient current condition, hospital course, and medical plan of care. Services: Services provided to patient in accordance with Admission requirements found in Title 42 Section 412.3 of the Code of Federal Regulations Patient History Date of Service: 05/11/24 Reason for admission: Wheezing shortness of breath fever History of Present Illness: Is 83 years of age family members present at the bedside apparently yesterday evening she started complaining of generalized body pain and had a slight fever of 99 this apparently started last night started feeling weak has some wheezing phlegm production and also found her to be little hypoxic and appeared in the hospital/denies a history of Parkinson's disease and rheumatoid arthritis is ambulatory with a walker no prior history of cardiopulmonary problems does not smoke Allergies iodine Allergy (Intermediate, Verified 06/29/23 10:54) Itching/Hives/Rash morphine Allergy (Unknown, Verified 05/11/24 19:57) Rash shrimp Allergy (Verified 06/29/23 10:54) Itching/Hives/Rash codeine [Codeine] Adverse Reaction (Mild, Verified 06/29/23 10:54) Nausea/Vomiting Home Medications: Fentanyl Patch [Duragesic Patch*] 75 mcg TOP EVERY 3RD DAY 10/15/15 Levothyroxine [Synthroid*] 100 mcg PO DAILY 10/15/15 Tramadol HCl [Ultram] 1 tab PO BID PRN 10/15/15 predniSONE [Prednisone] 5 mg PO DAILY 10/15/15 Leflunomide 20 mg PO DAILY 03/27/19 Carbidopa/Levodopa [Carbidopa-Levo 25-100 mg Odt] 1 tab PO TID 03/26/20 Cyclosporine [Restasis Multidose] 1 drop EACH EYE BID PRN 03/26/20 Escitalopram [Lexapro*] 20 mg PO DAILY PRN 03/26/20 Triamcinolone 0.1% Crm [Kenalog 0.1% Cream*] 1 dose TOP BID PRN 03/26/20 sulfaSALAzine [Sulfasalazine] 500 mg PO BID 03/26/20 Amantadine HCl [Amantadine] 50 mg PO BID 09/17/21 Aspirin Chewable [Aspirin Chewable*] 1 tab PO DAILY 01/19/24 Cetirizine HCl 1 tab PO DAILY PRN 01/19/24 Cholecalciferol (Vitamin D3) [Vitamin D3] 1 cap PO DAILY 01/19/24 Gabapentin 800 mg PO TID 01/19/24 Losartan Potassium 75 mg PO DAILY 01/19/24 Zinc Gluconate [Zinc] 1 cap PO DAILY 01/19/24 Acetaminophen [Acetaminophen Extra Strength] 1 - 2 tab PO DAILY PRN 01/20/24 Albuterol Inhaler [Ventolin Inhaler*] 2 puff IH Q6H PRN #1 inh 01/20/24 Benzonatate [Tessalon Perle] 100 mg PO TID PRN #30 cap 01/20/24 - Past Medical/Surgical History Diabetic: Yes -: HTN -: anxiety -: Lupus -: arthritis -: DMII -: Anxiety -: Depression -: Likely Parkinson's -: CKD -: Cholecystectomy -: Back Surgery -: Hysterectomy Psychosocial/ Personal History: Patient is and currently lives at home with her daughter. - Family History Father -: Heart disease, Stroke Mother -: Heart disease, Diabetes - Social History Alcohol use: No CD- Drugs: No Caffeine use: Yes Review of Systems 10-point ROS is otherwise unremarkable General: Weakness Respiratory: Shortness of Breath Physical Examination - Vital Signs Temperature: 97.7 F Blood Pressure: 129/55 Pulse: 72 Respirations: 17 Pulse Ox (%): 98 - Physical Exam General: Alert, Oriented x3 Neck: Supple Respiratory: Clear to auscultation bilaterally Cardiovascular: No edema, Regular rate/rhythm, Normal S1 S2 Gastrointestinal: Normal bowel sounds, Soft and benign Musculoskeletal: No clubbing, No swelling, No contractures Integumentary: No rashes, No breakdown Neurological: Normal gait, Normal speech, Normal strength at 5/5 x4 extr - Studies Laboratory Data (last 24 hrs) 05/11/24 05/11/24 15:10 15:10 WBC 7.70 Hgb 8.7 L Hct 27.2 L Plt Count 215 Sodium 138 Potassium 4.3 BUN 28 H Creatinine 1.15 H Glucose 153 H Magnesium 2.4 Total Bilirubin 0.3 AST 12 L ALT < 14 Alkaline Phosphatase 84 Assessment and Plan - Problems (Diagnosis) (1) Cystitis Current Visit: Yes Status: Acute Plan: And is 83 years of age admitted with sudden onset of body pain shortness of breath wheezing mild hypoxemia analysis is abnormal may have a urinary tract infection chest x-ray is clear matting of the left eye only at home her sat had dropped down to 85% patient does not smoke creatinine is mildly elevated white count is normal analysis possible infection she is mildly anemic history of chronic renal failure otherwise vital signs are all stable to admit IV fluids IV antibiotics admit for observation continue to monitor oxygen also ordered in fluenza COVID and RSV test - Advance Directives Does patient have a Living Will: No Does patient have a Durable POA for Healthcare: No
[2024-05-11] MEDS: CEFTRIAXONE 1,000 MG in NA CHLORIDE 0.9% 50 ML IVPB SCH (21:00)
[2024-05-11 22:35] VITALS: BMI 24.7
[2024-05-11] MEDS: NA CHLORIDE 0.9% 1,000 ML IV SCH (22:36)
[2024-05-11] MEDS: DOXYCYCLINE 100 MG CAP PO SCH (22:36)
[2024-05-11 22:51] LABS: SARS-CoV-2 Antigen CONTROL BLUE LINE VIS/BG OK; SARS-CoV-2 Antigen Rapid Res Negative (Negative)
[2024-05-11] MEDS: ACETAMINOPHEN 500 MG TAB PO PRN (22:53)
[2024-05-12 05:21] LABS: Absolute Eosinophils 0.2 K/uL (0-0.5); Absolute Lymphocytes (CBC) 2.3 K/uL (0.7-4.9); Absolute Monocytes 0.8 K/uL (0.1-1.3); Absolute Neutrophil 3.5 K/uL (1.8-8.0); Basophils % 0.6 % (0-1.3); Eosinophils % 3.2 % (0-4.4); Hematocrit 24.8 % (36.0-45.0); MCH 31.6 pg (27.0-35.0); MCHC 32.1 g/dL (32.0-36.0); MCV 98.5 fL (80-100); MPV 7.6 fL (7.6-11.3); Neutrophils % 51.2 % (41.7-73.7); Nucleated Red Blood Cells % 0.1 % (0-0); Platelets 206 thou/uL (152-406); RBC Red Blood Cell Count 2.52 M/uL (3.86-4.86); Red Cell Distribution Width 14.4 % (12.1-15.2)
[2024-05-12 05:44] LABS: AST/SGOT 14 U/L (15-37); Albumin 2.4 g/dL (3.4-5.0); Albumin/Globulin Ratio 0.8 (1.1-1.8); Alkaline Phosphatase 77 U/L (45-117); Anion Gap 7.6 mEq/L (5.0-15.0); BUN Blood Urea Nitrogen 19 mg/dL (7-18); Bicarbonate 25 mEq/L (21-32); Bilirubin Total 0.3 mg/dL (0.2-1.0); Globulin 3.2 g/dL (2.3-3.5); Glomerular Filtration Rate 57 ml/min (=/>90); Glucose Level 101 mg/dL (74-106); Potassium 4.6 mEq/L (3.5-5.1); Protein, Total 5.6 g/dL (6.4-8.2); Sodium Level 142 mEq/L (136-145)
[2024-05-12 05:45] LABS: ALT/SGPT < 14 U/L (13-56)
[2024-05-12] MEDS: GABAPENTIN 300 MG CAP PO SCH (07:54)
--- NOTE | 2024-05-12 09:21 | P.PN ---
Subjective Date of Service: 05/12/24 Chief Complaint: Wheezing shortness of breath fever Pt is resting comfortably in bed. She denies any fever this am but complains of neuropathic pain in her feet. COVID test is negative. She is getting iv rocephin. No other complaints. Review of Systems General: Unremarkable Eyes: Unremarkable ENT: Unremarkable Respiratory: Unremarkable Cardiovascular: Unremarkable Gastrointestinal: Unremarkable Genitourinary: Unremarkable Musculoskeletal: Unremarkable Integumentary: Unremarkable Neurological: Unremarkable Lymphatics: Unremarkable Physical Examination - Vital Signs Temperature: 97.2 F Blood Pressure: 140/49 Pulse: 155 Respirations: 16 Pulse Ox (%): 93 - Physical Exam General: Alert, In no apparent distress, Oriented x3 HEENT: Atraumatic, Normocephalic, PERRLA Neck: Supple, 2+ carotid pulse no bruit, JVD not distended Respiratory: Clear to auscultation bilaterally, Normal air movement Cardiovascular: No edema, Normal pulses, Regular rate/rhythm, Normal S1 S2 Capillary refill: <2 Seconds Gastrointestinal: Normal bowel sounds, Soft and benign, Non-distended Musculoskeletal: No clubbing, No swelling, No contractures Integumentary: No rashes, No breakdown, No significant lesion, No tenderness/swelling Neurological: Normal gait, Normal speech, Normal strength at 5/5 x4 extr, Normal tone, Sensation intact Lymphatics: No axilla or inguinal lymphadenopathy - Studies Laboratory Data (last 24 hrs) 05/11/24 05/11/24 15:10 15:10 WBC 7.70 Hgb 8.7 L Hct 27.2 L Plt Count 215 Sodium 138 Potassium 4.3 BUN 28 H Creatinine 1.15 H Glucose 153 H Magnesium 2.4 Total Bilirubin 0.3 AST 12 L ALT < 14 Alkaline Phosphatase 84 Assessment And Plan - Plan UTI: Will continue rocephin and f/u urine cx. Acute resp failure with hypoxia: Unknown etiology. resolved. COVID test is negative. Will continue prn duoneb. Hx of CHF: Continue home med. Monitor BP and volume status. Anemia: Hgb is 8. Will monitor H/H. Neuropathy: Continue gabapentin. DVT ppx: SCD Dispo: Pending hospital course.
--- NOTE | 2024-05-12 09:34 | RAD REPORT ---
EXAM DESCRIPTION: RADChest Single View05/12/2024 5:50 am CLINICAL HISTORY: RO pneumonia COMPARISON: Chest Single View dated 05/11/2024; Chest Single View dated 01/19/2024; Chest Single View d ated 05/02/2023; Chest Single View dated 06/04/2022 TECHNIQUE: Portable AP view of the chest. FINDINGS: The lungs are clear. No pneumothorax or effusion. The cardiomediastinal contours are unre markable. IMPRESSION: No acute cardiopulmonary process.
[2024-05-12] MEDS: CARBIDOPA/LEVODOPA 25/100 TAB PO SCH (12:12)
[2024-05-12] MEDS ORDERED: HOME MED 1 EA UNK (Carbidopa/Levodopa [Carbidopa-Levo 25-100 Mg Odt] Tab.Rapdis) PO SCH (13:00)
[2024-05-12] MEDS: ALBUTEROL 2.5 MG/3 ML NEB SOL NEB SCH (13:07)
[2024-05-12] MEDS ORDERED: HOME MED 1 EA UNK (Gabapentin [Gabapentin] 800 MG Tablet) PO SCH (14:00)
[2024-05-12] MEDS: GABAPENTIN 400 MG CAP PO SCH (14:35)
[2024-05-12] MEDS: ESCITALOPRAM 20 MG TAB PO SCH (14:35)
[2024-05-12 17:28] LABS: Arterial Blood Carboxyhemoglob 0.4 % (0-1.5); Blood Gas Oxyhemoglobin 92.7 % (94-97)
[2024-05-12 17:29] LABS: Blood Gas THB 8.7 g/dl (12-18)
[2024-05-12] MEDS: METHYLPREDNISOLONE 40 MG INJ IV SCH (17:38)
[2024-05-12] MEDS: IPRATROPIUM BROM 0.5MG/2.5ML NEB SCH (19:16)
[2024-05-12] MEDS: SULFASALAZINE 500 MG E.C. TAB PO SCH (20:40)
[2024-05-12] MEDS ORDERED: HOME MED 1 EA UNK (Sulfasalazine [Sulfasalazine] 500 MG Tablet) PO SCH (21:00)
[2024-05-13] MEDS: LEVOTHYROXINE SOD 0.1 MG TAB PO SCH (05:54)
[2024-05-13] MEDS: LOSARTAN POTASSIUM 50 MG TABLET PO SCH (08:22)
[2024-05-13] MEDS: ASPIRIN 81 MG CHEWABLE TABLET PO SCH (08:23)
[2024-05-13] MEDS: VITAMIN D 5,000 UNIT CAP PO SCH (08:23)
[2024-05-13] MEDS: TRAMADOL HCL 50 MG TAB PO PRN (08:28)
--- NOTE | 2024-05-13 08:36 | P.PN ---
Date of Service: 05/13/24 subjective 95% on 2 L, expiratory wheeze Review of Systems 10-point ROS is negative, otherwise listed in HPI Physical Examination - Vital Signs Reviewed - Physical Exam General: Alert, Oriented x3 Neck: Supple Respiratory: Normal air movement, expiratory wheeze Cardiovascular: No edema, Regular rate/rhythm, Normal S1 S2 Gastrointestinal: Normal bowel sounds, Soft and benign Musculoskeletal: No clubbing, No swelling, No contractures Integumentary: No rashes, No breakdown Neurological: Normal gait, Normal speech, Normal strength at 5/5 x4 extr Assessment and Plan Acute hypoxic respiratory failure Hypoxemia Expiratory wheeze O2 2 L keep sats greater than 90 Nebulizer, steroids Chest x-ray negative COVID-negative Acute cystitis without hematuria IV fluids, IV antibiotic diet-controlled diabetes hypertension hypothyroidism lupus rheumatoid arthritis psoriatic arthritis Sjogren's Resume home med And is 83 years of age admitted with sudden onset of body pain shortness of breath wheezing mild hypoxemia analysis is abnormal may have a urinary tract infection chest x-ray is clear matting of the left eye only at home her sat had dropped down to 85% patient does not smoke creatinine is mildly elevated white count is normal analysis possible infection she is mildly anemic history of chronic renal failure otherwise vital signs are all stable to admit IV fluids IV antibiotics admit for observation continue to monitor oxygen also ordered influenza COVID and RSV test - Advance Directives Does patient have a Living Will: No Does patient have a Durable POA for Healthcare: No <Yesica Storey - Last Filed: 05/13/24 08:22> Pt seen and examined. I agree withthe note by the EXERCISE SPECIALIST. Continue rocephin for UTI. She is getting 2L BNC, steroid and prn duoneb for acute resp failure with hypoxia. Consulted Pulm for possible COPD. She reports history of second hand smoke exposure from her for many years. Continue home med for other chronic medical problems. <Trinidad Lundy - Last Filed: 05/13/24 10:28>
[2024-05-13] MEDS ORDERED: HOME MED 1 EA UNK (Losartan Potassium [Losartan Potassium] 25 MG Tablet) PO SCH (09:00)
[2024-05-13 10:41] LABS: Absolute Lymphocytes (CBC) 0.5 K/uL (0.7-4.9); Absolute Monocytes 0.1 K/uL (0.1-1.3); Absolute Neutrophil 7.1 K/uL (1.8-8.0); Basophils % 0.4 % (0-1.3); Hematocrit 27.2 % (36.0-45.0); Hemoglobin 8.6 g/dL (12.0-15.0); MCH 31.2 pg (27.0-35.0); MCHC 31.5 g/dL (32.0-36.0); MPV 7.8 fL (7.6-11.3); Monocytes % 1.2 % (3.3-12.3); Neutrophils % 91.4 % (41.7-73.7); Platelets 216 thou/uL (152-406); RBC Red Blood Cell Count 2.75 M/uL (3.86-4.86); Red Cell Distribution Width 14.2 % (12.1-15.2)
[2024-05-13 10:51] LABS: Anion Gap 8.8 mEq/L (5.0-15.0); Potassium 4.8 mEq/L (3.5-5.1)
[2024-05-13 12:21] LABS: Blood Morphology Comment NOT SEEN (NOT SEEN); Platelet Estimate ADEQ; White Blood Cell Scan OK (OK)
[2024-05-13] MEDS: FUROSEMIDE 20 MG/ 2ML VIAL IV ONE (14:04)
[2024-05-13] MEDS ORDERED: ALBUTEROL 2.5 MG/3 ML NEB SOL NEB PRN (14:41)
[2024-05-13] MEDS ORDERED: IPRATROPIUM BROM 0.5MG/2.5ML NEB PRN (14:41)
--- NOTE | 2024-05-13 17:03 | EKG ---
Test Date: 2024-05-11 Test Time: 15:30:23 Travel Registered Nurse Pacu: MEASUREMENT RESULTS: Intervals: Rate: 67 DE: 154 QRSD: 78 QT: 324 QTc: 342 [place]: P: 58 DE: 154 QRS: -21 T: 71 INTERPRETIVE STATEMENTS: Normal sinus rhythm Low voltage QRS Nonspecific T wave abnormality Abnormal ECG Compared to ECG 01/19/2024 15:40:44 Low QRS voltage now present T-wave abnormality still present Electronically Signed On 05-13-24 16:58:24 CDT by Chong Freeman
[2024-05-13] MEDS: IPRATROPIUM BROM 0.5MG/2.5ML NEB SCH (20:48)
[2024-05-13] MEDS: ALBUTEROL 2.5 MG/3 ML NEB SOL NEB SCH (20:48)
[2024-05-14 06:52] LABS: Potassium 4.4 mEq/L (3.5-5.1)
[2024-05-14 06:56] LABS: Anion Gap 6.4 mEq/L (5.0-15.0); Magnesium 1.9 mg/dL (1.6-2.4)
[2024-05-14 07:01] LABS: Absolute Basophils 0.1 K/uL (0-0.5); Absolute Lymphocytes (CBC) 0.4 K/uL (0.7-4.9); Absolute Monocytes 0.4 K/uL (0.1-1.3); Absolute Neutrophil 11.5 K/uL (1.8-8.0); Basophils % 0.5 % (0-1.3); Hematocrit 23.3 % (36.0-45.0); Hemoglobin 7.6 g/dL (12.0-15.0); Lymphocytes % 3.1 % (15.3-44.8); MCH 31.9 pg (27.0-35.0); MCHC 32.5 g/dL (32.0-36.0); MPV 7.8 fL (7.6-11.3); Monocytes % 3.5 % (3.3-12.3); Platelets 233 thou/uL (152-406); RBC Red Blood Cell Count 2.38 M/uL (3.86-4.86); Red Cell Distribution Width 13.9 % (12.1-15.2)
[2024-05-14 07:40] LABS: Neutrophils % 92.9 % (41.7-73.7)
--- NOTE | 2024-05-14 07:43 | P.DS ---
Admission Date: 05/13/24 Discharge Date: 05/14/24 Disposition: DC HOME/HOME HEALTH CARE Reason for Admission: Wheezing shortness of breath fever Brief History of Present Illness: 83 years of age family members present at the bedside apparently yesterday evening she started complaining of generalized body pain and had a slight fever of 99 this apparently started last night started feeling weak has some wheezing phlegm production and also found her to be little hypoxic and appeared in the hospital/denies a history of Parkinson's disease and rheumatoid arthritis is ambulatory with a walker no prior history of cardiopulmonary problems does not smoke Physical Exam General: Alert, Oriented x3 Neck: Supple Respiratory: Clear to auscultation bilaterally Cardiovascular: No edema, Regular rate/rhythm, Normal S1 S2 Gastrointestinal: Normal bowel sounds, Soft and benign Musculoskeletal: No clubbing, No swelling, No contractures Integumentary: No rashes, No breakdown Neurological: Normal gait, Normal speech, Normal strength at 5/5 x4 extr Hospital Course: 83 years of age family members present at the bedside apparently yesterday evening she started complaining of generalized body pain and had a slight fever of 99 this apparently started last night started feeling weak has some wheezing phlegm production and also found her to be little hypoxic and appeared in the hospital/denies a history of Parkinson's disease and rheumatoid arthritis is ambulatory with a walker no prior history of cardiopulmonary problems does not smoke. She was noted to have UTI,, asthma exacerbations. She is tolerating diet, discharge home with nebulizer, patient has home O2 discharged home with p.o. antibiotics. Home health with PT. follow-up with pulmonary after discharge, follow-up with primary care after discharge Discharged home with p.o. doxycycline for 7 for UTI/pneumonia/upper respiratory Upper respiratory infection, prednisone: Albuterol nebulizer, inhaler, Patient has home O2 Discharged home with physical therapy, home health care Continue home medicines as previously prescribed GOAL: Clear understanding of disease process INSTRUCTIONS: Physician Discharge Instructions: -Follow-up with PCP in 1 to 2 weeks -Please call Dr. Harris at [phone] if any questions regarding hospital stay -Please call nursing station at [phone] if any nursing or medication questions -Return to the emergency room if symptoms worsen Diet: ADA, low sodium Activity: Fall precautions Vital Signs/Physical Exam: Temp Pulse Resp BP Pulse Ox 97.6 F 79 15 137/52 L 98 05/13/24 23:28 05/13/24 23:28 05/13/24 23:28 05/13/24 23:28 05/13/24 23:28 Laboratory Data at Discharge: WBC 7.80 thou/uL (4.3-10.9) 05/13/24 10:02 Hgb 8.6 g/dL (12.0-15.0) L 05/13/24 10:02 Hct 27.2 % (36.0-45.0) L 05/13/24 10:02 Plt Count 216 thou/uL (152-406) 05/13/24 10:02 Sodium 140 mEq/L (136-145) 05/14/24 05:40 Potassium 4.4 mEq/L (3.5-5.1) 05/14/24 05:40 BUN 22 mg/dL (7-18) H 05/14/24 05:40 Creatinine 1.15 mg/dL (0.55-1.02) H 05/14/24 05:40 Glucose 192 mg/dL (74-106) H 05/14/24 05:40 Magnesium 1.9 mg/dL (1.6-2.4) 05/14/24 05:40 Total Bilirubin 0.3 mg/dL (0.2-1.0) 05/12/24 04:33 AST 14 U/L (15-37) L 05/12/24 04:33 ALT < 14 U/L (13-56) 05/12/24 04:33 Alkaline Phosphatase 77 U/L (45-117) 05/12/24 04:33 Home Medications: Fentanyl Patch [Duragesic Patch*] 75 mcg TOP EVERY 3RD DAY 10/15/15 Levothyroxine [Synthroid*] 100 mcg PO DAILY 10/15/15 Tramadol HCl [Ultram] 1 tab PO BID PRN 10/15/15 predniSONE [Prednisone] 5 mg PO DAILY 10/15/15 Leflunomide 20 mg PO DAILY 03/27/19 Carbidopa/Levodopa [Carbidopa-Levo 25-100 mg Odt] 1 tab PO QID 03/26/20 Cyclosporine [Restasis Multidose] 1 drop EACH EYE BID PRN 03/26/20 Escitalopram [Lexapro*] 20 mg PO DAILY PRN 03/26/20 sulfaSALAzine [Sulfasalazine] 500 mg PO BID 03/26/20 Amantadine HCl [Amantadine] 50 mg PO BID 09/17/21 Aspirin Chewable [Aspirin Chewable*] 1 tab PO DAILY 01/19/24 Cetirizine HCl 1 tab PO DAILY PRN 01/19/24 Cholecalciferol (Vitamin D3) [Vitamin D3] 1 cap PO DAILY 01/19/24 Gabapentin 800 mg PO TID 01/19/24 Losartan Potassium 50 mg PO DAILY 01/19/24 Acetaminophen [Acetaminophen Extra Strength] 1 - 2 tab PO DAILY PRN 01/20/24 Albuterol Inhaler [Ventolin Inhaler*] 2 puff IH Q6H PRN #1 inh 01/20/24 Albuterol Neb [Proventil 0.083% Neb Soln] 2.5 mg IH Q6H PRN 30 Days #1 box 05/14/24 Aspirin Chewable [Aspirin Chewable*] 81 mg PO DAILY tab.chew 05/14/24 Doxycycline Hyclate 100 mg PO BID 7 Days #14 tab 05/14/24 Escitalopram [Lexapro*] 20 mg PO DAILY tab 05/14/24 Levothyroxine [Synthroid*] 0.1 mg PO DAILYAC tab 05/14/24 Nebulizer and Compressor [Stacy Choice Nebulizer] 1 each MC DAILY 30 Days #1 ea 05/14/24 predniSONE [Deltasone] 40 mg PO DAILY 5 Days #10 tab 05/14/24 New Medications: Nebulizer and Compressor [Stacy Choice Nebulizer] 1 each MC DAILY 30 Days #1 ea Doxycycline Hyclate 100 mg PO BID 7 Days #14 tab predniSONE [Deltasone] 40 mg PO DAILY 5 Days #10 tab Albuterol Neb [Proventil 0.083% Neb Soln] 2.5 mg IH Q6H PRN 30 Days #1 box PRN Reason: Shortness Of Breath Physician Discharge Instructions: Established home health: [facility] P:[phone] F:[phone] 83 years of age family members present at the bedside apparently yesterday evening she started complaining of generalized body pain and had a slight fever of 99 this apparently started last night started feeling weak has some wheezing phlegm production and also found her to be little hypoxic and appeared in the hospital/denies a history of Parkinson's disease and rheumatoid arthritis is ambulatory with a walker no prior history of cardiopulmonary problems does not smoke. She was noted to have UTI,, asthma exacerbations. She is tolerating di et, discharge home with nebulizer, patient has home O2 discharged home with p.o. antibiotics. Home health with PT. Discharged home with p.o. doxycyline for 7 days, twice daily until gone prednsione, Albuterol nebulizer, inhaler,as needed shortness of breath Discharged home with physical therapy, home 02, home 02 already set up Continue home medicines as previously prescribed GOAL: Clear understanding of disease process INSTRUCTIONS: Physician Discharge Instructions: -Follow-up with PCP in 1 to 2 weeks -Please call Dr. Harris at [phone] if any questions regarding hospital stay -Please call nursing station at [phone] if any nursing or medication questions -Return to the emergency room if symptoms worsen Diet: ADA, low sodium Activity: Fall precautions Followup: Garfield Morales MD [ACTIVE - CAN ADMIT] - 1-2 Weeks Kaylie Vigil NP [Primary Care Provider] - 1-2 Weeks Time spent managing pt's care (in minutes): 55
[2024-05-14 08:48] VITALS: BP 141/63; TEMP 98.2
[2024-05-14 09:44] VITALS: O2SAT 96
--- NOTE | 2024-05-14 11:58 | ECHO ---
HEIGHT: 5 ft 3 in WEIGHT: 139 lb 15.897 oz DATE OF STUDY: 05/14/[address]: Garfield Morales MD 2-DIMENSIONAL: YES M.MODE: YES DOPPLER: YES COLOR FLOW: YES TDS: YES PORTABLE: DEFINITY: BUBBLE STUDY: DIAGNOSIS: RESPIRATORY FAILURE CARDIAC HISTORY: CATHERIZATION: SURGERY: PROSTHETIC VALVE: PACEMAKER: MEASUREMENTS (cm) DIASTOLIC (NORMALS) SYSTOLIC (NORMALS) IVSd 1.0 (0.6-1.2) LA Diam 3.6 (1.9-4.0) LVEF 60-65% LVIDd 4.0 (3.5-5.7) LVIDs 2.5 (2.0-3.5) %FS 37% LVPWd 1.2 (0.6-1.2) Ao Diam 2.9 (2.0-3.7) 2 DIMENSIONAL ASSESSMENT: RIGHT ATRIUM: NORMAL LEFT ATRIUM: NORMAL RIGHT VENTRICLE: NORMAL LEFT VENTRICLE: NORMAL TRICUSPID VALVE: MILD TRICUSPID REGURGITATION MITRAL VALVE: NORMAL PULMONIC VALVE: NORMAL AORTIC VALVE: NORMAL PERICARDIAL EFFUSION: NONE AORTIC ROOT: NORMAL LEFT VENTRICULAR WALL MOTION: NORMAL DOPPLER/COLOR FLOW: NORMAL COMMENTS: 1. NORMAL LEFT VENTRICULAR SYSTOLIC FUNCTION, EJECTION FRACTION, NORMAL WALL MOTION 2. NORMAL DIASTOLIC FUNCTION 3. MODERATE PULMONARY HYPERTENSION (RIGHT VENTRICULAR SYSTOLIC PRESSURE 45-50 mmHg) TECHNOLOGIST: ALAN MYERS
== END 2024-05-14 11:46 | disposition home health service (06) | DRG 689 ==
LOC: ER 14:27 → ERHOLD 19:31 → 4TH 21:19 → OBSVTOIN 05-13 08:35
PROVIDERS: ADMIT Internal Medicine Sleep Medicine; ATTEND Hospitalist
PROC: 4A033R1 Measurement of Arterial Saturation, Peripheral, Percutaneous Approach (ICD-10-PCS; principal; 2024-05-13)
DX: N30.00 Acute cystitis without hematuria (principal); J96.01 Acute respiratory failure with hypoxia; J44.1 Chronic obstructive pulmonary disease with (acute) exacerbation; I50.32 Chronic diastolic (congestive) heart failure; J45.901 Unspecified asthma with (acute) exacerbation; I11.0 Hypertensive heart disease with heart failure; J06.9 Acute upper respiratory infection, unspecified; E03.9 Hypothyroidism, unspecified; M32.9 Systemic lupus erythematosus, unspecified; M10.9 Gout, unspecified; E11.40 Type 2 diabetes mellitus with diabetic neuropathy, unspecified; M35.00 Sjogren syndrome, unspecified; D64.9 Anemia, unspecified; G20.A1 Parkinson's disease without dyskinesia, without mention of fluctuations; M06.9 Rheumatoid arthritis, unspecified; E86.0 Dehydration; Z88.5 Allergy status to narcotic agent; Z88.8 Allergy status to other drugs, medicaments and biological substances; Z79.82 Long term (current) use of aspirin; Z99.81 Dependence on supplemental oxygen; Z11.52 Encounter for screening for COVID-19; Z91.013 Allergy to seafood; Z79.890 Hormone replacement therapy; Z79.899 Other long term (current) drug therapy
CPT/HCPCS: 36415; 36600; 71045; 80048; 80053; 80076; 81001; 82550; 82805; 83735; 83880; 84484; 85025; 87804; 87807; 87811; 93005; 93306; 94640; 96361; 96374; 99285; G0378; J0696; J1940; J2919; J7030; J7613; J7644

== ENCOUNTER 2024-08-30 14:02 | Emergency (ER) | payer OTHER ==
--- NOTE | 2024-08-30 15:01 | RAD REPORT ---
Procedure: Chest Single View HISTORY: Cough COMPARISON: June 2024 FINDINGS: The lungs appear clear of acute infiltrate. No significant pleural effusion noted. The heart is normal size. IMPRESSION: No acute abnormality is displayed.
[2024-08-30 15:03] LABS: Absolute Basophils 0.1 K/uL (0-0.5); Absolute Eosinophils 0.2 K/uL (0-0.5); Absolute Lymphocytes (CBC) 1.3 K/uL (0.7-4.9); Absolute Monocytes 0.4 K/uL (0.1-1.3); Absolute Neutrophil 6.3 K/uL (1.8-8.0); Eosinophils % 1.9 % (0-4.4); Hematocrit 36.7 % (36.0-45.0); Hemoglobin 11.8 g/dL (12.0-15.0); Lymphocytes % 15.6 % (15.3-44.8); MCH 30.4 pg (27.0-35.0); MCHC 32.1 g/dL (32.0-36.0); MCV 94.8 fL (80-100); Monocytes % 5.3 % (3.3-12.3); Neutrophils % 76.2 % (41.7-73.7); Platelets 247 thou/uL (152-406); RBC Red Blood Cell Count 3.87 M/uL (3.86-4.86); Red Cell Distribution Width 14.5 % (12.1-15.2)
[2024-08-30 15:04] LABS: Specific Gravity 1.023 (1.005-1.030); Sqamous Epithelial <5 /HPF (None Seen); Urine Bacteria None Seen /HPF (<20); Urine Bilirubin NEGATIVE (Negative); Urine Blood Negative (Negative); Urine Clarity Clear (Clear); Urine Color Light-Yellow (Yellow); Urine Crystals Unidentified Few /HPF (None Seen); Urine Culture Reflex Order NOT NEEDED; Urine Glucose NEGATIVE (Negative); Urine Ketones NEGATIVE (Negative); Urine Microscopic Reflex YN ORDER UMIC; Urine Nitrite NEGATIVE (Negative); Urine Protein TRACE (Negative); Urine RBC <5 /HPF (None Seen); Urine Urobilinogen Normal (Normal); Urine WBC <5 /HPF (<5); Urine pH 5.5 (5.0-7.0)
[2024-08-30 15:21] LABS: PT Prothrombin Time 11.3 SECONDS (9.4-12.5); Protime INR 1.01
[2024-08-30 15:26] LABS: ALT/SGPT < 14 U/L (13-56); AST/SGOT 17 U/L (15-37); Albumin 3.9 g/dL (3.4-5.0); Alkaline Phosphatase 68 U/L (45-117); Anion Gap 11.8 mEq/L (5.0-15.0); BUN Blood Urea Nitrogen 26 mg/dL (7-18); Bicarbonate 21 mEq/L (21-32); Bilirubin Direct < 0.2 mg/dL (0-0.2); Bilirubin Indirect, Calculated 0.2 mg/dL (0.2-0.8); Bilirubin Total 0.4 mg/dL (0.2-1.0); Globulin 3.9 g/dL (2.3-3.5); Glomerular Filtration Rate 37 ml/min (=/>90); Glucose Level 96 mg/dL (74-106); Lipase 30 U/L (13-75); Magnesium 1.8 mg/dL (1.6-2.4); NT PRO-BNP 315 pg/mL (<450); Potassium 4.8 mEq/L (3.5-5.1); Protein, Total 7.8 g/dL (6.4-8.2); Sodium Level 137 mEq/L (136-145); Troponin High Sensitivity 16.1 pg/mL (<58.9)
--- NOTE | 2024-08-30 16:40 | RAD REPORT ---
EXAMINATION: CT ABDOMEN AND PELVIS WITHOUT CONTRAST CLINICAL INDICATION: Abdominal pain TECHNIQUE: CT abdomen and pelvis was performed, as per department protocol. IV contrast and oral was not administered.Axial, sagittal and coronal reconstructions were obtained. One or more of the following dose reduction techniques were used: Automated exposure control, adjustment of the mA and/o r kV according to the patient size, and/or iterative reconstruction. Unless otherwise specified, incidental findings do not require dedicated imaging follow-up. [id number]. COMPARISON: 2020 FINDINGS: The lack of intravenous and oral contrast limits evaluation of solid organs, vessels and bowel. The liver, spleen, pancreas, adrenals and left kidney appear grossly normal. Small right renal cyst. No evidence of diverticulitis. Mild to moderate amount of stool throughout. No adnexal mass Hysterectomy. Cholecystectomy. Small lipoma within the right gluteus muscle. Post surgical changes involve the lumbar spine. Mild chronic posterior subluxation L4 on L5 with nelly ed spondylosis. Scoliosis involves the spine. IMPRESSION: No acute abnormality displayed
--- NOTE | 2024-08-30 17:03 | EDPHYS ---
Physician Documentation [facility] Name: Corrie Nunez Age: 84 yrs Sex: Female : 1940 Arrival Date: 08/30/2024 Time: 14:02 Bed 15 Private MD: ED Physician Tang Fletcher HPI: 08/30 16:28 This 84 yrs old Female presents to ER via Wheelchair with complaints of jaime Abdominal Pain, Low Back Pain. 16:28 The patient presents with pain that is acute. jaime Historical: - Allergies: 14:19 Codeine; os 14:19 Iodine; os 14:19 Morphine; os 14:19 Protonix; os - PMHx: 14:19 Diabetes - NIDDM; Gout; Hypertension; Hypothyroidism; Lupus; Parkinsons; Psoriatic os Arthritis; Rheumatoid Arthritis; Sjoren's Syndrome; - Immunization history:: Adult Immunizations up to date. - Infectious Disease History:: Denies. - Social history:: Smoking status: Patient/guardian denies using alcohol, street drugs, tobacco products. ROS: 16:29 Constitutional: Negative for fever, chills, and weight loss, Eyes: Negative for injury, jaime pain, redness, and discharge, ENT: Negative for injury, pain, and discharge, Neck: Negative for injury, pain, and swelling, Cardiovascular: Negative for chest pain, palpitations, and edema, Respiratory: Negative for shortness of breath, cough, wheezing, and pleuritic chest pain, : Negative for injury, bleeding, discharge, and swelling, MS/Extremity: Negative for injury and deformity, Skin: Negative for injury, rash, and discoloration, Neuro: Negative for headache, weakness, numbness, tingling, and seizure, Psych: Negative for depression, anxiety, suicide ideation, homicidal ideation, and hallucinations, Allergy/Immunology: Negative for hives, rash, and allergies, Endocrine: Negative for neck swelling, polydipsia, polyuria, polyphagia, and marked weight changes, Hematologic/Lymphatic: Negative for swollen nodes, abnormal bleeding, and unusual bruising, 16:29 Abdomen/GI: Positive for abdominal pain, 16:29 Back: Positive for pain with movement, flank pain, bilaterally, Exam: 16:29 Constitutional: This is a well developed, well nourished patient who is awake, alert, jaime and in no acute distress. Head/Face: Normocephalic, atraumatic. Eyes: Pupils equal round and reactive to light, extra-ocular motions intact. Lids and lashes normal. Conjunctiva and sclera are non-icteric and not injected. Cornea within normal limits. Periorbital areas with no swelling, redness, or edema. ENT: Nares patent. No nasal discharge, no septal abnormalities noted. Tympanic membranes are normal and external auditory canals are clear. Oropharynx with no redness, swelling, or masses, exudates, or evidence of obstruction, uvula midline. Mucous membranes moist. Neck: Trachea midline, no thyromegaly or masses palpated, and no cervical lymphadenopathy. Supple, full range of motion without nuchal rigidity, or vertebral point tenderness. No Meningismus. Chest/axilla: Normal chest wall appearance and motion. Nontender with no deformity. No lesions are appreciated. Cardiovascular: Regular rate and rhythm with a normal S1 and S2. No gallops, murmurs, or rubs. Normal PMI, no JVD. No pulse deficits. Respiratory: Lungs have equal breath sounds bilaterally, clear to auscultation and percussion. No rales, rhonchi or wheezes noted. No increased work of breathing, no retractions or nasal flaring. Female : Normal external genitalia. Skin: Warm, dry with normal turgor. Normal color with no rashes, no lesions, and no evidence of cellulitis. MS/ Extremity: Pulses equal, no cyanosis. Neurovascular intact. Full, normal range of motion. Neuro: Awake and alert, GCS 15, oriented to person, place, time, and situation. Cranial nerves II-XII grossly intact. Motor strength 5/5 in all extremities. Sensory grossly intact. Cerebellar exam normal. Normal gait. Psych: Awake, alert, with orientation to person, place and time. Behavior, mood, and affect are within normal limits. 16:29 Abdomen/GI: Inspection: abdomen appears normal, Bowel sounds: normal, Palpation: mild abdominal tenderness, in the suprapubic area, right lower quadrant and left lower quadrant, 17:00 ECG was reviewed by the Attending Physician. jaime 17:06 Musculoskeletal/extremity: ROM: intact in all extremities, full active range of motion, [facility] Pulses: noted to be 4+ in the bilateral radial, brachial, femoral, popliteal, posterior tibial and and dorsalis pedis arteries., Sensation intact. Compartment Syndrome exam of affected extremity: is normal. DVT Exam: No signs of deep vein thrombosis. no pain, no swelling, no tenderness, negative Homans' sign noted on exam, no appreciated bluish discoloration, no erythema, no increased warmth, Vital Signs: 14:17 BP 153 / 79; Pulse 72; Resp 17; Temp 99.3; Pulse Ox 98% on R/A; Weight 63.5 kg; os 15:30 BP 139 / 69; Pulse 72; Resp 16; Pulse Ox 98% on R/A; ph 16:30 BP 140 / 72; Pulse 67; Resp 16; Pulse Ox 99% on R/A; ph 17:45 BP 146 / 72; Pulse 68; Resp 18; Temp 97.9; Pulse Ox 98% on R/A; ph MDM: 14:09 Medical Screening Exam initiated jaime 16:31 Differential diagnosis: fracture, sciatica, contusion, Herniated disc UTI. Data [facility] reviewed: vital signs, nurses notes, lab test result(s), radiologic studies, CT scan. Consideration of Admission/Observation Patient was admitted/placed on observation. Escalation of care including admission/observation considered. I considered the following discharge prescriptions or medication management in the emergency department I discussed and recommended Over The Counter medications. Independent interpretation of the following test(s) in the Emergency Department. Care significantly affected by the following chronic conditions: Diabetes, Hypertension, Chronic Kidney Disease, gout , lupus. 08/30 14:18 Order name: Basic Metabolic Panel; Complete Time: 15:59 [facility] 08/30 14:18 Order name: CBC with Diff; Complete Time: 15:59 [facility] 08/30 14:18 Order name: LFT's; Complete Time: 15:59 [facility] 08/30 14:18 Order name: Magnesium; Complete Time: 15:59 [facility] 08/30 14:18 Order name: NT PRO-BNP; Complete Time: 15:59 [facility] 08/30 14:18 Order name: PT-INR; Complete Time: 15:59 [facility] 08/30 14:18 Order name: Troponin HS; Complete Time: 15:59 [facility] 08/30 14:18 Order name: Lipase; Complete Time: 15:59 [facility] 08/30 14:18 Order name: Urine Culture [facility] 08/30 14:18 Order name: Urinalysis w/ reflexes; Complete Time: 15:07 [facility] 08/30 14:18 Order name: XRAY Chest (1 view); Complete Time: 15:07 [facility] 08/30 16:00 Order name: Abdomen ; Complete Time: 16:51 EDMS 08/30 14:18 Order name: EKG; Complete Time: 14:18 [facility] 08/30 14:18 Order name: Cardiac monitoring; Complete Time: 16:41 [facility] 08/30 14:18 Order name: EKG - Nurse/Tech; Complete Time: 16:41 [facility] 08/30 14:18 Order name: IV Saline Lock; Complete Time: 16:41 [facility] 08/30 14:18 Order name: Labs collected and sent; Complete Time: 14:58 [facility] 08/30 14:18 Order name: O2 Per Protocol; Complete Time: 14:58 [facility] 08/30 14:18 Order name: O2 Sat Monitoring; Complete Time: 14:58 [facility] EC:00 Rate is 63 beats/min. Rhythm is regular. QRS [place] is Normal. [place] interval is normal. QRS jaime interval is normal. QT interval is normal. No Q waves. T waves are Normal. No ST changes noted. Clinical impression: NSR w/ Non-specific ST/T Changes and No evidence of ischemia. Interpreted by me. Reviewed by me. Administered Medications: 15:00 Drug: NS 0.9% IV 500 ml IV at bolus once; to be given as a bolus over 30 minutes Route: ph IV; Rate: bolus; Site: left forearm; 15:30 Follow up: Response: No adverse reaction; IV Status: Completed infusion; IV Intake: ph 500ml 16:59 Not Given (Duplicate Order): [id number] mg 200 ml IVPB once over 60 mins jaime 17:23 Drug: Ciprofloxacin PO 500 mg PO once Route: PO; ph 17:45 Follow up: Response: No adverse reaction ph 17:23 Drug: Dicyclomine PO 20 mg PO once Route: PO; ph 17:45 Follow up: Response: No adverse reaction ph 17:24 Not Given (Other Intervention Used): ns 0.9% 1000 ml IV at 125 ml/hr continuous ph 17:24 Drug: Rocephin IV 1 grams IV at per protocol once; Given slow IV push per pharmacy ph instructions Route: IV; Rate: per protocol; Site: left forearm; 17:50 Follow up: Response: No adverse reaction; IV Status: Completed infusion ph Disposition Summary: 08/30/24 17:02 Discharge Ordered Notes: Location: Home jaime Problem: new jaime Symptoms: have improved jaime Condition: Stable jaime Diagnosis - Abdominal tenderness jaime - Dysuria jaime - Constipation jaime Followup: jaime - With: Private Physician - When: 2 - 3 days - Reason: Recheck today's complaints, Continuance of care, Re-evaluation by your physician Followup: jaime - With: Montana Benavides MD - When: 2 - 3 days - Reason: Recheck today's complaints, Continuance of care, Re-evaluation by your physician Discharge Instructions: - Discharge Summary Sheet jaime - Abdominal Pain, Adult jaime - Dysuria jaime - Constipation, Adult, Zeac-[id number] jaime - Abdominal Pain, Adult, [id number] jaime Forms: - Medication Reconciliation Form jaime - Antibiotic Education jaime - Prescription Opioid Use jaime - Patient Portal Instructions [facility] - Leadership Thank You Letter [facility] Prescriptions: - ondansetron 4 mg Oral Tablet,disintegrating - take 1 tablet ORAL route every 8 hours prn; 20 tablet; Refills: 0, Product jaime Selection Permitted - Cipro 250 mg Oral tablet - take 1 tablet ORAL route every 12 hours; 14 tablet; Refills: 0, Product jaime Selection Permitted - Lactulose 10 gram/15 mL Oral solution - take 15 milliliter ORAL route once daily; 150 milliliter; Refills: 0, Product jaime Selection Permitted - dicyclomine 10 mg/5 mL Oral solution - take 5 milliliter ORAL route 4 times per day; 150 milliliter; Refills: 0, jaime Product Selection Permitted Signatures: Dispatcher [employer] Tang Gutierrez MD MD cha Hall, Patricia RN RN ph Maxine Ruelas, PEYTON RN os Corrections: (The following items were deleted from the chart) 14:18 14:18 BASIC METABOLIC PANEL+C.LAB.BRZ ordered. EDMS EDMS 14:18 14:18 CBC+H.LAB.BRZ ordered. EDMS EDMS 14:18 14:18 HEPATIC FUNCTION+C.LAB.BRZ ordered. EDMS EDMS 14:18 14:18 MAGNESIUM+C.LAB.BRZ ordered. EDMS EDMS 14:18 14:18 PROBNP+C.LAB.BRZ ordered. EDMS EDMS 14:18 14:18 PROTIME (+INR)+COAG.LAB.BRZ ordered. EDMS EDMS 14:18 14:18 Troponin High Sensitivity+C.LAB.BRZ ordered. EDMS EDMS 14:18 14:18 LIPASE+C.LAB.BRZ ordered. EDMS EDMS 14:18 14:18 Urine Culture+BA.LAB.BRZ ordered. EDMS EDMS 16:00 14:18 Abdomen Pelvis W Con+CT.RAD.BRZ ordered. EDMS EDMS
--- NOTE | 2024-08-30 17:03 | ER ---
Nurse's Notes [facility] Name: Corrie Nunez Age: 84 yrs Sex: Female : 1940 Arrival Date: 08/30/2024 Time: 14:02 Bed 15 Private MD: Diagnosis: Abdominal tenderness;Dysuria;Constipation Presentation: 08/30 14:17 Chief complaint: Patient states: Patient c/o lower abdominal pain radiating to the os lower back. Patient states, " I had an urine test yesterday, but it did not show anything". Coronavirus screen: Vaccine status: Patient reports receiving the 2nd dose of the covid vaccine. At this time, the client does not indicate any symptoms associated with coronavirus-19. Ebola Screen: No symptoms or risks identified at this time. Initial Sepsis Screen: Does the patient meet any 2 criteria? No. Patient's initial sepsis screen is negative. Does the patient have a suspected source of infection? No. Patient's initial sepsis screen is negative. Risk Assessment: Do you want to hurt yourself or someone else? Patient reports no desire to harm self or others. Onset of symptoms was August 28, 2024. 14:17 Method Of Arrival: Wheelchair os 14:17 Acuity: STEPHANIE 3 os Historical: - Allergies: 14:19 Codeine; os 14:19 Iodine; os 14:19 Morphine; os 14:19 Protonix; os - PMHx: 14:19 Diabetes - NIDDM; Gout; Hypertension; Hypothyroidism; Lupus; Parkinsons; Psoriatic os Arthritis; Rheumatoid Arthritis; Sjoren's Syndrome; - Immunization history:: Adult Immunizations up to date. - Infectious Disease History:: Denies. - Social history:: Smoking status: Patient/guardian denies using alcohol, street drugs, tobacco products. Screenin:31 [facility] ED Fall Risk Assessment (Adult) History of falling in the last 3 months, ph including since admission No falls in past 3 months (0 pts) Confusion or Disorientation No (0 pts) Intoxicated or Sedated No (0 pts) Impaired Gait Yes (1 pt) Mobility Assist Device Used Yes (1 pt) Altered Elimination No (0 pt) Score/Fall Risk Level 0 - 2 = Low Risk Oriented to surroundings, Maintained a safe environment, Hourly rounding (assess needs \\T\\ fall precautionary measures) done, Used ambulatory aids as needed (educated on \\T\\ assisted with). Abuse screen: Denies threats or abuse. Denies injuries from another. Nutritional screening: No deficits noted. Tuberculosis screening: No symptoms or risk factors identified. Assessment: 15:16 General: Appears in no apparent distress. Behavior is calm, cooperative. Pain: ph Complains of pain in suprapubic area, right lower quadrant and left lower quadrant Pain radiates to back. Neuro: Level of Consciousness is awake, alert, obeys commands, Oriented to person, place, time, situation. Cardiovascular: Capillary refill < 3 seconds in bilateral fingers Patient's skin is warm and dry. Respiratory: Airway is patent Respiratory effort is even, unlabored. GI: Abdomen is non-distended, Bowel sounds present X 4 quads. Abd is soft X 4 quads Reports lower abdominal pain. Derm: Skin is pink, warm \\T\\ dry. 17:24 Reassessment: Patient appears in no apparent distress at this time. Patient and/or ph family updated on plan of care and expected duration. Pain level reassessed. Patient is alert, oriented x 3, equal unlabored respirations, skin warm/dry/pink. D/C pending completion of IV antibiotics. Vital Signs: 14:17 BP 153 / 79; Pulse 72; Resp 17; Temp 99.3; Pulse Ox 98% on R/A; Weight 63.5 kg; os 15:30 BP 139 / 69; Pulse 72; Resp 16; Pulse Ox 98% on R/A; ph 16:30 BP 140 / 72; Pulse 67; Resp 16; Pulse Ox 99% on R/A; ph 17:45 BP 146 / 72; Pulse 68; Resp 18; Temp 97.9; Pulse Ox 98% on R/A; ph ED Course: 14:05 Patient arrived in ED. ra3 14:09 Tang Fletcher MD is Attending Physician. jaime 14:19 Triage completed. os 14:31 Lyn Soto, RN is Primary Nurse. ph 14:31 Arm band placed on Patient placed in an exam room, on a stretcher, on pulse oximetry. ph 14:54 XRAY Chest (1 view) In Process Unspecified. EDMS 14:58 Troponin HS Sent. ph 14:58 PT-INR Sent. ph 14:58 NT PRO-BNP Sent. ph 14:58 Magnesium Sent. ph 14:58 LFT's Sent. ph 14:58 CBC with Diff Sent. ph 14:58 Basic Metabolic Panel Sent. ph 14:58 Urinalysis w/ reflexes Sent. ph 14:58 Urine Culture Sent. ph 14:58 Lipase Sent. ph 15:14 Initial lab(s) drawn, by me, sent to lab. Missed attempt(s): 22 gauge in right ph antecubital area. Bleeding controlled, band aid applied, catheter tip intact. Inserted saline lock: 22 gauge in left forearm, using aseptic technique. Blood collected. Flushed with 10 mL NS. 15:15 Patient has correct armband on for positive identification. Bed in low position. Call ph light in reach. Side rails up X 1. Pulse ox on. NIBP on. Door closed. Noise minimized. Warm blanket given. Pillow given. 16:06 Abdomen In Process Unspecified. EDMS 16:42 EKG done, by ED staff, reviewed by Tang Fletcher MD. em1 17:01 [place] Benavides MD is Referral Physician. jaime 17:45 No provider procedures requiring assistance completed. IV discontinued, intact, ph bleeding controlled, No redness/swelling at site. Pressure dressing applied. Administered Medications: 15:00 Drug: NS 0.9% IV 500 ml IV at bolus once; to be given as a bolus over 30 minutes Route: ph IV; Rate: bolus; Site: left forearm; 15:30 Follow up: Response: No adverse reaction; IV Status: Completed infusion; IV Intake: ph 500ml 16:59 Not Given (Duplicate Order): [id number] mg 200 ml IVPB once over 60 mins jaime 17:23 Drug: Ciprofloxacin PO 500 mg PO once Route: PO; ph 17:45 Follow up: Response: No adverse reaction ph 17:23 Drug: Dicyclomine PO 20 mg PO once Route: PO; ph 17:45 Follow up: Response: No adverse reaction ph 17:24 Not Given (Other Intervention Used): ns 0.9% 1000 ml IV at 125 ml/hr continuous ph 17:24 Drug: Rocephin IV 1 grams IV at per protocol once; Given slow IV push per pharmacy ph instructions Route: IV; Rate: per protocol; Site: left forearm; 17:50 Follow up: Response: No adverse reaction; IV Status: Completed infusion ph Medication: 15:15 VIS not applicable for this client. ph Intake: 15:30 IV: 500ml; Total: 500ml. ph Outcome: 17:02 Discharge ordered by . jaime 17:45 Patient left the ED. ph 17:45 Discharged to home via wheelchair, with family, ph 17:45 Condition: good 17:45 Discharge instructions given to patient, family, Instructed on discharge instructions, follow up and referral plans. medication usage, Demonstrated understanding of instructions, follow-up care, medications, Prescriptions given X 4, Addendum: 09/04/2024 13:45 Addendum: Culture Results: Positive urine culture. Phone call. l l1 Signatures: Dispatcher [employer] Tang Gutierrez MD MD cha Martinez, Eric em1 Lyn Soto RN Charles Pittman ph, RN RN ll1 Maxine Ruelas RN RN Itzel Brooke ra3
[2024-08-30] MEDS ORDERED: DICYCLOMINE HCL 10 MG CAP ONE (17:14)
[2024-08-30] MEDS ORDERED: CEFTRIAXONE 1000 MG/VIAL ONE (17:14)
[2024-08-30] MEDS ORDERED: NA CHLORIDE 0.9% 100 ML ONE (17:15)
[2024-08-30] MEDS ORDERED: CIPROFLOXACIN HCL 500 MG TAB ONE (17:15)
[2024-08-30 18:55] VITALS: BP 153/79; TEMP 99.3; O2SAT 98
--- NOTE | 2024-09-02 12:04 | EKG ---
Test Date: 2024-08-30 Test Time: 16:40:10 Draw Off Worker: GAGE MEASUREMENT RESULTS: Intervals: Rate: 63 MO: 144 QRSD: 70 QT: 350 QTc: 358 [place]: P: 70 MO: 144 QRS: -34 T: 61 INTERPRETIVE STATEMENTS: Normal sinus rhythm Left axis deviation Nonspecific T wave abnormality Abnormal ECG Compared to ECG 05/11/2024 15:30:23 Left-axis deviation now present T-wave abnormality still present Electronically Signed On 09-02-24 12:01:29 COFFEE URN ATTENDANT by Darrian Martínez
== END 2024-08-30 17:45 | disposition home or self-care (01) ==
LOC: ER 14:02
DX: K59.00 Constipation, unspecified (principal); R30.0 Dysuria; E11.9 Type 2 diabetes mellitus without complications; I10 Essential (primary) hypertension; G20.A1 Parkinson's disease without dyskinesia, without mention of fluctuations
CPT/HCPCS: 96365; 93005; 87088; 85025; 81001; 87086; 80048; 36415; 83735; 85610; 80076; 87077; 87186; 84484; 83690; 83880; 74176; 71045; 99285; J0696

== ENCOUNTER 2025-03-01 17:25 | Emergency (ER) | payer OTHER ==
--- NOTE | 2025-03-01 18:01 | RAD REPORT ---
EXAMINATION: Shoulder Left 2+ Views CLINICAL INDICATION: Female, 84 years old. PAIN COMPARISON: No prior exam. FINDINGS: No acute fracture. No malalignment/dislocation. Mild left AC joint degenerative changes. High riding humeral head likely reflecting rotator cuff path ology. Severe left glenohumeral joint degenerative changes. Other: n/a IMPRESSION: No acute osseous abnormality.
[2025-03-01] MEDS ORDERED: ACETAMINOPHEN 500 MG TAB ONE (18:09)
[2025-03-01] MEDS ORDERED: methocarbamoL 500 MG TAB ONE (18:09)
--- NOTE | 2025-03-01 18:12 | RAD REPORT ---
EXAMINATION: Head C Spine Mpr Wo Con CLINICAL INDICATION: Female, 84 years old. TRAUMA TECHNIQUE: Axial CT images from the skull base to the vertex without intravenous contrast. Axial CT i mages through the cervical spine were obtained without intravenous contrast. Sagittal and coronal reformatted images were created from the data set. Coronal and sagittal reformatted images were creat ed from the data set. One or more of the following dose reduction techniques were used: Automated exposure control, adjustment of the mA and/or kV according to patient size, and/or iterative reconstr uction. Unless otherwise specified, incidental findings do not require dedicated imaging follow-up. [id number]. COMPARISON: 06/04/2022 FINDINGS: Head: INTRACRANIAL: No acute intracranial hemorrhage. No hydrocephalus. No mass effect or midline shift. Mi ld chronic small vessel ischemic changes.Mild cerebral atrophy. VASCULATURE: No visualized abnormalities in the arteries or dural venous sinuses. SCALP/SKULL: No calvarial fracture identified. No acute soft tissue abnormality. SINUSES: The visualized paranasal sinuses are mostly clear. No significant mastoid fluid. Cervical spine: ALIGNMENT: Anterolisthesis of C4 on C5 and C5 on C6. This is chronic. BONE: Vertebral body heights are maintained. No aggressive osseous lesions. DEGENERATIVE: No significant focal degenerative changes. SOFT TISSUE: No significant abnormalities in the soft tissue of the neck. The visualized lung apices are clear. IMPRESSION: No acute intracranial abnormality. No acute fracture or traumatic malalignment of the cervical spine.
--- NOTE | 2025-03-01 18:22 | RAD REPORT ---
EXAM: Chest Abd Pelvis Wo Con CLINICAL INDICATION: Female, 84 years old TRAUMA TECHNIQUE: CT chest, abdomen and pelvis was performed, without IV contrast, as per department protoco l. Axial, sagittal and coronal reconstructions were obtained. One or more of the following dose reduction techniques were used: Automated exposure control, adjustment of the mA and/or kV according to the patient size, and/or iterative reconstruction. Unless otherwise specified, incidental findings do not require dedicated imaging follow-up. [id number]. COMPARISON: 05/02/2023 FINDINGS: The lack of intravenous contrast limits the sensitivity of this exam for evaluation of solid visceral organs, vascular structures, and retroperitoneum. ---THORAX--- LOWER NECK AND CHEST WALL: Visualized thyroid gland and soft tissues are normal. MEDIASTINUM AND LYMPH NODES: No mediastinal mass or fluid collection. Normal size mediastinal, hilar, and axillary lymph nodes. THORACIC AORTA: No thoracic aortic aneurysm. Atherosclerotic changes are present. PULMONARY ARTERIES: Caliber is within normal limits. Unable to evaluate for pulmonary emboli due to e ither protocol or lack of contrast. HEART: Normal heart size. No coronary calcifications.Trace pericardial effusion. LUNGS AND AIRWAYS: Airways are clear. No evidence of airspace or interstitial process. Motion artifac t limits evaluation for pulmonary nodule detection. PLEURA: No pleural effusion. No pneumothorax. ---ABDOMEN/PELVIS--- UPPER GI: No significant abnormality. LIVER: No significant focal abnormality. GALLBLADDER/BILE DUCTS: Surgically absent? PANCREAS: Atrophy but no acute findings. SPLEEN: Unremarkable. ADRENALS: No adrenal masses. KIDNEYS AND URETERS: No hydronephrosis.Limited evaluation for renal lesions in the absence of IV cont rast.No renal calculi.No ureteral calculi. ABDOMINAL AORTA AND OTHER VESSELS: Mild atherosclerotic changes. PERITONEUM: No abnormal free fluid. No free air. LYMPH NODES: No pathologic lymphadenopathy. ABDOMINAL WALL: Unremarkable SMALL BOWEL/COLON: Small bowel has normal course and caliber. No colonic wall thickening or pericolon ic inflammatory changes. URINARY BLADDER: Underdistended but grossly unremarkable. REPRODUCTIVE ORGANS: No pathologic process. ---COMBINED--- MUSCULOSKELETAL: Status post L3-4 fusion. Similar chronic L2 compression fracture. No acute fracture. ADDITIONAL FINDINGS: None. IMPRESSION: No evidence of significant trauma to the chest, abdomen, or pelvis. Incidental findings as noted above,
--- NOTE | 2025-03-01 18:52 | ER ---
Nurse's Notes [facility] Name: Corrie Nunez Age: 84 yrs Sex: Female : 1940 Arrival Date: 03/01/2025 Time: 17:25 Bed 14 Private MD: Diagnosis: Fall on same level, unspecified;Contusion of left shoulder Presentation: 03/01 17:28 Chief complaint: EMS states: toned out to patient home for fall due to Parkinson's - Pt ld1 reports pain to left arm and back pain. Denies LOC - not on blood thinners. Coronavirus screen: At this time, the client does not indicate any symptoms associated with coronavirus-19. Ebola Screen: No symptoms or risks identified at this time. Initial Sepsis Screen: Does the patient meet any 2 criteria? No. Patient's initial sepsis screen is negative. Does the patient have a suspected source of infection? No. Patient's initial sepsis screen is negative. Risk Assessment: Do you want to hurt yourself or someone else? Patient reports no desire to harm self or others. Onset of symptoms was March 01, 2025. 17:28 Method Of Arrival: EMS: [facility] ld1 17:28 Acuity: STEPHANIE 3 ld1 Triage Assessment: 17:28 General: Appears in no apparent distress. comfortable, Behavior is calm, cooperative, ld1 appropriate for age. Pain: Complains of pain in back and left arm Pain does not radiate. Pain currently is 8 out of 10 on a pain scale. Quality of pain is described as throbbing, Pain began suddenly, Is continuous. EENT: No signs and/or symptoms were reported regarding the EENT system. Neuro: Level of Consciousness is awake, alert, obeys commands, Oriented to person, place, time, situation. Cardiovascular: Capillary refill < 3 seconds Patient's skin is warm and dry. Respiratory: Airway is patent Respiratory effort is even, unlabored. GI: Abdomen is round non-distended. : No signs and/or symptoms were reported regarding the genitourinary system. Derm: No signs and/or symptoms reported regarding the dermatologic system. Musculoskeletal: No signs and/or symptoms reported regarding the musculoskeletal system. Historical: - Allergies: 17:27 Codeine; ld1 17:27 Iodine; ld1 17:27 Morphine; ld1 17:27 Protonix; ld1 - PMHx: 17:27 Diabetes - NIDDM; Gout; Psoriatic Arthritis; Hypothyroidism; Hypertension; Lupus; ld1 Parkinsons; Rheumatoid Arthritis; Sjoren's Syndrome; - Immunization history:: Adult Immunizations up to date. - Infectious Disease History:: Denies. - Social history:: Smoking status: Patient denies any tobacco usage or history of. Screenin:32 [facility] ED Fall Risk Assessment (Adult) History of falling in the last 3 months, ld1 including since admission Yes- single mechanical fall (1 pt) Confusion or Disorientation No (0 pts) Intoxicated or Sedated No (0 pts) Impaired Gait No (0 pts) Mobility Assist Device Used No (0 pt) Altered Elimination No (0 pt) Score/Fall Risk Level 0 - 2 = Low Risk Oriented to surroundings, Hourly rounding (assess needs \T\ fall precautionary measures) done. Abuse screen: Denies threats or abuse. Denies injuries from another. Nutritional screening: No deficits noted. Tuberculosis screening: No symptoms or risk factors identified. Assessment: 17:32 Reassessment: See triage assessment. ld1 19:10 General: Appears in no apparent distress. comfortable, Behavior is calm, cooperative, rg5 appropriate for age. 19:10 Neuro: Level of Consciousness is awake, alert, obeys commands, Oriented to person, rg5 place, time, situation. Cardiovascular: Denies chest pain. Respiratory: Airway is patent Trachea deviated to right Respiratory effort is even. Vital Signs: 17:28 BP 138 / 101; Pulse 75; Resp 18; Temp 97.5(T); Pulse Ox 98% on 3 lpm NC; Weight 60.78 ld1 kg; Height 5 ft. 1 in. ; Pain 7/10; 18:48 Pulse 61; Resp 18; Pulse Ox 95% on R/A; ld1 18:48 BP 135 / 118; ld1 17:28 Body Mass Index 25.32 (60.78 kg, 154.94 cm) ld1 17:28 Pain Scale: Adult ld1 ED Course: 17:27 Patient arrived in ED. ld1 17:28 Arm band placed on right wrist. ld1 17:29 Adrienne Figueroa [facility]C [facility] sb4 17:29 Tang Fletcher MD is Attending Physician. sb4 17:31 Triage completed. ld1 17:32 Patient has correct armband on for positive identification. Placed in gown. Bed in low ld1 position. Call light in reach. Side rails up X2. 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 Pulse ox on. NIBP on. Door closed. Noise minimized. Warm blanket given. 17:32 No provider procedures requiring assistance completed. ld1 17:54 Shoulder Left (2 View) XRAY In Process Unspecified. EDMS 18:02 Myriam Lawson, RN is Primary Nurse. ld1 18:07 Head C Spine MPR Wo Con CT In Process Unspecified. EDMS 18:07 Chest Abdomen Pelvis Wo Con CT In Process Unspecified. EDMS 18:51 Tang Fletcher MD is Referral Physician. sb4 19:10 Provided Education on: post er care done. rg5 19:15 IV discontinued, bleeding controlled, No redness/swelling at site. Pressure dressing rg5 applied. Administered Medications: 18:13 Drug: Acetaminophen PO 650 mg PO once Route: PO; ld1 19:26 Follow up: Response: No adverse reaction rg5 18:14 Drug: Methocarbamol PO 500 mg PO once Route: PO; ld1 19:26 Follow up: Response: No adverse reaction rg5 Medication: 17:32 VIS not applicable for this client. ld1 Outcome: 18:51 Discharge ordered by . sb4 19:10 Condition: stable rg5 19:10 Discharged to home via wheelchair, rg5 19:10 Discharge instructions given to patient, 19:27 Patient left the ED. rg5 Signatures: Dispatcher [employer] EDME Myriam Lawson, RN RN ld1 Adrienne Figueroa PABhargavi PABhargavi sb4 Abran Mortensen RN RN rg5
--- NOTE | 2025-03-01 18:52 | EDPHYS ---
Physician Documentation [facility] Name: Corrie Nunez Age: 84 yrs Sex: Female : 1940 Arrival Date: 03/01/2025 Time: 17:25 Bed 14 Private MD: ED Physician Tang Fletcher HPI: 03/01 17:40 This 84 yrs old Female presents to ER via EMS with complaints of Arm Pain - sb4 left, Back Injury. 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 is complaining of pain in her left upper arm, shoulder, and left upper back. is not sure if she hit her head or not, but denies pain in any other locations. Historical: - Allergies: 17:27 Codeine; ld1 17:27 Iodine; ld1 17:27 Morphine; ld1 17:27 Protonix; ld1 - PMHx: 17:27 Diabetes - NIDDM; Gout; Psoriatic Arthritis; Hypothyroidism; Hypertension; Lupus; ld1 Parkinsons; Rheumatoid Arthritis; Sjoren's Syndrome; - Immunization history:: Adult Immunizations up to date. - Infectious Disease History:: Denies. - Social history:: Smoking status: Patient denies any tobacco usage or history of. ROS: 17:40 Constitutional: Negative for fever, chills, and weight loss, sb4 17:40 MS/extremity: Positive for injury or acute deformity, pain, of the left arm and back, 17:40 All other systems are negative, Exam: 17:41 Head/Face: Normocephalic, atraumatic. Eyes: Extra-ocular motions intact. Periorbital sb4 areas with no swelling, redness, or edema. ENT: Mucous membranes moist. Respiratory: No increased work of breathing, no retractions or nasal flaring. 17:41 Constitutional: The patient appears in no acute distress, alert, awake, 17:41 Musculoskeletal/extremity: Joints: the left shoulder displays pain at rest, painful range of motion, 17:41 Skin: injury, abrasion(s), small abrasion noted, of the left tricep, Vital Signs: 17:28 BP 138 / 101; Pulse 75; Resp 18; Temp 97.5(T); Pulse Ox 98% on 3 lpm NC; Weight 60.78 ld1 kg; Height 5 ft. 1 in. ; Pain 7/10; 18:48 Pulse 61; Resp 18; Pulse Ox 95% on R/A; ld1 18:48 BP 135 / 118; ld1 17:28 Body Mass Index 25.32 (60.78 kg, 154.94 cm) ld1 17:28 Pain Scale: Adult ld1 MDM: 17:29 Medical Screening Exam initiated sb4 17:42 Differential diagnosis: closed fracture, contusion, abrasion. sb4 19:18 Data reviewed: vital signs, nurses notes, EMS record, radiologic studies, and as a sb4 result, I will discharge patient. Counseling: I had a detailed discussion with the patient and/or guardian regarding the historical points, exam findings, and any diagnostic results supporting the discharge/admit diagnosis, radiology results, the need for outpatient follow up, for definitive care, to return to the emergency department if symptoms worsen or persist or if there are any questions or concerns that arise at home. 03/01 17:39 Order name: Head C Spine MPR Wo Con CT; Complete Time: 18:15 sb4 03/01 17:39 Order name: Chest Abdomen Pelvis Wo Con CT; Complete Time: 18:23 sb4 03/01 17:39 Order name: Shoulder Left (2 View) XRAY; Complete Time: 18:06 sb4 Administered Medications: 18:13 Drug: Acetaminophen PO 650 mg PO once Route: PO; ld1 19:26 Follow up: Response: No adverse reaction rg5 18:14 Drug: Methocarbamol PO 500 mg PO once Route: PO; ld1 19:26 Follow up: Response: No adverse reaction rg5 Disposition Summary: 03/01/25 18:51 Discharge Ordered Notes: Location: Home sb4 Problem: new sb4 Symptoms: have improved sb4 Condition: Stable sb4 Diagnosis - Fall on same level, unspecified sb4 - Contusion of left shoulder sb4 Followup: sb4 - With: Private Physician - When: As needed - Reason: Recheck today's complaints, Re-evaluation by your physician Discharge Instructions: - Discharge Summary Sheet sb4 - Musculoskeletal Pain sb4 - Contusion, [id number] sb4 - Fall Prevention in the Home, Adult, [id number] sb4 Forms: - Patient Portal Instructions sb4 - Leadership Thank You Letter sb4 Addendum: 03/03/2025 19:20 Co-signature as Attending Physician, Tang Fletcher MD I agree with the assessment and c luna plan of care. Radiology Callback: personnel placement specialist(s):. Signatures: Dispatcher [employer] EDTang Soares MD MD cha Sims, Lauren, RN RN ld1 Adrienne Figueroa, PA-C PA-C sb4 Abran Mortensen RN rg5 Corrections: (The following items were deleted from the chart) 03/01 17:39 17:39 Chest Abdomen Pelvis Wo Con+CT.RAD.BRZ ordered. EDMS EDMS 17:39 17:39 Shoulder Left 2 View+RAD.RAD.BRZ ordered. EDMS EDMS
[2025-03-01 19:31] VITALS: TEMP 97.5
[2025-03-01 19:33] VITALS: BP 135/118; O2SAT 95
== END 2025-03-01 19:27 | disposition home or self-care (01) ==
LOC: ER 17:25
DX: S40.012A Contusion of left shoulder, initial encounter (principal); W18.30XA Fall on same level, unspecified, initial encounter; M54.9 Dorsalgia, unspecified; G20.A1 Parkinson's disease without dyskinesia, without mention of fluctuations
CPT/HCPCS: 70450; 71250; 72125; 74176; 99284

== ENCOUNTER 2025-05-01 07:06 | Inpatient (IN) | payer OTHER ==
[2025-05-01] MEDS ORDERED: ALBUTEROL 2.5 MG/3 ML NEB SOL NEB PRN (11:01)
[2025-05-01 11:02] VITALS: BMI 23.6
[2025-05-01] MEDS: CARBIDOPA/LEVODOPA 25/100 TAB PO SCH (12:56)
[2025-05-01] MEDS: TRAMADOL HCL 50 MG TAB PO PRN (15:56)
[2025-05-01] MEDS ORDERED: ENOXAPARIN 40 MG/0.4 ML SQ SCH (17:00)
[2025-05-01] MEDS: METOPROLOL TAR 50 MG TAB PO SCH (17:25)
[2025-05-01] MEDS: GLUCERNA SHAKE 237 ML CAN PO SCH (20:00)
[2025-05-01] MEDS ORDERED: Mupirocin NASAL 2 APPL/1 GM TUBE NAS SCH (20:00)
[2025-05-01] MEDS: Mupirocin NASAL 2 APPL/1 GM TUBE NAS SCH (20:26)
[2025-05-01] MEDS: APIXABAN 2.5 MG TABLET PO SCH (20:26)
[2025-05-01] MEDS: GABAPENTIN 400 MG CAP PO SCH (20:26)
[2025-05-01 20:59] LABS: Urine Microscopic Reflex YN NO UMIC
[2025-05-02 05:15] LABS: Absolute Lymphocytes (CBC) 1.9 K/uL (0.7-4.9); Hematocrit 28.3 % (36.0-45.0); Hemoglobin 9.6 g/dL (12.0-15.0); MCH 31.1 pg (27.0-35.0); MCHC 33.9 g/dL (32.0-36.0); MCV 91.7 fL (80-100); MPV 7.2 fL (7.6-11.3); Nucleated RBC Absolute Count 0.0 (0-0); Nucleated Red Blood Cells % 0.1 % (0-0); RBC Red Blood Cell Count 3.09 M/uL (3.86-4.86); White Blood Count 8.30 thou/uL (4.3-10.9)
[2025-05-02 05:34] LABS: Albumin 2.6 g/dL (3.4-5.0); Anion Gap 4.5 mEq/L (5.0-15.0); BUN Blood Urea Nitrogen 20.0 mg/dL (7-18); Glucose Level 90.0 mg/dL (74-106); Magnesium 1.7 mg/dL (1.6-2.4); Potassium 3.5 mEq/L (3.5-5.1); Prealbumin 29.6 mg/dL (20-40)
--- NOTE | 2025-05-02 05:44 | HP ---
Date of Admission: 05/01/2025 Time Of Service: 2:15 p.m. Chief Complaint: "I have COVID and I need to get stronger." History Of Present Illness: Ms. Nunez is an 84-year-old patient with diabetes mellitus type 2, hype rtension, anxiety, lupus, arthritis, depression, Parkinson disease, chronic kidney disease who prese nts to the emergency department after falling at home due to generalized weakness. She was diagnosed with COVID-19 pneumonia, moderate protein malnutrition in addition to osteomyelitis of the second ri ght toe. Furthermore, she has multiple lab abnormalities. She was seen by Podiatry Service, Dr. Ysabel hudson, was initiated on IV antibiotics, IV Rocephin to continue for 6 weeks. She has MediHoney applied to the osteomyelitis wound. She had respiratory therapy and treatment with nebulizers, albuterol inc luded and had oxygen via nasal cannula. She received Lovenox for DVT prophylaxis and pain management with multimodality treatment including gabapentin and Tylenol. In terms of COVID-19, she did not re ceive Paxlovid. While hospitalized, and she is noted to be significantly deconditioned, had impaired mobility, poor endurance, shortness of breath with dyspnea on exertion and of course requirement for oxygen. In addition, she has labs that were requiring monitoring including her glucose, hemoglobin, hematocrit, and kidney function, including BUN and creatinine along with glucose. 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 Prior to her recent deconditioning due to the COVID-19, she resided at home with a nephew, was indepe ndent, with help for bathing and medication management. She would take her medications independently once they were placed for her. She ambulated with a Rollator independently, but required minimum as sistance for showering and safety issues. As a result of her recent hospitalization with COVID-19, s he became significantly debilitated, requiring moderate assistance for activities of daily living and mobilizing and transferring. Her admission to the inpatient rehabilitation unit is necessary mark valente if she is to be discharged home currently, she would likely worsen potentially fall, and have worse maria r condition. Furthermore, she required a course of antibiotics to continue and her electrolyte an d other lab parameter abnormalities to be monitored carefully. Her plan is to return home with famil y and continue physical therapy as she receives the complete course of her IV antibiotics. We will h elp facilitate a reduction of the risk of rehospitalization and for her return to her prior level of functioning. Past Medical History: As noted above. Past Surgical History: Cholecystectomy, back surgery, hysterectomy. Allergies: IODINE, MORPHINE, CODEINE. Medications: Tylenol 650 mg every 6 hours as needed, albuterol nebulizer 2.5 mg 3 times daily, Norva sc 5 mg daily, Eliquis 2.5 mg twice daily, aspirin 81 mg daily, Sinemet 25/100 four times daily, Roce phin 1000 mg daily, MediHoney apply to the osteomyelitis wound daily, Glucerna 237 mL twice daily, Du ragesic patch 50 mcg every 48 hours, gabapentin 800 mg 3 times daily, Synthroid 0.1 mg daily, Cozaar 50 mg daily, magnesium oxide 400 mg daily, Lopressor 50 mg twice daily, Bactroban nasal spray apply t wice daily, tramadol 50 mg twice daily. Laboratory Studies: Blood glucose 110. White blood cell count 9.3, hemoglobin 9.9, hematocrit 29.9, platelets 221. Potassium 4.5, glucose 168, BUN 22, creatinine 0.89, calcium 9.0. Magnesium 2.0. Sodium 132. Family History: Noncontributory. Review of Systems: COVID-19 symptoms of mild cough. No fever or any shortness of breath. No fatigue. Decreased endur ance is noted. Otherwise, no rash. No active gastrointestinal and genitourinary complaints and no o ther positives on the systems review. Current Level Of Functioning: Currently, setup assistance for eating; supervision for grooming; mode rate assistance for bathing; supervision for upper body dressing; moderate assistance for lower body dressing; toileting, moderate assistance; transferring from bed to wheelchair, to chair and back mode rate assistance; toilet transfers, moderate assistance; ambulation, moderate assistance covering just 3 steps. Physical Examination: Vital Signs: Blood pressure is 139/56, pulse 63, respiratory rate 16, temperature 97.2, oxygen satur ation 97%. Weight 133 pounds, height 5 feet 3 inches, BMI 23.6. General: Ms. Nunez is lying in bed. Daughter is at the bedside. HEENT: She appears normocephalic, atraumatic. Sclerae anicteric. Oropharynx pink and moist. Neck: Supple. Chest: Clear. Heart: Regular. Neurological: She has a diffuse pattern of weakness in the upper and lower extremities. Her face h as currently slight decrease on the right side, nasolabial fold with good excursions. Her sensory ex am, mild stocking-glove loss, light touch, temperature. Reflexes depressed. Rehab And Medical Assessment And Plan: Ms. Nunez is an 84-year-old patient admitted to the [facility] rehabilitation unit with impairment category 20, miscellaneous. Impairment group code is 16, debil ity. Etiologic diagnosis: COVID-19 pneumonia. Her comorbid conditions include the osteomyelitis wi th IV Rocephin to complete 6 weeks. She is followed by Dr. Hoff of Infectious Disease Service. Shy valente has MediHoney applied. In addition, COVID-19 related shortness of breath requiring oxygenation. S he has anxiety, hypertension, diabetes mellitus, lupus, arthritis, Parkinson disease, and chronic kid gómez disease. Her plan will be to continue with IV antibiotics. Continue with comorbid condition med ications, which have been detailed. She has DVT prophylaxis on board. Stroke risk reduction on and pain is addressed by returning her pain patch and gabapentin. She will have physical, occupat ional, and if need be speech therapy 3.5 hours, 5 of 7 days. Comorbidities That Are Impacting Rehabilitation: Of course, she requires IV antibiotics and her amanda go will be worked around to continue IV antibiotics. She has osteomyelitis and wound on the foot a nd she will be followed by Wound Care while hospitalized. Again, MediMarisabel to be applied to her woun d. For Parkinson's, she has risk of freezing and falling. Carbidopa/levodopa will be continued and if need be, a dosage adjustment will be made with a frequency of medication depending on her response . She also will be at risk for orthostatic hypotension and if need, DIANE hose and abdominal binder wi ll be placed. Rehab Specific Plan: Ms. Nunez will have physical, occupational and if need be, speech therapy to i mprove her ability to transfer from a bed to a chair, to a wheelchair, to use a rolling walker to mob ilize around the unit, to get on and off the toilet and in and out shower to perform her activities o f daily living including dressing upper and lower body and donning and doffing footwear. If need be with speech, she will work to make safe decisions regarding her transfers, mobilization, and reduce r isk of falls and taking medications properly. Ms. Nunez has a good understanding of the process of admission to the inpatient rehabilitation unit and how she will benefit from physical, occupational, and if need be speech therapy. She will have 2 4 hours a day, 7 days a week skilled rehabilitation nursing, daily physician evaluation and managemen t, and case management social worker evaluation and management for discharge planning, home equipment, and to kt nue therapy after discharge. If need be, the hospitalist service will be involved and Dr. Hoff, In fectious Disease Service as well. Barriers To Discharge: It is noted, she is on IV antibiotics and they will have to be set up to go h ome. She is also at risk of worsening due to Parkinson disease and of course her osteomyelitis. She may require prolonged hospital stay. Currently, the plan is for her to go home from inpatient rehab ilitation unit to continue therapy via Home Health. Length Of Stay: 2 weeks. Disposition: Expected to be home to continue therapy via Home Health. Prognosis: Good. Code Status: Full code. Rehab Specific Goals: 1. Become independent with her upper and lower body dressing and donning and doffing footwear. 2. Independently transfer from bed to chair, to toilet, to shower. 3. Independently able to use rolling walker and a wheelchair, should be mobilized 250 feet and go up and down 10 steps with bilateral handrails. 4. Perform all ADLs independently. 5. Perform all cognitive functioning independently. The above goals were reviewed with Ms. Nunez and she is in agreement. By signing this document, I acknowledge, I personally performed a full physical examination on Ms. Litzy martinez no later than 24 hours after her admission to the inpatient rehabilitation unit and determined t hat she is able to tolerate the above course of treatment at an intensive level for reasonable period of time. A detailed individualized plan of care for her will be completed by hospital day 4 based o n the preadmission screen, history and physical, and therapy evaluations. VANESA/DEVEN Voice ID: [id number]
[2025-05-02] MEDS: LEVOTHYROXINE SOD 0.1 MG TAB PO SCH (06:30)
[2025-05-02] MEDS: CEFTRIAXONE 1,000 MG in NA CHLORIDE 0.9% 100 ML IVPB SCH (08:00)
[2025-05-02] MEDS: MEDIHONEY 44 ML TOPICAL TUBE TOP SCH (08:00)
[2025-05-02] MEDS: ASPIRIN 81 MG CHEWABLE TABLET PO SCH (08:00)
[2025-05-02] MEDS: MAGNESIUM OXIDE 400 MG TAB PO SCH (08:58)
[2025-05-02] MEDS: AMLODIPINE 5 MG TAB PO SCH (08:58)
[2025-05-02] MEDS: LOSARTAN POTASSIUM 50 MG TABLET PO SCH (08:58)
--- NOTE | 2025-05-02 13:39 | P.RH.PN ---
Estimated Length of Stay: 12 Expected Discharge Date: 05/13/25 Discharge Disposition Plan: Home Family Support: Yes Long-Term Goal: Mobility, Transfers, Self Care Vital Signs: Last Vital Signs Temp 98.6 F 05/02/25 07:45 Pulse 54 05/02/25 08:58 Resp 18 05/02/25 07:45 BP 149/54 H 05/02/25 08:58 Pulse Ox 96 05/02/25 07:45 Laboratory: Laboratory Last Values WBC 8.30 thou/uL (4.3-10.9) 05/02/25 04:55 RBC 3.09 M/uL (3.86-4.86) L 05/02/25 04:55 Hgb 9.6 g/dL (12.0-15.0) L 05/02/25 04:55 Hct 28.3 % (36.0-45.0) L 05/02/25 04:55 MCV 91.7 fL (80-100) 05/02/25 04:55 MCH 31.1 pg (27.0-35.0) 05/02/25 04:55 MCHC 33.9 g/dL (32.0-36.0) 05/02/25 04:55 RDW 14.2 % (12.1-15.2) 05/02/25 04:55 Plt Count 249 thou/uL (152-406) 05/02/25 04:55 MPV 7.2 fL (7.6-11.3) L 05/02/25 04:55 Neutrophils % 67.0 % (41.7-73.7) 05/02/25 04:55 Lymphocytes % 23.1 % (15.3-44.8) 05/02/25 04:55 Monocytes % 7.7 % (3.3-12.3) 05/02/25 04:55 Eosinophils % 1.7 % (0-4.4) 05/02/25 04:55 Basophils % 0.5 % (0-1.3) 05/02/25 04:55 Absolute Neutrophils 5.6 K/uL (1.8-8.0) 05/02/25 04:55 Absolute Lymphocytes 1.9 K/uL (0.7-4.9) 05/02/25 04:55 Absolute Monocytes 0.6 K/uL (0.1-1.3) 05/02/25 04:55 Absolute Eosinophils 0.1 K/uL (0-0.5) 05/02/25 04:55 Absolute Basophils 0.0 K/uL (0-0.5) 05/02/25 04:55 Sodium 137 mEq/L (136-145) 05/02/25 04:55 Potassium 3.5 mEq/L (3.5-5.1) 05/02/25 04:55 Chloride 105 mEq/L (98-107) 05/02/25 04:55 Carbon Dioxide 31 mEq/L (21-32) 05/02/25 04:55 Anion Gap 4.5 mEq/L (5.0-15.0) L 05/02/25 04:55 BUN 20 mg/dL (7-18) H 05/02/25 04:55 Creatinine 0.83 mg/dL (0.55-1.02) 05/02/25 04:55 Est GFR (CKD-EPI) 70 ml/min (=/>90) L 05/02/25 04:55 Glucose 90 mg/dL (74-106) 05/02/25 04:55 POC Glucose 110 mg/dL (65-120) 05/01/25 16:11 Hemoglobin A1c 5.1 % (4.2-6.3) 05/02/25 04:55 Calcium 8.1 mg/dL (8.5-10.1) L 05/02/25 04:55 Magnesium 1.7 mg/dL (1.6-2.4) 05/02/25 04:55 Albumin 2.6 g/dL (3.4-5.0) L 05/02/25 04:55 Prealbumin 29.6 mg/dL (20-40) 05/02/25 04:55 Urine Color Light-yellow (Yellow) 05/01/25 20:35 Urine Clarity Clear (Clear) 05/01/25 20:35 Urine pH 6.5 (5.0-7.0) 05/01/25 20:35 Ur Specific [place] 1.013 (1.005-1.030) 05/01/25 20:35 Glucose (UA)(Auto) Negative (Negative) 05/01/25 20:35 Urine Ketones Negative (Negative) 05/01/25 20:35 Urine Blood Negative (Negative) 05/01/25 20:35 Urine Nitrite Negative (Negative) 05/01/25 20:35 Urine Bilirubin Negative (Negative) 05/01/25 20:35 Urine Urobilinogen Normal (Normal) 05/01/25 20:35 Ur Leukocyte Esterase Negative Bernice/uL (Negative) 05/01/25 20:35 Urine Total Protein Negative (Negative) 05/01/25 20:35 Weight: 133 lb Wound Present: Yes Closed Surgical Incision Present: No Negative Pressure Wound Therapy Present: No Physician Update: Labs are stable. Second right toe osteo treated with medihoney, and IV antibiotics. Her Parkinson's is managed well. BIMS 14, SLUMS 19, poor memory with poor articulation. CGA bed turning, min to mod for transfers. Will increase Sinemet to 25/100 mg two three times daily. Bathing max assist, min for oral hygiene and max lower body dressing. Her pain patches were replaced. Summary: Patient's care plan and custodial goals have been reviewed and revised as necessary. Please see the Rehabilitation Signature page for all necessary signatures.
[2025-05-02] MEDS: CARBIDOPA/LEVODOPA 25/100 TAB PO SCH (14:48)
[2025-05-02] MEDS: CEFTRIAXONE 2,000 MG in NA CHLORIDE 0.9% 100 ML IV SCH (20:06)
[2025-05-03] MEDS: CARBIDOPA/LEVODOPA 25/100 TAB PO SCH (07:16)
[2025-05-03] MEDS: AMANTADINE 100 MG CAP PO SCH (08:00)
[2025-05-03] MEDS ORDERED: MEDIHONEY 44 ML TOPICAL TUBE TOP SCH (08:00)
[2025-05-03] MEDS: FENTANYL 50 MCG/PATCH TD SCH (08:01)
[2025-05-03] MEDS: ALBUTEROL 2.5 MG/3 ML NEB SOL NEB PRN (10:54)
[2025-05-03] MEDS ORDERED: CARBIDOPA/LEVODOPA 25/100 TAB PO SCH ×2 (12:00→17:00)
[2025-05-03] MEDS: SODIUM CHLORIDE 0.9% 10ML INJ IV PRN (20:11)
[2025-05-04] MEDS: ACETAMINOPHEN 325 MG TABLET PO PRN (04:00)
[2025-05-04] MEDS ORDERED: GABAPENTIN 400 MG CAP ONE (14:02)
[2025-05-05] MEDS: AMANTADINE 100 MG CAP PO SCH (08:31)
[2025-05-05] MEDS: CYANOCOBALAMIN 1000MCG/ML INJ IM ONE (14:03)
--- NOTE | 2025-05-06 03:37 | PN ---
Date of Progress Note: 05/05/2025 Time Of Service: Subjective: Ms. Nunez is resting in bed between therapy sessions. She today. She did h ave oxygen via nasal cannula. She is off she is asymptomatic. Objective: No fevers, chills, nausea, vomiting, myalgias, arthralgias. No rash or psychiatric issue s. Physical Examination: Vital Signs: Blood pressure 132/62, pulse 86, respiratory rate 18, temperature 98.4, and oxygen satu ration 98%. General: Ms. Nunez is resting comfortably in bed. She is in no significant distress. She __. Abdomen: Soft. Extremities: No significant clubbing, cyanosis, or edema. Laboratory Studies: White blood cell count , hemoglobin 9.6, platelets 249. Sodium 137, p otassium 3.5, chloride 105, carbon dioxide 31, BUN 20, creatinine 0.83, glucose 99 to 110 range. Hem oglobin A1c 5.1, calcium 8.1, magnesium 1.7, albumin 2.6, prealbumin 29.6. Urinalysis is normal. Medications: Tylenol 650 mg every 6 hours as needed, albuterol nebulizer 2.5 mg 3 times daily as nee ded, Symmetrel that is amantadine 100 mg every 48 hours, Norvasc 5 mg daily, Eliquis 2.5 mg twice griffin ly, aspirin 81 mg daily, carbidopa/levodopa that is Sinemet 25/100 two tablets at 7, at noon, and at 5. She is continuing the Rocephin 2 g daily . Medihoney applied to the wound on the right foot, Glucerna 237 mL twice daily, Duragesic patch 50 mcg every 48 hours, gabapentin 3 ti mes daily, Synthroid 0.1 mg daily, Cozaar 50 mg daily, magnesium oxide 400 mg daily, Lopressor 50 mg twice daily, and tramadol 50 mg twice daily. X-ray/imaging: No new x-rays or imaging. Progress Made With Physical, Occupational, And Speech Therapy: With physical therapy she performed m ultiple bmuzwi-ph-[id number] transfers with minimal assistance, multiple [id number]-dp-[id number] transfers with contact guard assistance times with minimal assistance. Mobilized wheelchair. standb y assistance and verbal cues. With occupational therapy today, she required partial assist for bathi ng, supervision for rgrxqr-tn-[id number] transfers and to manage her buttocks region and she shor t-term memory skills. She recalled 2 of 4 unrelated pictures after 3 minutes on the first attempt an d 4 of 4 for after one minute and 3-minute delay. She used divergent naming for 7 items per concrete category with 100% accuracy and maximum verbal cues required. Assessment And Plan: Ms. Nunez is an 84-year-old patient in rehabilitation unit with . S he has debility, decreased physical functioning, decreased mobility. She is improving but somewhat s lowly. Still has significant pain in her back. She has multiple modalities Synthroid for hypothyroidism. She has Parkinson disease and is on Sinemet osteomyelitis of the toe. S he is on Norvasc for blood pressure, Eliquis for DVT prophylaxis, albuterol nebulizer for shortness o f breath and oxygen via nasal cannula. The osteomyelitis is in the second right toe. She was follow ed by Dr. Santana on Podiatry Service. VANESA/DEVEN Voice ID: [id number] Report ID: [id number]
[2025-05-06] MEDS: TRAMADOL HCL 50 MG TAB PO SCH (19:00)
--- NOTE | 2025-05-06 21:31 | PN ---
Date of Progress Note: 05/06/2025 Time Of Service: 1:16 p.m. Subjective: Ms. Nunez is resting in bed between therapy sessions. She did have some pain in the le ft gluteal region when mobilizing. Otherwise, no new complaints. She does have mild shortness of br eath. She did have oxygen via nasal cannula. She was using an incentive spirometry. She is recover ing well from COVID pneumonia. Objective: No fevers, chills. No nausea, vomiting, myalgias, arthralgias. No rash or psychiatric c omplaints. Physical Examination: Vital Signs: Blood pressure 136/58, pulse of 79, respiratory rate 16, temperature 97.8, oxygen satur ation 97%. General: Ms. Nunez is resting comfortably. She does not have focal deficits in the lower extremiti es. She does have Parkinson disease with some bradykinesia, but is doing well. Laboratory Studies: No new laboratory studies. X-ray/imaging: No new x-rays or imaging studies. Medications: Medications have been reviewed. She does have Rocephin continued as 2 g daily, which w as started on 05/02 and will be continued until 06/06. She has tramadol now scheduled in the morning and at noontime due to some pain. She does have a significant amount of Duragesic patch on. Progress Made With Physical, Occupational, And Speech Therapy: With physical therapy today, she did bed mobility with minimum assistance. Multiple ntl-al-urxik and stand and pivot transfers with minim um assistance. Ambulated 25 feet, 30 feet twice with moderate assistance using a rolling walker and wheelchair mobilization was 50 feet and 25 feet with minimal assistance and she will require. With o ccupational therapy, minimum assistance for toileting, wiping buttocks after a bowel movement. She w as independent with bed mobility. She did complete several sets of chest press exercises. With spee therapy today, she recalled 4/4 unrelated items after 7-minute delay with independence. Needed minimum assistance for convergent and divergent naming tasks with 80% accuracy. Assessment: Ms. Nunez is an 84-year-old patient in rehabilitation unit in the morning, w hich is improving well. She still has decreased mobility, decreased physical functioning, hypothyroi dism. She has chronic back pain. She has Parkinson disease on carbidopa/levodopa. She has Eliquis for DVT prophylaxis, aspirin for stroke risk reduction, Norvasc for addressing hypertension. The ama ntadine also needs to address the Parkinson disease, Duragesic patch on board. Gabapentin schedule i s mg 3 times daily. She has Synthroid for hypothyroidism. Plan: She will continue with physical, occupational, and speech therapy 3-1/2 hours, 5 of 7 days. A list of comorbid conditions has been noted. We will continue incentive spirometry. Encouraged to r epeat chest x-ray, may be done to look for any residual evidence of pneumonia. VANESA/DEVEN Voice ID: [id number] Report ID: [id number]
--- NOTE | 2025-05-07 07:49 | RAD REPORT ---
EXAMINATION: Head Brain Wo Cont CLINICAL INDICATION: Female, 84 years old.intermittent increased weakness TECHNIQUE: Axial CT images from the skull base to the vertex without intravenous contrast. Coronal an d sagittal reformatted images were created from the data set. One or more of the following dose reduction techniques were used: Automated exposure control, adjustment of the mA and/or kV according to patient size, and/or iterative reconstruction. Unless otherwise specified, incidental findings do not require dedicated imaging follow-up. [id number]. COMPARISON: 04/24/2025 FINDINGS: INTRACRANIAL: No acute intracranial hemorrhage. No acute large vascular territory infarct. No hydroce phalus. No mass effect or midline shift. Moderate chronic small vessel ischemic changes.Moderate cerebral atrophy. VASCULATURE: No visualized abnormalities in the arteries or dural venous sinuses. SCALP/SKULL: No calvarial fracture identified. No acute soft tissue abnormality. SINUSES: Scattered areas of paranasal sinus thickening. No significant mastoid fluid. IMPRESSION: No acute intracranial abnormality. Cerebral atrophy with chronic small vessel ischemic changes.
--- NOTE | 2025-05-08 01:57 | PN ---
Date of Progress Note: 05/07/2025 Time Of Service: 1:30 p.m. Subjective: Ms. Nunez is resting in bed. She is happy with therapy so far and she does not have an y new complaints. She was actually in the bathroom and was off oxygen with no shortness of breath an d she is speaking easily without any difficulty. The patient's daughter was on the phone as she was informed of the head CT scan results, which showed no unexpected findings. There was no evidence of any hemorrhagic changes or cerebral atrophy with chronic small vessel ischemic disease and nature was at a moderate level. Review of Systems: She denies any fevers, chills, nausea, vomiting. No shortness of breath. Some significant pain, whi ch is being managed by multiple pain modalities and that is chronic in the lower back. Laboratory Studies: No new laboratory studies. X-ray/imaging: As noted above in the CT scan. Medications: The medications have been reviewed and she is continuing with the Rocephin as noted 200 0 mg daily from 05/02 to 06/06. She has Medihoney applied to her wound in the toe. She has Synthroi d Cozaar, Milk of Magnesia, metoprolol. She is using tramadol, now scheduled for pain, amantadine, and Sinemet for her Parkinson disease. Plan: She will continue with physical, occupational, and speech every 3.5 hours, 5 of 7 days. She h as her medications addressing comorbid conditions will be continued. She will still be on antibiotic s for the osteomyelitis and we will follow up with the surgery service and Wound Care Service after discharge. Follow up in Dr. Blanco's office. However, she will continue therapy until next week. VANESA/DEVEN Voice ID: [id number] Report ID: [id number]
[2025-05-08 05:13] LABS: Absolute Lymphocytes (CBC) 1.7 K/uL (0.7-4.9); Hematocrit 22.6 % (36.0-45.0); Hemoglobin 7.4 g/dL (12.0-15.0); MCH 30.3 pg (27.0-35.0); MCHC 32.9 g/dL (32.0-36.0); MCV 92.0 fL (80-100); MPV 7.8 fL (7.6-11.3); Nucleated RBC Absolute Count 0.0 (0-0); Nucleated Red Blood Cells % 0.1 % (0-0); RBC Red Blood Cell Count 2.46 M/uL (3.86-4.86); White Blood Count 5.80 thou/uL (4.3-10.9)
[2025-05-08 05:36] LABS: Albumin 2.3 g/dL (3.4-5.0); Anion Gap 8.0 mEq/L (5.0-15.0); BUN Blood Urea Nitrogen 12.0 mg/dL (7-18); Glucose Level 78.0 mg/dL (74-106); Magnesium 2.0 mg/dL (1.6-2.4); Potassium 4.0 mEq/L (3.5-5.1); Prealbumin 13.5 mg/dL (20-40)
[2025-05-08] MEDS: TRAMADOL HCL 50 MG TAB PO SCH (14:22)
[2025-05-08] MEDS: ALTEPLASE 2 MG/VIAL IV ONE ×2 (17:17)
--- NOTE | 2025-05-08 23:23 | PN ---
Date of Progress Note: 05/08/2025 Time Of Service: 1:35 p.m. Subjective: Ms. Nunez is resting in a chair beside bed. She is very happy so far with progress in terms of recovery of her COVID and debility. She is doing excellent and has no new complaints. Review of Systems: No fevers, chills, nausea, vomiting, myalgias, arthralgias, rash. No shortness of breath. Physical Examination: Vital Signs: Blood pressure 159/61, pulse 63, respiratory rate 18, temperature 98.3, oxygen saturati on 97%. General: Again, Ms. Nunez is resting comfortably and now new findings and distress. Pain is still present in the low back and is quite. She is on multimodality pain management. HEENT: Again, she is normocephalic, atraumatic. Sclerae anicteric. Oropharynx pink and moist. Neck: Supple. Chest: Clear. Extremities: No significant edema, cyanosis, or clubbing. Laboratory Studies: White blood cell count 5.8, hemoglobin 7.4. She does have platelets 161. Sodiu m 136, potassium 4.0, chloride 102, carbon dioxide is 30, creatinine 0.9, glucose 78, calcium 8.2, ma gnesium 2.0, albumin 2.3, prealbumin 13.5. X-ray/imaging: CT scan of the head done yesterday that was discussed with the patient and family, th at study showed no acute intracranial abnormalities, cerebral atrophy with chronic small vessel ische silver disease identified. Progress Made With Physical, Occupational, And Speech Therapy: With physical therapy today, she did ambulate 25 feet 3 times with minimum assistance. She did have some bruising with Parkinson disease. She did wheelchair mobilization 150 with standby assistance and about 40 feet with standby assistan ce. With occupational therapy, supervision for upper body dressing, dependent for bed mobility. Wit h speech, she used working memory for 3 units of information with 80% accuracy and moderate assistanc e. Convergent and divergent naming task done with 90% accuracy for concrete categories. Assessment: Ms. Nunez is an 84-year-old patient in rehabilitation unit with COVID-19 pneumonia and debility. She has decreased mobility, decreased physical functioning, but is doing very well. She h as hypertension, Parkinson's disease, neuropathic pain, hypothyroidism, and back pain is chronic. Plan: She will continue with physical, occupational, and speech therapy 3.5 hours, 5 of 7 days. Surendra doshi all comorbid medication list which have been noted. She will have her DVT prophylaxis addresse d with Eliquis 2.5 mg twice daily, stroke risk addressed with aspirin. She has Sinemet for Parkinson 's disease, Medihoney for wound to the right foot, and she is also continuing Rocephin as noted previ ously on 05/02/2025 to 06/06/2025 for osteomyelitis in midfoot. All those will be continued once she is discharged. Antibiotics continued by ID. VANESA/DEVEN Voice ID: [id number] Report ID: [id number]
[2025-05-09 05:08] LABS: Absolute Lymphocytes (CBC) 1.8 K/uL (0.7-4.9); Hematocrit 22.4 % (36.0-45.0); Hemoglobin 7.5 g/dL (12.0-15.0); MCH 30.8 pg (27.0-35.0); MCHC 33.6 g/dL (32.0-36.0); MCV 91.7 fL (80-100); MPV 7.3 fL (7.6-11.3); Nucleated RBC Absolute Count 0.0 (0-0); Nucleated Red Blood Cells % 0.0 % (0-0); RBC Red Blood Cell Count 2.44 M/uL (3.86-4.86); White Blood Count 5.50 thou/uL (4.3-10.9)
[2025-05-09 05:34] LABS: Albumin 2.4 g/dL (3.4-5.0); Anion Gap 7.0 mEq/L (5.0-15.0); BUN Blood Urea Nitrogen 10.0 mg/dL (7-18); Glucose Level 74.0 mg/dL (74-106); Magnesium 1.9 mg/dL (1.6-2.4); Potassium 4.0 mEq/L (3.5-5.1); Prealbumin 12.1 mg/dL (20-40)
[2025-05-09] MEDS: TRAMADOL HCL 50 MG TAB PO SCH (08:17)
--- NOTE | 2025-05-09 14:12 | P.RH.PN ---
Estimated Length of Stay: 15 Expected Discharge Date: 05/13/25 Discharge Disposition Plan: Home Family Support: Yes Retirement Goal: Mobility, Transfers, Self Care Vital Signs: Last Vital Signs Temp 98.0 F 05/09/25 07:00 Pulse 52 05/09/25 08:17 Resp 20 05/09/25 07:00 BP 153/56 H 05/09/25 08:17 Pulse Ox 96 05/09/25 07:00 Laboratory: Laboratory Last Values WBC 5.50 thou/uL (4.3-10.9) 05/09/25 04:20 RBC 2.44 M/uL (3.86-4.86) L 05/09/25 04:20 Hgb 7.5 g/dL (12.0-15.0) L 05/09/25 04:20 Hct 22.4 % (36.0-45.0) L 05/09/25 04:20 MCV 91.7 fL (80-100) 05/09/25 04:20 MCH 30.8 pg (27.0-35.0) 05/09/25 04:20 MCHC 33.6 g/dL (32.0-36.0) 05/09/25 04:20 RDW 13.5 % (12.1-15.2) 05/09/25 04:20 Plt Count 205 thou/uL (152-406) D 05/09/25 04:20 MPV 7.3 fL (7.6-11.3) L 05/09/25 04:20 Neutrophils % 53.4 % (41.7-73.7) 05/09/25 04:20 Lymphocytes % 33.2 % (15.3-44.8) 05/09/25 04:20 Monocytes % 8.1 % (3.3-12.3) 05/09/25 04:20 Eosinophils % 3.8 % (0-4.4) 05/09/25 04:20 Basophils % 1.5 % (0-1.3) H 05/09/25 04:20 Absolute Neutrophils 3.0 K/uL (1.8-8.0) 05/09/25 04:20 Absolute Lymphocytes 1.8 K/uL (0.7-4.9) 05/09/25 04:20 Absolute Monocytes 0.4 K/uL (0.1-1.3) 05/09/25 04:20 Absolute Eosinophils 0.2 K/uL (0-0.5) 05/09/25 04:20 Absolute Basophils 0.1 K/uL (0-0.5) 05/09/25 04:20 Sodium 134 mEq/L (136-145) L 05/09/25 04:20 Potassium 4.0 mEq/L (3.5-5.1) 05/09/25 04:20 Chloride 101 mEq/L (98-107) 05/09/25 04:20 Carbon Dioxide 30 mEq/L (21-32) 05/09/25 04:20 Anion Gap 7.0 mEq/L (5.0-15.0) 05/09/25 04:20 BUN 10 mg/dL (7-18) 05/09/25 04:20 Creatinine 0.91 mg/dL (0.55-1.02) 05/09/25 04:20 Est GFR (CKD-EPI) 63 ml/min (=/>90) L 05/09/25 04:20 Glucose 74 mg/dL (74-106) 05/09/25 04:20 POC Glucose 99 mg/dL (65-120) 05/03/25 19:43 Hemoglobin A1c 5.1 % (4.2-6.3) 05/02/25 04:55 Calcium 7.9 mg/dL (8.5-10.1) L 05/09/25 04:20 Magnesium 1.9 mg/dL (1.6-2.4) 05/09/25 04:20 Albumin 2.4 g/dL (3.4-5.0) L 05/09/25 04:20 Prealbumin 12.1 mg/dL (20-40) L 05/09/25 04:20 Urine Color Light-yellow (Yellow) 05/01/25 20:35 Urine Clarity Clear (Clear) 05/01/25 20:35 Urine pH 6.5 (5.0-7.0) 05/01/25 20:35 Ur Specific [place] 1.013 (1.005-1.030) 05/01/25 20:35 Glucose (UA)(Auto) Negative (Negative) 05/01/25 20:35 Urine Ketones Negative (Negative) 05/01/25 20:35 Urine Blood Negative (Negative) 05/01/25 20:35 Urine Nitrite Negative (Negative) 05/01/25 20:35 Urine Bilirubin Negative (Negative) 05/01/25 20:35 Urine Urobilinogen Normal (Normal) 05/01/25 20:35 Ur Leukocyte Esterase Negative Bernice/uL (Negative) 05/01/25 20:35 Urine Total Protein Negative (Negative) 05/01/25 20:35 Weight: 127 lb 1.6 oz Wound Present: Yes Closed Surgical Incision Present: No Negative Pressure Wound Therapy Present: No Physician Update: Labs reviewed and are stable. Still has moderate pain. Right 2nd toe osteo on IV antibiotics. Option care will continue at home IV. SBA bed mobility, CGA for sit to stand, min assist pivot transfers. May has freezing and have retropulsion. Supervision with upper body dressing. Summary: Patient's care plan and salvage determiner goals have been reviewed and revised as necessary. Please see the Rehabilitation Signature page for all necessary signatures.
[2025-05-09] MEDS: CYANOCOBALAMIN 1000MCG/ML INJ IM ONE (15:34)
[2025-05-10] MEDS: FE SULF/FA/VIT B COMP & C TAB PO SCH (08:03)
[2025-05-10] MEDS: LIDOCAINE 4% PATCH TOP SCH (08:04)
[2025-05-12 07:49] LABS: Absolute Lymphocytes (CBC) 2.1 K/uL (0.7-4.9); Hematocrit 24.7 % (36.0-45.0); Hemoglobin 8.3 g/dL (12.0-15.0); MCH 30.8 pg (27.0-35.0); MCHC 33.6 g/dL (32.0-36.0); MCV 91.8 fL (80-100); MPV 7.0 fL (7.6-11.3); Nucleated RBC Absolute Count 0.0 (0-0); Nucleated Red Blood Cells % 0.0 % (0-0); RBC Red Blood Cell Count 2.69 M/uL (3.86-4.86); White Blood Count 5.30 thou/uL (4.3-10.9)
[2025-05-12 08:12] LABS: Albumin 2.7 g/dL (3.4-5.0); Anion Gap 4.7 mEq/L (5.0-15.0); BUN Blood Urea Nitrogen 11.0 mg/dL (7-18); Glucose Level 91.0 mg/dL (74-106); Magnesium 2.0 mg/dL (1.6-2.4); Potassium 3.7 mEq/L (3.5-5.1); Prealbumin 12.6 mg/dL (20-40)
[2025-05-13 21:35] VITALS: O2SAT 93
--- NOTE | 2025-05-14 02:26 | PN ---
Date of Progress Note: 05/13/2025 Time: 1:00 p.m. Subjective: Ms. Nunez is mobilizing around the unit in a wheelchair. She is feeling much better ab out her progress. She has overcome the shortness of breath related to COVID pneumonia and is stronge r from her exercise, improving her debility. Review of Systems: No significant fevers, chills, nausea, vomiting, or shortness of breath. Still has chronic back pain . She is followed by Dr. Rodriguez, her auth specialist, and he will be giving her fentany l patches once discharged. She does have tramadol on board as well as gabapentin. Physical Examination: Vital Signs: Blood pressure is 149/66, pulse 68, respiratory rate of 16, temperature 98.8, oxygen sa turation is 91% on room air. General: Ms. Nunez again is mobilizing around the unit. HEENT: She appears normocephalic, atraumatic. Sclerae anicteric. Oropharynx moist. Neck: Supple. Chest: Clear. Extremities: No significant edema, cyanosis, or clubbing. Neuro: She does have a mild masklike face and bradykinesia as part of her Parkinson disease. Laboratory Studies: White blood cell count 5.3, hemoglobin 8.3, platelets 214. Sodium 136, potassiu m 3.7, chloride 105, carbon dioxide 30, BUN is 11, creatinine 0.91. Prealbumin 12.6, albumin 2.7. M agnesium 2.0. Calcium 8.8. X-ray/imaging: No new x-rays or imaging. Progress Made With Physical, Occupational, And Speech Therapy: She is actually doing very well. Wit h physical therapy today, she was able to don and doff shoes, socks independently using a dressing st ick. She did ambulate 10 feet twice with a rolling walker with standby assistance and another 15 fee t twice with a rolling walker with standby assistance later in the day. With occupational therapy, s he was able to lock her wheelchair properly no more than 2 verbal prompts required. Independent wit h edge of bed to wheelchair transfer. Shower transfer also doing so independently. She dons and dof fs her upper and lower body dressing independently. With speech, she did have BIMS score improved to 15/15 and the SLUMS score improved to 24/30 indicating mild cognitive impairment. It is suggested t he patient continue with therapy. Tomorrow will be her discharge. She will have physical, occupati onal, and speech therapy continued. Assessment And Plan: Ms. Enrique hairston is an 84-year-old patient in rehabilitation unit with COVID p neumonia and debility from which she is improving well. Still has mild decreased mobility, decreased physical functioning. Significant lower back pain is addressed. She has osteomyelitis in the right second toe. She is on Rocephin, Rocephin will continue. It was 05/[address] to 06/06. Contin ue Glucerna for malnutrition, Duragesic patch, gabapentin. Continue carbidopa/levodopa for Parkinson disease. High blood pressure managed by [facility] and she has amantadine to extend the effectiveness of the carbidopa/levodopa. She has Tylenol for pain, and she has Hemocyte Plus for anemia. She has scheduled tramadol. Followup will be with her primary care physician. She will follow up with Neuro logy, Dr. Blanco. She will also continue therapy, physical, occupational, and speech after dischar ge. LB/MODL Voice ID: [id number] Report ID: [id number]
[2025-05-14 07:10] VITALS: BP 154/62; TEMP 97.6
== END 2025-05-14 11:00 | disposition home health service (06) | DRG 948 ==
LOC: 5TH 10:54
PROVIDERS: ADMIT Psychiatry & Neurology Neurology with Special Qualifications in Child Neurology; ATTEND Psychiatry & Neurology Neurology with Special Qualifications in Child Neurology
DX: R53.81 Other malaise (principal); M86.8X7 Other osteomyelitis, ankle and foot; G20.A1 Parkinson's disease without dyskinesia, without mention of fluctuations; R53.1 Weakness; R06.02 Shortness of breath; M32.9 Systemic lupus erythematosus, unspecified; M19.90 Unspecified osteoarthritis, unspecified site; E11.69 Type 2 diabetes mellitus with other specified complication; E11.621 Type 2 diabetes mellitus with foot ulcer; L97.519 Non-pressure chronic ulcer of other part of right foot with unspecified severity; I12.9 Hypertensive chronic kidney disease with stage 1 through stage 4 chronic kidney disease, or unspecified chronic kidney disease; E11.22 Type 2 diabetes mellitus with diabetic chronic kidney disease; N18.9 Chronic kidney disease, unspecified; G89.29 Other chronic pain; M54.50 Low back pain, unspecified; E03.9 Hypothyroidism, unspecified; D64.9 Anemia, unspecified; F41.9 Anxiety disorder, unspecified; Z86.16 Personal history of COVID-19
CPT/HCPCS: 36415; 70450; 80048; 81003; 82040; 82947; 83036; 83735; 84134; 85025; 92523; 94010; 94640; 97110; 97112; 97116; 97129; 97163; 97165; 97530; 97542; J0696; J2003; J2997; J3420; J7613